=== PATIENT | female | born 1950 | race Caucasian/White ===

== ENCOUNTER 2018-03-25 02:40 | Outpatient (CLI) | payer OTHER, SELFPAY ==
[2018-03-25 09:38] LABS: FREE T4 1.26 ng/dL (0.76-1.46); TSH 0.16 uIU/mL (0.358-3.74)
== END 2018-03-25 03:00 ==
PROVIDERS: PCP Nurse Practitioner Family; Visit Provider Nurse Practitioner Family
DX: E03.9 Hypothyroidism, unspecified (principal)
CPT/HCPCS: 36415; 84439; 84443

== ENCOUNTER 2018-04-14 00:56 | Outpatient (CLI) | payer OTHER, SELFPAY ==
--- NOTE | 2018-04-14 08:30 | DI.MAMMO_ITS ---
SYMPTOM/DIAGNOSIS: SCREENING MAMMOGRAMS: Mammograms were interpreted according to the usual protocol including computer analysis with CAD system, tomosynthesis and C view imaging. Breast density, category B. No masses or microcalcifications are seen. There is nothing to suggest malignancy. IMPRESSION: Negative mammogram. Routine screening is recommended. Category 1B. MQSA ASSESSMENT OF FINDINGS: Negative. Category 1. Patient will receive a letter notifying them of these results. BI-RADS category B. There are scattered areas of fibroglandular density.
== END 2018-04-14 01:16 ==
PROVIDERS: PCP Nurse Practitioner Family; Visit Provider Nurse Practitioner Family
DX: Z12.31 Encounter for screening mammogram for malignant neoplasm of breast (principal)
CPT/HCPCS: 77063; 77067

== ENCOUNTER 2018-04-16 07:45 | Outpatient (CLI) | payer OTHER, SELFPAY ==
[2018-04-16 08:14] LABS: Abs Immature Grans 0.02 k/cumm (0.0-0.09); Absolute Basophil Count 0.05 k/cumm (0.0-0.2); Absolute Eosinophil Count 0.31 k/cumm (0.0-0.7); Absolute Lymphocyte Count 4.14 k/cumm (1.2-3.4); Absolute Monocyte Count 0.81 k/cumm (0.11-0.7); Absolute Neutrophil Count 4.91 k/cumm (1.2-6.7); Basophils % 0.5; HGB 14.7 g/dL (12.0-15.5); Immature Grans % 0.2; Lymphocytes % 40.4; Mean Corp. HGB Concentration 33.4 g/dL (32.0-36.0); Mean Corpuscular Hemoglobin 31.3 pg (27.0-33.0); Mean Corpuscular Volume 93.6 fL (80-95); Mean Platelet Volume 10.6 fL (8.0-11.0); Monocytes % 7.9; Platelet Count 267 x1000/uL (130-400); RBC Distribution Width 13.4 % (11.7-14.6); White Blood Cell Count 10.24 k/cumm (4.4-10.8)
[2018-04-16 09:03] LABS: Anion Gap 8.3 mmol/L (3-11); BUN 17 mg/dL (7-18); CO2 29.7 mmol/L (21.0-32.0); CREATININE 0.83 mg/dL (0.55-1.02); Chloride 103 mmol/L (98-107); Glucose 116 mg/dL (70-100); Potassium 3.8 mmol/L (3.5-5.1); Sodium 141 mmol/L (136-145)
== END 2018-04-16 08:05 ==
PROVIDERS: PCP Nurse Practitioner Family; Visit Provider Orthopaedic Surgery
DX: M25.561 Pain in right knee (principal); M17.11 Unilateral primary osteoarthritis, right knee; I10 Essential (primary) hypertension; E03.9 Hypothyroidism, unspecified; R73.01 Impaired fasting glucose; E78.5 Hyperlipidemia, unspecified; J44.9 Chronic obstructive pulmonary disease, unspecified; E11.9 Type 2 diabetes mellitus without complications; Z01.818 Encounter for other preprocedural examination
CPT/HCPCS: 36415; 80051; 82947; 84520; 82565; 85025; 93005; 93010

== ENCOUNTER 2018-04-21 05:54 | Inpatient (IN) | payer OTHER, MEDICARE, SELFPAY ==
--- NOTE | 2018-04-16 10:28 | HPE_ITS ---
Date of service: 04/16/18 Assessment and Plan (1) Right knee pain: Current visit: Yes Status: Chronic Plan: Reviewed pertinent anatomy and discussed surgical technique, recovery, benefits and risks including but not limited to infection, damage to soft tissues/nerves/blood vessels. After discussion of risks patient elects to proceed with surgery. Patient had opportunity to have all questions answered to her satisfaction. Patient and have concerns about her being updated on surgery and on being brought to the recovery room as soon as possible. Discussed realistic expectations about patient's being brought to recovery room i.e. dependent on the patients in recovery and patient status. Counseled patient and that we will attempt to ensure proper communication during surgery and when patient is brought to recovery room. Patient will contact office if any issues arise. She will continue with preoperative visits as scheduled. Patient will continue to be scheduled for right total knee replacement with Dr. Hopkins on 04/21/2018. Ms. Soto is a 68-year-old female who presents to clinic with her , Abdelrahman, for preoperative visit for right total knee replacement with Dr. Hopkins on April 21, 2018. Patient reports she had onset of right knee pain approximately 1 year ago. She reports she has continued to experience pain in an area identified as the medial joint line, she also experiences occasional clicking. Patient reports that pain radiates up her right thigh with certain activities. She also describes muscle weakness on the right side due to the pain. Pain is aggravated by weather, prolonged standing, walking and with stairs. Due to her level of pain her built her a ramp to enter their house to avoid using a set of four stairs. Since patient has started seeing Dr. Hopkins she has undergone a right knee arthroscopy as well as a partial medial meniscectomy for complex tear on April 24, 2017. Patient reports arthroscopy helped with a clicking sensation but she has continued to have medial joint pain. Following arthroscopy, patient did receive a Synvisc injection on June 09, 2017 when she reports provided pain relief for less than 2 weeks. She also received a Depo-Medrol injection on November 03, 2017 which she says provided pain relief for less than 1 week. Patient also reports regular use of Tylenol and using a topical spray for arthritis which has provided slight pain relief. Patient does have history of left total knee replacement in August 2016 which she reports went well, her only complaint after left total knee was continued numbness on the lateral aspect which she has been told is normal after knee replacements. Patient denies any recent injuries or falls. She denies a locking sensation of the knee, numbness or tingling. In the review of systems patient does report experiencing occasional bouts of chest pain. She reports that she has had this for the past several years and has seen her primary care provider several times for this complaint. She reports numerous EKGs have been taken which did not show signs of heart damage. Patient describes pain as a twinge that occurs on the left side of her chest and lasts a few minutes. Patient reports pain can occur when sitting or with activity i.e. light housework. She denies ever using nitroglycerin. Pain resolved within several minutes if patient just focuses on breathing and sits down. Patient denies radiation of pain to her neck, jaw line or arm. She also denies any diaphoresis or difficulty breathing when she experiences pain. She states the last episode was over 1 month ago. Pertinent Surgical Information Pertinent medical history for vitamin D deficiency, vitamin B12 deficiency, sleep disturbance, primary fibromyalgia syndrome, orthostatic hypotension, neck pain, chronic low back pain, impaired fasting glucose, hypothyroidism, hyperlipidemia, GERD with esophagitis? which is now resolved, fatigue, essential tremor, depressive disorder, complicated migraine Denies past medical history of: Hypertension, stroke, cardiac issues, asthma, COPD, sleep apnea, renal issues, liver issues, hepatitis, ulcers, bleeding disorders, seizures, anxiety, diabetes, autoimmune disorders Denies prior complications from surgery or anesthesia. Review of Systems Constitutional Denies fever(s), Denies frequent falls and Reports headache(s) Eyes Denies change in vision ENT Denies ear discharge, Reports headache(s), Denies epistaxis, Denies nasal congestion, Denies nasal discharge and Denies sore throat Cardiovascular Reports chest pain (See HPI), Denies rapid heart rate, Denies irregular heart rhythm, Denies dyspnea, Denies dyspnea on exertion and Denies slow heart rate Respiratory Denies dyspnea, Denies dyspnea on exertion and Denies wheezing Gastrointestinal Denies abdominal pain, Denies melena, Denies hematochezia, Denies constipation, Denies diarrhea, Denies nausea and Denies vomiting Genitourinary Denies hematuria, Denies dysuria and Denies urinary urgency Musculoskeletal Reports as per HPI, Reports limited range of motion, Denies muscle cramps, Reports muscle weakness, Reports numbness (Only reported numbness is lateral to left total knee incision; denies numbness of right lower extremity), Reports stiffness, Denies tingling and Reports other (Reports bilateral ankle edema which improves with elevation) Neurologic Denies frequent falls, Reports headache(s), Reports numbness (Only reported numbness is lateral to left total knee incision; denies numbness of right lower extremity) and Denies tingling Psychiatric Denies anxiety and Reports depression Allergic/Immunologic Denies wheezing PFSH Family History Mother Heart disease Thyroid dysfunction Type 2 diabetes mellitus Father Essential hypertension Heart disease Skin cancer Myocardial infarction Sister No problems noted. Brother Heart disease Brother No problems noted. Daughter Lupus Depression Asthma Daughter Migraine headache Social History household members: family marital status: current occupational status: retired pets and animals: Yes pets and animals: dog(s) frequency: 1-2 times per week duration: 15-30 minutes/day Smoking/Tobacco Use Status: Never alcohol intake: never substance use type: does not use jamar/mormon: No preference special jamar needs: No Surgical History Status post total left knee replacement (Acute) S/P hernia repair (Inactive) S/P laparoscopic cholecystectomy (Inactive) S/P left knee arthroscopy (Inactive) S/P right knee arthroscopy (Inactive) Meds Home Medications Medication Instructions Recorded Confirmed Type cholecalciferol (vitamin D3) 2 tab PO DAILY #200 tab-cap 12/11/12 04/16/18 History [id number] 1 ea PO DAILY 12/11/12 04/16/18 History [Women's 50+ Daily Formula Tab] cyanocobalamin (vitamin B-12) 1,000 mcg PO DAILY #100 tab-cap 12/30/12 04/16/18 History [B-12] Lactobacillus acidophilus 1 cap PO DAILY 01/16/14 04/16/18 History [Probiotic] magnesium oxide-Mg AA chelate 300 mg PO 3x/wk #40 tab-cap 11/11/14 04/16/18 History [Magnesium 300 Mg Capsule] omeprazole 20 mg PO BID #180 tab-cap 06/24/17 04/16/18 Rx gabapentin 800 mg PO BID #180 tab-cap 10/20/17 04/16/18 Rx simvastatin 20 mg PO HS #90 tab-cap 10/20/17 04/16/18 Rx venlafaxine [Effexor Xr] 150 mg PO HS #90 tab-cap 11/13/17 04/16/18 Rx levothyroxine 112 mcg tablet 112 mcg PO DAILY #90 tab 03/25/18 04/16/18 Rx Allergies Allergy/AdvReac Type Severity Reaction Status Date / Time NSAIDS (Non-Steroidal AdvReac Intermediate epigastric Unverified 04/16/18 09:42 Anti-Inflamma pain pregabalin [From Lyrica] AdvReac Intermediate depression; Unverified 04/16/18 09 :42 SI chloraprep Allergy Intermediate Skin Rash Uncoded 04/16/18 09:42 Exam Const General: cooperative and no acute distress HENUT Head: normal to inspection, normocephalic and atraumatic Ears: external ears normal General nose exam: external nose normal and no nasal discharge Face and sinus: face symmetric Mouth: oral mucosae normal, lip normal, tongue normal and moist mucous membranes Teeth and gingiva: dentition normal Throat: posterior oropharynx normal Eyes General: appearance normal, both eyes and all related structures Pupils: PERRL EOM: EOM intact bilaterally Neck Neck: trachea midline Carotids: normal carotid upstroke Lymphatic: no lymphadenopathy noted Resp Effort & Inspection: normal respiratory effort and able to speak in complete sentences Auscultation: clear to auscultation bilaterally, no rales, no rhonchi and no wheezes Cardio Heart Sounds: S1 normal, S2 normal, no murmurs, no rubs and no other Pulses: radial pulses present bilaterally GI Palpation: soft, no hepatosplenomegaly and nontender Auscultation: normal bowel sounds Skin General skin exam: no rashes or lesions noted Extrem Other: Right knee examination: Skin is intact without areas of erythema, edema, lesions or rashes. No signs of effusion are noted. Pain to palpation over the medial aspect of joint line, no pain to palpation over lateral aspect of joint or patella. Active range of motion is short of full extension by approximately 10 degrees and has flexion of 70 degrees with reported feelings of pain and stiffness at end range of motion. Passive range of motion yields full extension and flexion of 85 degrees with pain elicited at medial aspect of joint. Anastasia's test was attempted but was unable to be fully assessed due to patient guarding and reported extreme pain at medial aspect of knee, however no clicks were noted with partial attempt. Results Imaging Additional studies: As per the note from patient's primary care provider on September 30, 2016 workup of chest pain was completed and patient had a negative stress test. EKG: image reviewed (Sinus rhythm with left axis, regular rate of approximately 65 ) Imaging Studies: As per Dr. Hopkins's note x-ray reveals narrowed medial joint space especially compared to x-rays from 2013, however there is no [id number] articulation noted. Lateral view of the knee does not reveal osteophytes or loose bodies.
[2018-04-21] VITALS (18 sets, daily range): BP systolic 99–133; BP diastolic 42–72; PULSE 74–85; RESP 14–22; TEMP 36.4–37.2; O2SAT 91–96
[2018-04-21] MEDS: Lactated Ringers 1,000 ML 80 ML IV (06:56)
[2018-04-21] MEDS: Normal Saline Flush 10 ML SYR IV (06:57)
[2018-04-21] MEDS: Bupivacaine 0.25% Pres-Free 10 ML VIAL (07:20)
[2018-04-21] MEDS: Bupivacaine LIPOSOME/PF 133 MG/10 ML VIAL IJ (07:20)
[2018-04-21] MEDS: Hydrogen Peroxide 3% 480 ML BTL (09:08)
--- NOTE | 2018-04-21 11:26 | DI.RAD_ITS ---
SYMPTOMS/DIAGNOSIS: RIGHT TOTAL KNEE RIGHT KNEE: Comparison is 11/03/17. The patient is now status post right total knee replacement. The orthopedic hardware appears in good position. The bones are intact. The soft tissues are unremarkable. IMPRESSION: Status post right TKR.
--- NOTE | 2018-04-21 12:07 | ROE_ITS ---
REPORT OF OPERATIVE PROCEDURE DATE OF PROCEDURE April 21, 2018 PREOPERATIVE DIAGNOSIS Osteoarthritis medial compartment, right knee. POSTOPERATIVE DIAGNOSIS Osteoarthritis medial compartment, right knee. PROCEDURE Right total knee arthroplasty, cemented. SURGEON Rudy Hopkins M.D. LEAD DATA ARCHITECT Edith Smyth PA-C. ANESTHETIC Adductor canal block, followed by general endotracheal intubation Doug Pierce C.R.N.A. PREP Alcohol followed by Betadine solution. INDICATIONS This patient has had chronic right knee pain that has not responded to conservative treatment includi ng previous arthroscopic procedures, as well as Viscosupplementation and corticosteroids. X-rays show narrowing of the medial compartmental joint space, but no areas of [id number] articulation. Becaus e of chronic pain, I recommended total knee arthroplasty. The patient has undergone a successful left total knee arthroplasty approximately two years ago. The risks and benefits were discussed with the patient. I met her in the Day Surgery holding area, and marked her right knee. She understood and wis hed to proceed. DESCRIPTION OF PROCEDURE The patient underwent an adductor canal block and then was brought to the Operating Suite, where she underwent General anesthesia. This was done via endotracheal tube. She received prophylactic antibiot ic of 2 grams of Ancef. A Bustos catheter was inserted under sterile technique. The right lower extre mity was prepped first with an alcohol wash, followed by Betadine paint. This was because of allergie s to ChloraPrep. A pneumatic tourniquet was applied to the proximal thigh. Sterile drapes were applie d. The leg was elevated to exsanguinate it and the tourniquet was then inflated to [address] anterior approach for total knee arthroplasty was performed. A 7.5-inch incision was made equal di stance over the patella in the midline. The skin and subcutaneous tissues were incised and hemostasis was controlled by electrocautery. The incision was carried down through the subcutaneous fat and th en a medial parapatellar arthrotomy was performed. A moderate amount of joint fluid was encountered. The patella was everted and the knee was inspected. There was loss of articular cartilage of the dist al aspect of the medial femoral condyle. There was preserved cartilage on the lateral femoral condyle and patellofemoral joint. There was no evidence of any internal derangement of the knee. Using elba dard PFC instrumentation, the distal femur was prepared. An intramedullary guide lavon was placed throu gh a drill hole over the end of the supracondylar femur and up into the shaft. A 6-degree valgus jackson ing was then used to resect the distal femur. Because most of the wear was on the medial femoral cond yle, the resection removed 9 mm from the lateral femoral condyle and a lesser amount from the medial femoral condyle. Because the patient had size 2 PFC knee in her left knee, it was felt that this woul d be the obvious size for the right knee, this proved to be the case. Guides were used to size the fe mur and it was felt that a size 2 right posterior cruciate retaining femoral component would have the most appropriate fit. After the cuts were made, the trial component fit perfectly. Next, the posterior cruciate ligament was recessed. An external alignment jig was then used to resect the proximal tibia. Again, most of the wear from the joint was on the medial side and therefore a sl ightly wider resection was performed of the lateral tibial plateau compared to the medial side. A tri al reduction was performed and the stability of the knee appeared to be excellent. Again, a size 2 ro tating platform tibial component seemed to have the most appropriate fit. intramedullary instrumentat ion was used to create a channel in the proximal tibia for the rotating platform. Care was taken to do complete partial medial and lateral meniscectomy, the popliteus tendon was identified and protect ed. There were no loose bodies or posterior osteophytes that needed to be resected. The patella was m easured with a caliper and measured 21 millimeters. A combination of a cutting jig and freehand techn ique was used to resect the articular surface of the patella and a 32-mm tri-pronged patellar compone nt was felt to have the most appropriate fit. This restored the patella thickness to 20.5 millimeters . The components were cemented separately. The tibial tray was first cemented and as the Methylmetha crylate cured, a second batch was mixed to cement the femoral and patella components. Standard pressurization techniques were utilized to ensure good intrusion of the cement into the canc ellous bone. The bone was carefully cleansed with pulsatile jet irrigation and peroxide-soaked sponge s. Final trial reduction with a trial polyethylene insert was performed with both the 10-mm and the 12.5 -mm rotating platform components. The knee was felt to be stable with both components and I felt thien t with the addition of the posts, that the 10-mm component was most appropriate. This was selected a s the size for the joint. Final stability was excellent. There was no evidence of any mid flexion ins tability. The knee came out to complete extension. The patella tracked without any medially-directed pressure on it. There was no evidence of bearing spin-out. At this point, the final components were placed and then Betadine irrigation protocol was instituted. 17.5 cc of Betadine was placed and 500 cc of saline were placed in the knee over the course of 3 minutes. It was then removed and 1000 cc of sterile saline was placed in the knee and evacuated. Pulsatile jet lavage was used with this irrigat ion. The arthrotomy was closed with sutures of #1-Vicryl in a [id number] fashion. The quad tendo n portion of the closure was in two layers. The medial parapatellar arthrotomy was then over-sewn wit h the peritenon of the patellar tendon. Subcutaneous tissues were closed with #2-0 Vicryl. Tranexamic acid 3 grams and 100 cc of saline was placed into the joint with an #18-gauge spinal needle. The wou nd was closed with bindu after subcutaneous closure and the tourniquet was deflated. Hemostasis was under control. There was excellent return of circulation to the foot. The wounds were dressed with X eroform gauze, 4x4s, an ABD Pad, and 6-inch conforming gauze bandage, followed by two 6-inch Eddie wrap s, and a commercial Cryo/Cuff and a commercial knee immobilizer. She was taken to the Recovery Room in satisfactory condition. Blood loss was minimal.
[2018-04-21] MEDS: oxyCODONE 5 MG TAB PO (12:55)
--- NOTE | 2018-04-21 15:51 | PT.INIE ---
Date of service: 04/21/18 Time of Service: 15:46 PT Notes Date: 04/21/18 Referring Doctor: Rudy Hopkins PT Orders: PT Consult: right total knee arthroplasty. CPM and cryocuff protocols. Precautions: WBAT R LE, Fall Precautions, right knee immobilizer with out of bed activities Patient Profile/Admitting Diagnosis: Pt is a 68yr old female s/p right total knee arthroplasty by Dr. Hopkins 04/21/18 PMHX: chronic neck and back pain, left total knee arthroplasty 08/29/15, bilateral knee arthroscopy, essential tremor, depressive disorder, migraine headache, hiatal hernia, ventral hernia, laparoscopic cholecystectomy, fibromylagia, transient ischemic attack, vitamin D deficiency, vitamin B12 deficiency, hypothyroidism, hyperlipidemia, gastroesophageal reflux disease, esophagtitis Social History/Home Situation: Lives with in house, 4 steps with railing to enter, but now has a ramp to enter, no steps inside. Pt reports her baseline mobility is independent with no device, independent with ADLS Equipment owned/DME: [employer] SUBJECTIVE: Pt lying in bed, agreeable to PT Consult. OBJECTIVE General Observation: IV L UE, kern catheter, knee immobilizer R knee, michael wrap R knee Mental Status: A&Ox3 Pain: no c/o pain ROM: RUE: AROM WNL L UE: AROM WNL L LE: AROM WNL R LE: hip and ankle AROM WNL, knee NT STRENGTH: R UE: 5/5 throughout L UE: 5/5 throughout L LE: 5/5 throughout R LE: 3/5 hip flexion, 1/5 quad, 5/5 DF/PF BED MOBILITY/TRANSFERS: * knee immobilizer on for all transfers Supine-sit: HOB 35 degrees, SBA Sit-stand: CGA with FWW with cues to sequence Stand-sit: SBA Sit-supine: HOB flat, Bertin for LE's THEREX Pt issued TKR home exercise program and initiated ankle pumps, quad sets and glut sets 20x each. Pt reports she received pre-op packet prior to surgery GAIT: FWW, knee immobilizer, WBAT R LE. 4 steps forward and backward, 3 steps to the right with FWW. Pt returned to bed after session completed, immobilizer removed and CPM applied to R Knee 0-30degrees, cryocuff applied to right knee. BALANCE: Static sitting: normal Dynamic Sitting: normal Static Standing: fair Dynamic Standing: fair INFORMED CONSENT/EDUCATION: Pt instructed in purpose of PT Consult and plan of care and in agreement with plan. Instructed in use of CPM machine and parameters, instructed in use of knee immobilizer L LE and weight bearing as tolerated precautions with mobility. Pt verbalized understanding of call instructions. [facility] 6 clicks short form: raw score 18 standardized score 43.63 CMS score 46.58% CMS modifier: CK ASSESSMENT: Pt is a 68yr old female s/p right total knee arthroplasty by Dr. Hopkins 04/21/18 in setting of chronic neck and back pain, left total knee arthroplasty 08/29/15, bilateral knee arthroscopy, essential tremor, depressive disorder, migraine headache. Pt presents with the following impairment level findings: weakness right quad requiring use of knee immobilizer for all transfers to stabilize right knee, decreased strength with standing transfers, decreased strength and mobility with gait requiring FWW for stabiilty and knee immobilizer. Pt was able to sit at edge of bed and intiate gait training in the room this afternoon. Pt will benefit from skilled therapy intervnetion for post op TKA rehab, strengthening and progression of functional mobility. Anticipate return to home setting when goals met. Impairments based on the following [facility] CMS score 46.58% Pt is a MODERATE complexity [id number] history: see above examination: see above status: evolving [facility] CMS score 46.58% GOALS Goals x1 week 1.Supine-sit: HOB flat, independent 2.Sit-Supine: HOB flat,independent 3.Sit-Stand: supervision with FWW 4.Stand-sit: independent 5.Bed-chair: supervision with FWW 6.Chair-bed:supervision with FWW 7.Gait: SBA with FWW [id number], WBAT L LE 8. I with home exercise program for TKR PLAN OF CARE/TREATMENT PLAN: 1-2x/day, 7 days/ week x 1 week Plan of care has been reviewed with the MECHANICAL STRIPER providing the service under Physical therapy direction. Initiate physical therapy for range of motion left knee, strengthening, bed mobility, transfers, gait and balance training, instruction in TKR home program, use of knee immobilizer, CPM and weight bearing precautions. DISCHARGE RECOMMENDATIONS Home TREATMENT TIME/MINUTES/CODES 30 IE 1545 G Codes in the area of walking, mobility and moving around current status [id number], projected status [id number] with discharge status GP [id number] based in [facility] score CMS score 46.58% Marcia Turcios PT
[2018-04-21] MEDS: POTASSIUM CHLORIDE/D5-0.9%NACL 1,000 ML 100 MEQ IV (15:53)
--- NOTE | 2018-04-21 16:10 | IN_ITS ---
Date of service: 04/21/18 Time of Service: 15:46 PT Notes Date: 04/21/18 Referring Doctor: Rudy Hopkins PT Orders: PT Consult: right total knee arthroplasty. CPM and cryocuff protocols. Precautions: WBAT R LE, Fall Precautions, right knee immobilizer with out of bed activities Patient Profile/Admitting Diagnosis: Pt is a 68yr old female s/p right total knee arthroplasty by Dr. Hopkins 04/21/18 PMHX: chronic neck and back pain, left total knee arthroplasty 08/29/15, bilateral knee arthroscopy, essential tremor, depressive disorder, migraine headache, hiatal hernia, ventral hernia, laparoscopic cholecystectomy, fibromylagia, transient ischemic attack, vitamin D deficiency, vitamin B12 deficiency, hypothyroidism, hyperlipidemia, gastroesophageal reflux disease, esophagtitis Social History/Home Situation: Lives with in house, 4 steps with railing to enter, but now has a ramp to enter, no steps inside. Pt reports her baseline mobility is independent with no device, independent with ADLS Equipment owned/DME: 4WW SUBJECTIVE: Pt lying in bed, agreeable to PT Consult. OBJECTIVE General Observation: IV L UE, kern catheter, knee immobilizer R knee, michael wrap R knee Mental Status: A&Ox3 Pain: no c/o pain ROM: RUE: AROM WNL L UE: AROM WNL L LE: AROM WNL R LE: hip and ankle AROM WNL, knee NT STRENGTH: R UE: 5/5 throughout L UE: 5/5 throughout L LE: 5/5 throughout R LE: 3/5 hip flexion, 1/5 quad, 5/5 DF/PF BED MOBILITY/TRANSFERS: * knee immobilizer on for all transfers Supine-sit: HOB 35 degrees, SBA Sit-stand: CGA with FWW with cues to sequence Stand-sit: SBA Sit-supine: HOB flat, Bertin for LE's THEREX Pt issued TKR home exercise program and initiated ankle pumps, quad sets and glut sets 20x each. Pt reports she received pre-op packet prior to surgery GAIT: FWW, knee immobilizer, WBAT R LE. 4 steps forward and backward, 3 steps to the right with FWW. Pt returned to bed after session completed, immobilizer removed and CPM applied to R Knee 0-30degrees, cryocuff applied to right knee. BALANCE: Static sitting: normal Dynamic Sitting: normal Static Standing: fair Dynamic Standing: fair INFORMED CONSENT/EDUCATION: Pt instructed in purpose of PT Consult and plan of care and in agreement with plan. Instructed in use of CPM machine and parameters , instructed in use of knee immobilizer L LE and weight bearing as tolerated precautions with mobility. Pt verbalized understanding of call instructions. [facility] 6 clicks short form: raw score 18 standardized score 43.63 CMS score 46.58% CMS modifier : CK ASSESSMENT: Pt is a 68yr old female s/p right total knee arthroplasty by Dr. Hopkins 04/21/18 in setting of chronic neck and back pain, left total knee arthroplasty 08/29/15, bilateral knee arthroscopy, essential tremor, depressive disorder, migraine headache. Pt presents with the following impairment level findings: weakness right quad requiring use of knee immobilizer for all transfers to stabilize right knee, decreased strength with standing transfers, decreased strength and mobility with gait requiring FWW for stabiilty and knee immobilizer. Pt was able to sit at edge of bed and intiate gait training in the room this afternoon. Pt will benefit from skilled therapy intervnetion for post op TKA rehab, strengthening and progression of functional mobility. Anticipate return to home setting when goals met. Impairments based on the following [facility] CMS score 46.58% Pt is a MODERATE complexity [id number] history: see above examination: see above status: evolving [facility] CMS score 46.58% GOALS Goals x1 week 1.Supine-sit: HOB flat, independent 2.Sit-Supine: HOB flat,independent 3.Sit-Stand: supervision with FWW 4.Stand-sit: independent 5.Bed-chair: supervision with FWW 6.Chair-bed:supervision with FWW 7.Gait: SBA with FWW [id number], WBAT L LE 8. I with home exercise program for TKR PLAN OF CARE/TREATMENT PLAN: 1-2x/day, 7 days/ week x 1 week Plan of care has been reviewed with the NETWORK PROGRAMMER providing the service under Physical therapy direction. Initiate physical therapy for range of motion left knee, strengthening, bed mobility, transfers, gait and balance training, instruction in TKR home program , use of knee immobilizer, CPM and weight bearing precautions. DISCHARGE RECOMMENDATIONS Home TREATMENT TIME/MINUTES/CODES 30 IE 1545 G Codes in the area of walking, mobility and moving around current status [id number], projected status [id number] with discharge status GP [id number] based in [facility] score CMS score 46.58% Marcia Turcios PT
--- NOTE | 2018-04-21 16:38 | NUR.NOTE ---
pt admitted to room 225 MS via stretcher. Pt alert and oriented x 3. hr reg, ls diminished bilat posteriorly. LSCTA anteriorly. Positive pp, positive cmst ble. rle michael wrap, and knee immobilizer in place. Bustos in place draining light sonido clear urine. Pt states pain under control at this time. vss. iv in l hand patent, asymptomatic.
[2018-04-21] MEDS: Gabapentin 400 MG CAP 800 MG PO (19:50)
[2018-04-21] MEDS: Simvastatin 20 MG TAB PO (19:50)
[2018-04-21] MEDS: Venlafaxine 150 MG CAPCR PO (21:57)
[2018-04-22] MEDS: POTASSIUM CHLORIDE/D5-0.9%NACL 1,000 ML 100 MEQ IV (01:28)
[2018-04-22] MEDS: oxyCODONE 5 MG TAB PO ×5 (02:04→22:19)
[2018-04-22 03:55] VITALS: BP 121/72; PULSE 68; RESP 17; TEMP 37.4; O2SAT 97
[2018-04-22] MEDS: Levothyroxine 112 MCG TAB PO (05:35)
[2018-04-22 07:28] LABS: HCT 38.2 % (36.0-46.0); HGB 12.4 g/dL (12.0-15.5); Mean Corp. HGB Concentration 32.5 g/dL (32.0-36.0); Mean Corpuscular Volume 95.5 fL (80-95); Mean Platelet Volume 10.8 fL (8.0-11.0); Platelet Count 212 x1000/uL (130-400); RBC Distribution Width 13.1 % (11.7-14.6); White Blood Cell Count 10.53 k/cumm (4.4-10.8)
[2018-04-22] MEDS: Gabapentin 400 MG CAP 800 MG PO ×2 (07:43→20:21)
[2018-04-22] MEDS: Enoxaparin 30 MG/0.3 ML SYR SC ×2 (07:44→20:16)
[2018-04-22] MEDS: Pantoprazole 40 MG TABCR PO (07:44)
[2018-04-22] MEDS: Docusate Sodium 100 MG CAP PO (07:44)
[2018-04-22] MEDS: Magnesium Oxide 400 MG TAB PO (07:44)
[2018-04-22] MEDS: Multivitamin w/Minerals TAB 1 TAB PO (07:44)
[2018-04-22 07:45] LABS: Anion Gap 6.6 mmol/L (3-11); BUN 9 mg/dL (7-18); CO2 30.4 mmol/L (21.0-32.0); CREATININE 0.69 mg/dL (0.55-1.02); Calcium 8.4 mg/dL (8.5-10.1); Chloride 103 mmol/L (98-107); Glucose 121 mg/dL (70-100); Potassium 3.6 mmol/L (3.5-5.1); Sodium 140 mmol/L (136-145)
[2018-04-22 08:00] VITALS: BP 114/65; PULSE 65; RESP 18; TEMP 37.2; O2SAT 96
--- NOTE | 2018-04-22 09:58 | W.PM.PROGNOT ---
Assessment and Plan (1) Right knee pain: Current visit: No Status: Chronic s/p right total knee arthroplasty. Patient doing well. Continue kern 24 more hours. Surgical findings reviewed. Subjective Patient reports: no new complaints Exam Extrem Other: No neurovascular deficits over right lower extremity. Pain under control Objective Objective Clinical Data: Abnormal lab results 04/22/18 04/22/18 Range/Units 06:35 06:35 MCV 95.5 H (80-95) fL Glucose 121 H (70-100) mg/dL Calcium 8.4 L (8.5-10.1) mg/dL Vital Signs Temperature 99.3 F 04/22/18 03:55 Temperature Source Tympanic 04/22/18 03:55 Pulse 68 04/22/18 03:55 Pulse Rhythm Regular 04/22/18 07:50 Respiratory Rate 17 04/22/18 03:55 Respiratory Effort Non-Labored 04/22/18 07:50 Respiratory Depth Normal 04/22/18 07:50 Respiratory Pattern Normal 04/22/18 07:50 Blood Pressure 121/72 04/22/18 03:55 Pulse Oximetry 97 04/22/18 03:55 Respiratory End-tidal CO2 35 04/21/18 11:55 Oxygen Delivery Method Nasal Cannula 04/22/18 03:55 Oxygen Flow Rate 2 04/22/18 03:55 Pain Level 5 04/22/18 07:44 Intake & Output 04/21/18 04/21/18 04/22/18 11:59 23:59 11:59 Intake Total 500 / 500 1750 / 1750 1648.333 / 1648.333 Output Total 100 / 100 1025 / 1025 2900 / 2900 Balance 400 / 400 725 / 725 -1251.667 / -1251.667 Weight 159 lb 11.21 oz Intake: IV 500 / 500 600 / 600 1008.333 / 1008.333 Oral 1150 / 1150 640 / 640 Output: Urine 100 / 100 1025 / 1025 2900 / 2900 Other: Urine Color Yellow Light Elida Yellow Urine Appearance Clear Clear Clear Emesis Description None None Laboratory Results WBC 10.53 k/cumm (4.4-10.8) 04/22/18 06:35 RBC 4.00 m/cumm (4.00-5.20) 04/22/18 06:35 Hgb 12.4 g/dL (12.0-15.5) 04/22/18 06:35 Hct 38.2 % (36.0-46.0) 04/22/18 06:35 MCV 95.5 fL (80-95) H 04/22/18 06:35 MCH 31.0 pg (27.0-33.0) 04/22/18 06:35 MCHC 32.5 g/dL (32.0-36.0) 04/22/18 06:35 RDW 13.1 % (11.7-14.6) 04/22/18 06:35 Plt Count 212 x1000/uL (130-400) 04/22/18 06:35 MPV 10.8 fL (8.0-11.0) 04/22/18 06:35 Sodium 140 mmol/L (136-145) 04/22/18 06:35 Potassium 3.6 mmol/L (3.5-5.1) 04/22/18 06:35 Chloride 103 mmol/L (98-107) 04/22/18 06:35 Carbon Dioxide 30.4 mmol/L (21.0-32.0) 04/22/18 06:35 Anion Gap 6.6 mmol/L (3-11) 04/22/18 06:35 BUN 9 mg/dL (7-18) 04/22/18 06:35 Creatinine 0.69 mg/dL (0.55-1.02) 04/22/18 06:35 Estimated GFR/1.73 m2 >= 60.00 (mL/min/1.73m2) 04/22/18 06:35 Glucose 121 mg/dL (70-100) H 04/22/18 06:35 Calcium 8.4 mg/dL (8.5-10.1) L 04/22/18 06:35
--- NOTE | 2018-04-22 10:00 | PT.INTREAT ---
Date of service: 04/22/18 Time of Service: 10:00 PT Notes Inpatient Physical Therapy Treatment Note Date: 04/22/18 PRECAUTIONS: WBAT on R SUBJECTIVE: Celeste states that she has been doing her exercises independently. OBJECTIVE: PAIN: Patient complains of soreness in R knee with weight bearing BED MOBILITY/TRANSFERS Supine-sit: I with HOB flat Sit-stand: SBA Stand-sit: SBA GAIT Assistive Device: FWW Weight bearing: WBAT on R Assist: SBA Distance: 40' Deviation: Instruction in step through gait pattern THEREX: Patient completed a lower extremity stabilization and strengthening program, as per flow sheet. Patient required minimal assist with SLR exercise. Ended session with cryocuff to R knee. ASSESSMENT: Patient tolerated session well with minimal complaints of pain in R knee. Patient was able to demonstrate independent supine to sit transfer with HOB flat. Patient was able to tolerate a progression in her gait training with FWW support, utilizing step through pattern following instruction. Patient was also able to tolerate a progression in her ther ex program, although needs minimal assist for SLR exercise. Patient would benefit from continued gait and transfer training as well as strengthening to improve ability to perform daily functional tasks. PLAN: Continue with PTs POC TREATMENT CODE/TIME: 30 minutes; TA/TP
[2018-04-22 10:39] VITALS: O2SAT 96
[2018-04-22 11:20] VITALS: TEMP 37.9
[2018-04-22] MEDS: Acetaminophen 325 MG TAB 650 MG PO ×3 (11:20→22:19)
[2018-04-22 11:21] VITALS: BP 118/68; PULSE 84; RESP 17; TEMP 37.9; O2SAT 94
[2018-04-22] MEDS: POTASSIUM CHLORIDE/D5-0.9%NACL 1,000 ML 30 MEQ IV (11:21)
--- NOTE | 2018-04-22 12:01 | PHARADMIT ---
Addendum entered by Brennen Childress III 04/23/18 10:39: Pharmacy Note Subjective MD reports patient OK Objective VS-OK Pain:2/ Labs-GOOD, No BM Assessment On Lovenox Plan Possible discharge tomorrow. Original Note: Admission Pharmacy Clinical Review TKR Code Status Full Code Current Weight 72.439 kg Renally Cleared and Narrow Therapeutic Index Meds CrCl~48ml/min QTc Value / Action Taken BP Control, Fever BP 118/68 Temp 37.9 Pain 7/10 Electrolytes reviewed lytes ok, IVF's with KCL DVT Prophylaxis Lovenox 30mg Q12h Opiate Usage / Scheduled Bowel Regimen Ordered yes/yes Plt/SCr for Heparin / Enoxaparin Plt 212 SCr 0.69 INR for Warfarin H/H stable, WBC/Bands H/H 12.4/38.2 WBC 10.53 Antibiotic appropriateness Cultures and Sensitivities Surgical ABX d/c within 24 hr cefazolin x 4 doses post-op DM control / Insulin Dosing BG 121 Heart Failure (Check EF%) (DEVAUGHN's, B-Block, Diuretics) IV to PO Switch Home Meds Reviewed Home Meds Not Ordered Vit D3, B12, Lactobacilis, Omeprazole (has Protonix) Garoien Comments
--- NOTE | 2018-04-22 12:42 | PDOC.CMIN ---
- If Service Date Differs Date of service: 04/22/18 Time of Service: 12:42 Care Management Initial Assess REASON FOR HOSPITALIZATION:: (R) total knee arthroplasty PAST MEDICAL HISTORY/PAST SURGICAL HISTORY:: prediabetes, (R) knee pain, Vitamin D Deficiency, Vitamin B12 deficiency, Sleep disturbance, Osteoarthritis (L) Knee, (L) TKR, Fibromyalgia, Orthostatic hypotension, Neck pain, Low back pain, Hypothyroidism, Hyperlipidemia, GERD, Fatigue, Essential tremor, Depressive disorder, Complicated migraine PREVIOUS FUNCTIONAL STATUS/SOCIAL/FAMILY SUPPORTS:: Celeste resides with her Abdelrahman in [place]. She has two daughters whom are local and supportive. 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 Celeste's Abdelrahman assists with transportation. She is independent at baseline. CURRENT FUNCTIONAL STATUS:: Currently Celeste is sitting up in the recliner when this hand sign writer visits. She is pleasant and open to discussion. Celeste states that her leg aches, though she feels as though the pain is much better managed than her previous knee surgery. ADVANCE DIRECTIVES:: None on file Has patient been provided with information about the portal?: Yes Did the patient sign up for the portal?: No CODE STATUS:: Full Code INSURANCE COVERAGE / FINANCIAL ISSUES:: [employer] [facility] CURRENT HOME/COMMUNITY SERVICES/EQUIPMENT:: Currently Celeste has a 4WW at home. She has no other services. PRIMARY CARE PHYSICIAN:: Tiarra Hoover POTENTIAL DISCHARGE NEEDS:: F/U appointment with Dr. Hopkins. PT - Would like outpatient PT through [facility] PATIENT/FAMILY EDUCATION NEEDS:: Review DC instructions, any limitations, and ongoing DC planning discussion. Discuss Ask Me Three ANTICIPATED BARRIERS TO DISCHARGE:: None identified at this time. TRANSPORTATION:: Via private vehicle with family PLAN:: Celeste will return home with F/U with Dr. Hopkins, as well as Outpatient PT through [facility] at time of DC. Celeste's family will transport her when ready.
--- NOTE | 2018-04-22 12:53 | INITIAL_ITS ---
- If Service Date Differs Date of service: 04/22/18 Time of Service: 12:42 Care Management Initial Assess REASON FOR HOSPITALIZATION:: (R) total knee arthroplasty PAST MEDICAL HISTORY/PAST SURGICAL HISTORY:: prediabetes, (R) knee pain, Vitamin D Deficiency, Vitamin B12 deficiency, Sleep disturbance, Osteoarthritis (L) Knee, (L) TKR, Fibromyalgia, Orthostatic hypotension, Neck pain, Low back pain, Hypothyroidism, Hyperlipidemia, GERD, Fatigue, Essential tremor, Depressive disorder, Complicated migraine PREVIOUS FUNCTIONAL STATUS/SOCIAL/FAMILY SUPPORTS:: Celeste resides with her Abdelrahman in [place]. She has two daughters whom are local and supportive. 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 Celeste's Abdelrahman assists with transportation. She is independent at baseline. CURRENT FUNCTIONAL STATUS:: Currently Celeste is sitting up in the recliner when this telegraphic typewriter installer visits. She is pleasant and open to discussion. Celeste states that her leg aches, though she feels as though the pain is much better managed than her previous knee surgery. ADVANCE DIRECTIVES:: None on file Has patient been provided with information about the portal?: Yes Did the patient sign up for the portal?: No CODE STATUS:: Full Code INSURANCE COVERAGE / FINANCIAL ISSUES:: [employer] [facility] CURRENT HOME/COMMUNITY SERVICES/EQUIPMENT:: Currently Celeste has a 4WW at home. She has no other services. PRIMARY CARE PHYSICIAN:: Tiarra Hoover POTENTIAL DISCHARGE NEEDS:: F/U appointment with Dr. Hopkins. PT - Would like outpatient PT through [facility] PATIENT/FAMILY EDUCATION NEEDS:: Review DC instructions, any limitations, and ongoing DC planning discussion. Discuss Ask Me Three ANTICIPATED BARRIERS TO DISCHARGE:: None identified at this time. TRANSPORTATION:: Via private vehicle with family PLAN:: Cleeste will return home with F/U with Dr. Hopkins, as well as Outpatient PT through [facility] at time of DC. Celeste's family will transport her when ready.
--- NOTE | 2018-04-22 13:56 | PT.INTREAT ---
Date of service: 04/22/18 Time of Service: 13:56 PT Notes Inpatient Physical Therapy Treatment Note Date: [id number] PRECAUTIONS:WBAT R LE SUBJECTIVE: Pt reports that she gets light headed at times and that he normal for her. OBJECTIVE: PAIN: [] BED MOBILITY/TRANSFERS Sit-supine: CGAx1 Sit-stand: CGAx1. Pt did get slight LOB when standing and required min assist to regain. Stand-sit: CGAx1 GAIT Assistive Device: FWW Weight bearing: WBAT R LE Assist: CGAx1 Distance: 40ft VITALS: oxygen 90% THEREX: Pt completed LE strengthening as per flow sheet. ASSESSMENT: Pt was motivated for PT today. When pt got back from walking she did feel light headed. Pt lied down and completed her LE strengthening and then the light headedness resolved. PLAN: Cont as per PT POC. TREATMENT CODE/TIME: 1:10-1:35 (25) TA TTP
[2018-04-22 19:45] VITALS: BP 107/62; PULSE 70; RESP 12; TEMP 36.3
[2018-04-22] MEDS: Simvastatin 20 MG TAB PO (20:16)
[2018-04-22] MEDS: Venlafaxine 150 MG CAPCR PO (21:57)
[2018-04-23] VITALS (12 sets, daily range): BP systolic 111–136; BP diastolic 59–79; PULSE 70–82; RESP 15–22; TEMP 36.2–38.4; O2SAT 87–96
[2018-04-23] MEDS: Levothyroxine 112 MCG TAB PO (05:56)
[2018-04-23 07:21] LABS: HCT 40.4 % (36.0-46.0); HGB 13.1 g/dL (12.0-15.5); Mean Corp. HGB Concentration 32.4 g/dL (32.0-36.0); Mean Corpuscular Hemoglobin 31.1 pg (27.0-33.0); Mean Platelet Volume 10.7 fL (8.0-11.0); Platelet Count 208 x1000/uL (130-400); RBC 4.21 m/cumm (4.00-5.20); RBC Distribution Width 13.5 % (11.7-14.6); White Blood Cell Count 10.01 k/cumm (4.4-10.8)
[2018-04-23 07:33] LABS: Anion Gap 6.3 mmol/L (3-11); BUN 8 mg/dL (7-18); CO2 31.7 mmol/L (21.0-32.0); CREATININE 0.68 mg/dL (0.55-1.02); Calcium 8.7 mg/dL (8.5-10.1); Chloride 103 mmol/L (98-107); Glucose 119 mg/dL (70-100); Potassium 3.6 mmol/L (3.5-5.1); Sodium 141 mmol/L (136-145)
[2018-04-23] MEDS: Pantoprazole 40 MG TABCR PO (07:41)
[2018-04-23] MEDS: Enoxaparin 30 MG/0.3 ML SYR SC ×2 (07:41→19:09)
[2018-04-23] MEDS: Magnesium Oxide 400 MG TAB PO (07:41)
[2018-04-23] MEDS: Multivitamin w/Minerals TAB 1 TAB PO (07:41)
[2018-04-23] MEDS: Docusate Sodium 100 MG CAP PO ×3 (07:41→19:09)
[2018-04-23] MEDS: Gabapentin 400 MG CAP 800 MG PO ×2 (07:41→19:09)
[2018-04-23] MEDS: oxyCODONE 5 MG TAB PO (07:42)
[2018-04-23] MEDS: Acetaminophen 325 MG TAB 650 MG PO ×3 (07:42→19:18)
--- NOTE | 2018-04-23 08:24 | W.PM.PROGNOT ---
Assessment and Plan (1) Right knee pain: Current visit: No Status: Chronic Status post right total knee arthroplasty. No apparent surgical complications with normal electrolytes as well as CBC. We will continue Lovenox DVT prophylaxis. Possible discharge home tomorrow. Patient and her who are present in the room today agree Subjective Patient reports: no new complaints Interval history since last seen: Patient feeling well slept very well last night. Exam Extrem Other: Right knee wound has a benign appearance no drainage is noted. There is no sign of infection or cellulitis. New sterile bandage applied. Patient will be allowed to shower later on this afternoon Objective Objective Clinical Data: Abnormal lab results 04/23/18 04/23/18 Range/Units 06:27 06:27 MCV 96.0 H (80-95) fL Glucose 119 H (70-100) mg/dL Vital Signs Temperature 98.8 F 04/23/18 07:35 Temperature Source Tympanic 04/23/18 07:35 Pulse 74 04/23/18 07:35 Pulse Rhythm Regular 04/23/18 07:52 Respiratory Rate 20 04/23/18 07:35 Respiratory Effort Non-Labored 04/23/18 07:52 Respiratory Depth Normal 04/23/18 07:52 Respiratory Pattern Normal 04/23/18 07:52 Blood Pressure 136/79 04/23/18 07:35 Pulse Oximetry 95 04/23/18 07:35 Respiratory End-tidal CO2 35 04/21/18 11:55 Oxygen Delivery Method Nasal Cannula 04/23/18 07:35 Oxygen Flow Rate 2 04/23/18 07:35 Pain Level 2 04/23/18 07:42 Intake & Output 04/22/18 04/22/18 04/23/18 11:59 23:59 11:59 Intake Total 2820.500 / 2820.500 590 / 590 300 / 300 Output Total 4200 / 4200 2800 / 2800 1450 / 1450 Balance -1379.500 / -1379.500 -2210 / -2210 -1150 / -1150 Intake: IV 1940.500 / 1940.500 50 / 50 Oral 880 / 880 540 / 540 300 / 300 Output: Urine 4200 / 4200 2800 / 2800 1450 / 1450 Other: Urine Color Pale Yellow Yellow Yellow Urine Appearance Clear Clear Clear Laboratory Results WBC 10.01 k/cumm (4.4-10.8) 04/23/18 06:27 RBC 4.21 m/cumm (4.00-5.20) 04/23/18 06:27 Hgb 13.1 g/dL (12.0-15.5) 04/23/18 06:27 Hct 40.4 % (36.0-46.0) 04/23/18 06: MCV 96.0 fL (80-95) H 04/23/18 06: MCH 31.1 pg (27.0-33.0) 04/23/18 06: MCHC 32.4 g/dL (32.0-36.0) 04/23/18: RDW 13.5 % (11.7-14.6) 04/23/18 06:27 Plt Count 208 x1000/uL (130-400) 04/23/18 06: MPV 10.7 fL (8.0-11.0) 04/23/18 06:27 Sodium 141 mmol/L (136-145) 04/23/18 06:27 Potassium 3.6 mmol/L (3.5-5.1) 04/23/18 06:27 Chloride 103 mmol/L (98-107) 04/23/18 06:27 Carbon Dioxide 31.7 mmol/L (21.0-32.0) 04/23/18 06:27 Anion Gap 6.3 mmol/L (3-11) 04/23/18 06:27 BUN 8 mg/dL (7-18) 04/23/18 06:27 Creatinine 0.68 mg/dL (0.55-1.02) 04/23/18 06: Estimated GFR/1.73 m2 >= 60.00 (mL/min/1.73m2) 04/23/18 06:27 Glucose 119 mg/dL (70-100) H 04/23/18 06:27 Calcium 8.7 mg/dL (8.5-10.1) 04/23/18 06:27
--- NOTE | 2018-04-23 09:06 | PT.INTREAT ---
Date of service: 04/23/18 Time of Service: 09:06 PT Notes Inpatient Physical Therapy Treatment Note Date: 04/23/18 PRECAUTIONS: WBAT on R SUBJECTIVE: Celeste states that she feels that she will be ready for discharge at any time. OBJECTIVE: PAIN: No complaints of pain BED MOBILITY/TRANSFERS Supine-sit: SBA with HOB at 20 degrees Sit-stand: SBA Stand-sit: SBA Bed-Chair: SBA GAIT Assistive Device: FWW Weight bearing: WBAT on R Assist: SBA Distance: 10' THEREX: Patient completed a lower extremity strengthening and stabilization program, as per flow sheet. ASSESSMENT: Patient was a little stiff this morning, which limited her ability to perform transfers at a more independent level. Patient would benefit from continued strengthening as well as gait and transfer training to improve functional mobility as well as ability to perform these functional tasks at a more independent level. PLAN: Continue with PTs POC TREATMENT CODE/TIME: 25 minutes; TA/TP
--- NOTE | 2018-04-23 10:35 | PDOC.CMPRO ---
- If Service Date Differs Date of service: 04/23/18 Time of Service: 10:35 Care Management Progress Note S/O: Celeste is sitting up in her chair when this travel writer visits this morning. Her Abdelrahman is present and receptive to discussion as well. Celeste states that she is interested in a w/c at time of DC. CM spoke with [facility] in regards to W/C qualification, as Celeste is able to bear weight, perform ADL's and is able to move without a w/c she would not qualify for her insurance to cover a w/c. IGGY did discuss this with Celeste and her and notified that they could either rent or buy a w/c privately through [employer] or [employer]. Abdelrahman states that he will go through the [place], I have connections, and I will get a w/c. A: 68 y/o female admitted 04/21/18 for (R) total knee arthroplasty P: Celeste will return home once medically cleared. She will F/U with Dr. Hopkins and plan of care as prescribed. Celeste has identified that she would like to have outpatient PT through [facility] upon DC. Celeste's Abdelrahman will transport when ready.
--- NOTE | 2018-04-23 10:47 | CMPROGNOTE_ITS ---
- If Service Date Differs Date of service: 04/23/18 Time of Service: 10:35 Care Management Progress Note S/O: Celeste is sitting up in her chair when this chief underwriter visits this morning. Her Abdelrahman is present and receptive to discussion as well. Celeste states that she is interested in a w/c at time of DC. CM spoke with [facility] in regards to W/C qualification, as Celeste is able to bear weight, perform ADL's and is able to move without a w/c she would not qualify for her insurance to cover a w/ c. IGGY did discuss this with Celeste and her and notified that they could either rent or buy a w/c privately through [employer] or [employer]. Abdelrahman states that he will go through the [place], I have connections, and I will get a w/c. A: 68 y/o female admitted 04/21/18 for (R) total knee arthroplasty P: Celeste will return home once medically cleared. She will F/U with Dr. Hopkins and plan of care as prescribed. Celeste has identified that she would like to have outpatient PT through [facility] upon DC. Celeste's Abdelrahman will transport when ready.
--- NOTE | 2018-04-23 13:01 | PT.INTREAT ---
Date of service: 04/23/18 Time of Service: 13:01 PT Notes Inpatient Physical Therapy Treatment Note Date of: 04/23/18 PRECAUTIONS: WBAT on R SUBJECTIVE: Celeste states that she is a little bit lightheaded when she is standing up. OBJECTIVE: PAIN: Patient complained of pain in R knee with ther ex and active flexion. BED MOBILITY/TRANSFERS Rolling L/R: [] Supine-sit: [] Sit-supine: [] Sit-stand: S Stand-sit: S Bed-Chair: [] Chair-bed: [] GAIT Assistive Device: FWW Weight bearing: WBAT on R Assist: SBA Distance: 15' x2 Deviation: Lightheaded VITALS: [] THEREX: Patient completed a lower extremity strengthening and stabilization program, as per flow sheet. Patient's AROM is measured to be 12-80 degrees. STAIRS:[] ASSESSMENT: Patient appeared limited due to lightheadedness. Patient would benefit from continued gait and transfer training as well as strengthening for improved ability to perform these functional tasks at a more independent level. PLAN: Continue with PTs POC TREATMENT CODE/TIME: 25 minutes; TA/TP
[2018-04-23] MEDS: Milk of Magnesia 30 ML CUP PO (19:08)
[2018-04-23] MEDS: Simvastatin 20 MG TAB PO (19:09)
[2018-04-23] MEDS: Venlafaxine 150 MG CAPCR PO (19:20)
[2018-04-24 00:24] VITALS: BP 126/74; PULSE 75; RESP 20; TEMP 37.3; O2SAT 95
[2018-04-24 03:40] VITALS: BP 126/76; PULSE 72; RESP 18; TEMP 36.9; O2SAT 95
[2018-04-24] MEDS: Acetaminophen 325 MG TAB 650 MG PO (06:17)
[2018-04-24] MEDS: Levothyroxine 112 MCG TAB PO (06:17)
[2018-04-24 07:35] VITALS: BP 121/74; PULSE 78; RESP 18; TEMP 36.1; O2SAT 95
[2018-04-24] MEDS: Enoxaparin 30 MG/0.3 ML SYR SC (07:46)
[2018-04-24] MEDS: Pantoprazole 40 MG TABCR PO (07:47)
[2018-04-24] MEDS: Magnesium Oxide 400 MG TAB PO (07:47)
[2018-04-24] MEDS: Gabapentin 400 MG CAP 800 MG PO (07:47)
[2018-04-24] MEDS: Multivitamin w/Minerals TAB 1 TAB PO (07:47)
--- NOTE | 2018-04-24 08:06 | W.PM.DS.N ---
DS: Diagnosis Discharge Diagnosis (1) Right knee pain: Status: Chronic Discharge Plan Discharge Details Reason For Visit: RIGHT TOTAL KNEE ARTHROPLASTY Admit Date/Time: 04/21/18 05:54 Admit Provider: Rudy Hopkins Attending Provider: Rudy Hopkins Primary Care Provider: Tiarra Hoover Home Meds and New Rx's Prescriptions: No Action cholecalciferol (vitamin D3) 1,000 UNIT tablet 2 tab PO DAILY Qty: 200 RF: 4 gcyatfplhcfd-rdh-MA-ginkgo [Women's 50+ Daily Form (gkb)] 1 EACH tablet 1 ea PO DAILY RF: 0 cyanocobalamin (vitamin B-12) [Vitamin B-12] 1,000 MCG tablet extended release 1,000 mcg PO DAILY Qty: 100 RF: 4 magnesium oxide-Mg AA chelate [Magnesium (oxide/AA chelate)] 300 MG capsule 300 mg PO 3x/wk Qty: 40 RF: 3 omeprazole 20 MG capsule,delayed release(DR/EC) 20 mg PO BID Qty: 180 RF: 4 gabapentin 800 MG tablet 800 mg PO BID Qty: 180 RF: 5 simvastatin 20 MG tablet 20 mg PO HS Qty: 90 RF: 4 venlafaxine [Effexor XR] 150 MG capsule,extended release 24hr 150 mg PO HS Qty: 90 RF: 4 levothyroxine [Levo-T] 112 mcg tablet 112 mcg PO DAILY Qty: 90 RF: 0 Lactobacillus acidophilus [Probiotic] 1 EACH capsule 1 cap PO DAILY RF: 0 Discharge Instructions Stand Alone Forms: Nursing Discharge Form Referrals: Fátima Smyth PA [PHYSICIANS POLICY SERVICE COORDINATOR] - 05/03/18 1:30 pm Exam Const General: healthy appearing Other: No complaints of chest pain pressure or shortness of breath patient is ready to go home. DS: Data Vitals/I&O Vitals and I&O: Vital Signs Temperature 98.4 F 04/24/18 03:40 Temperature Source Skin 04/24/18 03:40 Pulse 72 04/24/18 03:40 Pulse Rhythm Regular 04/24/18 02:00 Respiratory Rate 18 04/24/18 03:40 Respiratory Effort Non-Labored 04/24/18 02:00 Respiratory Depth Normal 04/24/18 02:00 Respiratory Pattern Normal 04/24/18 02:00 Blood Pressure 126/76 04/24/18 03:40 Pulse Oximetry 95 04/24/18 03:40 Respiratory End-tidal CO2 35 04/21/18 11:55 Oxygen Delivery Method Room Air 04/24/18 03:40 Oxygen Flow Rate 0 04/24/18 03:40 Pain Level 2 04/24/18 06:17 Comment 04/23/18 16:02 Intake & Output 04/23/18 04/23/18 04/24/18 11:59 23:59 11:59 Intake Total 1544.5 / 1544.5 490 / 490 750 / 750 Output Total 1550 / 1550 1400 / 1400 1150 / 1150 Balance -5.5 / -5.5 -910 / -910 -400 / -400 Intake: IV 624.5 / 624.5 Oral 920 / 920 490 / 490 750 / 750 Output: Urine 1550 / 1550 1400 / 1400 1150 / 1150 Other: Urine Color Yellow Yellow Yellow Urine Appearance Clear Clear Clear Urine Odor Normal Normal Normal Stool Size Moderate Stool Characteristics Soft Formed Brown Voiding Methods Toilet Toilet
--- NOTE | 2018-04-24 08:08 | W.PM.DS.N ---
DS: Diagnosis Discharge Diagnosis (1) Right knee pain: Status: Chronic Discharge Plan Disposition Patient Disposition: HOME Condition: Improving Discharge Details Reason For Visit: RIGHT TOTAL KNEE ARTHROPLASTY Admit Date/Time: 04/21/18 05:54 Admit Provider: Rudy Hopkins Attending Provider: Rudy Hopkins [facility] Hospital Course: Patient's postoperative course was unremarkable she was maintained on prophylactic intravenous antibiotics for 24 hours her Bustos catheter was removed at 48 hours and she had no signs of urinary tract infection she made rapid progress with PT secondary to the femoral nerve block she was maintained on Lovenox prophylaxis 30 mg subcu twice daily beginning 24 hours after surgery Home Meds and New Rx's Prescriptions: No Action cholecalciferol (vitamin D3) 1,000 UNIT tablet 2 tab PO DAILY Qty: 200 RF: 4 butksksxmipn-yse-VS-ginkgo [Women's 50+ Daily Form (gkb)] 1 EACH tablet 1 ea PO DAILY RF: 0 cyanocobalamin (vitamin B-12) [Vitamin B-12] 1,000 MCG tablet extended release 1,000 mcg PO DAILY Qty: 100 RF: 4 magnesium oxide-Mg AA chelate [Magnesium (oxide/AA chelate)] 300 MG capsule 300 mg PO 3x/wk Qty: 40 RF: 3 omeprazole 20 MG capsule,delayed release(DR/EC) 20 mg PO BID Qty: 180 RF: 4 gabapentin 800 MG tablet 800 mg PO BID Qty: 180 RF: 5 simvastatin 20 MG tablet 20 mg PO HS Qty: 90 RF: 4 venlafaxine [Effexor XR] 150 MG capsule,extended release 24hr 150 mg PO HS Qty: 90 RF: 4 levothyroxine [Levo-T] 112 mcg tablet 112 mcg PO DAILY Qty: 90 RF: 0 Lactobacillus acidophilus [Probiotic] 1 EACH capsule 1 cap PO DAILY RF: 0 Discharge Instructions Additional Instructions: Use your knee. You may place her full weight upon it.Use your cryocuff to help control pain and swelling. Make sure you perform your exercises on your own in addition to performing them with physical therapy. Use your walker for balance and to prevent falls. Physical therapy will let you know when to go to a cane in your left (unoperated side) hand. It is important to remove the pillow behind your knee and to fully straighten it so that you don't develop a permanently flexed posture. Use your elastic stockings during the day. They may be off at night for sleeping. Using baby powder will assist in placing them on and off. You may get your wound wet in the shower with soap and water. Gently pat the bindu dry and leave them open to the air. If the bindu catch on your clothing or if you have any drainage, cover them with gauze. Follow-up with [facility] physical therapy next week. Follow-up with Dr. Hopkins in 10 days for staple removal. Take your usual medications as before. Take tylenol for pain. Take oxycodone for more serious pain. [facility] regulations limit the amount of oxycodone to 5 tablets. Take a baby aspirin(81mg) twice daily for the next 2 weeks to help prevent blood clots. Take your regular medications as before. Care Plan Goals: Return to independent living Stand Alone Forms: Nursing Discharge Form Referrals: Fátima Smyth PA [PHYSICIANS WIRE CUTTER] - 05/03/18 1:30 pm Activity:: Activity as Tolerated Equipment/Supplies:: Walker Diet:: As Tolerated Discharge Orders Discharge Orders: Discharge Order (Routine); Ordered 04/24/18 Ordered By: Rudy Hopkins DS: Data Vitals/I&O Vitals and I&O: Vital Signs Temperature 98.4 F 04/24/18 03:40 Temperature Source Skin 04/24/18 03:40 Pulse 72 04/24/18 03:40 Pulse Rhythm Regular 04/24/18 02:00 Respiratory Rate 18 04/24/18 03:40 Respiratory Effort Non-Labored 04/24/18 02:00 Respiratory Depth Normal 04/24/18 02:00 Respiratory Pattern Normal 04/24/18 02:00 Blood Pressure 126/76 04/24/18 03:40 Pulse Oximetry 95 04/24/18 03:40 Respiratory End-tidal CO2 35 04/21/18 11:55 Oxygen Delivery Method Room Air 04/24/18 03:40 Oxygen Flow Rate 0 04/24/18 03:40 Pain Level 2 04/24/18 06:17 Comment 04/23/18 16:02 Intake & Output 04/23/18 04/23/18 04/24/18 11:59 23:59 11:59 Intake Total 1544.5 / 1544.5 490 / 490 750 / 750 Output Total 1550 / 1550 1400 / 1400 1150 / 1150 Balance -5.5 / -5.5 -910 / -910 -400 / -400 Intake: IV 624.5 / 624.5 Oral 920 / 920 490 / 490 750 / 750 Output: Urine 1550 / 1550 1400 / 1400 1150 / 1150 Other: Urine Color Yellow Yellow Yellow Urine Appearance Clear Clear Clear Urine Odor Normal Normal Normal Stool Size Moderate Stool Characteristics Soft Formed Brown Voiding Methods Toilet Toilet
--- NOTE | 2018-04-24 08:28 | W.PM.DS.N ---
DS: Diagnosis Discharge Diagnosis (1) Right knee pain: Status: Chronic Discharge Plan Disposition Patient Disposition: HOME Condition: Improving Discharge Details Reason For Visit: RIGHT TOTAL KNEE ARTHROPLASTY Admit Date/Time: 04/21/18 05:54 Admit Provider: Rudy Hopkins Attending Provider: Rudy Hopkins [facility] Hospital Course: Patient's postoperative course was unremarkable she was maintained on prophylactic intravenous antibiotics for 24 hours her Bustos catheter was removed at 48 hours and she had no signs of urinary tract infection she made rapid progress with PT secondary to the femoral nerve block she was maintained on Lovenox prophylaxis 30 mg subcu twice daily beginning 24 hours after surgery Home Meds and New Rx's Prescriptions: No Action cholecalciferol (vitamin D3) 1,000 UNIT tablet 2 tab PO DAILY Qty: 200 RF: 4 lwehlmzdaewm-hru-DS-ginkgo [Women's 50+ Daily Form (gkb)] 1 EACH tablet 1 ea PO DAILY RF: 0 cyanocobalamin (vitamin B-12) [Vitamin B-12] 1,000 MCG tablet extended release 1,000 mcg PO DAILY Qty: 100 RF: 4 magnesium oxide-Mg AA chelate [Magnesium (oxide/AA chelate)] 300 MG capsule 300 mg PO 3x/wk Qty: 40 RF: 3 omeprazole 20 MG capsule,delayed release(DR/EC) 20 mg PO BID Qty: 180 RF: 4 gabapentin 800 MG tablet 800 mg PO BID Qty: 180 RF: 5 simvastatin 20 MG tablet 20 mg PO HS Qty: 90 RF: 4 venlafaxine [Effexor XR] 150 MG capsule,extended release 24hr 150 mg PO HS Qty: 90 RF: 4 levothyroxine [Levo-T] 112 mcg tablet 112 mcg PO DAILY Qty: 90 RF: 0 Lactobacillus acidophilus [Probiotic] 1 EACH capsule 1 cap PO DAILY RF: 0 Discharge Instructions Instructions: Knee Arthroscopy (DC) Additional Instructions: Use your knee. You may place her full weight upon it.Use your cryocuff to help control pain and swelling. Make sure you perform your exercises on your own in addition to performing them with physical therapy. Use your walker for balance and to prevent falls. Physical therapy will let you know when to go to a cane in your left (unoperated side) hand. It is important to remove the pillow behind your knee and to fully straighten it so that you don't develop a permanently flexed posture. Use your elastic stockings during the day. They may be off at night for sleeping. Using baby powder will assist in placing them on and off. You may get your wound wet in the shower with soap and water. Gently pat the bindu dry and leave them open to the air. If the bindu catch on your clothing or if you have any drainage, cover them with gauze. Follow-up with [facility] physical therapy next week. Follow-up with Dr. Hopkins in 10 days for staple removal. Take your usual medications as before. Take tylenol for pain. Take oxycodone for more serious pain. [facility] regulations limit the amount of oxycodone to 5 tablets. Take a baby aspirin(81mg) twice daily for the next 2 weeks to help prevent blood clots. Take your regular medications as before. Care Plan Goals: Return to independent living Stand Alone Forms: Nursing Discharge Form Referrals: Fátima Smyth PA [PHYSICIANS SIGNAL INTELLIGENCE ANALYST] - 05/03/18 1:30 pm Activity:: Activity as Tolerated Equipment/Supplies:: Walker Diet:: As Tolerated Discharge Orders Discharge Orders: Discharge Order (Routine); Ordered 04/24/18 Ordered By: Rudy Hopkins Discharge Data Discharge Date/Time-TO BE ENTERED AT DEPARTURE: 04/24/18 10:19 DS: Data Vitals/I&O Vitals and I&O: Vital Signs Temperature 98.4 F 04/24/18 03:40 Temperature Source Skin 04/24/18 03:40 Pulse 72 04/24/18 03:40 Pulse Rhythm Regular 04/24/18 02:00 Respiratory Rate 18 04/24/18 03:40 Respiratory Effort Non-Labored 04/24/18 02:00 Respiratory Depth Normal 04/24/18 02:00 Respiratory Pattern Normal 04/24/18 02:00 Blood Pressure 126/76 04/24/18 03:40 Pulse Oximetry 95 04/24/18 03:40 Respiratory End-tidal CO2 35 04/21/18 11:55 Oxygen Delivery Method Room Air 04/24/18 03:40 Oxygen Flow Rate 0 04/24/18 03:40 Pain Level 2 04/24/18 06:17 Comment 04/23/18 16:02 Intake & Output 04/23/18 04/23/18 04/24/18 11:59 23:59 11:59 Intake Total 1544.5 / 1544.5 490 / 490 750 / 750 Output Total 1550 / 1550 1400 / 1400 1150 / 1150 Balance -5.5 / -5.5 -910 / -910 -400 / -400 Intake: IV 624.5 / 624.5 Oral 920 / 920 490 / 490 750 / 750 Output: Urine 1550 / 1550 1400 / 1400 1150 / 1150 Other: Urine Color Yellow Yellow Yellow Urine Appearance Clear Clear Clear Urine Odor Normal Normal Normal Stool Size Moderate Stool Characteristics Soft Formed Brown Voiding Methods Toilet Toilet
--- NOTE | 2018-04-24 12:57 | PT.INTREAT ---
Date of service: 04/24/18 Time of Service: 09:50 PT Notes Inpatient Physical Therapy Treatment Note Date: 04/24/18 SUBJECTIVE: I'm going home as soon as I am done with PT. OBJECTIVE: [] BED MOBILITY/TRANSFERS Sit-stand: S Stand-sit: S GAIT Assistive Device: 4WW Weight bearing: AT Assist: SBA Distance: 20'x2 THEREX: for global LE strength and stabilization. See flowsheet for details. ASSESSMENT: tolerated session well. Anxious to get home, and did not want to go through her entire ther ex routine. PLAN: pt d/c to home with . TREATMENT CODE/TIME: 106-0929.25 min.TPx1, TAx1.
--- NOTE | 2018-04-24 14:59 | PDOC.CMDIS ---
- If Service Date Differs Date of service: 04/24/18 Time of Service: 14:59 LACE Index Scoring Tool - Questions: Length of Stay (in days): 4 - 6 Acuity (Admit via E.D.?): No Comorbidities: Diabetes w/o Complication E.D. Visits: 0 - Answers: Total Score: 5 Risk of Readmission: Low Risk Care Management Discharge Reason for Hospitalization: (R) total knee arthroplasty Discharge Plan: CM met with Celeste and her spouse prior to discharge. Celeste plans to attend PT as outpatient starting Thursday. Celeste and her spouse have several questions as to why they cannot have a w/c. CM reviewed benefits with patient and her spouse and local resource options. PT does not recomend a w/c or the provider. Patient has a 4WW and is using that around the home which she states provide support to her to accomplish ADL's. Celeste feels she is ready to return home and her spouse is present to transport her home. Celeste will follow up with as directed. Patient/Family Education Needs: Discharge education, limitations and follow up plan of care. Education related to benefits and policy r/t home equipment. Education r/t community resources. Services Needed at Discharge: Physical Therapy
--- NOTE | 2018-04-26 08:30 | PT.INDS ---
Date of service: 04/26/18 Time of Service: 08:31 PT Notes Inpatient Physical Therapy Discharge Summary Date: 04/26/18 for 04/24/18 Dates of Service: 04/21/18-04/24/18 SUBJECTIVE: NT OBJECTIVE: 04/21/18-04/24/18 BED MOBILITY/TRANSFERS: Supine-sit: SBA Sit-stand: supervision Stand-sit: supervision Sit-supine: Bertin GAIT: SBA with 4WW, knee immobilizer, [id number] WBAT R LE. BALANCE: Static sitting: normal Dynamic Sitting: normal Static Standing: fair Dynamic Standing: fair ASSESSMENT: Pt is a 68yr old female s/p right total knee arthroplasty by Dr. Hopkins 04/21/18 in setting of chronic neck and back pain, left total knee arthroplasty 08/29/15, bilateral knee arthroscopy, essential tremor, depressive disorder, migraine headache. Pt was seen for 6 PT visits. Progressed from CGA standing transfers to supervision, from CGA gait with FWW 4 steps to SBA gait with 4WW 20ft-40ft, AROM right knee -12ext to 80 flexion. Pt was discharged to home setting, continued PT recommended. GOALS Goals x1 week 1.Supine-sit: HOB flat, independent 2.Sit-Supine: HOB flat,independent 3.Sit-Stand: supervision with FWW 4.Stand-sit: independent 5.Bed-chair: supervision with FWW 6.Chair-bed:supervision with FWW 7.Gait: SBA with FWW [id number], WBAT L LE 8. I with home exercise program for TKR Pt met goals # 3, 5, 6 DISCHARGE RECOMMENDATIONS Home, follow up PT recommended G Codes in the area of walking, mobility and moving around projected status [id number] with discharge status GP [id number] Marcia Turcios PT
--- NOTE | 2018-04-26 08:36 | INDS_ITS ---
Date of service: 04/26/18 Time of Service: 08:31 PT Notes Inpatient Physical Therapy Discharge Summary Date: 04/26/18 for 04/24/18 Dates of Service: 04/21/18-04/24/18 SUBJECTIVE: NT OBJECTIVE: 04/21/18-04/24/18 BED MOBILITY/TRANSFERS: Supine-sit: SBA Sit-stand: supervision Stand-sit: supervision Sit-supine: Bertin GAIT: SBA with 4WW, knee immobilizer, [id number] WBAT R LE. BALANCE: Static sitting: normal Dynamic Sitting: normal Static Standing: fair Dynamic Standing: fair ASSESSMENT: Pt is a 68yr old female s/p right total knee arthroplasty by Dr. Hopkins 04/21/18 in setting of chronic neck and back pain, left total knee arthroplasty 08/29/15, bilateral knee arthroscopy, essential tremor, depressive disorder, migraine headache. Pt was seen for 6 PT visits. Progressed from CGA standing transfers to supervision, from CGA gait with FWW 4 steps to SBA gait with 4WW 20ft-40ft, AROM right knee -12ext to 80 flexion. Pt was discharged to home setting, continued PT recommended. GOALS Goals x1 week 1.Supine-sit: HOB flat, independent 2.Sit-Supine: HOB flat,independent 3.Sit-Stand: supervision with FWW 4.Stand-sit: independent 5.Bed-chair: supervision with FWW 6.Chair-bed:supervision with FWW 7.Gait: SBA with FWW [id number], WBAT L LE 8. I with home exercise program for TKR Pt met goals # 3, 5, 6 DISCHARGE RECOMMENDATIONS Home, follow up PT recommended G Codes in the area of walking, mobility and moving around projected status [id number] with discharge status GP [id number] Marcia Turcios PT
--- NOTE | 2018-04-29 08:44 | DSE_ITS ---
DS: Diagnosis Discharge Diagnosis (1) Right knee pain: Status: Chronic Discharge Plan Disposition Patient Disposition: HOME Condition: Improving Discharge Details Reason For Visit: RIGHT TOTAL KNEE ARTHROPLASTY Admit Date/Time: 04/21/18 05:54 Admit Provider: Rudy Hopkins Attending Provider: Rudy Hopkins [facility]: Patient's postoperative course was unremarkable she was maintained on prophylactic intravenous antibiotics for 24 hours her Bustos catheter was removed at 48 hours and she had no signs of urinary tract infection she made rapid progress with PT secondary to the femoral nerve block she was maintained on Lovenox prophylaxis 30 mg subcu twice daily beginning 24 hours after surgery Home Meds and New Rx's Prescriptions: No Action cholecalciferol (vitamin D3) 1,000 UNIT tablet 2 tab PO DAILY Qty: 200 RF: 4 wfdewkhbabmn-iyi-WJ-ginkgo [Women's 50+ Daily Form (gkb)] 1 EACH tablet 1 ea PO DAILY RF: 0 cyanocobalamin (vitamin B-12) [Vitamin B-12] 1,000 MCG tablet extended release 1,000 mcg PO DAILY Qty: 100 RF: 4 magnesium oxide-Mg AA chelate [Magnesium (oxide/AA chelate)] 300 MG capsule 300 mg PO 3x/wk Qty: 40 RF: 3 omeprazole 20 MG capsule,delayed release(DR/EC) 20 mg PO BID Qty: 180 RF: 4 gabapentin 800 MG tablet 800 mg PO BID Qty: 180 RF: 5 simvastatin 20 MG tablet 20 mg PO HS Qty: 90 RF: 4 venlafaxine [Effexor XR] 150 MG capsule,extended release 24hr 150 mg PO HS Qty: 90 RF: 4 levothyroxine [Levo-T] 112 mcg tablet 112 mcg PO DAILY Qty: 90 RF: 0 Lactobacillus acidophilus [Probiotic] 1 EACH capsule 1 cap PO DAILY RF: 0 Discharge Instructions Instructions: Knee Arthroscopy (DC) Additional Instructions: Use your knee. You may place her full weight upon it.Use your cryocuff to help control pain and swelling. Make sure you perform your exercises on your own in addition to performing them with physical therapy. Use your walker for balance and to prevent falls. Physical therapy will let you know when to go to a cane in your left (unoperated side) hand. It is important to remove the pillow behind your knee and to fully straighten it so that you don't develop a permanently flexed posture. Use your elastic stockings during the day. They may be off at night for sleeping. Using baby powder will assist in placing them on and off. You may get your wound wet in the shower with soap and water. Gently pat the bindu dry and leave them open to the air. If the bindu catch on your clothing or if you have any drainage, cover them with gauze. Follow-up with [facility] physical therapy next week. Follow-up with Dr. Hopkins in 10 days for staple removal. Take your usual medications as before. Take tylenol for pain. Take oxycodone for more serious pain. [facility] [place] limit the amount of oxycodone to 5 tablets. Take a baby aspirin(81mg) twice daily for the next 2 weeks to help prevent blood clots. Take your regular medications as before. Care Plan Goals: Return to independent living Stand Alone Forms: Nursing Discharge Form Referrals: Fátima Smyth PA [PHYSICIANS STRIPPING SHOVEL OILER] - 05/03/18 1:30 pm Activity:: Activity as Tolerated Equipment/Supplies:: Walker Diet:: As Tolerated Discharge Orders Discharge Orders: Discharge Order (Routine); Ordered 04/24/18 Ordered By: Rudy Hopkins Discharge Data Discharge Date/Time-TO BE ENTERED AT DEPARTURE: 04/24/18 10:19 DS: Data Vitals/I&O Vitals and I&O: Vital Signs Temperature 98.4 F 04/24/18 03:40 Temperature Source Skin 04/24/18 03:40 Pulse 72 04/24/18 03:40 Pulse Rhythm Regular 04/24/18 02:00 Respiratory Rate 18 04/24/18 03:40 Respiratory Effort Non-Labored 04/24/18 02:00 Respiratory Depth Normal 04/24/18 02:00 Respiratory Pattern Normal 04/24/18 02:00 Blood Pressure 126/76 04/24/18 03:40 Pulse Oximetry 95 04/24/18 03:40 Respiratory End-tidal CO2 35 04/21/18 11:55 Oxygen Delivery Method Room Air 04/24/18 03:40 Oxygen Flow Rate 0 04/24/18 03:40 Pain Level 2 04/24/18 06:17 Comment 04/23/18 16:02 Intake & Output 04/23/18 04/23/18 04/24/18 11:59 23:59 11:59 Intake Total 1544.5 / 1544.5 490 / 490 750 / 750 Output Total 1550 / 1550 1400 / 1400 1150 / 1150 Balance -5.5 / -5.5 -910 / -910 -400 / -400 Intake: IV 624.5 / 624.5 Oral 920 / 920 490 / 490 750 / 750 Output: Urine 1550 / 1550 1400 / 1400 1150 / 1150 Other: Urine Color Yellow Yellow Yellow Urine Appearance Clear Clear Clear Urine Odor Normal Normal Normal Stool Size Moderate Stool Characteristics Soft Formed Brown Voiding Methods Toilet Toilet
== END 2018-04-24 10:19 | disposition home or self-care (01) | DRG 470 ==
LOC: PDS 15:06 → MS 15:17
PROVIDERS: Admitting Provider Orthopaedic Surgery; PCP Nurse Practitioner Family; Visit Provider Orthopaedic Surgery
PROC: 0SRC0J9 Replacement of Right Knee Joint with Synthetic Substitute, Cemented, Open Approach (ICD-10-PCS; CPT 27447; principal; 2018-04-21 07:30)
DX: M17.11 Unilateral primary osteoarthritis, right knee (principal); M25.561 Pain in right knee; Z96.651 Presence of right artificial knee joint; Z96.652 Presence of left artificial knee joint; E03.9 Hypothyroidism, unspecified; E78.5 Hyperlipidemia, unspecified; F32.9 Major depressive disorder, single episode, unspecified
CPT/HCPCS: 27447; 36415; 76942; 80048; 85027; 97110; 97162; 97530; NC; 73560; J0131; J0690; J1100; J1650; J1885; J2250; J2405; J3010; J3490; L1830

== ENCOUNTER 2018-06-15 00:37 | Outpatient (CLI) | payer OTHER, SELFPAY ==
[2018-06-15 08:15] LABS: Abs Immature Grans 0.02 k/cumm (0.0-0.09); Absolute Basophil Count 0.05 k/cumm (0.0-0.2); Absolute Eosinophil Count 0.19 k/cumm (0.0-0.7); Absolute Lymphocyte Count 4.38 k/cumm (1.2-3.4); Absolute Monocyte Count 0.66 k/cumm (0.11-0.7); Absolute Neutrophil Count 3.12 k/cumm (1.2-6.7); Basophils % 0.6; Eosinophils % 2.3; HCT 43.9 % (36.0-46.0); HGB 14.5 g/dL (12.0-15.5); Immature Grans % 0.2; Mean Corpuscular Hemoglobin 31.2 pg (27.0-33.0); Mean Corpuscular Volume 94.4 fL (80-95); Mean Platelet Volume 10.6 fL (8.0-11.0); Monocytes % 7.8; Neutrophils % 37.1; Platelet Count 304 x1000/uL (130-400); RBC 4.65 m/cumm (4.00-5.20); RBC Distribution Width 13.6 % (11.7-14.6); White Blood Cell Count 8.42 k/cumm (4.4-10.8)
--- NOTE | 2018-06-15 08:45 | DI.US_ITS ---
SYMPTOM/DIAGNOSIS: NAUSEA, VOMITING, BILAT LOWER ABD PAIN, ? APPENDICITIS ABDOMINAL AND PELVIC ULTRASOUND: ABDOMINAL ULTRASOUND: There is limited visualization due to overlying bowel. The proximal aorta cannot be visualized. The mid and distal aorta are of normal caliber. The AVC is unremarkable. The liver is normal in size measuring 15.4 cm. There is diffuse increased echogenicity of the liver consistent with hepatic steatosis. No hepatic mass is seen. The patient is status post cholecystectomy. The common duct is within normal limits at 0.5 cm. There is limited visualization of the body of the pancreas which is grossly unremarkable. The remainder of the pancreas could not be seen due to overlying bowel. The kidneys and spleen are unremarkable. The right lower quadrant was evaluated sonographically. No sonographic findings to suggest an acute appendicitis are visualized. IMPRESSION: 1. Limited examination due to overlying bowel. 2. Status post cholecystectomy. No biliary ductal dilatation. 3. Hepatic steatosis 4. No sonographic findings to suggest acute appendicitis. Follow up as clinically appropriate. PELVIC ULTRASOUND: Transabdominal and pelvic ultrasound was performed. The patient elected to forego the transvaginal portion of the examination. The uterus measures 5 cm long x 3 cm AP x 4.2 cm transverse. The endometrial strip was not well visualized on this examination. The ovaries were not visualized transabdominally. No definite adnexal mass is seen. No free pelvic fluid is present. IMPRESSION: Limited transabdominal examination of the pelvis without gross abnormality. Please see the above discussion for complete details.
[2018-06-15 09:39] LABS: ALT 37 U/L (12-78); AST 29 U/L (15-37); Albumin 3.5 g/dL (3.4-5.0); Alkaline Phosphatase 84 U/L (46-116); Amylase 23 U/L (25-115); Anion Gap 9.2 mmol/L (3-11); BUN 13 mg/dL (7-18); Bilirubin, Total 0.4 mg/dL (0.2-1.0); CO2 29.8 mmol/L (21.0-32.0); CREATININE 0.88 mg/dL (0.55-1.02); Calcium 9.6 mg/dL (8.5-10.1); Chloride 99 mmol/L (98-107); Glucose 97 mg/dL (70-100); Lipase 63 U/L (73-393); Potassium 3.7 mmol/L (3.5-5.1); Sodium 138 mmol/L (136-145); TSH 21.82 uIU/mL (0.358-3.74); Total Protein 7.7 g/dL (6.4-8.2)
== END 2018-06-15 00:57 ==
PROVIDERS: PCP Nurse Practitioner Family; Visit Provider Nurse Practitioner Family
DX: R11.2 Nausea with vomiting, unspecified (principal); R10.31 Right lower quadrant pain; R10.32 Left lower quadrant pain; K76.0 Fatty (change of) liver, not elsewhere classified; Z90.49 Acquired absence of other specified parts of digestive tract; E03.9 Hypothyroidism, unspecified
CPT/HCPCS: 36415; 80053; 83690; 76700; 76856; 82150; 84439; 84443; 85025

== ENCOUNTER 2018-06-22 01:21 | Outpatient (CLI) | payer OTHER, SELFPAY ==
--- NOTE | 2018-06-22 11:57 | DI.CT_ITS ---
SYMPTOMS/DIAGNOSIS: ABDOMINAL PAIN WITH NAUSEA, VOMITING, BILATERAL LOWER QUADRANT PAIN, R10.31, R10.32, ? DIVERTICULITIS CT OF THE ABDOMEN AND PELVIS: Comparison is made with October,. Images were performed from the lung bases through the ischial tuberosities after IV and oral contrast. There are diverticula in the sigmoid colon, but no evidence of diverticulitis. There is a normal quantity of stool. The appendix appears normal. The small bowel has a normal appearance. There is no free air, free fluid, mass or adenopathy. The bladder is nearly empty. The uterus and ovaries are unremarkable. The lung bases are clear. There is a small paraesophageal hernia versus fundoplication. The liver shows fatty infiltration. There is no biliary dilatation. The patient is status post cholecystectomy. The spleen, pancreas, adrenals and kidneys are unremarkable. The aorta shows atherosclerotic changes , but is normal in diameter. There are degenerative changes in the spine, greatest at L4-5 and L5-S1. IMPRESSION: Diverticulosis without evidence of diverticulitis. No acute abnormality is seen.
[2018-06-22] MEDS: Omnipaque 350 MG/ML 100 ML BTL IJ (13:48)
[2018-06-22] MEDS: Omnipaque 350 MG/ML 50 ML BTL IJ (13:50)
[2018-06-22] MEDS: Breeza Beverage 473 ML BTL PO (13:50)
== END 2018-06-22 01:41 ==
PROVIDERS: PCP Nurse Practitioner Family; Visit Provider Nurse Practitioner Family
DX: R10.31 Right lower quadrant pain (principal); R10.32 Left lower quadrant pain; R11.2 Nausea with vomiting, unspecified; K57.30 Diverticulosis of large intestine without perforation or abscess without bleeding
CPT/HCPCS: 74177; J3490; Q9967

== ENCOUNTER 2018-08-25 13:12 | Outpatient (REF) | payer OTHER, SELFPAY | END 2018-08-25 13:32 | LOC: LBN 13:12 | PROVIDERS: PCP Nurse Practitioner Family; Visit Provider Nurse Practitioner Family | DX: N30.90 Cystitis, unspecified without hematuria (principal) | CPT/HCPCS: 87086 ==

== ENCOUNTER 2018-09-13 03:00 | Outpatient (CLI) | payer OTHER, SELFPAY ==
[2018-09-13 15:47] LABS: FREE T4 1.39 ng/dL (0.76-1.46); TSH 0.47 uIU/mL (0.358-3.74)
== END 2018-09-13 03:20 ==
PROVIDERS: PCP Nurse Practitioner Family; Visit Provider Nurse Practitioner Family
DX: E03.9 Hypothyroidism, unspecified (principal)
CPT/HCPCS: 36415; 84439; 84443

== ENCOUNTER 2019-03-31 01:48 | Outpatient (CLI) | payer OTHER, SELFPAY ==
[2019-03-31 12:43] LABS: ALT 38 U/L (14-59); AST 33 U/L (15-37); Albumin 3.4 g/dL (3.4-5.0); Alkaline Phosphatase 110 U/L (46-116); Anion Gap 10.7 mmol/L (3-11); BUN 11 mg/dL (7-18); Bilirubin, Total 0.2 mg/dL (0.2-1.0); CO2 30.3 mmol/L (21.0-32.0); Calcium 9.3 mg/dL (8.5-10.1); Calculated LDL 115 mg/dL; Chloride 102 mmol/L (98-107); Cholesterol 193 mg/dL (50-200); Glucose 119 mg/dL (70-100); HDL Cholesterol 52 mg/dL (40-60); Potassium 3.8 mmol/L (3.5-5.1); Sodium 143 mmol/L (136-145); Total Protein 7.6 g/dL (6.4-8.2); Triglyceride 132 mg/dL (30-150)
[2019-03-31 13:39] LABS: Hemoglobin A1C 6.1 % (4.5-6.2)
== END 2019-03-31 02:08 ==
PROVIDERS: PCP Nurse Practitioner Family; Visit Provider Nurse Practitioner Family
DX: R73.03 Prediabetes (principal)
CPT/HCPCS: 36415; 80053; 80061; 83036

== ENCOUNTER 2019-05-05 01:06 | Outpatient (CLI) | payer OTHER, SELFPAY ==
--- NOTE | 2019-05-05 14:23 | DI.DEXA_ITS ---
EXAM: XR DEXA BONE DENSITY W/WO LORI CLINICAL HISTORY: Postmenopausal Z78.0 ASYMPTOMATIC MENOPAUSAL STATE TECHNIQUE: DEXA scan was performed according to the usual protocol. COMPARISON: LUMBAR SPINE COMPLETE from 03/07/2010 FINDINGS: Findings for lumbar spine scanning are a T-score of -0.8. Findings for left hip scanning are a T-score of -1.2 with left femoral neck T-score of -1.2. Left forearm scanning shows a T-score of 0.1. IMPRESSION: Normal bone density according to WHO criteria. Please note that the lateral vertebral scanogram show s no evidence of a vertebral compression fracture.
== END 2019-05-05 01:26 ==
PROVIDERS: PCP Nurse Practitioner Family; Visit Provider Nurse Practitioner Family
DX: Z78.0 Asymptomatic menopausal state (principal); Z13.820 Encounter for screening for osteoporosis
CPT/HCPCS: 77080

== ENCOUNTER 2019-06-30 08:38 | Emergency (ER) | payer OTHER, SELFPAY ==
[2019-06-30 08:42] VITALS: BP 126/62; PULSE 56; RESP 16; TEMP 36.8; O2SAT 97
--- NOTE | 2019-06-30 09:15 | ED.GENADUL_ITS ---
Discharge Plan Disposition Patient Disposition: HOME Discharge Details Chief Complaint: Trauma Clinical Impression: Injury of trunk, Head trauma, Fall Primary Care Provider: Tiarra Hoover ED Provider: David Lei Home Meds and New Rx's Prescriptions: No Action propranolol 40 mg tablet 40 mg PO BID Qty: 180 RF: 4 cholecalciferol (vitamin D3) 1,000 UNIT tablet 2 tab PO DAILY Qty: 200 RF: 4 Women's 50+ Daily Form (gkb) 1 EACH tablet 1 ea PO DAILY RF: 0 cyanocobalamin (vitamin B-12) [Vitamin B-12] 1,000 MCG tablet extended release 1,000 mcg PO DAILY Qty: 100 RF: 4 Magnesium (oxide/AA chelate) 300 MG capsule 300 mg PO 3x/wk Qty: 40 RF: 3 omeprazole 20 mg capsule,delayed release(DR/EC) 20 mg PO BID Qty: 180 RF: 4 levothyroxine 125 mcg tablet 125 mcg PO DAILY Qty: 90 RF: 4 venlafaxine 225 mg tablet extended release 24hr 225 mg PO DAILY Qty: 90 RF: 4 simvastatin 40 mg tablet 40 mg PO DAILY Qty: 90 RF: 4 Discharge Instructions Instructions: Head Injury (ED) Additional Instructions: Your x-rays were negative for evidence of broken bones or injury to the underlying soft tissue. Is very important that you work on deep breathing exercises at home. Should you develop fever, severe pain or shortness of breath he must return to the emergency department. Take Tylenol 500 m tabs every 8 hours for pain. Referrals: Tiarra Hoover NP [Primary Care Provider] - 1 week Medical Decision Making 10:42 This is a nontoxic-appearing 69-year-old female who presents to the emergency department with left-sided rib pain and facial trauma status post fall yesterday evening. Her imaging including CT head, cervical spine chest abdomen and pelvis are negative for acute pathology. Reviewed images with our radiologist here at [facility]. Labs unremarkable. Most likely soft tissue contusion. Discussed supportive care at home along with strict return precautions. She will follow- up with her primary care provider should her symptoms persist. HPI General Date/Time Provider Initiated Documentation: 06/30/19 09:10 . HPI Narrative: Patient is a 69-year-old female with significant past medical history for GERD, hypothyroidism and hyperlipidemia who presents to the emergency department with severe left lower rib and left upper quadrant abdominal pain status post fall yesterday evening. Patient states that she was walking her dog tripped over her porch step and landed directly on her left side. She struck her head but denies any LOC. No neck pain. She admits to pain with inspiration. She has had a headache since the fall. No other reported injuries. Denies any oral anticoagulation use. Related Data Home Medications Medication Instructions Recorded Confirmed cholecalciferol (vitamin D3) 2 tab PO DAILY #200 tab-cap 12/11/12 06/30/19 [id number] 1 ea PO DAILY 12/11/12 06/30/19 [Women's 50+ Daily Formula Tab] cyanocobalamin (vitamin B-12) 1,000 mcg PO DAILY #100 tab-cap 12/30/12 06/30/19 [B-12] magnesium oxide-Mg AA chelate 300 mg PO 3x/wk #40 tab-cap 11/11/14 06/30/19 [Magnesium 300 Mg Capsule] omeprazole 20 mg capsule,delayed 20 mg PO BID #180 tab-cap 08/30/18 06/30/19 release levothyroxine 125 mcg tablet 125 mcg PO DAILY #90 tab 09/16/18 06/30/19 venlafaxine 225 mg tablet,extended 225 mg PO DAILY #90 tab 01/11/19 06/30/19 release 24 hr simvastatin 40 mg tablet 40 mg PO DAILY #90 tab 04/07/19 06/30/19 propranolol 40 mg tablet 40 mg PO BID #180 tab 04/14/19 06/30/19 Previous Rx's Medication Instructions Recorded omeprazole 20 mg capsule,delayed 20 mg PO BID #180 tab-cap 08/30/18 release levothyroxine 125 mcg tablet 125 mcg PO DAILY #90 tab 09/16/18 venlafaxine 225 mg tablet,extended 225 mg PO DAILY #90 tab 01/11/19 release 24 hr simvastatin 40 mg tablet 40 mg PO DAILY #90 tab 04/07/19 propranolol 40 mg tablet 40 mg PO BID #180 tab 04/14/19 Allergies Allergy/AdvReac Type Severity Reaction Status Date / Time NSAIDS (Non-Steroidal AdvReac Intermediate epigastric Verified 06/30/19 08:47 Anti-Inflamma pain pregabalin [From Lyrica] AdvReac Intermediate depression; Verified 06/30/19 08:47 SI chloraprep Allergy Intermediate Skin Rash Uncoded 06/30/19 08:47 General Stated Complaint: Trauma LUISA: 3 Review of Systems Constitutional Constitutional: Denies chills, Denies fatigue, Denies frequent falls, Reports headache(s), Denies lethargy and Denies malaise Eyes Eyes: Denies blurry vision, Denies change in vision and Denies decreased night vision ENT Ears, Nose, Mouth, and Throat: Denies vertigo, Denies dizziness, Reports headache(s) and Denies nasal trauma Cardiovascular Cardiovascular: Denies chest pain, Denies syncope and Denies dyspnea Respiratory Respiratory: Denies hemoptysis, Reports pain on inspiration and Denies dyspnea Gastrointestinal Gastrointestinal: Reports abdominal pain, Denies diarrhea, Denies nausea and Denies vomiting Genitourinary Genitourinary: Denies hematuria and Reports flank pain Musculoskeletal Musculoskeletal: Denies back pain, Denies arthralgias, Denies joint swelling, Reports numbness and Reports tingling Integumentary/Breasts Skin/Breast: Denies skin pain, Denies skin swelling and Denies sores Neurologic Neurologic: Denies vertigo, Denies dizziness, Denies syncope, Denies frequent falls, Reports headache(s), Reports numbness, Denies sensory deficit, Reports tingling and Denies paresthesias Endocrine Endocrine: Denies fatigue Hematologic/Lymphatic Hematologic/Lymphatic: Denies easy bleeding and Denies easy bruising PFSH Medical History Depressive disorder (Chronic) Diverticulosis of colon (Inactive) Essential tremor (Chronic) GERD (gastroesophageal reflux disease) (Chronic) Hyperlipidemia (Chronic) Hypothyroidism (Chronic) Migraine headache (Inactive) Prediabetes (Chronic) Primary fibromyalgia syndrome (Chronic) Vitamin B 12 deficiency (Resolved) Vitamin D deficiency (Resolved) Surgical History H/O colonoscopy (Chronic 07/20/12) History of arthroplasty of left knee (Inactive 08/29/15) History of arthroplasty of right knee (Inactive 04/21/18) History of esophagogastroduodenoscopy (EGD) (Chronic 07/20/12) S/P hernia repair (Inactive 05/07/09) paraesophageal hernia S/P laparoscopic cholecystectomy (Inactive 08/15/09) S/P left knee arthroscopy (Inactive 08/29/15) S/P right knee arthroscopy (Inactive 04/24/17) With partial medial meniscectomy and limited medial femoral chondroplasty Family History Mother , At 74 Heart disease Thyroid dysfunction Type 2 diabetes mellitus Father , At 92 of [place] Heart disease Skin cancer Myocardial infarction Hypertension Sister Parkinsons disease Brother Heart disease Brother No problems noted. Daughter SLE (systemic lupus erythematosus) Depression Asthma Daughter Migraine headache Maternal Grandmother No problems noted. Maternal Grandmother No problems noted. Paternal Grandfather No problems noted. Paternal Grandfather No problems noted. Social History Smoking/Tobacco Use Status: Never Alcohol Intake: never Drug use: Never Substance use type: does not use Household members: family and other Details: Lives with , daughter, son-in-law and grandchild Pets and animals: Yes Pets and animals: dog(s) What type of physical activity do you participate in: walking Duration: 15-30 minutes/day Frequency: 1-2 times per week Alisha/Cheondoism: No preference Special alisha needs: No Female Reproductive History Menstrual Menopause type: natural History History 2 Para 2 Hx # Term Pregnancies Multiple births Hx # Pregnancies Ectopic pregnancies AB induced Hx Number of Living Children 2 AB spontaneous Exam Const General: cooperative, healthy appearing and in distress mild Orientation: alert, awake and oriented x3 HENMT Head: normal to inspection, no palpable skull fracture, normocephalic and atraumatic Ears: hearing grossly normal bilaterally, external ears normal and TM's normal bilaterally General nose exam: external nose normal Face and sinus: normal facial exam, sinuses nontender and face symmetric Mouth: oral mucosae normal and lip normal Teeth and gingiva: dentition normal Throat: posterior oropharynx normal Eyes General: appearance normal, both eyes and all related structures Alignment and Position: alignment normal Periorbital: periorbital findings normal Pupils: PERRL EOM: EOM intact bilaterally Neck Neck: normal visual inspection and full ROM Chest Chest: normal inspection of the chest, no crepitus, localized rib tenderness with anteroposterior compression and tenderness rib and costal cartilage Resp Effort & Inspection: normal respiratory effort and able to speak in complete sentences Auscultation: clear to auscultation bilaterally Cardio Jugular venous pressure: no JVD Rate: regular rate Rhythm: regular rhythm Pulses: normal peripheral pulses GI Inspection: normal to inspection Palpation: soft and tender in the LUQ Back/Spine/Pelvis Back: no CVA tenderness Cervical Spine: normal cervical lordosis Thoracic/Lumbar Spine: thoracic and lumbar spine normal to inspection Pelvis: no pain with anterior-posterior compression Skin Trauma: no lacerations or abrasions Neuro General: alert, awake and oriented x3 Cranial Nerves: CN's II-XI intact bilaterally Cognition: normal cognition Speech: speech normal Motor: muscle tone normal throughout Sensory Exam: no sensory deficits noted Extrem General: normal to inspection and full ROM Course Vital Signs Vital signs: Vital Signs Temperature 36.8 C 06/30/19 08:42 Pulse 56 L 06/30/19 08:42 Respiratory Rate 16 06/30/19 08:42 Blood Pressure 126/62 06/30/19 08:42 Pulse Oximetry 97 06/30/19 08:42 Temperature 36.8 C 06/30/19 08:42 Temperature Source Skin 06/30/19 08:42 Pulse 56 L 06/30/19 08:42 Respiratory Rate 16 06/30/19 08:42 Respiratory Effort Non-Labored 06/30/19 08:55 Respiratory Depth Shallow 06/30/19 08:55 Respiratory Pattern Normal 06/30/19 08:55 Blood Pressure 126/62 06/30/19 08:42 Blood Pressure Position Sitting 06/30/19 08:42 Pulse Oximetry 97 06/30/19 08:42 Oxygen Delivery Method Room Air 06/30/19 08:42 Oxygen Flow Rate 0 06/30/19 08:42 Pain Level 8 06/30/19 08:42
[2019-06-30] MEDS: Omnipaque 350 MG/ML 100 ML BTL IJ (09:40)
[2019-06-30 09:44] LABS: HCT 44.1 % (36.0-46.0); HGB 14.7 g/dL (12.0-15.5); Mean Corp. HGB Concentration 33.3 g/dL (32.0-36.0); Mean Corpuscular Hemoglobin 31.5 pg (27.0-33.0); Mean Corpuscular Volume 94.6 fL (80-95); Mean Platelet Volume 10.3 fL (8.0-11.0); Platelet Count 302 x1000/uL (130-400); RBC 4.66 m/cumm (4.00-5.20); RBC Distribution Width 13.2 % (11.7-14.6); White Blood Cell Count 10.49 k/cumm (4.4-10.8)
[2019-06-30 09:47] LABS: BUN 11 mg/dL (7-18); CREATININE 0.85 mg/dL (0.55-1.02); Calcium 9.2 mg/dL (8.5-10.1); Glucose 107 mg/dL (74-106)
[2019-06-30 09:48] LABS: ALT 30 U/L (14-59); AST 27 U/L (15-37); Albumin 3.5 g/dL (3.4-5.0); Alkaline Phosphatase 88 U/L (46-116); Anion Gap 8.4 mmol/L (3-11); Bilirubin, Total 0.6 mg/dL (0.2-1.0); CO2 27.6 mmol/L (21.0-32.0); Chloride 102 mmol/L (98-107); Potassium 3.7 mmol/L (3.5-5.1); Sodium 138 mmol/L (136-145); Total Protein 7.9 g/dL (6.4-8.2)
--- NOTE | 2019-06-30 09:59 | DI.CT_ITS ---
EXAM: CT HEAD CERVICAL SPINE WO CLINICAL HISTORY: facial trauma s/p fall. Headache, CHRONIC LT HAND NUMBNESS TECHNIQUE: The exam was performed according to the usual protocol without contrast. COMPARISON: HEAD WITHOUT CONTRAST from 05/15/2014 FINDINGS: Noncontrast cranial CT was performed. No calvarial fracture. Paranasal sinuses appear well aerated as visualized as do the mastoid air cells. The orbital and temporal bone structures appear intact. No evidence of acute intracranial hemorrhage, mass effect or midline shift. CT examination of the cervical spine was performed without contrast administration. Mild cervical ky phosis noted. Disc space narrowing with associated endplate hypertrophic changes at C6-7 consistent with degenerative change. No evidence of fracture or dislocation of the cervical spine. Visualized lung apices are clear. Tracheolaryngeal structures appear intact. No cervical mass or ad enopathy. IMPRESSION: No evidence of acute intracranial injury. No evidence of cervical fracture or dislocation.
--- NOTE | 2019-06-30 10:06 | DI.CT_ITS ---
EXAM: CT CHEST/ABD/PEL W CLINICAL HISTORY: severe left lower rib/LUQ abd pain s/p fall TECHNIQUE: CT examination of the chest, abdomen and pelvis was performed with a bolus infusion of 10 0 cc of Omnipaque 350. FINDINGS: Lungs are clear and well expanded except for some changes of predominantly linear presumed bibasila r scarring. No evidence of mediastinal vascular injury. No pulmonary embolic disease. No pleural e ffusion or pneumothorax. No mediastinal or hilar adenopathy. There is probable mild hepatic steatosis. Otherwise liver, spleen and pancreas appear normal. Prior cholecystectomy noted. No biliary dilatation. No evidence of renal or adrenal injury. Abdominal a maddy and major branches appear intact. Old hernia surgery noted in the upper abdominal wall, no recu rrent hernia identified. No focal bowel pathology identified. No abdominal or pelvic adenopathy. G yn structures appear intact. No bony injury in the chest, abdomen or pelvis. IMPRESSION: No evidence of acute injury of the chest, abdomen or pelvis.
[2019-06-30 13:30] VITALS: BP 115/58; PULSE 52; RESP 18; O2SAT 98
== END 2019-06-30 11:05 | disposition home or self-care (01) ==
PROVIDERS: Emergency Provider Physician Assistant; PCP Nurse Practitioner Family
DX: S09.90XA Unspecified injury of head, initial encounter (principal); R07.81 Pleurodynia; R10.12 Left upper quadrant pain; W10.8XXA Fall (on) (from) other stairs and steps, initial encounter
CPT/HCPCS: 36415; 74177; 80053; 85027; 99285; 70450; 71260; 72125; J3490

== ENCOUNTER 2020-02-15 11:21 | Emergency (ER) | payer OTHER, SELFPAY ==
[2020-02-15] VITALS (34 sets, daily range): BP systolic 133–145; BP diastolic 58–71; PULSE 52–63; RESP 9–21; TEMP 36.4; O2SAT 90–97
--- NOTE | 2020-02-15 11:15 | RT.EKG_ITS ---
APPROVED REPORT Exam: Resting ECG Patient Location: E HR:57 bpm ECG Measurements Heart Rate 57 AXIS [place] 189 P 4 QRSd 89 QRS -18 QT 407 T -3 QTc 398 Conclusion Sinus bradycardia...rate< 60. T wave inversion in III and aVF which has been seen in previous EKG. New T wave inversion in V3 compared to old EKG. No acute ST elevation.
--- NOTE | 2020-02-15 11:51 | ED.GENADUL_ITS ---
Discharge Plan Disposition Patient Disposition: HOME Condition: Improving Discharge Details Chief Complaint: Chest Pain Clinical Impression: Burning chest pain, Dizziness Primary Care Provider: Tiarra Hoover ED Provider: Archana Davila Home Meds and New Rx's Prescriptions: New methocarbamol 500 mg tablet 500 mg PO Q6H PRN (Reason: muscle spasm) Qty: 14 RF: 0 lidocaine [Lidoderm] 5 % adhesive patch,medicated 1 patch TP DAILY PRN (Reason: pain) Qty: 15 RF: 0 ondansetron 4 mg tablet,disintegrating 4 mg PO TID PRN (Reason: nausea and vomiting) Qty: 6 RF: 0 Continued zolpidem [Ambien] 5 mg tablet 5 mg PO QHS PRN (Reason: sleep) Qty: 30 RF: 0 buspirone 15 mg tablet 15 mg PO BID Qty: 180 RF: 4 propranolol 40 mg tablet 40 mg PO DAILY Qty: 90 RF: 4 cholecalciferol (vitamin D3) 1,000 UNIT tablet 2 tab PO DAILY Qty: 200 RF: 4 Women's 50+ Daily Form (gkb) 1 EACH tablet 1 ea PO DAILY RF: 0 cyanocobalamin (vitamin B-12) [Vitamin B-12] 1,000 MCG tablet extended release 1,000 mcg PO DAILY Qty: 100 RF: 4 Magnesium (oxide/AA chelate) 300 MG capsule 300 mg PO 3x/wk Qty: 40 RF: 3 simvastatin 40 mg tablet 40 mg PO DAILY Qty: 90 RF: 4 levothyroxine 125 mcg tablet 125 mcg PO DAILY Qty: 90 RF: 4 omeprazole 20 mg capsule,delayed release(DR/EC) 20 mg PO BID Qty: 180 RF: 4 venlafaxine 225 mg tablet extended release 24hr 225 mg PO DAILY Qty: 90 RF: 4 Discharge Instructions Instructions: Chest Pain (ED), Dizziness (ED) Additional Instructions: Drink plenty of fluids and get plenty of rest. Take the Tylenol as needed and directed for pain. Use the Lidoderm patch and methocarbamol as needed and directed for pain. Take the Zofran as needed and directed for nausea and vomiting. Follow-up with your primary care doctor in 1 week. Return to the emergency department with any worsening or new concerning symptoms. Referrals: Vidya Rose DO [OSTEOPATHIC DOCTOR] - Discharge Data Discharge Date/Time-TO BE ENTERED AT DEPARTURE: 02/15/20 16:57 Discharge Physician: Archana Davila Medical Decision Making 1140 -- 70-year-old female with a history of prediabetes, migraine, hypothyroidism, hyperlipidemia, GERD, depression, fibromyalgia presents for left-sided neck, chest, back, arm and leg pain for the past 5 days. Also admits to intermittent dizziness. EKG notes a rate of 57, sinus with T wave inversion in inferior leads which is seen in previous EKG and new T wave inversion in V3. No acute ST elevation. Vitals within normal limits. She has some left anterior chest tenderness to palpation as well as pain in left chest with range of motion of left upper extremity. No focal deficits. Lungs clear. Differential diagnosis includes chest wall strain, costochondritis, fibromyalgia related pain, neuropathic pain which could be associated with developing shingles preceding rash, ACS, electrolyte abnormality, arrhythmia. History and presentation not consistent with PE or dissection. Will place an IV, bolus IV fluids, screening labs, CT chest abdomen pelvis and give a dose of morphine, Valium and Lidoderm patch and reassess. 1520 --labs and imaging reviewed and unremarkable. CT notes hiatal hernia and questionable antral gastritis. Patient reassessed - she states she feels better but still with some left-sided chest and back burning/tightness. Will give a dose of Tylenol IV and reassess. 1625 -- Pt reassessed -still complaining of some lightheadedness and nausea. Denies any chest or back pain. She was given a dose of Zofran ODT and a GI cocktail and was able to eat crackers and felt much better and requesting to go home. Discussed that her symptoms could be due to hiatal hernia or shingles, etc. She was advised to call her PCP for follow-up within the next week. She can consider following up with general surgery if her symptoms continue for consideration of endoscopy for her hiatal hernia. Medical Records Medical records reviewed: Yes I reviewed the patient's medical records. Imaging Data Radiologic Study: Radiologist's impression: CT CHEST PE ABD PELVIS W CLINICAL HISTORY: L sided chest burning pain, R side abd pain COMPARISON: CT CT CHEST/ABD/PEL W from 06/30/2019 FINDINGS: CT examination of the chest, abdomen and pelvis was performed with intravenous infusion of 100 cc of Omnipaque 350. Lungs are clear with no evidence of consolidation or mass. No pleural effusion or pneumothorax. Tracheobronchial tree appears intact. No evidence of pulmonary embolic disease. No thoracic aortic aneurysm or dissection. Coronary artery calcifications noted. No mediastinal or hilar adenopathy. No significant abnormality of the bony thorax. The liver and spleen appear normal as does the pancreas. Gallbladder has been surgically removed. No biliary dilatation seen. Note is made of a moderate-sized hiatal hernia. There is a question of edema of gastric antrum wall, question gastritis. Please correlate clinically. Adrenals and kidneys are unremarkable, no urinary tract calcification or obstruction. Abdominal aorta is of normal diameter and major visceral branches appear intact. There is a ventral hernia repair with no recurrent hernia. No abdominal or pelvic adenopathy. Appendix is normal. No evidence of diverticulitis or bowel obstruction. 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 IMPRESSION: Hiatal hernia noted, question antral gastritis. Please correlate clinically. No other acute abnormality seen. Lab Data Lab results reviewed: Yes I reviewed the patient's lab results. Labs: Laboratory Tests Range/Units 02/15/20 02/15/20 02/15/20 11:37 11:43 11:43 WBC (4.4-10.8) 10^3/uL RBC (3.93-5.22) 10^6/uL Hgb (11.2-15.7) g/dL Hct (36.0-46.0) % MCV (80-95) fL MCH (27.0-33.0) pg MCHC (32.0-36.0) % RDW (11.7-14.6) % Plt Count (130-400) 10^3/uL MPV (8.0-11.0) fL Immature Gran % Neutrophils % Lymphocytes % Monocytes % Eosinophils % Basophils % Absolute Neutrophils (1.2-6.7) 10^3/uL Absolute Lymphocytes (1.2-3.4) 10^3/uL Absolute Monocytes (0.1-0.8) 10^3/uL Absolute Eosinophils (0.0-0.7) 10^3/uL Absolute Basophils (0.0-0.2) 10^3/uL PT (9.3-11.0) sec 9.6 INR (0.9-1.1) 1.0 APTT (21.0-31.4) sec 23.1 Sodium Cancelled 139 Potassium Cancelled 3.7 Chloride Cancelled 102 Carbon Dioxide Cancelled 27.2 Anion Gap Cancelled 9.8 BUN Cancelled 13 Creatinine Cancelled 0.74 Estimated GFR/1.73 m2 Cancelled >= 60.00 Glucose Cancelled 110 H Calcium Cancelled 9.5 Magnesium (1.8-2.4) mg/dL 1.9 Total Bilirubin Cancelled 0.4 AST Cancelled 23 ALT Cancelled 39 Alkaline Phosphatase Cancelled 91 Troponin I Cancelled < 0.05 Total Protein Cancelled 8.0 Albumin Cancelled 3.8 Lipase (73-393) U/L Range/Units 02/15/20 02/15/20 02/15/20 11:43 11:43 14:36 WBC (4.4-10.8) 10^3/uL 10.45 RBC (3.93-5.22) 10^6/uL 4.83 Hgb (11.2-15.7) g/dL 15.1 Hct (36.0-46.0) % 45.7 MCV (80-95) fL 94.6 MCH (27.0-33.0) pg 31.3 MCHC (32.0-36.0) % 33.0 RDW (11.7-14.6) % 12.4 Plt Count (130-400) 10^3/uL 289 MPV (8.0-11.0) fL 10.4 Immature Gran % 0.2 Neutrophils % 45.1 Lymphocytes % 44.4 Monocytes % 8.0 Eosinophils % 1.7 Basophils % 0.6 Absolute Neutrophils (1.2-6.7) 10^3/uL 4.71 Absolute Lymphocytes (1.2-3.4) 10^3/uL 4.64 H Absolute Monocytes (0.1-0.8) 10^3/uL 0.84 H Absolute Eosinophils (0.0-0.7) 10^3/uL 0.18 Absolute Basophils (0.0-0.2) 10^3/uL 0.06 PT (9.3-11.0) sec INR (0.9-1.1) APTT (21.0-31.4) sec Sodium Potassium Chloride Carbon Dioxide Anion Gap BUN Creatinine Estimated GFR/1.73 m2 Glucose Calcium Magnesium (1.8-2.4) mg/dL Total Bilirubin AST ALT Alkaline Phosphatase Troponin I Cancelled Total Protein Albumin Lipase (73-393) U/L 51 ECG Data Attestation: I personally reviewed and interpreted this ECG (s) as follows: Interpretation: Rate of 57, sinus, T wave inversion noted in 3 and aVF which has been seen in previous EKG. New T wave inversion in V3 compared to previous EKG. No acute ST elevation. WA 189. QRS 89. QTc 398. HPI General Mode of arrival: ambulatory . Date/Time Provider Initiated Documentation: 02/15/20 11:37 . Limitations to Documentation: no limitations . Information obtained by: patient . HPI Narrative: Patient is a 7-year-old female with a history of prediabetes, hypothyroidism, hyperlipidemia, GERD, depression, fibromyalgia who presents with left-sided chest and, neck and arm and leg pain for the past 5 days. She describes the pain as pressure-like and occasionally burning. She states the burning pain is located in her left upper chest and left upper back. She states she occasionally has episodes of sharp and pressure-like leg pain but states this is minimal. She states left-sided chest pain is currently 6/10. She denies any aggravating or alleviating factors. She also admits to intermittent spinning and lightheadedness sensation for the past 5 days. She was seen at her primary care doctor's office today for the symptoms and referred here for further evaluation. She admits to nausea but denies any vomiting, shortness of breath, fever or cough. She also denies any recent travel, recent sick contacts. She does also admit to right-sided abdominal pain that started during my evaluation. She states her fibromyalgia pain is usually consistent with fatigue and diffuse body pain which she states feels different than this. She denies any recent injury. She has taken Tylenol for pain with some relief. Patient states she cannot take ibuprofen and that she should not be taking this. Chart notes a history of epigastric pain with NSAIDs. Related Data Home Medications Medication Instructions Recorded Confirmed Women's 50+ Daily Form (gkb) 1 ea PO DAILY 12/11/12 02/15/20 cholecalciferol (vitamin D3) 2 tab PO DAILY #200 tab-cap 12/11/12 02/15/20 cyanocobalamin (vitamin B-12) 1,000 mcg PO DAILY #100 tab-cap 12/30/02/15/20 [Vitamin B-12] Magnesium (oxide/AA chelate) 300 mg PO 3x/wk #40 tab-cap 11/11/14 02/15/20 simvastatin 40 mg tablet 40 mg PO DAILY #90 tab 04/07/19 02/15/20 levothyroxine 125 mcg tablet 125 mcg PO DAILY #90 tab 09/30/19 02/15/20 omeprazole 20 mg capsule,delayed 20 mg PO BID #180 tab-cap 09/30/19 02/15/20 release buspirone 15 mg tablet 15 mg PO BID #180 tab 01/19/20 02/15/20 propranolol 40 mg tablet 40 mg PO DAILY #90 tab 01/19/20 02/15/20 zolpidem 5 mg tablet 5 mg PO QHS PRN #30 tab-cap 01/19/20 02/15/20 venlafaxine 225 mg tablet,extended 225 mg PO DAILY #90 tab 02/13/20 02/15/20 release 24 hr lidocaine [Lidoderm] 1 patch TP DAILY PRN #15 each 02/15/20 methocarbamol 500 mg PO Q6H PRN #14 tab 02/15/20 ondansetron 4 mg PO TID PRN #6 tab 02/15/20 Previous Rx's Medication Instructions Recorded simvastatin 40 mg tablet 40 mg PO DAILY #90 tab 04/07/19 levothyroxine 125 mcg tablet 125 mcg PO DAILY #90 tab 09/30/19 omeprazole 20 mg capsule,delayed 20 mg PO BID #180 tab-cap 09/30/19 release buspirone 15 mg tablet 15 mg PO BID #180 tab 01/19/20 propranolol 40 mg tablet 40 mg PO DAILY #90 tab 01/19/20 zolpidem 5 mg tablet 5 mg PO QHS PRN #30 tab-cap 01/19/20 venlafaxine 225 mg tablet,extended 225 mg PO DAILY #90 tab 02/13/20 release 24 hr lidocaine [Lidoderm] 1 patch TP DAILY PRN #15 each 02/15/20 methocarbamol 500 mg PO Q6H PRN #14 tab 02/15/20 ondansetron 4 mg PO TID PRN #6 tab 02/15/20 Allergies Allergy/AdvReac Type Severity Reaction Status Date / Time NSAIDS (Non-Steroidal AdvReac Intermediate epigastric Verified 02/15/20 11:33 Anti-Inflamma pain pregabalin [From Lyrica] AdvReac Intermediate depression; Verified 02/15/20 11:33 SI chloraprep Allergy Intermediate Skin Rash Uncoded 02/15/20 11:33 General Stated Complaint: Chest Pain LUISA: 2 Review of Systems All systems reviewed & are unremarkable except as noted in HPI and below Constitutional Constitutional: Reports as per HPI, Denies chills and Denies fever(s) Eyes Eyes: Denies blurry vision ENT Ears, Nose, Mouth, and Throat: Reports dizziness, Denies sore throat and Denies throat swelling Cardiovascular Cardiovascular: Reports chest pain and Denies dyspnea Respiratory Respiratory: Denies cough and Denies dyspnea Gastrointestinal Gastrointestinal: Denies abdominal pain, Denies diarrhea, Reports nausea and Denies vomiting Genitourinary Genitourinary: Denies hematuria and Denies dysuria Musculoskeletal Musculoskeletal: Denies back pain and Denies numbness Integumentary/Breasts Skin/Breast: Denies lesions and Denies rash Neurologic Neurologic: Reports dizziness, Denies localized weakness and Denies numbness Allergic/Immunologic Allergic/Immunologic: Denies throat swelling [facility] Medical History (Updated 02/15/20 @ 16:32 by Archana Davila DO) Depressive disorder (Chronic) Diverticulosis of colon (Inactive) Essential tremor (Chronic) GERD (gastroesophageal reflux disease) (Chronic) Hyperlipidemia (Chronic) Hypothyroidism (Chronic) Migraine headache (Inactive) Prediabetes (Chronic) Primary fibromyalgia syndrome (Chronic) Vitamin B 12 deficiency (Resolved) Vitamin D deficiency (Resolved) Surgical History H/O colonoscopy (Chronic 07/20/12) History of arthroplasty of left knee (Inactive 08/29/15) History of arthroplasty of right knee (Inactive 04/21/18) History of esophagogastroduodenoscopy (EGD) (Chronic 07/20/12) S/P hernia repair (Inactive 05/07/09) paraesophageal hernia S/P laparoscopic cholecystectomy (Inactive 08/15/09) S/P left knee arthroscopy (Inactive 08/29/15) S/P right knee arthroscopy (Inactive 04/24/17) With partial medial meniscectomy and limited medial femoral chondroplasty Family History Mother , At 74 Heart disease Thyroid dysfunction Type 2 diabetes mellitus Father , At 92 of [place] Heart disease Skin cancer Myocardial infarction Hypertension Sister Parkinsons disease Brother Heart disease Brother No problems noted. Daughter SLE (systemic lupus erythematosus) Depression Asthma Daughter Migraine headache Maternal Grandmother No problems noted. Maternal Grandmother No problems noted. Paternal Grandfather No problems noted. Paternal Grandfather No problems noted. Social History Smoking/Tobacco Use Status: Never Alcohol Intake: never Drug use: Never Substance use type: does not use Household members: family and other Details: Lives with , daughter, son-in-law and grandchild Pets and animals: Yes Pets and animals: dog(s) What type of physical activity do you participate in: walking Duration: 15-30 minutes/day Frequency: 1-2 times per week Alisha/Episcopal: No preference Special alisha needs: No Do you feel safe at home: Yes Do you feel safe in your relationship?: Yes Female Reproductive History Menstrual Menopause type: natural History History 2 Para 2 Hx # Term Pregnancies Multiple births Hx # Pregnancies Ectopic pregnancies AB induced Hx Number of Living Children 2 AB spontaneous Exam Const General: cooperative and no acute distress Orientation: alert, awake and oriented x3 HENMT Head: normal to inspection Face and sinus: normal facial exam Eyes General: appearance normal, both eyes and all related structures Pupils: PERRL EOM: EOM intact bilaterally Neck Neck: normal visual inspection and No submandibular swelling Lymphatic: no lymphadenopathy noted Chest Chest: normal inspection of the chest and no tenderness Chest/axillae images: 1. Tenderness to palpation of left anterior and lateral chest and left anterior shoulder. No evidence of rash, cellulitis or trauma. No crepitus or step-off. Resp Effort & Inspection: normal respiratory effort and able to speak in complete sentences Auscultation: clear to auscultation bilaterally Cardio Rate: regular rate Rhythm: regular rhythm GI Inspection: normal to inspection Palpation: soft, not firm, not rigid and nontender Auscultation: normal bowel sounds Back/Spine/Pelvis Thoracic/Lumbar Spine: thoracic and lumbar spine normal to inspection Pelvis: no pain with anterior-posterior compression Skin General skin exam: no rashes or lesions noted Neuro General: patient alert, patient awake and patient oriented x3 Cranial Nerves: CN's II-XI intact bilaterally Cognition: normal cognition Speech: speech normal Motor: muscle tone normal throughout and strength 5/5 throughout Sensory Exam: no sensory deficits noted Extrem General: normal to inspection, full ROM, capillary refill normal, no calf tenderness bilaterally and no edema Other: No pain in hips with range of motion. Psych Appearance: grossly normal Mental Status: mental status grossly normal Speech and Movement: speech and movement normal Affect: normal affect Course Vital Signs Vital signs: Vital Signs Temperature 97.5 F L 02/15/20 11:28 Pulse 57 L 02/15/20 11:28 Respiratory Rate 12 02/15/20 11:28 Blood Pressure 141/58 H 02/15/20 11:28 Pulse Oximetry 95 02/15/20 11:28 Temperature 97.5 F L 02/15/20 11:28 Temperature Source Tympanic 02/15/20 11:28 Pulse 57 L 02/15/20 11:32 Pulse 55 L 02/15/20 11:40 Respiratory Rate 12 02/15/20 11:40 Respiratory Effort Non-Labored 02/15/20 11:32 Blood Pressure 141/58 H 02/15/20 11:32 Blood Pressure Mean 73 02/15/20 11:32 Blood Pressure Position Sitting 02/15/20 11:28 Pulse Oximetry 97 02/15/20 11:40 Oxygen Delivery Method Room Air 02/15/20 11:28 Oxygen Flow Rate 0 02/15/20 11:28 Pain Level 4 02/15/20 11:28 Lab/Test Results Lab/Test Results: Laboratory Tests Range/Units 02/15/20 02/15/20 11:37 14:36 Sodium Cancelled Potassium Cancelled Chloride Cancelled Carbon Dioxide Cancelled Anion Gap Cancelled BUN Cancelled Creatinine Cancelled Estimated GFR/1.73 m2 Cancelled Glucose Cancelled Calcium Cancelled Total Bilirubin Cancelled AST Cancelled ALT Cancelled Alkaline Phosphatase Cancelled Troponin I Cancelled Cancelled Total Protein Cancelled Albumin Cancelled
[2020-02-15 11:52] LABS: Abs Immature Grans 0.02 10^3/uL (0.0-0.06); Absolute Basophil Count 0.06 10^3/uL (0.0-0.2); Absolute Eosinophil Count 0.18 10^3/uL (0.0-0.7); Absolute Lymphocyte Count 4.64 10^3/uL (1.2-3.4); Absolute Monocyte Count 0.84 10^3/uL (0.1-0.8); Absolute Neutrophil Count 4.71 10^3/uL (1.2-6.7); Basophils % 0.6; Eosinophils % 1.7; HCT 45.7 % (36.0-46.0); HGB 15.1 g/dL (11.2-15.7); Immature Grans % 0.2; Lymphocytes % 44.4; MCH 31.3 pg (27.0-33.0); MCV 94.6 fL (80-95); MPV 10.4 fL (8.0-11.0); Neutrophils % 45.1; Nucleated RBC 0 %; Platelet Count 289 10^3/uL (130-400); RBC 4.83 10^6/uL (3.93-5.22); RDW 12.4 % (11.7-14.6); RDW-SD 43.1 fL; WBC 10.45 10^3/uL (4.4-10.8)
[2020-02-15 12:09] LABS: PTT Activated 23.1 sec (21.0-31.4); Prothrombin Time 9.6 sec (9.3-11.0)
[2020-02-15 12:11] LABS: ALT 39 U/L (14-59); AST 23 U/L (15-37); Albumin 3.8 g/dL (3.4-5.0); Alkaline Phosphatase 91 U/L (46-116); Anion Gap 9.8 mmol/L (3-11); Bilirubin, Total 0.4 mg/dL (0.2-1.0); CO2 27.2 mmol/L (21.0-32.0); CREATININE 0.74 mg/dL (0.55-1.02); Calcium 9.5 mg/dL (8.5-10.1); Chloride 102 mmol/L (98-107); Glucose 110 mg/dL (74-106); Magnesium 1.9 mg/dL (1.8-2.4); Potassium 3.7 mmol/L (3.5-5.1); Sodium 139 mmol/L (136-145)
[2020-02-15] MEDS: diazePAM 5 MG TAB PO (12:32)
[2020-02-15] MEDS: Normal Saline 1,000 ML 1000 ML IV (12:32)
[2020-02-15] MEDS: Normal Saline Flush 10 ML SYR IVP (12:32)
[2020-02-15 12:34] LABS: Troponin I < 0.05 ng/mL (<0.06)
[2020-02-15] MEDS: Lidocaine 5% Patch 1 PATCH TP (12:37)
[2020-02-15 12:39] LABS: BUN 13 mg/dL (7-18)
[2020-02-15 13:25] LABS: Lipase 51 U/L (73-393)
--- NOTE | 2020-02-15 13:50 | DI.CT_ITS ---
EXAM: CT CHEST PE ABD PELVIS W CLINICAL HISTORY: L sided chest burning pain, R side abd pain COMPARISON: CT CT CHEST/ABD/PEL W from 06/30/2019 FINDINGS: CT examination of the chest, abdomen and pelvis was performed with intravenous infusion of 100 cc of Omnipaque 350. Lungs are clear with no evidence of consolidation or mass. No pleural effusion or pneumothorax. Tra cheobronchial tree appears intact. No evidence of pulmonary embolic disease. No thoracic aortic ane urysm or dissection. Coronary artery calcifications noted. No mediastinal or hilar adenopathy. No significant abnormality of the bony thorax. The liver and spleen appear normal as does the pancreas. Gallbladder has been surgically removed. N o biliary dilatation seen. Note is made of a moderate-sized hiatal hernia. There is a question of edema of gastric antrum wall, question gastritis. Please correlate clinically. Adrenals and kidneys are unremarkable, no urinary tract calcification or obstruction. Abdominal aorta is of normal diameter and major visceral branches appear intact. There is a ventral hernia repair with no recurrent hernia. No abdominal or pelvic adenopathy. Appen jacob is normal. No evidence of diverticulitis or bowel obstruction. 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 IMPRESSION: Hiatal hernia noted, question antral gastritis. Please correlate clinically. No other acute abnorm ality seen.
[2020-02-15] MEDS: Normal Saline - Diluent 50 ML VIAL IV (13:51)
[2020-02-15] MEDS: Omnipaque 350 MG/ML 100 ML BTL IJ (13:52)
[2020-02-15] MEDS: ACETAMINOPHEN 1,000 MG/100 ML BTL 400 MG IVPB (15:39)
[2020-02-15] MEDS: Ondansetron O.D.T. 4 MG TABEF PO (16:35)
== END 2020-02-15 16:57 | disposition home or self-care (01) ==
PROVIDERS: Emergency Provider Physician Assistant; PCP Nurse Practitioner Family
DX: R07.89 Other chest pain (principal); R42 Dizziness and giddiness; K44.9 Diaphragmatic hernia without obstruction or gangrene; R11.0 Nausea; K21.9 Gastro-esophageal reflux disease without esophagitis
CPT/HCPCS: 36415; 71275; 74177; 80053; 83690; 93005; 96361; 96374; 96375; 99285; 83735; 84484; 85025; 85610; 85730; 93010; J0131; J3490

== ENCOUNTER 2020-04-19 00:22 | Outpatient (CLI) | payer OTHER, SELFPAY ==
--- NOTE | 2020-04-19 12:52 | DI.MAMMO_ITS ---
EXAM: MAMMO SCREENING CLINICAL HISTORY: screening,z12.39 TECHNIQUE: Mammograms were interpreted according to the usual protocol including computer analysis w [employer] CAD system, tomosynthesis and C-view imaging. COMPARISON: FINDINGS: The breasts are of moderate density with fairly symmetrical distribution of fibroglandular tissue. N o dominant mass or clumped microcalcification is identified in either breast. The current examinatio n is compared with the previous examination of April 2018 and there has been no gross interval galvan ge in appearance in comparison with the prior study. IMPRESSION: No specific evidence of malignancy at this time. Routine screening examinations are suggested at yea rly intervals in this age group according to the ACS ACR guidelines. BI-RADS Category 1 - Negative Breast Density - Category B - Scattered areas of fibroglandular density
== END 2020-04-19 00:42 ==
PROVIDERS: PCP Nurse Practitioner Family; Visit Provider Nurse Practitioner Family
DX: Z12.31 Encounter for screening mammogram for malignant neoplasm of breast (principal)
CPT/HCPCS: 77063; 77067

== ENCOUNTER 2020-07-16 18:52 | Outpatient (REF) | payer OTHER, SELFPAY ==
[2020-07-16 13:49] LABS: Anion Gap 6.3 mmol/L (3-11); BUN 13 mg/dL (7-18); CO2 28.7 mmol/L (21.0-32.0); CREATININE 0.76 mg/dL (0.55-1.02); Calcium 9.3 mg/dL (8.5-10.1); Calculated LDL 129 mg/dL (<100); Chloride 101 mmol/L (98-107); Cholesterol 213 mg/dL (<200); Glucose 105 mg/dL (74-106); HDL Cholesterol 59 mg/dL (40-60); Potassium 3.8 mmol/L (3.5-5.1); Sodium 136 mmol/L (136-145); TSH 0.19 uIU/mL (0.36-3.74); Triglyceride 128 mg/dL (<150)
[2020-07-16 14:52] LABS: Hemoglobin A1C 5.8 % (<5.7)
[2020-07-16 14:56] LABS: FREE T4 1.68 ng/dL (0.76-1.46)
== END 2020-07-16 19:12 ==
LOC: LBN 18:52
PROVIDERS: PCP Nurse Practitioner Family; Visit Provider Nurse Practitioner Family
DX: E03.9 Hypothyroidism, unspecified (principal); R73.03 Prediabetes
CPT/HCPCS: 80048; 80061; 83036; 84439; 84443

== ENCOUNTER 2020-11-01 03:58 | Outpatient (CLI) | payer OTHER, MEDICARE, SELFPAY ==
[2020-11-01 10:21] LABS: FREE T4 0.91 ng/dL (0.76-1.46); TSH 5.88 uIU/mL (0.36-3.74)
== END 2020-11-01 03:59 | disposition home or self-care (01) ==
LOC: LBO 03:58
PROVIDERS: PCP Nurse Practitioner Family; Visit Provider Nurse Practitioner Family
DX: E03.9 Hypothyroidism, unspecified (principal)
CPT/HCPCS: 36415; 84439; 84443

== ENCOUNTER 2021-03-25 14:17 | Outpatient (CLI) | payer OTHER, MEDICARE, SELFPAY ==
--- NOTE | 2021-03-25 14:15 | RT.EKG_ITS ---
APPROVED REPORT Exam: Resting ECG Reason for Exam: Chest Pain Patient Location: O HR:51 bpm ECG Measurements Heart Rate 51 AXIS LA 205 P 27 QRSd 90 QRS -7 QT 442 T 23 QTc 406 Conclusion Sinus bradycardia...rate< 60
== END 2021-03-25 14:18 | disposition home or self-care (01) ==
LOC: DI.CM 14:17
PROVIDERS: PCP Nurse Practitioner Family; Visit Provider Physician Assistant
DX: R07.89 Other chest pain (principal); R00.1 Bradycardia, unspecified
CPT/HCPCS: 93010

== ENCOUNTER 2021-03-25 15:10 | Emergency (ER) | payer OTHER, SELFPAY ==
--- NOTE | 2021-03-25 15:00 | RT.EKG_ITS ---
APPROVED REPORT Exam: Resting ECG Reason for Exam: chest pain Patient Location: E HR:53 bpm ECG Measurements Heart Rate 53 AXIS NH 198 P 23 QRSd 93 QRS -17 QT 425 T 11 QTc 400 Conclusion Sinus bradycardia...rate< 60
[2021-03-25 15:15] VITALS: PULSE 56; RESP 20; TEMP 36.4; O2SAT 97
[2021-03-25 15:21] VITALS: RESP 17
--- NOTE | 2021-03-25 15:30 | DI.CT_ITS ---
Exam(s) CT HEAD WO EXAM: CT HEAD WO CLINICAL HISTORY: headache, L Chest pain. TECHNIQUE: Imaging Protocol: Axial computed tomography images with coronal and sagittal reformatted images were created and reviewed COMPARISON: CT CT HEAD CERVICAL SPINE WO from 06/30/2019 FINDINGS: Ventricles and Extra axial spaces: Normal in size and morphology for the patient's age. Hemorrhage: None. Cerebral parenchyma: Normal. Midline shift: None. Brainstem/Cerebellum: Normal. Calvarium: Normal. Visualized Paranasal sinuses/Mastoids: Clear. Soft Tissues: Unremarkable. IMPRESSION: No acute intracranial process. RADIATION DOSE DELIVERED: 667.86mGy.cm Total DLP DATA REPOSITORY: All CT scans at this facility are submitted to the National Radiology Data Registry (NRDR) Dose Index Registry (DIR) with the [employer] (ACR). RADIATION OPTIMIZATION: All CT scans at this facility use at least one of these dose optimization te chniques: automated exposure control; mA and/or kV adjustment per patient size (includes targeted exa ms where dose is matched to clinical indication); or iterative reconstruction.
--- NOTE | 2021-03-25 15:30 | DI.RAD_ITS ---
Exam(s) XR CHEST 2V PA LATERAL EXAM: XR CHEST 2V PA LATERAL CLINICAL HISTORY: SOB, CP TECHNIQUE: 2D digital imaging was performed. COMPARISON: CR CHEST 2 VIEWS PA,LAT from 09/22/2016 FINDINGS: MEDIASTINUM: Normal. HEART: Normal. PULMONARY VASCULATURE: Normal. LUNGS: Clear. PLEURAL SPACE: No pleural effusion or pneumothorax. BONE:Unremarkable for age. IMPRESSION: No acute abnormality. DATA REPOSITORY: RADIATION DOSE DELIVERED:
--- NOTE | 2021-03-25 15:37 | W.ED.GENAD ---
Discharge Plan Discharge Details Chief Complaint: Chest Pain Primary Care Provider: Tiarra Hoover ED Provider: Kelvin Guerra Home Meds and New Rx's Prescriptions: No Action simvastatin 40 mg tablet 40 mg PO DAILY Qty: 90 RF: 4 zolpidem [Ambien] 5 mg tablet 5 mg PO QHS PRN (Reason: sleep) Qty: 30 RF: 0 buspirone 15 mg tablet 15 mg PO BID Qty: 180 RF: 4 duloxetine [Cymbalta] 30 mg capsule,delayed release(DR/EC) 30 mg PO DAILY Qty: 90 RF: 4 cholecalciferol (vitamin D3) 1,000 UNIT tablet 2 tab PO DAILY Qty: 200 RF: 4 Women's 50+ Daily Form (gkb) 1 EACH tablet 1 ea PO DAILY RF: 0 cyanocobalamin (vitamin B-12) [Vitamin B-12] 1,000 MCG tablet extended release 1,000 mcg PO DAILY Qty: 100 RF: 4 venlafaxine 150 mg capsule,extended release 24hr 150 mg PO DAILY Qty: 90 RF: 4 venlafaxine 75 mg capsule,extended release 24hr 75 mg PO DAILY Qty: 90 RF: 4 propranolol 40 mg tablet 40 mg PO DAILY Qty: 90 RF: 4 omeprazole 20 mg capsule,delayed release(DR/EC) 20 mg PO BID Qty: 180 RF: 4 levothyroxine 112 mcg capsule 112 mcg PO DAILY Qty: 90 RF: 4 Medical Decision Making 71-year-old female presents from home with at least 1 week of urine episodes of blood chest pain that occurred both at rest, at night and during the day. Seems to radiate to her neck at times. Also associated with mild shortness of breath. She has not recently been ill. She arrives to the ER with reassuring vital signs but no mild bradycardia. She does take propranolol. Differential diagnosis is broad, consider intrathoracic, neurologic, cardiac causes of her discomfort. Patient IV established, an EKG was obtained. Screening chest x-ray, CT scan of the head laboratory analysis. CT scan of the head with age-related changes. Chest x-ray with clear lungs and no acute findings. Laboratories reassuring: White count 10, hematocrit 42, platelets 303. Sodium 135, potassium 4.7, chloride 98, bicarb 30, BUN 11, creatinine 0.8. LFTs unremarkable, albumin 4.0, BNP 88, troponin negative, D-dimer 465. 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 On exam she does have reproducible muscular chest wall pain that is improving with acetaminophen. Atypical chest pain and I do not feel there is indication for further work-up. Discussed with her management at home. Also discussed return precautions. She is stable, improved both subjectively and objectively. HPI General Mode of arrival: ambulatory. Date/Time Provider Initiated Documentation: 03/25/21 15:12. Limitations to Documentation: no limitations. Information obtained by: patient. History of Present Illness 71 year old F presents to the emergency department with the chief complaint of 1 week intermittent left chest pressure and shortness of breath, described as moderate, Quality is described as dull, and is localized to the chest and left. Patient started experiencing this day(s) and it has been intermittent. No relieving factors improve symptom(s), No exacerbating factors reported . Patient notes chest pain, headaches, shortness of breath (Mild) and weakness (Mild general); denies cough, diaphoresis, fever/chills, loss of appetite, nausea/vomiting and syncope. Patient did receive the following treatments prior to arrival, none Related Data Home Medications Medication Instructions Recorded Confirmed Women's 50+ Daily Form (gkb) 1 ea PO DAILY 12/11/12 03/25/21 cholecalciferol (vitamin D3) 2 tab PO DAILY #200 tab-cap 12/11/12 03/25/21 cyanocobalamin (vitamin B-12) 1,000 mcg PO DAILY #100 tab-cap 12/30/12 03/25/21 [Vitamin B-12] buspirone 15 mg tablet 15 mg PO BID #180 tab 01/19/20 03/25/21 zolpidem 5 mg tablet 5 mg PO QHS PRN #30 tab-cap 01/19/20 08/06/20 venlafaxine 150 mg 150 mg PO DAILY #90 tab-cap 02/20/20 03/25/21 capsule,extended release 24 hr venlafaxine 75 mg capsule,extended 75 mg PO DAILY #90 tab-cap 02/20/20 03/25/21 release 24 hr simvastatin 40 mg tablet 40 mg PO DAILY #90 tab 04/06/20 03/25/21 duloxetine 30 mg capsule,delayed 30 mg PO DAILY #90 cap 07/16/20 08/06/20 release omeprazole 20 mg capsule,delayed 20 mg PO BID #180 tab-cap 09/13/20 03/25/21 release propranolol 40 mg tablet 40 mg PO DAILY #90 tab 09/13/20 03/25/21 levothyroxine 112 mcg capsule 112 mcg PO DAILY #90 tab-cap 11/05/20 03/25/21 Previous Rx's Medication Instructions Recorded buspirone 15 mg tablet 15 mg PO BID #180 tab 01/19/20 zolpidem 5 mg tablet 5 mg PO QHS PRN #30 tab-cap 01/19/20 venlafaxine 150 mg 150 mg PO DAILY #90 tab-cap 02/20/20 capsule,extended release 24 hr venlafaxine 75 mg capsule,extended 75 mg PO DAILY #90 tab-cap 02/20/20 release 24 hr simvastatin 40 mg tablet 40 mg PO DAILY #90 tab 04/06/20 duloxetine 30 mg capsule,delayed 30 mg PO DAILY #90 cap 07/16/20 release omeprazole 20 mg capsule,delayed 20 mg PO BID #180 tab-cap 09/13/20 release propranolol 40 mg tablet 40 mg PO DAILY #90 tab 09/13/20 levothyroxine 112 mcg capsule 112 mcg PO DAILY #90 tab-cap 11/05/20 Allergies Allergy/AdvReac Type Severity Reaction Status Date / Time duloxetine [From Cymbalta] AdvReac Intermediate Gait Verified 03/25/21 14:21 Imbalance gabapentin AdvReac Intermediate Gait Verified 03/25/21 14:21 Imbalance NSAIDS (Non-Steroidal AdvReac Intermediate epigastric Verified 03/25/21 14:21 Anti-Inflamma pain pregabalin [From Lyrica] AdvReac Intermediate depression; Verified 03/25/21 14:21 SI chloraprep Allergy Intermediate Skin Rash Uncoded 08/06/20 09:42 General Stated Complaint: Chest Pain LUISA: 2 Review of Systems Narrative: No leg pain or swelling, no fever, chills, cough. Mild intermittent headache. States her chest pain at times radiates to left neck. No clumsiness or weakness no syncope. At times later that week which she continues daily walks with her dog. [facility] Medical History Complicated grief Diverticulosis of colon Essential tremor GERD (gastroesophageal reflux disease) Hiatal hernia Hyperlipidemia Hypothyroidism Major depressive disorder Migraine headache Prediabetes Primary fibromyalgia syndrome Vitamin B 12 deficiency Vitamin D deficiency Surgical History H/O colonoscopy (07/20/12) History of arthroplasty of left knee (08/29/15) History of arthroplasty of right knee (04/21/18) History of esophagogastroduodenoscopy (EGD) (07/20/12) S/P hernia repair (05/07/09) paraesophageal hernia S/P laparoscopic cholecystectomy (08/15/09) S/P left knee arthroscopy (08/29/15) S/P right knee arthroscopy (04/24/17) With partial medial meniscectomy and limited medial femoral chondroplasty Family History Mother , At 74 Heart disease Thyroid dysfunction Type 2 diabetes mellitus Father , At 92 of [place] Heart disease Skin cancer Myocardial infarction Hypertension Sister Parkinsons disease Brother Heart disease Brother No problems noted. Daughter SLE (systemic lupus erythematosus) Depression Asthma Daughter Migraine headache Maternal Grandmother No problems noted. Maternal Grandmother No problems noted. Paternal Grandfather No problems noted. Paternal Grandfather No problems noted. Social History Smoking/Tobacco Use Status: Never Smoking risk assessment performed?: Yes Alcohol Intake: never Drug use: Never Substance use type: does not use Household members: family and other Details: Lives with , daughter, son-in-law and grandchild Pets and animals: Yes Pets and animals: dog(s) What type of physical activity do you participate in: walking Duration: 15-30 minutes/day Frequency: 1-2 times per week Alisha/Methodist: No preference Special alisha needs: No Do you feel safe at home: Yes Do you feel safe in your relationship?: Yes Female Reproductive History Menstrual Menopause type: natural History History 2 Para 2 Hx # Term Pregnancies Multiple births Hx # Pregnancies Ectopic pregnancies AB induced Hx Number of Living Children 2 AB spontaneous Exam Narrative Exam Narrative: GEN: awake, alert, oriented 3. Pleasant, well groomed, interactive. HEAD: Normocephalic, atraumatic ENT: Mucous membranes moist, oropharynx unremarkable, External ear exam unremarkable EYES: PERRL, EOMI NECK: Full ROM, no ESE, no menigismus CHEST/RESP: Nontender, clear to auscultation bilateral, no wheeze/rhonchi/rales CARDIOVASCULAR: RRR, no murmur, rub bob. 2+ Rad pulse bilateral ABDOMEN: Soft, nontender, no mass. +Bowel sounds EXT: Full ROM, no edema, no rash Neuro: Grossly normal neurologic exam, conversant, interactive. No motor weakness. Narrow based gait with good heel strike. No auditory without difficulty. Psych: Speech fluent, thoughts congruent, affect normal Course Vital Signs Vital signs: Vital Signs Temperature 36.4 C L 03/25/21 15:15 Pulse 56 L 03/25/21 15:15 Respiratory Rate 20 03/25/21 15:15 Pulse Oximetry 97 03/25/21 15:15 Temperature 36.4 C L 03/25/21 15:15 Pulse 56 L 03/25/21 15:15 Respiratory Rate 17 03/25/21 15:21 Respiratory Effort Non-Labored 03/25/21 15:21 Respiratory Depth Normal 03/25/21 15:21 Respiratory Pattern Normal 03/25/21 15:21 Pulse Oximetry 97 03/25/21 15:15 Oxygen Delivery Method Room Air 03/25/21 15:15 Oxygen Flow Rate 0 03/25/21 15:15 Pain Level 3 03/25/21 15:15
[2021-03-25] MEDS: ACETAMINOPHEN 1,000 MG/100 ML BTL 400 MG IVPB (15:45)
[2021-03-25 15:50] LABS: Abs Immature Grans 0.03 10^3/uL (0.0-0.06); Absolute Eosinophil Count 0.21 10^3/uL (0.0-0.7); HGB 13.9 g/dL (11.2-15.7); MCH 32.2 pg (27.0-33.0); MCHC 33.1 % (32.0-36.0); MCV 97.2 fL (80-95); MPV 10.1 fL (8.0-11.0); Nucleated RBC 0 %; Platelet Count 303 10^3/uL (130-400); RBC 4.32 10^6/uL (3.93-5.22); RDW 12.5 % (11.7-14.6); RDW-SD 45.1 fL; WBC 10.65 10^3/uL (4.4-10.8)
[2021-03-25 16:04] LABS: Absolute Neutrophil Count 4.47 10^3/uL (1.2-6.7)
[2021-03-25 16:05] LABS: Absolute Lymphocyte Count 5.11 10^3/uL (1.2-3.4); Absolute Monocyte Count 0.85 10^3/uL (0.1-0.8); Atypical Lymphocytes % 5; Diff Comment Manual Differential; RBC Morphology Normal
[2021-03-25 16:09] LABS: Magnesium 2.5 mg/dL (1.8-2.4)
[2021-03-25 16:18] LABS: ALT 28 U/L (14-59); AST 24 U/L (15-37); Alkaline Phosphatase 67 U/L (46-116); Anion Gap 6.1 mmol/L (3-11); BUN 11 mg/dL (7-18); Bilirubin, Total 0.4 mg/dL (0.2-1.0); CO2 30.9 mmol/L (21.0-32.0); CREATININE 0.8 mg/dL (0.55-1.02); Calcium 9.5 mg/dL (8.5-10.1); Chloride 98 mmol/L (98-107); D-Dimer 465 ng/mlFEU (<500); Glucose 92 mg/dL (74-106); Potassium 4.7 mmol/L (3.5-5.1); Sodium 135 mmol/L (136-145); Total Protein 7.8 g/dL (6.4-8.2)
[2021-03-25 16:21] LABS: NT-proBNP 88 pg/mL (<300); Troponin I < 0.05 ng/mL (<0.06)
--- NOTE | 2021-03-25 16:38 | DI.VRAD_ITS ---
PROCEDURE INFORMATION: Exam: XR Chest Exam date and time: 03/25/2021 3:37 PM Age: 71 years old Clinical indication: Left-sided; Patient HX: L sided chest pain TECHNIQUE: Imaging protocol: XR of the chest. Views: 2 views. COMPARISON: CT CHEST/ABD/PEL W 06/30/2019 10:06 AM FINDINGS: Lungs: Clear lungs. Pleural spaces: No pneumothorax. No sizable pleural effusion. Heart/Mediastinum: No cardiomegaly. Bones/joints: Unremarkable. IMPRESSION: Clear lungs. Dictated and Authenticated by: Guille Blount MD. Ordering:YELITZA Warren MD
--- NOTE | 2021-03-25 16:55 | DI.VRAD_ITS ---
PROCEDURE INFORMATION: Exam: CT Head Without Contrast Exam date and time: 03/25/2021 3:37 PM Age: 71 years old Clinical indication: Pain; Headache TECHNIQUE: Imaging protocol: Computed tomography of the head without contrast. COMPARISON: CT HEAD CERVICAL SPINE WO 06/30/2019 9:59 AM FINDINGS: Brain: Age-related involutional changes and chronic microvascular ischemic disease. No evidence for acute transcortical infarct. No mass effect or midline shift. No extra-axial collection. No acute intracranial hemorrhage. Basal cisterns are patent. Cerebral ventricles: No ventriculomegaly. Paranasal sinuses: Visualized sinuses are unremarkable. No fluid levels. Mastoid air cells: Visualized mastoid air cells are well aerated. Bones/joints: Unremarkable. No acute fracture. Soft tissues: Unremarkable. IMPRESSION: No hydrocephalus, acute intracranial hemorrhage, or mass effect. Dictated and Authenticated by: Guille Blount MD. Ordering:YELITZA Warren MD
--- NOTE | 2021-03-25 18:30 | RT.EKG_ITS ---
APPROVED REPORT Exam: Resting ECG Reason for Exam: Chest pain Patient Location: E HR:55 bpm ECG Measurements Heart Rate 55 AXIS DE 204 P -22 QRSd 93 QRS -23 QT 431 T 18 QTc 411 Conclusion Sinus bradycardia...rate< 60
[2021-03-25 19:15] LABS: Troponin I < 0.05 ng/mL (<0.06)
[2021-03-25 19:38] VITALS: BP 110/64; PULSE 56; RESP 17; TEMP 36.4; O2SAT 97
--- NOTE | 2021-03-26 02:23 | NUR.NOTE ---
Nursing Note: faxed the care management referral to care management , [facility]
== END 2021-03-25 19:57 | disposition home or self-care (01) ==
PROVIDERS: Emergency Provider Emergency Medicine; PCP Nurse Practitioner Family
DX: R07.89 Other chest pain (principal)
CPT/HCPCS: 80053; 93005; 96365; 99285; 70450; 71046; 83735; 83880; 84484; 85025; 85379; 93010; 99284; J0131

== ENCOUNTER 2021-04-10 03:23 | Outpatient (CLI) | payer OTHER, SELFPAY ==
[2021-04-10 12:58] LABS: TSH (W/Ref FT4) 8.82 uIU/mL (0.36-3.74)
[2021-04-10 13:20] LABS: FREE T4 0.93 ng/dL (0.76-1.46)
== END 2021-04-10 03:24 | disposition home or self-care (01) ==
PROVIDERS: PCP Nurse Practitioner Family
DX: E03.9 Hypothyroidism, unspecified; G25.0 Essential tremor; G47.00 Insomnia, unspecified
CPT/HCPCS: 36415; 84439; 84443

== ENCOUNTER 2021-05-16 19:18 | Emergency (ER) | payer OTHER, MEDICARE, SELFPAY ==
[2021-05-16] VITALS (22 sets, daily range): BP systolic 104–151; BP diastolic 63–117; PULSE 76–89; RESP 12–25; TEMP 36.4–36.9; O2SAT 89–97
--- NOTE | 2021-05-16 19:45 | DI.RAD_ITS ---
Exam(s) XR PORTABLE CHEST AP EXAM: XR PORTABLE CHEST AP CLINICAL HISTORY: cough, SOB TECHNIQUE: 2D digital imaging was performed. COMPARISON: CR,XR XR CHEST 2V PA LATERAL from 03/25/2021 FINDINGS: LUNGS: Not well inflated but clear. No pleural abnormality seen. HEART: Normal. MEDIASTINUM: Normal. BONES: Unremarkable. IMPRESSION: No acute pulmonary findings. DATA REPOSITORY: RADIATION DOSE DELIVERED:
--- NOTE | 2021-05-16 19:45 | RT.EKG_ITS ---
APPROVED REPORT Exam: Resting ECG Reason for Exam: SOB Patient Location: E HR:84 bpm ECG Measurements Heart Rate 84 AXIS AZ 187 P 14 QRSd 89 QRS -27 QT 361 T 7 QTc 425 Conclusion Sinus rhythm...normal P axis, V-rate 60- 99 Left ventricular hypertrophy...multiple voltage criteria There are no significant changes compared to prior EKG performed on 03/25/2021 at 18:40.
--- NOTE | 2021-05-16 19:48 | ED.GENADUL_ITS ---
Discharge Plan Disposition Patient Disposition: HOME Condition: Stable Discharge Details Clinical Impression: URI (upper respiratory infection) Primary Care Provider: Tiarra Hoover ED Provider: Richard Stephens [place] Meds and New Rx's Prescriptions: No Action simvastatin 40 mg tablet 40 mg PO DAILY Qty: 90 RF: 4 zolpidem [Ambien] 5 mg tablet 5 mg PO QHS PRN (Reason: sleep) Qty: 30 RF: 0 buspirone 15 mg tablet 15 mg PO BID Qty: 180 RF: 4 duloxetine [Cymbalta] 30 mg capsule,delayed release(DR/EC) 30 mg PO DAILY Qty: 90 RF: 4 cholecalciferol (vitamin D3) 1,000 UNIT tablet 2 tab PO DAILY Qty: 200 RF: 4 Women's 50+ Daily Form (gkb) 1 EACH tablet 1 ea PO DAILY RF: 0 cyanocobalamin (vitamin B-12) [Vitamin B-12] 1,000 MCG tablet extended release 1,000 mcg PO DAILY Qty: 100 RF: 4 venlafaxine 150 mg capsule,extended release 24hr 150 mg PO DAILY Qty: 90 RF: 4 venlafaxine 75 mg capsule,extended release 24hr 75 mg PO DAILY Qty: 90 RF: 4 propranolol 40 mg tablet 40 mg PO DAILY Qty: 90 RF: 4 omeprazole 20 mg capsule,delayed release(DR/EC) 20 mg PO BID Qty: 180 RF: 4 levothyroxine 125 mcg capsule 125 mcg PO DAILY Qty: 90 RF: 0 Discharge Instructions Instructions: Upper Respiratory Infection (ED), Pulse Oximetry (ED) Additional Instructions: Your laboratory studies look good other than a low potassium. EKG and cardiac enzyme is normal. Chest x-ray does not show evidence of pneumonia. We have tested you for Covid and influenza even though you were vaccinated. You should quarantine at home until these results are back. If negative and feeling better can leave quarantine. If positive will need further isolation and if positive Covid will need to consider monoclonal antibody. Please monitor your oxygen level at home with a pulse ox we provided. If it is persistently below 90 or your pulse rate greater than 100 you should return to ED. Also return for increasing shortness of breath, confusion, vomiting, other concerns. Stand Alone Forms: PENDING COVID-19 TESTING Referrals: Tiarra Hoover, [employer]CH[employer]IST [Primary Care Provider] - Medical Decision Making Patient presenting to ED with cough, shortness of breath, chest heaviness, generalized fatigue and weakness status post developing mild URI symptoms the day before. She does not appear to be in distress. Room air pulse oximetry 92 to 94%. Lungs generally clear with a few rhonchi. She is immunized both for flu and Covid. EKG is unchanged from previous. IV established and laboratory studies obtained. Chest x-ray ordered. Laboratory studies unremarkable other than potassium which is low and replaced orally. Troponin negative after having chest heaviness all day. Vital signs remain unchanged. Chest x-ray without any acute pathology or changes. Patient swabed for both Covid and influenza. She is given a portable pulse oximetry and shown how to use it. She will be discharged home to quarantine until testing results have returned and are negative. Instructed to return here for decreasing saturations, increasing heart rate, new or worsening chest pain, inc reasing shortness of breath, vomiting, confusion, other concerns. If Covid positive she would be a candidate for MAB therapy which we discussed. Follow-up with primary care next week if not improving. Medical Records Medical records reviewed: Yes I reviewed the patient's medical records. Lab Data Lab results reviewed: Yes I reviewed the patient's lab results. ECG Data Attestation: I personally reviewed and interpreted this ECG (s) as follows: Prior ECG tracings: available for review Interpretation: see EKG HPI General Mode of arrival: ambulatory . Date/Time Provider Initiated Documentation: 05/16/21 19:32 . Limitations to Documentation: no limitations . Information obtained by: patient and RN notes reviewed . HPI Narrative: Patient presents to the ED with complaint of cough, shortness of breath, chest heaviness. Patient reports waking up the day before with some mild URI type symptoms including nasal congestion and slight cough. Today she has had increased cough with associated chest heaviness and shortness of breath. She has felt feverish and chilled but has not taken her temperature at home. She is immunized against Covid and flu. She has been able to stay hydrated drinking plenty of fluids. She denies abdominal pain, vomiting, diarrhea. She is making urine. She is extremely fatigued and generally weak. Related Data Home Medications Medication Instructions Recorded Confirmed Women's 50+ Daily Form (gkb) 1 ea PO DAILY 12/11/12 04/09/21 cholecalciferol (vitamin D3) 2 tab PO DAILY #200 tab-cap 12/11/12 04/09/21 cyanocobalamin (vitamin B-12) 1,000 mcg PO DAILY #100 tab-cap 12/30/12 04/09/21 [Vitamin B-12] buspirone 15 mg tablet 15 mg PO BID #180 tab 01/19/20 04/09/21 zolpidem 5 mg tablet 5 mg PO QHS PRN #30 tab-cap 01/19/20 04/09/21 venlafaxine 150 mg 150 mg PO DAILY #90 tab-cap 02/20/20 04/09/21 capsule,extended release 24 hr venlafaxine 75 mg capsule,extended 75 mg PO DAILY #90 tab-cap 02/20/20 04/09/21 release 24 hr simvastatin 40 mg tablet 40 mg PO DAILY #90 tab 04/06/20 04/09/21 duloxetine 30 mg capsule,delayed 30 mg PO DAILY #90 cap 07/16/20 04/09/21 release omeprazole 20 mg capsule,delayed 20 mg PO BID #180 tab-cap 09/13/20 04/09/21 release propranolol 40 mg tablet 40 mg PO DAILY #90 tab 09/13/20 04/09/21 levothyroxine 125 mcg capsule 125 mcg PO DAILY #90 cap 04/17/21 Previous Rx's Medication Instructions Recorded buspirone 15 mg tablet 15 mg PO BID #180 tab 01/19/20 zolpidem 5 mg tablet 5 mg PO QHS PRN #30 tab-cap 01/19/20 venlafaxine 150 mg 150 mg PO DAILY #90 tab-cap 02/20/20 capsule,extended release 24 hr venlafaxine 75 mg capsule,extended 75 mg PO DAILY #90 tab-cap 02/20/20 release 24 hr simvastatin 40 mg tablet 40 mg PO DAILY #90 tab 04/06/20 duloxetine 30 mg capsule,delayed 30 mg PO DAILY #90 cap 07/16/20 release omeprazole 20 mg capsule,delayed 20 mg PO BID #180 tab-cap 09/13/20 release propranolol 40 mg tablet 40 mg PO DAILY #90 tab 09/13/20 levothyroxine 125 mcg capsule 125 mcg PO DAILY #90 cap 04/17/21 Allergies Allergy/AdvReac Type Severity Reaction Status Date / Time duloxetine [From Cymbalta] AdvReac Intermediate Gait Verified 04/09/21 12:39 Imbalance gabapentin AdvReac Intermediate Gait Verified 04/09/21 12:39 Imbalance NSAIDS (Non-Steroidal AdvReac Intermediate epigastric Verified 04/09/21 12:39 Anti-Inflamma pain pregabalin [From Lyrica] AdvReac Intermediate depression; Verified 04/09/21 12:39 SI chloraprep Allergy Intermediate Skin Rash Uncoded 04/09/21 12:39 General Stated Complaint: SOB LUISA: 3 Review of Systems Narrative: As documented in HPI otherwise negative as below. Const: no fever Resp: no pleuritic pain CV: no diaphoresis, edema, syncope GI: no abdominal pain, nausea, vomiting, diarrhea Neuro: no headache, numbness, focal weakness, confusion PFSH Medical History Complicated grief Diverticulosis of colon Essential tremor GERD (gastroesophageal reflux disease) Hiatal hernia Hyperlipidemia Hypothyroidism Major depressive disorder Migraine headache Prediabetes Primary fibromyalgia syndrome Vitamin B 12 deficiency Vitamin D deficiency Surgical History H/O colonoscopy (07/20/12) History of arthroplasty of left knee (08/29/15) History of arthroplasty of right knee (04/21/18) History of esophagogastroduodenoscopy (EGD) (07/20/12) S/P hernia repair (05/07/09) paraesophageal hernia S/P laparoscopic cholecystectomy (08/15/09) S/P left knee arthroscopy (08/29/15) S/P right knee arthroscopy (04/24/17) With partial medial meniscectomy and limited medial femoral chondroplasty Family History Mother , At 74 Heart disease Thyroid dysfunction Type 2 diabetes mellitus Father , At 92 of [place] Heart disease Skin cancer Myocardial infarction Hypertension Sister Parkinsons disease Brother Heart disease Brother No problems noted. Daughter SLE (systemic lupus erythematosus) Depression Asthma Daughter Migraine headache Maternal Grandmother No problems noted. Maternal Grandmother No problems noted. Paternal Grandfather No problems noted. Paternal Grandfather No problems noted. Social History Smoking/Tobacco Use Status: Never Smoking risk assessment performed?: Yes Alcohol Intake: never Drug use: Never Substance use type: does not use Household members: family and other Details: Lives with , daughter, son-in-law and grandchild Pets and animals: Yes Pets and animals: dog(s) What type of physical activity do you participate in: walking Duration: 15-30 minutes/day Frequency: 1-2 times per week Alisha/Scientologist: No preference Special alisha needs: No Do you feel safe at home: Yes Do you feel safe in your relationship?: Yes Female Reproductive History Menstrual Menopause type: natural History History 2 Para 2 Hx # Term Pregnancies Multiple births Hx # Pregnancies Ectopic pregnancies AB induced Hx Number of Living Children 2 AB spontaneous Exam Narrative Exam Narrative: Const: WDWN elderly female in NAD. HEENT: NC/AT. Normal facial exam. Eyes: Normal conjunctiva and sclera. Neck: Supple. Trachea midline. Lungs: Normal respiratory effort. Lungs w/ a few scattered rhonchi. Cor: RRR without murmur/gallop. Good radial pulses. GI: Soft. NT/ND. No guarding or rebound. Neuro: A+O x 3. Normal speech, mentation, gait. Cranial nerves II - XII g rossly intact. No gross motor or sensory deficit. Ext: No C/C/E. No calf tenderness. Skin: Warm and dry without rash. Course Vital Signs Vital signs: Vital Signs Temperature 97.5 F L 05/16/21 19:18 Pulse 88 05/16/21 19:18 Respiratory Rate 18 05/16/21 19:18 Blood Pressure 151/71 H 05/16/21 19:18 Pulse Oximetry 92 05/16/21 19:18 Temperature 97.5 F L 05/16/21 19:18 Temperature Source Tympanic 05/16/21 19:18 Pulse 88 05/16/21 19:18 Respiratory Rate 18 05/16/21 19:18 Respiratory Effort Short of Breath 05/16/21 19:25 Respiratory Depth Normal 05/16/21 19:25 Respiratory Pattern Normal 05/16/21 19:25 Blood Pressure 151/71 H 05/16/21 19:18 Blood Pressure Position Supine 05/16/21 19:18 Pulse Oximetry 92 05/16/21 19:18 Oxygen Delivery Method Room Air 05/16/21 19:18 Oxygen Flow Rate 0 05/16/21 19:18 Pain Level 0 05/16/21 19:18
[2021-05-16 20:22] LABS: Abs Immature Grans 0.02 10^3/uL (0.0-0.06); Absolute Basophil Count 0.03 10^3/uL (0.0-0.2); Absolute Eosinophil Count 0.14 10^3/uL (0.0-0.7); Absolute Lymphocyte Count 3.96 10^3/uL (1.2-3.4); Absolute Neutrophil Count 4.06 10^3/uL (1.2-6.7); Basophils % 0.3; Eosinophils % 1.5; HCT 38.4 % (36.0-46.0); HGB 12.9 g/dL (11.2-15.7); Immature Grans % 0.2; MCH 32.3 pg (27.0-33.0); MCHC 33.6 % (32.0-36.0); MPV 9.5 fL (8.0-11.0); Monocytes % 10.9; Neutrophils % 44.1; Nucleated RBC 0 %; Platelet Count 247 10^3/uL (130-400); RDW 12.5 % (11.7-14.6); WBC 9.21 10^3/uL (4.4-10.8)
[2021-05-16] MEDS: Lactated Ringers 1,000 ML 125 ML IV (20:22)
[2021-05-16 21:05] LABS: ALT 21 U/L (14-59); AST 15 U/L (15-37); Albumin 3.6 g/dL (3.4-5.0); Alkaline Phosphatase 76 U/L (46-116); Anion Gap 6.1 mmol/L (3-11); BUN 16 mg/dL (7-18); Bilirubin, Total 0.4 mg/dL (0.2-1.0); CO2 31.9 mmol/L (21.0-32.0); CREATININE 0.9 mg/dL (0.55-1.02); Calcium 9.7 mg/dL (8.5-10.1); Chloride 100 mmol/L (98-107); Glucose 115 mg/dL (74-106); Magnesium 1.7 mg/dL (1.8-2.4); Potassium 3.1 mmol/L (3.5-5.1); Sodium 138 mmol/L (136-145); Total Protein 7.9 g/dL (6.4-8.2); Troponin I < 0.05 ng/mL (<0.06)
--- NOTE | 2021-05-16 21:16 | DI.VRAD_ITS ---
PROCEDURE INFORMATION: Exam: XR Chest Exam date and time: 05/16/2021 8:00 PM Age: 71 years old Clinical indication: Cough and shortness of breath TECHNIQUE: Imaging protocol: XR of the chest. Views: 1 view. COMPARISON: CR XR CHEST 2V PA LATERAL 03/25/2021 4:17 PM FINDINGS: Mildly limited due to rotation Lungs: Mild chronic interstitial prominence. No consolidation. Pleural spaces: No pleural effusion. No pneumothorax. Heart/Mediastinum: No cardiomegaly. Bones/joints: Unremarkable. IMPRESSION: No acute findings. Dictated and Authenticated by: Gama Dahl MD. Ordering:ETHEL Ramos MD
[2021-05-16] MEDS: Potassium Chloride 20 MEQ TABCR 40 MEQ PO (21:43)
[2021-05-20 12:22] LABS: COVID-19 RT-PCR UVMMC Result Positive (Negative)
== END 2021-05-16 21:56 | disposition home or self-care (01) ==
PROVIDERS: Emergency Medicine; Emergency Provider Emergency Medicine; PCP Nurse Practitioner Family
DX: R05.1 Acute cough; R06.02 Shortness of breath; E87.6 Hypokalemia; R53.83 Other fatigue; Z20.822 Contact with and (suspected) exposure to COVID-19; J06.9 Acute upper respiratory infection, unspecified
CPT/HCPCS: 36415; 80053; 87631; 93005; 96360; 96361; 99285; U0003; 71045; 83735; 84484; 85025; 93010

== ENCOUNTER 2021-05-18 09:47 | Emergency (ER) | payer OTHER, MEDICARE, SELFPAY ==
[2021-05-18] VITALS (29 sets, daily range): BP systolic 81–137; BP diastolic 35–84; PULSE 54–101; RESP 11–53; TEMP 36.6–37; O2SAT 90–97
--- NOTE | 2021-05-18 09:45 | RT.EKG_ITS ---
APPROVED REPORT Exam: Resting ECG Reason for Exam: generalized weakness Patient Location: E HR:96 bpm ECG Measurements Heart Rate 96 AXIS NV 164 P 28 QRSd 94 QRS -24 QT 371 T 33 QTc 470 Conclusion Sinus rhythm...normal P axis, V-rate 60- 99 Probable left ventricular hypertrophy...(RaVL+SV3)xQRSd >300
--- NOTE | 2021-05-18 09:45 | DI.RAD_ITS ---
Exam(s) XR PORTABLE CHEST AP EXAM: XR PORTABLE CHEST AP CLINICAL HISTORY: cough TECHNIQUE: COMPARISON: CR,XR XR PORTABLE CHEST AP from 05/16/2021 FINDINGS: The heart may be mildly enlarged, although this appearance may be due to technique. Lungs appear marci ssly clear. No pleural effusion on this frontal film. IMPRESSION: No evidence of acute process. RADIATION DOSE DELIVERED: Total DLP
--- NOTE | 2021-05-18 09:51 | ED.GENADUL_ITS ---
Discharge Plan Disposition Patient Disposition: HOME Condition: Stable Discharge Details Clinical Impression: COVID-19 Primary Care Provider: Tiarra Hoover ED Provider: Stacey Mcgowan Home Meds and New Rx's Prescriptions: Continued simvastatin 40 mg tablet 40 mg PO DAILY Qty: 90 RF: 4 zolpidem [Ambien] 5 mg tablet 5 mg PO QHS PRN (Reason: sleep) Qty: 30 RF: 0 buspirone 15 mg tablet 15 mg PO BID Qty: 180 RF: 4 duloxetine [Cymbalta] 30 mg capsule,delayed release(DR/EC) 30 mg PO DAILY Qty: 90 RF: 4 cholecalciferol (vitamin D3) 1,000 UNIT tablet 2 tab PO DAILY Qty: 200 RF: 4 Women's 50+ Daily Form (gkb) 1 EACH tablet 1 ea PO DAILY RF: 0 cyanocobalamin (vitamin B-12) [Vitamin B-12] 1,000 MCG tablet extended release 1,000 mcg PO DAILY Qty: 100 RF: 4 venlafaxine 150 mg capsule,extended release 24hr 150 mg PO DAILY Qty: 90 RF: 4 venlafaxine 75 mg capsule,extended release 24hr 75 mg PO DAILY Qty: 90 RF: 4 propranolol 40 mg tablet 40 mg PO DAILY Qty: 90 RF: 4 omeprazole 20 mg capsule,delayed release(DR/EC) 20 mg PO BID Qty: 180 RF: 4 levothyroxine 125 mcg capsule 125 mcg PO DAILY Qty: 90 RF: 0 Discharge Instructions Instructions: COVID-19 (Coronavirus Disease 2019) (ED) Additional Instructions: You are positive for COVID-19. You did receive an infusion here which should help to shorten the length of your symptoms as well as improve severity. Your labs otherwise, as well at your vital signs, are stable and reassuring at this time. Has not had any low oxygen levels. You need to continue to quarantine until you have a negative test. Please stay at home and stay away from other people to help her to reduce the spread. Please stay in close contact with family via phone. Please keep your upcoming appointment with your primary care, call on Thursday as they may want to change the location or time. If you develop any new or worsening symptoms please seek care urgently once again. Please continue to monitor your oxygen at home as previously instructed. Referrals: Tiarra Hoover NP [Primary Care Provider] - Medical Decision Making Patient is a 71-year-old female presenting today, brought in via EMS, with chief complaint of persistent URI symptoms. Patient was seen here 2 days ago with the same. At that time, she reports that her symptoms have started just a few hours prior to arrival. Patient continues to endorse some cough generalize fatigue and generalized weakness. States that she has had some subjective chills, no documented fever. Denies any chest pain. Denies any GI upset. States she has been able to hydrate well at home. Has not taken her morning medications today. Intermittent SOB, none currently. Has had some muscle cramping, primarily in LLE. Patient also describes general body aches. Patient came in today as her symptoms have persisted and she is fatigued. She has not taken her morning medications or any OTC medications today. On exam, patient appears nontoxic. She was initially tachycardic with heart rate of 101, this came down to 87 at the time I examined the patient. Her lung sounds are clear. Normal cardiac auscultation. Patient does have dry mucous membranes. Abdomen is benign with no tenderness elicited. I did examine her lower extremities, no calf tenderness. No edema plus pulses. No pain elicited on exam. No rash notable. Reviewed note from when patient was here 2 days ago. COVID-19 testing is still pending. Patient did have hypokalemia and this was replenished orally while here. The patient has had some subjective chills, will give acetaminophen, hoping this will also help with her achiness. We will repeat baseline labs. COIVID-19 positive. Other labs without signficant abnormality. Patient and I discussed risks/benefits of MAB infusion. She would like to move forward with infusion. Verbal consent was obtained. Patient recieving MAB infusion. At patient's request, spoke with Phyllis, her daughter, . Patient completed MAB. Appears to be feeling much improved after some hydration and APAP. She is eating lunch. Did not desaturate. Patient has O2 monitor at home. She is able to be safely discharged home. Encouraged supportive care. Return precautions discussed. She will quarantine until negative test. She has appointment already schedule with PCP, advised that she call to discuss her positive diagnosis as site or time may need to be changed. All of her quesitons and concerns were addressed, she is in agreement with this plan. HPI General Mode of arrival: EMS . Date/Time Provider Initiated Documentation: 05/18/21 10:28 . Limitations to Documentation: no limitations . Information obtained by: patient, RN notes reviewed and old records reviewed . History of Present Illness 71 year old F presents to the emergency department with the chief complaint of generalized fatigue, weakness, cough, chills, ears itching, described as mild (patient denies any pain), Quality is described as other (has had muscles cramps intermittently), Patient started experiencing this day(s) (3) and it has been constant. No relieving factors improve symptom(s), No exacerbating factors reported . Patient notes cough, fever/chills (chills, no fever) and shortness of breath; denies chest pain, headaches, nausea/vomiting, rash, syncope and weakness. Patient did receive the following treatments prior to arrival, none Related Data Home Medications Medication Instructions Recorded Confirmed Women's 50+ Daily Form (gkb) 1 ea PO DAILY 12/11/12 05/18/21 cholecalciferol (vitamin D3) 2 tab PO DAILY #200 tab-cap 12/11/12 05/18/21 cyanocobalamin (vitamin B-12) 1,000 mcg PO DAILY #100 tab-cap 12/30/12 05/18/21 [Vitamin B-12] buspirone 15 mg tablet 15 mg PO BID #180 tab 01/19/20 05/18/21 zolpidem 5 mg tablet 5 mg PO QHS PRN #30 tab-cap 01/19/20 05/18/21 venlafaxine 150 mg 150 mg PO DAILY #90 tab-cap 02/20/20 05/18/21 capsule,extended release 24 hr venlafaxine 75 mg capsule,extended 75 mg PO DAILY #90 tab-cap 02/20/20 05/18/21 release 24 hr simvastatin 40 mg tablet 40 mg PO DAILY #90 tab 04/06/20 05/18/21 duloxetine 30 mg capsule,delayed 30 mg PO DAILY #90 cap 07/16/20 05/18/21 release omeprazole 20 mg capsule,delayed 20 mg PO BID #180 tab-cap 09/13/20 05/18/21 release propranolol 40 mg tablet 40 mg PO DAILY #90 tab 09/13/20 05/18/21 levothyroxine 125 mcg capsule 125 mcg PO DAILY #90 cap 04/17/21 05/18/21 Previous Rx's Medication Instructions Recorded buspirone 15 mg tablet 15 mg PO BID #180 tab 01/19/20 zolpidem 5 mg tablet 5 mg PO QHS PRN #30 tab-cap 01/19/20 venlafaxine 150 mg 150 mg PO DAILY #90 tab-cap 02/20/20 capsule,extended release 24 hr venlafaxine 75 mg capsule,extended 75 mg PO DAILY #90 tab-cap 02/20/20 release 24 hr simvastatin 40 mg tablet 40 mg PO DAILY #90 tab 04/06/20 duloxetine 30 mg capsule,delayed 30 mg PO DAILY #90 cap 07/16/20 release omeprazole 20 mg capsule,delayed 20 mg PO BID #180 tab-cap 09/13/20 release propranolol 40 mg tablet 40 mg PO DAILY #90 tab 09/13/20 levothyroxine 125 mcg capsule 125 mcg PO DAILY #90 cap 04/17/21 Allergies Allergy/AdvReac Type Severity Reaction Status Date / Time duloxetine [From Cymbalta] AdvReac Intermediate Gait Verified 05/18/21 09:47 Imbalance gabapentin AdvReac Intermediate Gait Verified 05/18/21 09:47 Imbalance NSAIDS (Non-Steroidal AdvReac Intermediate epigastric Verified 05/18/21 09:47 Anti-Inflamma pain pregabalin [From Lyrica] AdvReac Intermediate depression; Verified 05/18/21 09:47 SI chloraprep Allergy Intermediate Skin Rash Uncoded 05/18/21 09:47 General Stated Complaint: GenMedical LUISA: 4 Review of Systems Constitutional Constitutional: Reports as per HPI, Reports chills, Reports fatigue, Denies headache(s), Reports lethargy and Denies poor appetite Eyes Eyes: Reports as per HPI, Denies eye discharge and Denies irritation ENT Ears, Nose, Mouth, and Throat: Reports as per HPI and Denies headache(s) Cardiovascular Cardiovascular: Reports as per HPI, Denies chest pain and Denies dyspnea Respiratory Respiratory: Reports as per HPI and Denies dyspnea Gastrointestinal Gastrointestinal: Reports as per HPI, Denies abdominal pain, Denies change in bowel habits, Denies nausea and Denies vomiting Integumentary/Breasts Skin/Breast: Reports as per HPI and Denies rash Neurologic Neurologic: Reports as per HPI and Denies headache(s) Endocrine Endocrine: Reports fatigue [facility] Medical History Complicated grief Diverticulosis of colon Essential tremor GERD (gastroesophageal reflux disease) Hiatal hernia Hyperlipidemia Hypothyroidism Major depressive disorder Migraine headache Prediabetes Primary fibromyalgia syndrome Vitamin B 12 deficiency Vitamin D deficiency Surgical History H/O colonoscopy (07/20/12) History of arthroplasty of left knee (08/29/15) History of arthroplasty of right knee (04/21/18) History of esophagogastroduodenoscopy (EGD) (07/20/12) S/P hernia repair (05/07/09) paraesophageal hernia S/P laparoscopic cholecystectomy (08/15/09) S/P left knee arthroscopy (08/29/15) S/P right knee arthroscopy (04/24/17) With partial medial meniscectomy and limited medial femoral chondroplasty Family History Mother , At 74 Heart disease Thyroid dysfunction Type 2 diabetes mellitus Father , At 92 of [place] Heart disease Skin cancer Myocardial infarction Hypertension Sister Parkinsons disease Brother Heart disease Brother No problems noted. Daughter SLE (systemic lupus erythematosus) Depression Asthma Daughter Migraine headache Maternal Grandmother No problems noted. Maternal Grandmother No problems noted. Paternal Grandfather No problems noted. Paternal Grandfather No problems noted. Social History Smoking/Tobacco Use Status: Never Smoking risk assessment performed?: Yes Alcohol Intake: never Drug use: Never Substance use type: does not use Household members: family and other Details: Lives with , daughter, son-in-law and grandchild Pets and animals: Yes Pets and animals: dog(s) What type of physical activity do you participate in: walking Duration: 15-30 minutes/day Frequency: 1-2 times per week Alisha/Anabaptist: No preference Special alisha needs: No Do you feel safe at home: Yes Do you feel safe in your relationship?: Yes Female Reproductive History Menstrual Menopause type: natural History History 2 Para 2 Hx # Term Pregnancies Multiple births Hx # Pregnancies Ectopic pregnancies AB induced Hx Number of Living Children 2 AB spontaneous Exam Const General: cooperative, healthy appearing, comfortable, no acute distress, well developed and well groomed Nutritional Appearance: average body habitus and well nourished Orientation: alert and awake [facility] Head: normal to inspection, normocephalic and atraumatic Ears: hearing grossly normal bilaterally General nose exam: external nose normal and nares normal Face and sinus: normal facial exam, sinuses nontender and face symmetric Mouth: oral mucosae normal, lip normal, tongue normal, oropharynx normal and moist mucous membranes Throat: posterior oropharynx normal, tonsils normal and uvula midline Eyes General: appearance normal, both eyes and all related structures Neck Neck: normal visual inspection, full ROM, no lymphadenopathy and no meningeal signs Resp Effort & Inspection: normal respiratory effort, able to speak in complete sentences and no respiratory distress Auscultation: clear to auscultation bilaterally, no rales, no rhonchi and no wheezes Cardio Rate: regular rate Rhythm: regular rhythm Heart Sounds: S1 normal and S2 normal GI Inspection: normal to inspection Palpation: soft and nontender Skin General skin exam: no rashes or lesions noted Neuro General: patient alert and patient awake Cognition: normal cognition Speech: speech normal Gait: normal gait Extrem General: normal to inspection, no pedal edema, no calf tenderness and other (2+ distal pulses in BLE) Psych Appearance: grossly normal and well kempt Mental Status: mental status grossly normal Speech and Movement: speech and movement normal Course Vital Signs Vital signs: Vital Signs Temperature 36.6 C 05/18/21 09:41 Pulse 101 H 05/18/21 09:41 Respiratory Rate 18 05/18/21 09:41 Blood Pressure 137/84 05/18/21 09:41 Pulse Oximetry 95 05/18/21 09:41 Temperature 36.6 C 05/18/21 09:41 Temperature Source Temporal Artery Scan 05/18/21 09:41 Pulse 101 H 05/18/21 09:41 Respiratory Rate 18 05/18/21 09:41 Respiratory Effort Non-Labored 05/18/21 09:48 Blood Pressure 137/84 05/18/21 09:41 Blood Pressure Position Supine 05/18/21 09:41 Pulse Oximetry 95 05/18/21 09:41 Oxygen Delivery Method Room Air 05/18/21 09:41 Oxygen Flow Rate 0 05/18/21 09:41
[2021-05-18] MEDS: Normal Saline 1,000 ML 500 ML IV (10:03)
[2021-05-18 10:05] LABS: Source Nasal/Nares
[2021-05-18 10:09] LABS: Abs Immature Grans 0.03 10^3/uL (0.0-0.06); Absolute Basophil Count 0.05 10^3/uL (0.0-0.2); Absolute Eosinophil Count 0.13 10^3/uL (0.0-0.7); Absolute Lymphocyte Count 4.45 10^3/uL (1.2-3.4); Absolute Monocyte Count 0.92 10^3/uL (0.1-0.8); Absolute Neutrophil Count 4.16 10^3/uL (1.2-6.7); Basophils % 0.5; Eosinophils % 1.3; HCT 45.9 % (36.0-46.0); HGB 15.3 g/dL (11.2-15.7); Immature Grans % 0.3; Lymphocytes % 45.7; MCHC 33.3 % (32.0-36.0); MPV 9.9 fL (8.0-11.0); Monocytes % 9.4; Neutrophils % 42.8; Nucleated RBC 0 %; Platelet Count 304 10^3/uL (130-400); RBC 4.78 10^6/uL (3.93-5.22); RDW 12.6 % (11.7-14.6); WBC 9.74 10^3/uL (4.4-10.8)
[2021-05-18] MEDS: Propranolol 40 MG TAB PO (10:09)
[2021-05-18] MEDS: busPIRone 15 MG TAB PO (10:10)
[2021-05-18] MEDS: Acetaminophen 500 MG TAB 1000 MG PO (10:11)
[2021-05-18 10:25] LABS: ALT 25 U/L (14-59); AST 21 U/L (15-37); Alkaline Phosphatase 78 U/L (46-116); Anion Gap 12.2 mmol/L (3-11); BUN 13 mg/dL (7-18); Bilirubin, Total 0.5 mg/dL (0.2-1.0); CO2 27.8 mmol/L (21.0-32.0); CREATININE 0.9 mg/dL (0.55-1.02); Calcium 10.6 mg/dL (8.5-10.1); Chloride 102 mmol/L (98-107); Glucose 123 mg/dL (74-106); Potassium 3.8 mmol/L (3.5-5.1); Sodium 142 mmol/L (136-145); Total Protein 8.9 g/dL (6.4-8.2); Troponin I < 0.05 ng/mL (<0.06)
[2021-05-18 10:37] LABS: Bilirubin Negative (Negative); Blood Negative (Negative); Clarity Clear (Clear); Glucose Negative (Negative); Ketones Negative (Negative); Leukocyte Esterase Trace (Negative); Nitrite Negative (Negative); Specific Gravity 1.025 (1.005-1.025); Urobilinogen 0.2 EU/dL (Up TO 0.2)
[2021-05-18 10:52] LABS: Bacteria Few HPF (Negative); C & S Indicated? No; Casts Negative LPF (Negative); Crystals Negative HPF (Negative); Epithelial Cells Few HPF (Negative); Mucus Negative (Negative); RBC 0-2 HPF (0-2)
--- NOTE | 2021-05-18 10:56 | DI.VRAD_ITS ---
PROCEDURE INFORMATION: Exam: XR Chest Exam date and time: 05/18/2021 9:51 AM Age: 71 years old Clinical indication: Cough TECHNIQUE: Imaging protocol: XR of the chest. Views: 1 view. COMPARISON: CR XR PORTABLE CHEST AP 10/21/2020 20:48 FINDINGS: Scan quality: Exam is technically satisfactory. Apical lordotic positioning. Lungs: Lungs are clear with no infiltrate or nodule. Pleural spaces: Unremarkable. No pleural effusion. No pneumothorax. Heart/Mediastinum: Heart size is exaggerated by the apical lordotic positioning. Vasculature: Pulmonary vessels are non-engorged. Bones/joints: Unremarkable. IMPRESSION: No active cardiopulmonary disease. Dictated and Authenticated by: Kelvin Ballesteros MD. Ordering:KUSUM Ibarra MD
[2021-05-18 10:58] LABS: COVID-19 PCR POSITIVE (Negative)
[2021-05-18] MEDS: Levothyroxine 125 MCG TAB PO (12:02)
[2021-05-18] MEDS: Normal Saline 500 ML 30 ML IV (12:06)
--- NOTE | 2021-05-18 13:17 | NUR.NOTE ---
pt provided with soup and toast drinking edenilson-magdalena Nursing Note:
== END 2021-05-18 13:53 | disposition home or self-care (01) ==
PROVIDERS: Emergency Provider Physician Assistant; PCP Nurse Practitioner Family
DX: U07.1 COVID-19 (principal); R05.1 Acute cough; R53.1 Weakness; R53.83 Other fatigue; M79.10 Myalgia, unspecified site; Z20.822 Contact with and (suspected) exposure to COVID-19
CPT/HCPCS: 36415; 80053; 87449; 87635; 93005; 96360; 96361; 96365; 99285; 71045; 81003; 81015; 83735; 84484; 85025; 93010

== ENCOUNTER 2021-05-25 11:36 | Outpatient (CLI) | payer OTHER, MEDICARE, SELFPAY ==
--- NOTE | 2021-05-25 11:30 | RT.EKG_ITS ---
APPROVED REPORT Exam: Resting ECG Reason for Exam: Intermitted chest pressure Patient Location: O HR:54 bpm ECG Measurements Heart Rate [address] 173 P 12 QRSd 96 QRS -14 QT 429 T 13 QTc 406 Conclusion Sinus bradycardia...rate< 60 Normal Electrocardiogram
== END 2021-05-25 11:37 | disposition home or self-care (01) ==
LOC: DI.CM 11:37
PROVIDERS: PCP Nurse Practitioner Family; Visit Provider Nurse Practitioner Family
DX: R07.89 Other chest pain (principal)
CPT/HCPCS: 93010

== ENCOUNTER 2021-06-24 04:06 | Outpatient (CLI) | payer OTHER, SELFPAY ==
[2021-06-24 11:56] LABS: Hemoglobin A1C 5.6 % (<5.7)
[2021-06-24 13:07] LABS: FREE T4 1.51 ng/dL (0.76-1.46)
== END 2021-06-24 04:07 | disposition home or self-care (01) ==
PROVIDERS: PCP Nurse Practitioner Family; Visit Provider Nurse Practitioner Family
DX: E03.9 Hypothyroidism, unspecified (principal); R73.03 Prediabetes
CPT/HCPCS: 36415; 83036; 84439; 84443

== ENCOUNTER 2021-07-11 02:23 | Outpatient (CLI) | payer OTHER, SELFPAY ==
--- NOTE | 2021-07-11 12:30 | DI.MAMMO_ITS ---
Exam(s) MAMMO SCREENING EXAM: MAMMO SCREENING CLINICAL HISTORY: screening,z12.39. TECHNIQUE: Bilateral full field digital CC and MLO mammographic images were obtained with 3D tomosyn thesis and utilizing computer aided detection (CAD). COMPARISON: Prior mammograms dating back to 2018, the most recent being 2019. FINDINGS: There are no CAD designations. Asymmetric tissue anteriorly in the left breast on the CC view is unchanged from prior studies. There are no new spiculated masses nor malignant appearing microcalcification groups. There is no significant architectural distortion nor skin thickening-retraction. IMPRESSION: No radiographic evidence of malignancy. BI-RADS Category 1 - Negative Breast Density - Category B - Scattered areas of fibroglandular density Breast density Category C or D implies that the patient has dense breast tissue. Dense breast tissue can make it harder to find cancer on a mammogram. Dense breast tissue is also associated with an incr eased risk of breast cancer. This information about the result of the mammogram report was provided to the patient to raise their awareness. Use this report when you speak with the patient about their risks for breast cancer, which includes their family history. At that time, you may recommend additional screening tests (Ultrasoun d or MRI) as these tests may add significant information. A negative radiographic report should not delay biopsy if a dominant or clinically suspicious mass is present. Up to ten percent of cancers are not identified on mammography. A negative report may reinforce clinical impression. Adenosis and dense breasts may obscure an underlying neoplasm. False positive reports average 6 to 10%. Patient will receive a letter notifying them of these results.
== END 2021-07-11 02:43 ==
PROVIDERS: PCP Nurse Practitioner Family; Visit Provider Nurse Practitioner Family
DX: Z12.31 Encounter for screening mammogram for malignant neoplasm of breast (principal)
CPT/HCPCS: 77063; 77067

== ENCOUNTER 2022-01-10 02:38 | Outpatient (CLI) | payer OTHER, SELFPAY ==
--- OUTSIDE RECORDS SUMMARY | 2022-01-10 02:39 | XMS_ITS | Encounter Summary ---
:1950 Author Organization [facility] [place] [address] Care Team Providers Name Role Phone Unknown Primary Care Provider Unavailable Reason for Visit Reason Comments Back Pain Pain, Chronic Encounter Details Date Type Department Care Team Description 12/01/2011 Office Visit [facility], Chronic low back pain [place] PT (Primary Dx) [facility] [address] [place] [facility] [id number] [place] [address] Social History Tobacco Use Types Packs/Day Years Used Date Never Smoker Sex Assigned at Date Recorded Not on file documented as of this encounter Progress Notes [facility], PT - 12/01/2011 3:27 PM EDT [facility] PHYSICAL THERAPY FOLLOW-UP Treatment Goals (with 5 PT sessions over 8 weeks): Daily walking at least 20 minutes duration. Increase LS AROM 10 degrees each direction. Eliminate falls. Independent self care. Subjective: Walking x 3 sessions per day outdoors with cane, 15 minutes each. Utilizing self care exercises x 2 sessions per day. Objective testing: Lumbar spine AROM degrees Flexion 55 Extension 5 Assessment and Planning Exercise testing: Wall squats, heel raises. Home exercise program: Reviewed exercise objectives and safety principles. The self care routine nowconsists of: Twice daily lower trunk rotations, posterior pelvic tilts, bridges, wall squats, unilateral heel raises, walking progression toward 2 week goal of 20 minutes duration each. Good understanding of rationale behind exercises. Recommend follow up in 2 weeks for flexibility and walking tests. Check repeated flexion and extension standing movements for possible progressions. Length of visit: 30 minutes. documented in this encounter Plan of Treatment Not on filedocumented as of this encounter Visit Diagnoses Diagnosis Chronic low back pain - Primary Lumbago documented in this encounter Care Teams Judicial Clerk Relationship Specialty Start Date End Date Unknown PCP - General 06/04/10 12/03/11 None documented as of this encounter
--- OUTSIDE RECORDS SUMMARY | 2022-01-10 02:39 | XMS_ITS | Encounter Summary ---
:1950 Author Organization [place] [address] Care Team Providers Name Role Phone Unknown Primary Care Provider Unavailable Reason for Visit Reason Comments Back Pain Encounter Details Date Type Department Care Team Description 10/22/2011 Office Visit [facility] , PT [facility] [place] [address] Chronic low back pain [place] Coleman Gordon MD [facility] [place] [address] (Primary Dx) [place] [address] Social History Tobacco Use Types Packs/Day Years Used Date Never Smoker Sex Assigned at Date Recorded Not on file documented as of this encounter Progress Notes [facility], PT - 10/22/2011 2:06 PM EDT [facility] PHYSICAL THERAPY INITIAL VISIT Onset: chronic, related to no known injury. Pain: Located in the low back, bilateral buttock, bilateral lateral thigh, bilateral lateral leg, intensity 9/10 at worst. Associated symptoms: Varying sensory loss throughout both LEs. General weakness in both LEs. Previous episodes: 20 year history, no spine surgeries, no spine related trauma. Past treatments: Physical therapy, pool therapy, chiropractic, medications. Medical history: Fibromyalgia, neck and bilateral upper extremity pain with weakness and sensory loss in both upper extremities, hiatal hernia repair, hypothyroidism, hypercholesterolemia, depression. Usual activities are restricted due to this problem. Limits house chores to 30 minutes at a time with breaks during. Has been using straight cane for community ambulation since July 2011. Has fallentwice at home in the last 4 weeks. Limits exercise, would like to lose 30 pounds. Occupation: None. Receives SSDI. Current exercise routine: Treadmill walking two days per week, 10 minutes duration, under 2 mph. Worse with: Sitting (15 minute tolerance), bending, lifting. Better with: Position changes. Gait: Slow pace, unsteady without SC. Sensation: Light touch intact. Reflexes Right Left Patella hyporeflexic hyporeflexic Achilles hyporeflexic hyporeflexic LE Strength Right Left Hip flexion 3/5 3/5 Knee extension 3/5 3/5 Dorsiflexion 3/5 3/5 Hallux extension 3/5 3/5 Plantarflexion 2/ 2/5 Posture: Slightly forward flexed. Lumbar spine AROM degrees Flexion 50 Extension 5 (Right = Left Side [place]) Repeated movement testing During, After Pre-test pain standing Bilateral lateral thigh Flexion standing increased, worse Extension standing increased, worse Pre-test pain lying Low back, bilateral lateral thigh and leg Flexion lying Increased back, produced bilateral buttock, worse Extension lying Increased low back, worse Treadmill test: 3 METs, stopped due to pain. Assessment: No apparent directional preference for symptom management. Walking ability quite limitedper report and treadmill testing today. Goals are rather modest, where the FRP may be too intensive. Plan: Initial self care trial centered around daily treadmill walking 1.5 mph x 5 minutes to start. Advised her to utilize straight cane in home for safety at this point. Also discussed footwear, she will try to obtain sneakers that provide stability (tennis, cross sports trainer) as opposed to her current shoes with a rocker type bottom. Other considerations will include lower trunk rotation stretches, bridges, pelvic tilts, progression of walking routine, balance exercises, wall squats, heel raises. Recommend PT follow up in 2 weeks. Treatment Goals (with 5 PT sessions over 8 weeks): Daily walking at least 20 minutes duration. Increase LS AROM 10 degrees each direction. Eliminate falls. Independent self care. documented in this encounter Plan of Treatment Not on filedocumented as of this encounter Visit Diagnoses Diagnosis Chronic low back pain - Primary Lumbago documented in this encounter Care Teams General Road Foreman Relationship Specialty Start Date End Date Unknown PCP - General 06/04/10 12/03/11 None documented as of this encounter
--- OUTSIDE RECORDS SUMMARY | 2022-01-10 02:39 | XMS_ITS | Encounter Summary ---
:1950 Author Organization [facility] [place] [address] Care Team Providers Name Role Phone Unknown Primary Care Provider Unavailable Encounter Details Date Type Department Care Team Description 09/24/2011 Abstract [facility], Coleman Peterson MD [facility] [place] [id number] [facility] [phone] [place], [place] [address] (Wo rk) Social History Tobacco Use Types Packs/Day Years Used Date Never Assessed Sex Assigned at Date Recorded Not on file documented as of this encounter Plan of Treatment Not on filedocumented as of this encounter Visit Diagnoses Not on filedocumented in this encounter Care Teams Rock Lather Relationship Specialty Start Date End Date Unknown PCP - General 06/04/10 12/03/11 None documented as of this encounter
--- OUTSIDE RECORDS SUMMARY | 2022-01-10 02:39 | XMS_ITS | Encounter Summary ---
:1950 Author Organization [facility] [place] [address] Care Team Providers Name Role Phone Unknown Primary Care Provider Unavailable Reason for Referral Consultation (Routine) - Complete - Patient Seen (External Appt Consult Notes Rcv'd) Specialty Diagnoses / Procedures Referred By Contact Refer red To Contact Diagnoses Back pain with radiation Coleman Gordon MD [facility] [place] Shared Decision [address] [place] [phone] [place] [address] Referral ID Status Reason Start Date Expiration Date Visits V isits Requested Authorized Complete - Other 10/01/2011 03/29/2012 1 1 Patient Seen (External Appt Consult Notes Rcv'd) Consultation (Routine) - Complete - Patient Seen (External Appt Consult Notes Rcv'd) Specialty Diagnoses / Procedures Referred By Contact Refer red To Contact Diagnoses Back pain with radiation Coleman Gordon MD [facility] [place] Shared Decision [address] [place] [phone] [place] [address] Referral ID Status Reason Start Date Expiration Date Visits V isits Requested Authorized [id number] Complete - Other 09/25/2011 03/23/2012 1 1 Patient Seen (External Appt Consult Notes Rcv'd) hysical Therapy (Routine) - Closed Specialty Diagnoses / Procedures Referred By Contact Refer red To Contact Physical Therapy Diagnoses Back pain with radiation Coleman Gordon MD [facility] [place] [address] [place] [address] Referral ID Status Reason Start Date Expiration Date Visits V isits Requested Authorized [id number] Closed Evaluate and 09/25/2011 03/23/2012 1 1 Treat Reason for Visit Reason Comments Back And Neck Pain Bilateral Hip Pain Bilateral Leg Pain Encounter Details Date Type Department Care Team Description 09/25/2011 Office Visit [facility] at Coleman Gordon, Back p ain with Braulio RIOS radiation (Primary Dx) [facility] [address] [place] [facility] [phone] [place] [address] [phone] Social History Tobacco Use Types Packs/Day Years Used Date Never Smoker Sex Assigned at Date Recorded Not on file documented as of this encounter Last Filed Vital Signs Vital Sign Reading Time Taken Comments Blood Pressure 137/76 09/25/2011 9:47 AM EDT Pulse 81 09/25/2011 9:47 AM EDT Temperature - - Respiratory Rate - - Oxygen Saturation 97% 09/25/2011 9:47 AM EDT Inhaled Oxygen Concentration - - Weight 79.4 kg (175 lb) 09/25/2011 9:47 AM EDT Height 165.1 cm (5' 5) 09/25/2011 9:47 AM EDT Body Mass Index 29.12 09/25/2011 9:47 AM EDT documented in this encounter Patient Instructions Patient Shaylee Stroud LPN - 09/25/2011 9:51 AM EDT Welcome to Memopal, your secure online access to your electronic medical record at [facility]. Using Memopal you will be able to send messages to your providers, view your test results, renew prescriptions, schedule appointments, and much more. Follow these instructions to enter your personal [facility]ron[facility] account for the first time: 1. Start your internet browser and type [email or web address] into the address bar. 2. In the New User box on the right-hand side of the Welcome page click the link that states, ???I have an activation code.?? 3. On the Identification page, follow these steps: a) Enter your myD-H activation code: [email or web address] b) Expires: 11/09/11 09:51 AM IMPORTANT: This Activation Code will on the above mentioned date. If you do not sign up for [email or web address] by this date, you will need to request another activation code. c) Enter your date of , using the calendar tool provided. d) Enter your Zip code. e) Select ???submit?? to go to the next page. 4. On the Create Account page, follow these steps: a) Create a Memopal username. This can???t be changed, so choose one you won???t forget. b) Create a password that???s at least six characters long, and that contains at least two numbers. Your password can be changed at any time. Confirm your password by entering it once more. c) Enter your email address. This will be used to alert you to new information. Confirm your email address by entering it once more. d) Enter your security question. This will be used if you forget your password. e) Enter your security answer. Confirm your security answer by entering it once more. f) Select ???submit?? to view your electronic medical record. If you have any questions about myD-H or your Access Code, please call for [place], for [place] or for [place]. If you need technical support, please e-mail [email or web address]. Remember, myD-H is NOT for urgent needs! Always dial 911 for medical emergencies. documented in this encounter Progress Notes Coleman Gordon MD - 09/25/2011 10:53 AM EDT Chief complaint: Low back and diffuse bilateral leg pain, fibromyalgia Subjective: This is a nontraumatic multiyear history of mechanical lower back pain spreading diffusely and in variable patterns through both legs also with essentially total body pain and migratory patterns over time. She also has daytime fatigue and does not sleep well consistent with her diagnosis of fibromyalgia. She's recently completed a course of physical therapy which modalitiesandsomelimitedex erciseandhasaTENSunitavailableinadditiontothemedicinesthatareupdatedtoday.Thesei ncludevenlafaxineLere r,whichhethinksisgivinghervisualsideeffects,zolpidem.Shedoesnotrecalleverusingam itriptyline.Shethiswi thherhusbandisherewithhertodayanddescribesaveryrestrictedphysicallifestyleonlyab lraxtfobptcut7bzefzcr atatimenow.She'pcdhbkxmcpuxtipkm817-368wfigxxszjqlvlzw.Herfunctionalrecoverygoal sincludebeabletowalkmoreandenjoyhercampingthiscomingsummer. Objective:Heraffectisflatinitiallywarmsup.Sheismoderatelyoverweight.Shestandswit houtevidentspinaldefo rmitybutisusingacaneasattimesshefeelsuncertainabouthergaitsafety.Hertrunkflexibi litythroughthewaistwh bmanawijrslwcjrvceq77??gridhstjqate53??forwardflexionwithoutcomplaints.Seatedstr aightlegraisesarenega tiveforanylegsymptoms.Touchsensationpowerscreenanddeeptendonreflexesareallnormal inthelowerextremities .HerMRIofthelumbarspinefromayearagohassomemotionartifactparticularlyintheaxialim agesbutthereisnoevide nceofneuralcanalcompromisecertainlythatwouldexplainherlegsymptomswellshedoeshave degenerativediscchang esatL4-5withendplatescleroticchangesaswellbutnoevidentlisthesis. Assessment:Thisalong-standingpatternofbackanddiffusebilaterallegpaininthecontext offibromyalgiaaffecti ngmostofherbodyalongwithchronicfatigueandinsomnia.Thiswasacounselingbasevisitfor 87yddur96duqfktkmosku tertalkingaboutthelackofindicationforspinesurgerycertainlybuttheoptionsforabette rfunctionalrecoveryin cludingapressatrialofamitriptylinewhichshecoulddiscusswithDr.Erisman,butmoreimpo rtantlyofvisitwiththe spinetherapystaffheretogetmoreobjectiveU.ofwhatherfunctionallimitationsareatthis pointandtogetadviceab outagradedaerobicexerciseprogramgivenherrelativehealthriskswithbeingoverweightan pyjrxkhumtbqnazuhj48k ij84vtgekkonkzilco.Puttingallthistogetherandrealizingthatthefunctionalrestoratio nprogramcouldbeacontingenciesforher,wehavemutuallydecidedtoproceedasfollows. Plan: She is going to review the shared medical decision-making video on chronic low back pain and the video on functional sikhism and then returned to have a spine therapy evaluation of her mechanics and have her walk on a treadmill to see what her functional limitations maybe and therefore inform her graded exercise whether it home program or to consider the functional sikhism program. documented in this encounter Plan of Treatment Scheduled Referrals Name Type Priority Associated Diagnoses Order S chedule REFERRAL TO Outpatient Referral Routine Back pain with Ordere d: PHYSICAL THERAPY radiation 09/25/2011 REFERRAL TO SHARED Outpatient Referral Routine Back pain with Ordered: DECISION PROGRAM radiation 09/25/2011 REFERRAL TO SHARED Outpatient Referral Routine Back pain with 09/25/2011 DECISION PROGRAM radiation documented as of this encounter Visit Diagnoses Diagnosis Back pain with radiation - Primary Backache, unspecified documented in this encounter Care Teams Suction Plate Roller Hand Relationship Specialty Start Date End Date Unknown PCP - General 06/04/10 12/03/11 None documented as of this encounter
--- OUTSIDE RECORDS SUMMARY | 2022-01-10 02:39 | XMS_ITS | Encounter Summary ---
:1950 Author Organization [facility] [place] [address] Care Team Providers Name Role Phone Unknown Primary Care Provider Unavailable Encounter Details Date Type Department Care Team Description 09/25/2011 Orders Only Spine Center at [facility] Coleman Gordon MD [facility] [place] [address] SPINE [facility]ENTER [phone] [place], [place] [address] (Wo rk) Social History Tobacco Use Types Packs/Day Years Used Date Never Smoker Sex Assigned at Date Recorded Not on file documented as of this encounter Plan of Treatment Not on filedocumented as of this encounter Procedures Procedure Name Priority Date/Time Associated Diagnosis Comme nts FILM LIBRARY Routine 09/25/2011 9:05 AM Results f or this STORAGE ONLY DX EDT procedure ar e in SPINE the results section. documented in this encounter Results FILM LIBRARY- STORAGE ONLY DX SPINE (09/25/2011 9:05 AM EDT) Anatomical Region Laterality Modality Other Specimen (Source) Anatomical Collection Method Collection Time Re ceived Time Location / / Volume Laterality 09/25/2011 9:05 AM EDT Narrative 09/01/2013 9:50 PM EST This is a non-reportable exam. Procedure Note Mikhail Falcon - 09/01/2013Formatting of t his note might be different from the original. This is a non-reportable exam. Coleman Gordon MD IMG FILM LIBRARY ORDERABLES documented in this encounter Visit Diagnoses Not on filedocumented in this encounter Care Teams Small Products Assembler Relationship Specialty Start Date End Date Unknown PCP - General 06/04/10 12/03/11 None documented as of this encounter
--- OUTSIDE RECORDS SUMMARY | 2022-01-10 02:39 | XMS_ITS | Encounter Summary ---
:1950 Author Organization [facility] [place] [address] Care Team Providers Name Role Phone Unknown Primary Care Provider Unavailable Encounter Details Date Type Department Care Team Description 09/25/2011 Orders Only Spine Center at [facility] Coleman Gordon MD [facility] [place] [phone] SPINE CENTER [phone] [place], [place] [address] (Wo rk) Social History Tobacco Use Types Packs/Day Years Used Date Never Smoker Sex Assigned at Date Recorded Not on file documented as of this encounter Plan of Treatment Not on filedocumented as of this encounter Procedures Procedure Name Priority Date/Time Associated Diagnosis Comme nts FILM LIBRARY Routine 09/25/2011 8:55 AM Results f or this STORAGE ONLY DX EDT procedure ar e in SHOULDER the results section. documented in this encounter Results FILM LIBRARY- STORAGE ONLY DX SHOULDER (09/25/2011 8:55 AM EDT) Anatomical Region Laterality Modality Other Specimen (Source) Anatomical Collection Method Collection Time Re ceived Time Location / / Volume Laterality 09/25/2011 8:55 AM EDT Narrative 09/01/2013 9:50 PM EST This is a non-reportable exam. Procedure Note Mikhail Falcon - 09/01/2013Formatting of t his note might be different from the original. This is a non-reportable exam. Coleman Gordon MD IMG FILM LIBRARY ORDERABLES documented in this encounter Visit Diagnoses Not on filedocumented in this encounter Care Teams Regulatory Law Specialist Relationship Specialty Start Date End Date Unknown PCP - General 06/04/10 12/03/11 None documented as of this encounter
--- OUTSIDE RECORDS SUMMARY | 2022-01-10 02:39 | XMS_ITS | Clinical Summary ---
:1950 Author Organization [facility] [place] [address] Care Team Providers Name Role Phone Tiarra Hoover APRN Primary Care Provider Allergies No known active allergies Medications Medication Sig Dispensed Refills Start Date End Date Status venlafaxine Take 150 mg by 0 Act deni (EFFEXOR-XR) 150 mg 24 mouth daily. hr capsule levothyroxine Take 88 mcg by 0 A ctive (SYNTHROID) 88 mcg mouth daily. Tue, tablet Thur, Sat & Sun levothyroxine Take 100 mcg by 0 Active (SYNTHROID) 100 mcg mouth daily. Mon, tablet Wed, & Thu pregabalin (LYRICA) 75 Take 75 mg by 0 Active mg capsule mouth 2 times daily. omeprazole (PRILOSEC) Take 20 mg by 0 Active 20 mg capsule mouth daily. simvastatin (ZOCOR) 20 Take 20 mg by 0 Active mg tablet mouth nightly. zolpidem (AMBIEN) 5 mg Take 5 mg by 0 Active tablet mouth nightly as needed. Active Problems Problem Noted Date Back pain with radiation 09/25/2011 Social History Tobacco Use Types Packs/Day Years Used Date Never Smoker Sex Assigned at Date Recorded Not on file Last Filed Vital Signs Vital Sign Reading [...] Mass Index 29.12 09/25/2011 9:47 AM EDT Plan of Treatment Health Maintenance Due Date Last Done Comments Covid-19 Vaccine (#1) 1955 Hepatitis C Screening 02/06/1968 Tdap adult 1969 Tetanus vaccine 1969 Breast Cancer Share Decision Needed 1990 Colonoscopy 1995 Breast Cancer screening 02/06/2000 Zoster vaccine (1 of 2) 02/06/2000 Advance Directive 2005 Bone Density Scan 2015 Pneumoccocal Vaccine: 65+ (1 - PCV) 2015 Influenza (Flu) vaccine (1 of 1 - Influenza standard 03/13/2021 series) Insurance Payer Benefit Plan Subscriber ID Effective Dates Phone Address Type / Group JOSE SHAFER [id number] 2018-Pres [phone] [address] [address] ent [address] [place] [phone] Care Teams Metal Fabricator Relationship Specialty Start Date End Date Tiarra Hoover APRN PCP - General Family Medicine 07/07/[address] [place], [place] [address]
--- OUTSIDE RECORDS SUMMARY | 2022-01-10 02:39 | XMS_ITS | Encounter Summary ---
:1950 Author Organization [facility] [place] [address] Care Team Providers Name Role Phone Mandy Campbell MD Primary Care Provider Encounter Details Date Type Department Care Team Description 06/22/2018 Ancillary Procedure Radiology Library at [facility] [address] [phone] Social History Tobacco Use Types Packs/Day Years Used Date Never Smoker Sex Assigned at Date Recorded Not on file documented as of this encounter Plan of Treatment Not on filedocumented as of this encounter Procedures Procedure Name Priority Date/Time Associated Diagnosis Comme nts FILM LIBRARY Routine 06/22/2018 12:00 AM Results for this STORAGE ONLY CT EST procedure ar e in ABDOMEN AND PELVIS the resul ts section. documented in this encounter Results Film Library- Storage Only CT Abdomen & Pelvis (06/22/2018 12:00 AM EST) Specimen (Source) Anatomical Location Collection Method / Collectio n Time Received Time / Laterality Volume Narrative RAD - 07/07/2018 3:30 PM EST This exam is for storage only and is aut o-finalizing. Tiarra Hoover TUBE BUILDING MACHINE OPERATOR IM FILM LIBRARY ORDERABLES Performing Organization Address City/State/ZIP Code Phon e Number [place], [place] documented in this encounter Visit Diagnoses Not on filedocumented in this encounter Care Teams Lead Manufacturing Technician Relationship Specialty Start Date End Date Mandy Campbell MD PCP - General 12/04/11 07/06/18 [address] [place] [address] documented as of this encounter
--- OUTSIDE RECORDS SUMMARY | 2022-01-10 02:39 | XMS_ITS | Encounter Summary ---
:1950 Demographics Home Phone Preferred Language Unknown Marital Status Rastafarian Affiliation Unknown Race Unknown Ethnic Group Unknown Author Organization [facility] Address [address] [place] [address] Care Team Providers Name Role Phone Unavailable Primary Care Provider Unavailable Encounter Details Date Type Department Care Team Description 05/18/2021 Lab Requisition [facility] Outr Resulting Lab, Pathology & Laboratory Provider [facility] [address] [place] [address] Social History Tobacco Use Types Packs/Day Years Used Date Never Assessed Sex Assigned at Date Recorded Not on file documented as of this encounter Plan of Treatment Not on filedocumented as of this encounter Procedures Procedure Name Priority Date/Time Associated Diagnosis Comme nts COVID-19 TEST [facility] Today 05/16/2021 21:39 LAB PCR EDT COVID-19 TESTING Routine 05/16/2021 21:39 Results for this EDT procedure are i n the results section. documented in this encounter Results COVID-19 TEST [facility] LAB PCR (05/16/2021 21:39 EDT) Specimen Swab Performing Organization Address City/State/ZIP Code Phon e Number [facility] [address] [place] [address] SERVICES (ABNORMAL) COVID-19 TESTING (05/16/2021 21:39 EDT) COVID-19 rt-PCR Positive (AA) Negative [facility] Result Comment: LABORATORY This test has not been FDA c leared or approved. This test has been authorized by FDA under an EUA for use by authorized laboratories. This test has been authorized only for detection of nucleic acid fro SERVICES m 2019-nCoV, not for any oth er viruses or pathogens. This test is only authorized for the duration of the declaration that circumstances exist justifying the authorization of emergency use of in vitro d iagnostic tests for detectio n and/or diagnosis of 2019-nCoV under section 564(b)(1) of Act, 21 U.S.C ?? 360bbb-3(b) (1), unless the authorization is terminated or revoked sooner. Testing was performed using the tez SARS-CoV-2 assay ([employer] on the Tez 6800 System Performing Lab Tez 68[address] [facility] Lab [facility] SERVICES Specimen Swab Performing Organization Address City/State/ZIP Code Phon e Number [facility] [address] [place] [address] SERVICES documented in this encounter Visit Diagnoses Not on filedocumented in this encounter Additional Health Concerns Infection Onset Date Last Indicated Resolved Time COVID-19 05/16/2021 05/16/2021 06/05/2021 22:15 EST documented as of this encounter
--- OUTSIDE RECORDS SUMMARY | 2022-01-10 02:39 | XMS_ITS | Clinical Summary ---
:1950 Demographics Home Phone Preferred Language Unknown Marital Status Episcopal Affiliation Unknown Race Unknown Ethnic Group Unknown Author Organization [facility] Address [address] [place] [address] Care Team Providers Name Role Phone Unavailable Primary Care Provider Unavailable Social History Tobacco Use Types Packs/Day Years Used Date Never Assessed Sex Assigned at Date Recorded Not on file Plan of Treatment Health Maintenance Due Date Last Done Comments Hepatitis C Screen 1950 COVID-19 Vaccine (1) 1962 Fall Risk Screening 2015
--- OUTSIDE RECORDS SUMMARY | 2022-01-10 02:39 | XMS_ITS | Encounter Summary ---
:1950 Author Organization [facility] [place] [address] Care Team Providers Name Role Phone Unknown Primary Care Provider Unavailable Encounter Details Date Type Department Care Team Description 09/25/2011 Orders Only Spine Center at [facility] Coleman Gordon MD [facility] [place] [address] SPINE CENTER [phone] [place], [place] [address] (Wo rk) Social History Tobacco Use Types Packs/Day Years Used Date Never Smoker Sex Assigned at Date Recorded Not on file documented as of this encounter Plan of Treatment Not on filedocumented as of this encounter Procedures Procedure Name Priority Date/Time Associated Diagnosis Comme nts FILM LIBRARY Routine 09/25/2011 9:00 AM Results f or this STORAGE ONLY MR EDT procedure ar e in SPINE the results section. documented in this encounter Results FILM LIBRARY- STORAGE ONLY MR SPINE (09/25/2011 9:00 AM EDT) Anatomical Region Laterality Modality Other Specimen (Source) Anatomical Collection Method Collection Time Re ceived Time Location / / Volume Laterality 09/25/2011 9:00 AM EDT Narrative 09/01/2013 9:50 PM EST This is a non-reportable exam. Procedure Note Mikhail Falcon - 09/01/2013Formatting of t his note might be different from the original. This is a non-reportable exam. Coleman Gordon MD IMG FILM LIBRARY ORDERABLES documented in this encounter Visit Diagnoses Not on filedocumented in this encounter Care Teams Stock Mixer Relationship Specialty Start Date End Date Unknown PCP - General 06/04/10 12/03/11 None documented as of this encounter
--- OUTSIDE RECORDS SUMMARY | 2022-01-10 02:39 | XMS_ITS | Encounter Summary ---
:1950 Author Organization [facility] [place] [address] Care Team Providers Name Role Phone Unknown Primary Care Provider Unavailable Encounter Details Date Type Department Care Team Description 09/25/2011 Orders Only Spine Center at [facility] Coleman Gordon MD [place] [address] SPINE CENTER [phone] [place], [place] [address] (Wo rk) Social History Tobacco Use Types Packs/Day Years Used Date Never Smoker Sex Assigned at Date Recorded Not on file documented as of this encounter Plan of Treatment Not on filedocumented as of this encounter Procedures Procedure Name Priority Date/Time Associated Diagnosis Comme nts FILM LIBRARY Routine 09/25/2011 9:10 AM Results f or this STORAGE ONLY MR EDT procedure ar e in SPINE the results section. documented in this encounter Results FILM LIBRARY- STORAGE ONLY MR SPINE (09/25/2011 9:10 AM EDT) Anatomical Region Laterality Modality Other Specimen (Source) Anatomical Collection Method Collection Time Re ceived Time Location / / Volume Laterality 09/25/2011 9:10 AM EDT Narrative 09/01/2013 9:50 PM EST This is a non-reportable exam. Procedure Note Mikhail Falcon - 09/01/2013Formatting of t his note might be different from the original. This is a non-reportable exam. Coleman Gordon MD IMG FILM LIBRARY ORDERABLES documented in this encounter Visit Diagnoses Not on filedocumented in this encounter Care Teams Termite Helper Relationship Specialty Start Date End Date Unknown PCP - General 06/04/10 12/03/11 None documented as of this encounter
--- OUTSIDE RECORDS SUMMARY | 2022-01-10 02:39 | XMS_ITS | Encounter Summary ---
:1950 Author Organization [facility] [place] [address] Care Team Providers Name Role Phone Mandy Campbell MD Primary Care Provider Reason for Visit Reason Comments Back And Neck Pain Encounter Details Date Type Department Care Team Description 01/06/2012 Office Visit [facility] , PT [facility] [place] [address] Chronic low back pain [place] Mandy Campbell MD [address] [place], [place] [id number] (Primary Dx) [place] [id number] Social History Tobacco Use Types Packs/Day Years Used Date Never Smoker Sex Assigned at Date Recorded Not on file documented as of this encounter Progress Notes Jaspreet Gonzáles, PT - 01/06/2012 9:01 AM EDT Walking x 3 sessions per day, at least 20 minutes duration with straight cane. Utilizing exercises x1 session per day, includes lower trunk rotation stretches, posterior pelvic tilts, bridges, wall squats, and unilateral heel raises. AROM LS standing flexion 50 degrees, extension 15 degrees. Repeated movements remarkable for no pre-test pain standing. Flexion standing produced low back and bilateral buttock pain, worse. Extension standing produced bilateral lateral thigh pain, worse. Flexion sitting produced low back pain, not worse. Treadmill test: 4 METs. Home exercise plan: Lower trunk rotation stretches, posterior pelvic tilts, bridges, wall squats, flexion sitting, and unilateral heel raises. Twice daily walking routine. Has improved with self care exercise progression. Understands how to utilize these tools for continued progression and maintenance. Knows to call the Spine Center with any questions or concerns. Plan: Independent self care exercise. No additional PT planned. Length of visit: A total of 30 minutes was spent to test and develop appropriate self care exercise strategies. documented in this encounter Plan of Treatment Not on filedocumented as of this encounter Visit Diagnoses Diagnosis Chronic low back pain - Primary Lumbago documented in this encounter Care Teams Private Investigator Surveillance Relationship Specialty Start Date End Date Mandy Campbell MD PCP - General 12/04/11 07/06/18 [address] [place] [address] documented as of this encounter
[2022-01-10 13:39] LABS: FREE T4 1.38 ng/dL (0.76-1.46); TSH 0.44 uIU/mL (0.36-3.74)
== END 2022-01-10 02:39 | disposition home or self-care (01) ==
LOC: LOS 02:38
PROVIDERS: PCP Nurse Practitioner Family; Visit Provider Nurse Practitioner Family
DX: E03.9 Hypothyroidism, unspecified (principal)
CPT/HCPCS: 36415; 84439; 84443

== ENCOUNTER 2022-01-31 13:05 | Emergency (ER) | payer OTHER, SELFPAY ==
[2022-01-31] VITALS (21 sets, daily range): BP systolic 97–108; BP diastolic 45–57; PULSE 56–67; RESP 12–22; TEMP 37.4; O2SAT 85–98
--- NOTE | 2022-01-31 13:00 | RT.EKG_ITS ---
APPROVED REPORT Exam: Resting ECG Reason for Exam: CHEST PAIN Patient Location: E HR:57 bpm ECG Measurements Heart Rate 57 AXIS MS 194 P 8 QRSd 87 QRS -19 QT 430 T 6 QTc 421 Conclusion Sinus bradycardia...rate< 60
--- NOTE | 2022-01-31 13:30 | W.ED.GENAD ---
Discharge Plan Disposition Patient Disposition: STILL A PATIENT Condition: Stable Discharge Details Clinical Impression: Chest pain Primary Care Provider: Tiarra Hoover ED Provider: Vahid Montero Baker Meds and New Rx's Prescriptions: No Action acetaminophen 500 mg tablet 1,000 mg PO TID omeprazole 20 mg capsule,delayed release(DR/EC) 20 mg PO BID Qty: 180 3RF propranolol 40 mg tablet 40 mg PO DAILY Qty: 90 3RF Rx Instructions: Take 1 tab once a day cholecalciferol (vitamin D3) 1,000 UNIT tablet 2 tab PO DAILY Qty: 200 Rx Instructions: 2000 IU DAILY Women's 50+ Daily Form (gkb) 1 EACH tablet 1 ea PO DAILY cyanocobalamin (vitamin B-12) [Vitamin B-12] 1,000 MCG tablet extended release 1,000 mcg PO DAILY Qty: 100 simvastatin 40 mg tablet 40 mg PO DAILY Qty: 90 4RF levothyroxine 125 mcg capsule 125 mcg PO DAILY Qty: 90 4RF buspirone 15 mg tablet 15 mg PO BID Qty: 180 4RF Rx Instructions: Take 1 tablet twice a day venlafaxine 150 mg capsule,extended release 24hr 150 mg PO DAILY Qty: 90 4RF Rx Instructions: Take 1 daily in addition to the 75mg dose venlafaxine 75 mg capsule,extended release 24hr 75 mg PO DAILY Qty: 90 4RF Rx Instructions: Take 1 daily in addition to the 150mg dose Medical Decision Making 71 yo female with hx of hld, gerd, fibromyalgia, who comes in with ems with chest pressure. She states she woke up feeling well and then started to have chest pressure with some radiation to the left arm and upper back. She denies diaphoresis, n/v, fevers, chills. She has never had pain like this before and denies prior cardiac history such as IN. She was given 1 nitro with ems and states she feels well without pain. She appears well on exam, clear lungs, no jvd, soft nontender abdomen. Will obtain troponin, cmp, and given the pain radiated to the back obtain cta to evaluate for dissection, no tachycardia, hypoxia or evidence of dvt on exam so doubt PE Patient signed out to oncoming provider pending delta troponin and cta results, dispo.PT stable, and initial labs unremarkable Differential Diagnosis Differential Diagnosis: chest wall pain, nstemi, dissection Medical Records Medical records reviewed: Yes I reviewed the patient's medical records. Lab Data Lab results reviewed: Yes I reviewed the patient's lab results. ECG Data Attestation: I personally reviewed and interpreted this ECG (s) as follows: Prior ECG tracings: not available for review Interpretation: sinus bradycardia, rate of 57, no acute st t wave ischemic findings HPI General Mode of arrival: ambulatory. Date/Time Provider Initiated Documentation: 01/31/22 13:06. Limitations to Documentation: no limitations. Information obtained by: patient. History of Present Illness 71 year old F presents to the emergency department with the chief complaint of chest pain, described as moderate, Patient reports no radiation. Patient started experiencing this hour(s) (5) and it has been constant. No relieving factors improve symptom(s), No exacerbating factors reported . Patient notes chest pain; denies diaphoresis. Patient did receive the following treatments prior to arrival, none Related Data Home Medications Medication Instructions Recorded Confirmed cholecalciferol (vitamin D3) 25 2 tab PO DAILY #200 tab-caps 12/11/12 01/31/22 mcg (1,000 unit) tablet multivitamin with [id number] 1 ea PO DAILY 12/11/12 01/31/22 400 mcg-120 mg tablet (Women's 50+ Daily Formula (with ginkgo)) cyanocobalamin (vitamin B-12) 1,000 mcg PO DAILY #100 tab-caps 12/30/12 01/31/22 1,000 mcg tablet,extended release (Vitamin B-12 ER) simvastatin 40 mg tablet 40 mg PO DAILY #90 tabs 06/12/21 01/31/22 levothyroxine 125 mcg capsule 125 mcg PO DAILY #90 caps 07/03/21 01/31/22 buspirone 15 mg tablet 15 mg PO BID #180 tabs 07/08/21 01/31/22 venlafaxine 150 mg 150 mg PO DAILY #90 tab-caps 07/08/21 01/31/22 capsule,extended release 24 hr venlafaxine 75 mg capsule,extended 75 mg PO DAILY #90 tab-caps 07/08/21 01/31/22 release 24 hr acetaminophen 500 mg tablet 1,000 mg PO TID 10/04/21 01/31/22 omeprazole 20 mg capsule,delayed 20 mg PO BID #180 tab-caps 10/04/21 01/31/22 release propranolol 40 mg tablet 40 mg PO DAILY #90 tabs 10/04/21 01/31/22 Previous Rx's Medication Instructions Recorded simvastatin 40 mg tablet 40 mg PO DAILY #90 tabs 06/12/21 levothyroxine 125 mcg capsule 125 mcg PO DAILY #90 caps 07/03/21 buspirone 15 mg tablet 15 mg PO BID #180 tabs 07/08/21 venlafaxine 150 mg 150 mg PO DAILY #90 tab-caps 07/08/21 capsule,extended release 24 hr venlafaxine 75 mg capsule,extended 75 mg PO DAILY #90 tab-caps 07/08/21 release 24 hr omeprazole 20 mg capsule,delayed 20 mg PO BID #180 tab-caps 10/04/21 release propranolol 40 mg tablet 40 mg PO DAILY #90 tabs 10/04/21 Allergies Allergy/AdvReac Type Severity Reaction Status Date / Time duloxetine [From Cymbalta] AdvReac Intermediate Gait Verified 10/11/21 15:40 Imbalance gabapentin AdvReac Intermediate Gait Verified 10/11/21 15:40 Imbalance NSAIDS (Non-Steroidal AdvReac Intermediate epigastric Verified 01/31/22 13:15 Anti-Inflamma pain pregabalin [From Lyrica] AdvReac Intermediate depression; Verified 10/11/21 15:40 SI chloraprep Allergy Intermediate Skin Rash Uncoded 01/31/22 13:15 General Stated Complaint: Chest Pain LUISA: 2 Review of Systems All systems reviewed & are unremarkable except as noted in HPI and below Constitutional Constitutional: Denies chills, Denies fever(s) and Denies weakness Eyes Eyes: Denies loss of vision ENT Ears, Nose, Mouth, and Throat: Denies change in voice Cardiovascular Cardiovascular: Denies dyspnea Respiratory Respiratory: Denies cough and Denies dyspnea Gastrointestinal Gastrointestinal: Denies abdominal pain, Denies nausea and Denies vomiting Genitourinary Genitourinary: Denies dysuria Musculoskeletal Musculoskeletal: Denies joint swelling Integumentary/Breasts Skin/Breast: Denies rash Neurologic Neurologic: Denies loss of vision and Denies weakness PFSH All Active Problems (Updated 01/31/22 @ 14:15 by Vahid Montero MD) Chest pain (Acute) Hyperlipidemia (Chronic) Hypothyroidism (Chronic) Prediabetes (Chronic) Major depressive disorder (Chronic) Hiatal hernia (Chronic) Essential tremor (Chronic) GERD (gastroesophageal reflux disease) (Chronic) Primary fibromyalgia syndrome (Chronic) Medical History COVID-19 (~05/2021) Migraine headache Vitamin B 12 deficiency Vitamin D deficiency Surgical History H/O colonoscopy (07/20/12) History of arthroplasty of left knee (08/29/15) History of arthroplasty of right knee (04/21/18) History of esophagogastroduodenoscopy (EGD) (07/20/12) S/P hernia repair (05/07/09) paraesophageal hernia S/P laparoscopic cholecystectomy (08/15/09) S/P left knee arthroscopy (08/29/15) S/P right knee arthroscopy (04/24/17) With partial medial meniscectomy and limited medial femoral chondroplasty Family History Mother , At 74 Heart disease Thyroid dysfunction Type 2 diabetes mellitus Father , At 92 of [place] Heart disease Skin cancer Myocardial infarction Hypertension Sister Parkinsons disease Brother Heart disease Brother No problems noted. Daughter SLE (systemic lupus erythematosus) Depression Asthma Daughter Migraine headache Maternal Grandmother No problems noted. Maternal Grandmother No problems noted. Paternal Grandfather No problems noted. Paternal Grandfather No problems noted. Social History Smoking/Tobacco Use Status: Never Second Hand Exposure: Yes Smoking risk assessment performed?: Yes Alcohol Intake: never Drug use: Never Substance use type: does not use Communication Needs: Corrective Lenses Do you need help understanding health information?: Never Pets and animals: Yes Pets and animals: dog(s) Sexually active: No Do you think of yourself as: straight/heterosexual What is your relationship status?: How often do you talk on the phone with friends or family?: three or more times per week How often do you get together with friends or relatives?: once per week How often do you attend rastafari or scientology services?: decline to answer Do you belong to any clubs or organized social groups?: no Panel score (0-1 are the most socially isolated patients): 2 What type of physical activity do you participate in: walking Duration: < 15 minutes/day Frequency: 1-2 times per week Alisha/Confucianism: No preference Special alisha needs: No Seatbelt use: always Helmet use: No Drive intox or ride w/intox fire truck driver: No Do you feel safe at home: Yes Do you feel safe in your relationship?: Yes Female Reproductive History Menstrual Menopause type: natural History History 2 Para 2 Hx # Term Pregnancies Multiple births Hx # Pregnancies Ectopic pregnancies AB induced Hx Number of Living Children 2 AB spontaneous Exam Const General: no acute distress Orientation: alert HENMT Head: normal to inspection Ears: external ears normal General nose exam: external nose normal Mouth: moist mucous membranes Eyes General: appearance normal, both eyes and all related structures Neck Neck: normal visual inspection Resp Effort & Inspection: normal respiratory effort and able to speak in complete sentences Cardio Rate: regular rate GI Palpation: soft and nontender Skin General skin exam: no rashes or lesions noted Neuro General: patient alert and patient oriented x3 Extrem General: normal to inspection Psych Mental Status: mental status grossly normal Course Vital Signs Vital signs: Vital Signs Temperature 37.4 C 01/31/22 13:10 Pulse 59 L 01/31/22 13:10 Respiratory Rate 12 01/31/22 13:10 Blood Pressure 107/57 L 01/31/22 13:10 Pulse Oximetry 97 01/31/22 13:10 Temperature 37.4 C 01/31/22 13:10 Temperature Source Temporal Artery Scan 01/31/22 13:10 Pulse 59 L 01/31/22 13:10 Respiratory Rate 12 01/31/22 13:10 Respiratory Effort Non-Labored 01/31/22 13:18 Respiratory Depth Normal 01/31/22 13:18 Respiratory Pattern Normal 01/31/22 13:18 Blood Pressure 107/57 L 01/31/22 13:10 Blood Pressure Position Supine 01/31/22 13:10 Pulse Oximetry 97 01/31/22 13:10 Oxygen Delivery Method Room Air 01/31/22 13:10 Oxygen Flow Rate 0 01/31/22 13:10 Pain Level 4 01/31/22 13:10 Sign Out Sign Out Data: Sign Out Comment: chest pain radiating to the back since 730, no prior cardiac history. Heart score of 3 based on age and risk factors of hypercholesterolemia. Pending cta thorax for dissection and delta troponin Last updated by Vahid Montero MD at 01/31/22 14:13
[2022-01-31 13:46] LABS: Source Nasal/Nares
[2022-01-31 14:01] LABS: Abs Immature Grans 0.03 10^3/uL (0.0-0.06); Absolute Basophil Count 0.04 10^3/uL (0.0-0.2); Absolute Eosinophil Count 0.17 10^3/uL (0.0-0.7); Absolute Lymphocyte Count 4.27 10^3/uL (1.2-3.4); Absolute Monocyte Count 0.73 10^3/uL (0.1-0.8); Absolute Neutrophil Count 3.07 10^3/uL (1.2-6.7); Basophils % 0.5; HCT 35.5 % (36.0-46.0); HGB 11.9 g/dL (11.2-15.7); Immature Grans % 0.4; Lymphocytes % 51.4; MCH 32.2 pg (27.0-33.0); MCHC 33.5 % (32.0-36.0); MCV 96 fL (80-95); MPV 10.4 fL (8.0-11.0); Monocytes % 8.8; Neutrophils % 36.9; Platelet Count 233 10^3/uL (130-400); RBC 3.69 10^6/uL (3.93-5.22); RDW-SD 42.3 fL; WBC 8.31 10^3/uL (4.4-10.8)
[2022-01-31 14:17] LABS: ALT 17 U/L (14-59); AST 19 U/L (15-37); Albumin 3.2 g/dL (3.4-5.0); Alkaline Phosphatase 59 U/L (46-116); Anion Gap 6.6 mmol/L (3-11); BUN 14 mg/dL (7-18); Bilirubin, Total 0.3 mg/dL (0.2-1.0); CO2 28.4 mmol/L (21.0-32.0); CREATININE 0.8 mg/dL (0.55-1.02); Calcium 8.4 mg/dL (8.5-10.1); Chloride 104 mmol/L (98-107); Glucose 101 mg/dL (74-106); Lipase 15 U/L (73-393); Magnesium 1.7 mg/dL (1.8-2.4); Potassium 3.6 mmol/L (3.5-5.1); Sodium 139 mmol/L (136-145); Total Protein 6.5 g/dL (6.4-8.2); Troponin I < 50 ng/L (<or=60)
[2022-01-31 14:41] LABS: COVID-19 PCR Negative (Negative)
--- NOTE | 2022-01-31 14:57 | DI.CT_ITS ---
Exam(s) CT THORAX CTA EXAM: CT THORAX CTA CLINICAL HISTORY: ?dissection. TECHNIQUE: Imaging Protocol: Axial CT angiography was performed with multi-slice acquisition and mu lti-planar reconstructions as well as axial, coronal and sagittal MIP reconstructions. CONTRAST MATERIAL: Intravenous: Omnipaque 350 Contrast volume:100 ml COMPARISON: CT CT CHEST PE ABD PELVIS W from 02/15/2020 CR,XR XR PORTABLE CHEST AP from 05/18/2021 FINDINGS: Pulmonary Arteries: No evidence of filling defect to suggest pulmonary emboli. Tracheobronchial tree: Patent where visualized. Mediastinum and Emma: No dominant adenopathy or fluid collection. Pulmonary parenchyma: No consolidation or dominant measurable mass. An azygos lobe is noted, normal v ariant. Pleura: No effusion or pneumothorax. Heart: The heart is not dilated. Mild coronary artery calcifications are seen. Aorta: Thoracic aorta is mildly dilated at 3.8 cm. No significant change from prior. No aneurysm. No dissection. Mild atherosclerotic changes. Upper abdomen: Small hiatal hernia. Status post cholecystectomy. Bones: Unremarkable for age. Tubes, Catheters, and Lines: None IMPRESSION: No acute abnormality. No evidence of pulmonary embolism or aortic dissection.. RADIATION DOSE DELIVERED: 502.46mGy.cm Total DLP DATA REPOSITORY: All CT scans at this facility are submitted to the National Radiology Data Registry (NRDR) Dose Index Registry (DIR) with the [employer] (ACR). RADIATION OPTIMIZATION: All CT scans at this facility use at least one of these dose optimization te chniques: automated exposure control; mA and/or kV adjustment per patient size (includes targeted exa ms where dose is matched to clinical indication); or iterative reconstruction.
[2022-01-31] MEDS: Omnipaque 350 MG/ML 100 ML BTL IJ (14:59)
[2022-01-31] MEDS: Normal Saline Flush 10 ML SYR IVP (15:00)
--- NOTE | 2022-01-31 15:44 | ED.PROG_ITS ---
Date of service: 01/31/22 Time of Service: 15:00 Medical Decision Making 1500 --please see Dr. Montero's note for initial presentation, exam and plan - Case endorsed with plan to follow-up on repeat troponin with likely plan for discharge home if work-up negative. 71-year-old female history of prediabetes, hyperlipidemia, GERD, fibromyalgia who presents for intermittent left-sided chest pressure since 730 this morning. She states the pain has been intermittent, started at rest and has been occurring intermittently while at rest. Denies any other associated symptoms with this. She does admit to initial pain radiation to her left arm, left leg and headache with onset of the pain. She states she has still had intermittent radiation of pain to her left arm and left leg with tingling. She is currently pain-free. Her work-up thus far has been unremarkable including her CT chest. She does admit to occasional indigestion with her pain episodes. She states she history of hiatal hernia repair. History and presentation does not appear typical for ACS. We will give a GI cocktail, Carafate and Pepcid. Plan is to repeat troponin and EKG. Patient states she would prefer to go home if possible. 1700 -- Repeat troponin negative. Repeat EKG unchanged. Patient reassessed and she has been pain-free. She would like to go home. Disposition decision made weighing the risks and benefits of hospitalization versus outpatient treatment, the risk for further decompensation, and the patient's wishes. Advised to follow-up with her primary care doctor for reevaluation and for referral for outpatient stress test if her symptoms return and/or worsen. Usual and customary return precautions given prior to discharge. Medical Records Medical records reviewed: Yes I reviewed the patient's medical records. Imaging Data Radiologic Study: Radiologist's impression: CT THORAX CTA CLINICAL HISTORY: ? ?dissection. TECHNIQUE:? Imaging Protocol:? Axial CT angiography was performed with multi- slice acquisition and multi-planar reconstructions as well as axial, coronal and sagittal MIP reconstructions. CONTRAST MATERIAL:? Intravenous: Omnipaque 350 Contrast volume:100 ml COMPARISON:? CT CT CHEST PE ABD ? PELVIS W from 02/15/2020 CR,XR XR PORTABLE CHEST AP from 05/18/2021 FINDINGS: Pulmonary Arteries: No evidence of filling defect to suggest pulmonary emboli. Tracheobronchial tree: Patent where visualized. Mediastinum and Emma: No dominant adenopathy or fluid collection. Pulmonary parenchyma: No consolidation or dominant measurable mass. An azygos lobe is noted, normal variant. Pleura: No effusion or pneumothorax. Heart: The heart is not dilated. Mild coronary artery calcifications are seen. Aorta: Thoracic aorta is mildly dilated at 3.8 cm.? No significant change from prior.? No aneurysm.? No dissection.? Mild atherosclerotic changes. Upper abdomen:? Small hiatal hernia.? Status post cholecystectomy. Bones: Unremarkable for age. Tubes, Catheters, and Lines: None IMPRESSION: No acute abnormality.? No evidence of pulmonary embolism or aortic dissection..? Lab Data Lab results reviewed: Yes I reviewed the patient's lab results. Labs: Laboratory Tests Range/Units 01/31/22 01/31/22 01/31/22 13:33 13:33 13:34 WBC (4.4-10.8) 10^3/uL 8.31 RBC (3.93-5.22) 10^6/uL 3.69 L Hgb (11.2-15.7) g/dL 11.9 Hct (36.0-46.0) % 35.5 L MCV (80-95) fL 96 H MCH (27.0-33.0) pg 32.2 MCHC (32.0-36.0) % 33.5 RDW (11.7-14.6) % 12.0 Plt Count (130-400) 10^3/uL 233 MPV (8.0-11.0) fL 10.4 Immature Gran % 0.4 Neutrophils % 36.9 Lymphocytes % 51.4 Monocytes % 8.8 Eosinophils % 2.0 Basophils % 0.5 Nucleated RBC % (0.0-0.3) % 0.0 Absolute Neutrophils (1.2-6.7) 10^3/uL 3.07 Absolute Lymphocytes (1.2-3.4) 10^3/uL 4.27 H Absolute Monocytes (0.1-0.8) 10^3/uL 0.73 Absolute Eosinophils (0.0-0.7) 10^3/uL 0.17 Absolute Basophils (0.0-0.2) 10^3/uL 0.04 Sodium (136-145) mmol/L 139 Potassium (3.5-5.1) mmol/L 3.6 Chloride (98-107) mmol/L 104 Carbon Dioxide (21.0-32.0) mmol/L 28.4 Anion Gap (3-11) mmol/L 6.6 BUN (7-18) mg/dL 14 Creatinine (0.55-1.02) mg/dL 0.8 Estimated GFR/1.73 m2 (mL/min/1.73m2) >= 60.00 Glucose (74-106) mg/dL 101 Calcium (8.5-10.1) mg/dL 8.4 L Magnesium (1.8-2.4) mg/dL 1.7 L Total Bilirubin (0.2-1.0) mg/dL 0.3 AST (15-37) U/L 19 ALT (14-59) U/L 17 Alkaline Phosphatase (46-116) U/L 59 Troponin I (<or=60) ng/L < 50 Total Protein (6.4-8.2) g/dL 6.5 Albumin (3.4-5.0) g/dL 3.2 L Lipase (73-393) U/L 15 COVID-19 Source Nasal/Nares SARS-CoV-2 (PCR) (Negative) Negative Range/Units 01/31/22 16:33 WBC (4.4-10.8) 10^3/uL RBC (3.93-5.22) 10^6/uL Hgb (11.2-15.7) g/dL Hct (36.0-46.0) % MCV (80-95) fL MCH (27.0-33.0) pg MCHC (32.0-36.0) % RDW (11.7-14.6) % Plt Count (130-400) 10^3/uL MPV (8.0-11.0) fL Immature Gran % Neutrophils % Lymphocytes % Monocytes % Eosinophils % Basophils % Nucleated RBC % (0.0-0.3) % Absolute Neutrophils (1.2-6.7) 10^3/uL Absolute Lymphocytes (1.2-3.4) 10^3/uL Absolute Monocytes (0.1-0.8) 10^3/uL Absolute Eosinophils (0.0-0.7) 10^3/uL Absolute Basophils (0.0-0.2) 10^3/uL Sodium (136-145) mmol/L Potassium (3.5-5.1) mmol/L Chloride (98-107) mmol/L Carbon Dioxide (21.0-32.0) mmol/L Anion Gap (3-11) mmol/L BUN (7-18) mg/dL Creatinine (0.55-1.02) mg/dL Estimated GFR/1.73 m2 (mL/min/1.73m2) Glucose (74-106) mg/dL Calcium (8.5-10.1) mg/dL Magnesium (1.8-2.4) mg/dL Total Bilirubin (0.2-1.0) mg/dL AST (15-37) U/L ALT (14-59) U/L Alkaline Phosphatase (46-116) U/L Troponin I (<or=60) ng/L < 50 Total Protein (6.4-8.2) g/dL Albumin (3.4-5.0) g/dL Lipase (73-393) U/L COVID-19 Source SARS-CoV-2 (PCR) (Negative) ECG Data Attestation: I personally reviewed and interpreted this ECG (s) as follows: Interpretation: #1 --Rate of 57, sinus, no STEMI. #2 --Rate of 59, sinus, no STEMI. Exam Const General: cooperative, healthy appearing and no acute distress Orientation: alert, awake and oriented x3 HENMT Head: normal to inspection Mouth: oral mucosae normal Eyes General: appearance normal, both eyes and all related structures Neck Neck: normal visual inspection Resp Effort & Inspection: normal respiratory effort and able to speak in complete sentences Auscultation: clear to auscultation bilaterally Cardio Rate: bradycardic Rhythm: regular rhythm GI Inspection: normal to inspection and no abdominal wall ecchymosis Palpation: soft, not firm, no guarding, not rigid and nontender Auscultation: hypoactive bowel sounds Skin General skin exam: no rashes or lesions noted Neuro General: patient alert, patient awake and patient oriented x3 Motor: muscle tone normal throughout Extrem General: normal to inspection, full ROM and no edema Psych Appearance: grossly normal Affect: normal affect Sign Out Sign Out Data: Sign Out Comment: chest pain radiating to the back since 730, no prior cardiac history. Heart score of 3 based on age and risk factors of hypercholesterolemia. Pending cta thorax for dissection and delta troponin Last updated by Vahid Montero MD at 01/31/22 14:13 Discharge Plan Disposition Patient Disposition: HOME Condition: Improving Discharge Details Clinical Impression: Chest pain Primary Care Provider: Tiarra Hoover ED Provider: Archana Davila Home Meds and New Rx's Prescriptions: Continued acetaminophen 500 mg tablet 1,000 mg PO TID omeprazole 20 mg capsule,delayed release(DR/EC) 20 mg PO BID Qty: 180 3RF propranolol 40 mg tablet 40 mg PO DAILY Qty: 90 3RF Rx Instructions: Take 1 tab once a day cholecalciferol (vitamin D3) 1,000 UNIT tablet 2 tab PO DAILY Qty: 200 Rx Instructions: 2000 IU DAILY Women's 50+ Daily Form (gkb) 1 EACH tablet 1 ea PO DAILY cyanocobalamin (vitamin B-12) [Vitamin B-12] 1,000 MCG tablet extended release 1,000 mcg PO DAILY Qty: 100 simvastatin 40 mg tablet 40 mg PO DAILY Qty: 90 4RF levothyroxine 125 mcg capsule 125 mcg PO DAILY Qty: 90 4RF buspirone 15 mg tablet 15 mg PO BID Qty: 180 4RF Rx Instructions: Take 1 tablet twice a day venlafaxine 150 mg capsule,extended release 24hr 150 mg PO DAILY Qty: 90 4RF Rx Instructions: Take 1 daily in addition to the 75mg dose venlafaxine 75 mg capsule,extended release 24hr 75 mg PO DAILY Qty: 90 4RF Rx Instructions: Take 1 daily in addition to the 150mg dose Discharge Instructions Instructions: Chest Pain (ED) Additional Instructions: Your lab work, EKGs and imaging today is reassuring and shows no evidence of acute concerning or significant findings. Call your primary care doctor's office on Thursday morning to schedule a follow-up appointment for reevaluation and for referral for outpatient stress test if your symptoms return and/or worsen. Return immediately to the emergency department if you develop any worsening or new concerning symptoms. Discharge Data Discharge Date/Time-TO BE ENTERED AT DEPARTURE: 01/31/22 17:33 Discharge Physician: Archana Davila
[2022-01-31] MEDS: Famotidine 20 MG/2 ML VIAL IVP (15:59)
[2022-01-31] MEDS: Sucralfate 1 GM TAB PO (15:59)
--- NOTE | 2022-01-31 16:30 | RT.EKG_ITS ---
APPROVED REPORT Exam: Resting ECG Reason for Exam: chest pain Patient Location: E HR:59 bpm ECG Measurements Heart Rate 59 AXIS MT 193 P 25 QRSd 94 QRS -13 QT 415 T 7 QTc 413 Conclusion Sinus bradycardia...rate< 60. Sinus. No STEMI. I have reviewed and interpreted ECG and agree with software generated interpretation.
[2022-01-31 17:01] LABS: Troponin I < 50 ng/L (<or=60)
== END 2022-01-31 17:33 | disposition home or self-care (01) ==
PROVIDERS: Emergency Medicine; Emergency Provider Physician Assistant; PCP Nurse Practitioner Family
DX: R07.89 Other chest pain (principal); M79.602 Pain in left arm; M54.6 Pain in thoracic spine; Z20.822 Contact with and (suspected) exposure to COVID-19; Z86.16 Personal history of COVID-19; Z77.22 Contact with and (suspected) exposure to environmental tobacco smoke (acute) (chronic)
CPT/HCPCS: 36415; 71275; 80053; 83690; 87635; 93005; 96374; 99284; 83735; 84484; 85025; 93010; 99285; J3490

== ENCOUNTER → 2022-02-17 01:27 | Outpatient (CLI) | payer OTHER, SELFPAY ==
--- NOTE | 2022-02-17 06:45 | DI.NM_ITS ---
APPROVED REPORT Exam: Pharmacologic Patient Location: Out-Patient Room/Bed: Stress Nurse: Susana Valenzuela RN Ordering Provider:GERMÁN HAMLIN, Contact Number: [phone] BMI: 30.26 Baseline Rhythm: Sinus Rhythm Comment: Baseline ST abnormalites lead III Indications: Chest pain Medical History Medical History: Hyperlipidemia, prediabetes, hypothyroidism, gerd, fibromyalgia, depression Cardiac Medications: Propranolol, simvastatin, levothyroxine, omeprazole Allergies: Duloxetine, gabapentin, NSAIDs, pregabalin, chloraprep Cardiac Risk Factors: Hyperlipidemia, prediabetes, family hx Previous Cardiac Procedures: None Pretest Chest Pain Characteristics: None Exercise History: Sedentary Physical Disabilities: Physical limitations w/ hips and knees per pt Lung Sounds: Clear to auscultation Heart Sounds: Regular Stress Test Details Test: Pharmacologic stress was paired with low level exercise. Reason for pharmacologic stress test: physical limitation. Nuclear Acquisition: Rest Tc-99m/Stress Tc-99m 1 day Rest Isotope: Tc-99m Sestamibi. Dose: 10.0 Date: 02/17/2022 Injection Time: 1145 Stress Isotope: Tc-99m Sestamibi. Dose: 31.0 Date: 02/17/2022 Injection Time: 1325 HR Resting HR Supine: 62 bpm Max Heart Rate (APMHR): 148.041437 bpm Resting HR Standin bpm Target HR (85% APMHR): 125.406898 bpm Max HR Achieved: 136 bpm % of APMHR: 91.89 Recovery HR: 104 bpm Comment: Propranolol held for 24 hrs per pt BP Resting BP Supine: 130/70 mmHg Resting BP Standin/68 mmHg Max BP: 134/78 mmHg Recovery BP: 118/70 mmHg ECG Resting ECG: Sinus Rhythm Ectopy: None Comment: Baseline ST abnormalites lead III Stress ECG: Sinus Tachycardia ST Change: No significant ST segment changes noted Arrhythmia: None, None, APC's, VPC's Recovery ECG: Sinus Rhythm Recovery ST Change: No significant ST segment changes noted Recovery Arrhythmia: None Clinical Stress Symptoms: Chest pain Angina Score: Non-Limiting Rate Pressure Product: 78003 Stress ECG Conclusion 1. Resting electrocardiogram was within normal limits 2. Patient underwent testing using low-level exercise could not find with pharmacologic stress 3. Peak heart rate achieved was 91% of maximal heart rate for age 4. There was no electrocardiographic evidence of myocardial ischemia 5. See MPI report Stress Test Summary STAGE HR BP SpO2 Symptoms NOTES Supine 62 130/70 Standing 76 112/68 100% 1 min post Lexiscan injection 122 112/64 90% Chest pain 5/10 3 min post Lexiscan injection 128 112/60 94% Chest pain 1/10. LAW 8/10. 6 min post Lexiscan injection 113 134/78 93% Chest pain resolved 9 min post Lexiscan injection 107 118/70 94% LAW improving 12 min post Lexiscan injection 104 94% Pharmacologic stress was paired with low level exercise at 0.5mph to 1.2mph and 0% grade due to physi antelmo limitation. Pt tolerated testing well. LAW resolved after pt had food and drink. MPI Conclusion Myocardial perfusion is normal without evidence of ischemia or prior infarction EF is 69%, wall motion is normal Radiologist Interpretation Radiologist agrees with Payroll Accounting Specialist's Interpretation. Radiologist Interpretation by: Kelvin Corral MD Interpretation Date/Time: 02/19/2022 08:30:55
[2022-02-17] MEDS: Regadenoson 0.4 MG/5 ML SYR IVP (14:06)
== END ==
PROVIDERS: PCP Nurse Practitioner Family; Visit Provider Family Medicine
DX: R07.9 Chest pain, unspecified (principal)
CPT/HCPCS: 78452; 93017; J2785

== ENCOUNTER 2022-04-07 02:38 | Outpatient (CLI) | payer OTHER, SELFPAY ==
[2022-04-07 13:24] LABS: Vitamin B12 > 2000 pg/mL (193-986)
== END 2022-04-07 02:39 | disposition home or self-care (01) ==
LOC: LOS 02:38
PROVIDERS: PCP Nurse Practitioner Family; Visit Provider Nurse Practitioner Family
DX: E53.8 Deficiency of other specified B group vitamins (principal)
CPT/HCPCS: 36415; 82607

== ENCOUNTER → 2022-06-06 00:44 | Outpatient (CLI) | payer OTHER, SELFPAY ==
--- NOTE | 2022-06-06 07:30 | DI.MRI_ITS ---
Exam(s) MR LUMBAR SPINE WO EXAM: MR LUMBAR SPINE WO CLINICAL HISTORY: chronic low back pain with radiculopathy M54.16 RADICULOPATHY G89.29. TECHNIQUE: Multiplanar multisequence MRI was performed. COMPARISON: No exams were available for comparison FINDINGS: MR examination lumbosacral spine was performed according to the usual protocol. Note is made of a mi ld left convex lumbar scoliosis. There are Mellissa discal vertebral signal changes at L4-5 and L5-S1 co nsistent with disc degeneration and there is loss of disc height at these levels. Mild Mellissa discal v ertebral signal changes also seen at T12-L1 and there is a probable fatty rest or vertebral hemangiom a of T11. There are mild to moderate hypertrophic facet changes throughout the lumbar region. The conus medullaris appears intact. No significant findings from T11-T12 through L 1 2. At L2-3, there is a mild disc bulge. There is no disc herniation, central canal spinal stenosis, or neural foraminal stenosis. At L 3 4, there is a moderate disc bulge. No disc herniation, central canal spinal stenosis, or neur al foraminal stenosis. At L4-5, there is a mild disc bulge with a minimal central disc herniation. No evidence of central c anal spinal stenosis, or neural foraminal stenosis. At L5-S1, there is moderate disc bulge with superimposed right paracentral/right lateral disc herniat ion. Possibility of impingement on the right S1 nerve root is raised, please correlate with neurolog ic examination. IMPRESSION: Degenerative changes and multilevel disc bulges, right paracentral and right lateral disc herniation at L5-S1 with possible impingement on S1 nerve root on the right, please correlate with neurologic ex amination. DATA REPOSITORY:
--- NOTE | 2022-06-06 12:56 | DI.RAD_ITS ---
Exam(s) XR HIP PELVIS ADULT BL EXAM: XR HIP PELVIS ADULT BL CLINICAL HISTORY: chronic hip pain M25.559 G89.29 TECHNIQUE: COMPARISON: No exams were available for comparison FINDINGS: Three views were obtained. The cartilaginous joint spaces of both hips appear fairly well maintained . No significant bony abnormality seen. No soft tissue abnormality of the region of the hips There are mild degenerative changes of the lower lumbar spine. IMPRESSION: RADIATION DOSE DELIVERED: Total DLP
== END ==
PROVIDERS: PCP Nurse Practitioner Family; Visit Provider Nurse Practitioner Family
DX: G89.29 Other chronic pain (principal); M54.16 Radiculopathy, lumbar region; M47.816 Spondylosis without myelopathy or radiculopathy, lumbar region; M51.27 Other intervertebral disc displacement, lumbosacral region; M51.26 Other intervertebral disc displacement, lumbar region
CPT/HCPCS: 73521; 72148

== ENCOUNTER 2022-07-11 08:35 | Outpatient (CLI) | payer OTHER, SELFPAY ==
--- NOTE | 2022-07-11 08:30 | RT.EKG_ITS ---
APPROVED REPORT Exam: Resting ECG Reason for Exam: Complains of chest heaviness. Patient Location: O HR:60 bpm ECG Measurements Heart Rate 60 AXIS HI 170 P -6 QRSd 90 QRS -15 QT 403 T 2 QTc 403 Conclusion Sinus rhythm...normal P axis, V-rate 50- 99 Normal Electrocardiogram
== END 2022-07-11 08:36 | disposition home or self-care (01) ==
LOC: DI.CM 08:36
PROVIDERS: PCP Nurse Practitioner Family; Visit Provider Nurse Practitioner Family
DX: Z01.818 Encounter for other preprocedural examination (principal); R07.89 Other chest pain
CPT/HCPCS: 93010

== ENCOUNTER 2022-07-16 03:11 | Outpatient (CLI) | payer OTHER, SELFPAY ==
--- NOTE | 2022-07-16 13:19 | DI.MAMMO_ITS ---
Exam(s) MAMMO SCREENING EXAM: MAMMO SCREENING CLINICAL HISTORY: screening,z12.39 TECHNIQUE: Mammograms were interpreted according to the usual protocol including computer analysis w [employer] CAD system, tomosynthesis and C-view imaging. COMPARISON: 2017 through 2020 FINDINGS: The breasts are composed of scattered fibroglandular densities, Breast Density category B. No suspicious masses or suspicious microcalcifications are seen. Stable bilateral areas nodularity. No skin thickening or abnormal axillary lymph nodes are seen. There has been no significant change from prior exams. IMPRESSION: BI-RADS Cat 2 - Benign Findings Yearly screening mammography is recommended. Breast Density - Category B, scattered fibroglandular densities. A negative radiographic report should not delay biopsy if a dominant or clinically suspicious mass is present. Up to ten percent of cancers are not identified on mammography. A negative report may reinforce clinical impression. Adenosis and dense breasts may obscure an underlying neoplasm. False positive reports average 6 to 10%. Patient will receive a letter notifying them of these results.
[2022-07-16 13:52] LABS: HCT 42.3 % (36.0-46.0); HGB 14.3 g/dL (11.2-15.7); MCH 31.5 pg (27.0-33.0); MCHC 33.8 % (32.0-36.0); MCV 93 fL (80-95); MPV 9.6 fL (8.0-11.0); Platelet Count 324 10^3/uL (130-400); RBC 4.54 10^6/uL (3.93-5.22); RDW 12.5 % (11.7-14.6); WBC 11.17 10^3/uL (4.4-10.8)
--- NOTE | 2022-07-16 14:20 | DI.MRI_ITS ---
Exam(s) MR CERVICAL SPINE WO EXAM: MR CERVICAL SPINE WO CLINICAL HISTORY: abnormal gait, upper extremity weakness, paresthesia,recurr falls,r26.9, TECHNIQUE: Multiplanar multisequence MRI of the cervical spine was performed without intravenous con trast. COMPARISON: MR MRI - CERVICAL SPINE WO CONT from 10/18/2009 FINDINGS: BONES: Vertebral body heights are maintained. Alignment is normal. Bone marrow signal intensity is wi thin normal limits. CERVICAL CORD: Craniovertebral junction is unremarkable. The cervical cord is normal size and signal intensity. SOFT TISSUES: Unremarkable. Mucous retention is seen in the sphenoid sinuses. Facet degenerative changes are noted at multiple levels. C2-3: No disc herniation or bulge is identified. No evidence of neural foraminal narrowing. No signi ficant central canal stenosis C3-4: Small endplate osteophytes eccentric toward the left causing mild neural foraminal narrowing. No significant central canal stenosis. C4-5: Minimal disc bulging. No evidence of neural foraminal narrowing. No significant central canal stenosis C5-6: Mild loss of disc height. Mild disc bulging and small osteophytes eccentric toward the right.M ild right neural foraminal narrowing. No significant central canal stenosis C6-7: Moderate loss of disc height, endplate osteophytes and degenerative signal changes in the endpl ates. No evidence of neural foraminal narrowing. No significant central canal stenosis C7-T1: No disc herniation or bulge is identified. No evidence of neural foraminal narrowing. No signi ficant central canal stenosis IMPRESSION: Degenerative disc changes greatest at C6-7. No focal disc herniation at any level. Mild neural fora john narrowing. DATA REPOSITORY:
[2022-07-16 14:35] LABS: ALT 35 U/L (14-59); AST 28 U/L (15-37); Albumin 3.6 g/dL (3.4-5.0); Alkaline Phosphatase 81 U/L (46-116); Anion Gap 9.2 mmol/L (3-11); BUN 11 mg/dL (7-18); Bilirubin, Total 0.3 mg/dL (0.2-1.0); CO2 28.8 mmol/L (21.0-32.0); CREATININE 0.9 mg/dL (0.55-1.02); Calcium 9.6 mg/dL (8.5-10.1); Chloride 99 mmol/L (98-107); Estimated GFR 67.92 (mL/min/1.73m2); Glucose 108 mg/dL (74-106); Potassium 4.1 mmol/L (3.5-5.1); Sodium 137 mmol/L (136-145); Total Protein 7.7 g/dL (6.4-8.2); Vitamin B12 1437 pg/mL (193-986)
[2022-07-16 14:36] LABS: Folate > 20.0 ng/mL (8.6-20.0)
[2022-07-16 14:46] LABS: Creatine Kinase 29 U/L (26-192)
--- NOTE | 2022-07-16 15:00 | DI.MRI_ITS ---
Exam(s) MR BRAIN WO/W EXAM: MR BRAIN WO/W CLINICAL HISTORY: memory impairment,abnormality of gait,r41.3,r26.9. TECHNIQUE: Multiplanar multisequence MRI of the brain was performed. CONTRAST MATERIAL: Noncontrast COMPARISON: No exams were available for comparison FINDINGS: VENTRICLES AND EXTRA AXIAL SPACES: Normal in size and morphology for the patient's age. HEMORRHAGE: None. CEREBRAL PARENCHYMA: Mild atrophy. Scattered foci of high signal in the white matter likely reflecti ng chronic microvascular changes. No focus of restricted diffusion to suggest acute infarct. No spac e-occupying lesion identified. MIDLINE SHIFT: None. BRAINSTEM/CEREBELLUM: Normal. VISUALIZED PARANASAL SINUSES/MASTOIDS: Mucous retention maxillary, ethmoid and sphenoid sinuses. OTHER FINDINGS: None. IMPRESSION: Scattered high signal foci in the white matter likely reflecting chronic microvascular changes. DATA REPOSITORY:
[2022-07-21 13:10] LABS: Methylmalonic Acid 0.35 nmol/mL (<=0.40)
== END 2022-07-16 03:31 ==
LOC: DI 03:11
PROVIDERS: PCP Nurse Practitioner Family; Visit Provider Nurse Practitioner Family
DX: R41.3 Other amnesia (principal); E53.8 Deficiency of other specified B group vitamins; R29.2 Abnormal reflex; R29.6 Repeated falls; R26.89 Other abnormalities of gait and mobility; R20.2 Paresthesia of skin; Z12.31 Encounter for screening mammogram for malignant neoplasm of breast; I67.89 Other cerebrovascular disease; M50.323 Other cervical disc degeneration at C6-C7 level
CPT/HCPCS: 70553; 77063; 77067; 80053; 80186; 82550; 85027; 72141; 82565; 82607; 82746

== ENCOUNTER 2022-07-22 03:59 | Outpatient (CLI) | payer OTHER, SELFPAY ==
[2022-07-22 12:34] LABS: Estimated GFR 59.86 (mL/min/1.73m2)
== END 2022-07-22 04:00 | disposition home or self-care (01) ==
LOC: LOS 04:00
PROVIDERS: PCP Nurse Practitioner Family; Visit Provider Nurse Practitioner Family
DX: R26.9 Unspecified abnormalities of gait and mobility (principal); R41.3 Other amnesia
CPT/HCPCS: 36415; 82565

== ENCOUNTER 2022-07-25 08:46 | Day surgery (SDC) | payer OTHER, SELFPAY ==
[2022-07-25 09:18] VITALS: BP 127/76; PULSE 77; RESP 18; TEMP 36.4; O2SAT 97
[2022-07-25] MEDS: Tropicam./Phenyleph. (1/2.5%) 5 ML BTL OS ×3 (09:30→09:40)
--- NOTE | 2022-07-25 09:31 | W.ANESPRE ---
General Info Date of Service Date Performed: 07/25/22 Height: 5 ft 0.5 in Weight: 70.9 kg Body Mass Index (BMI): 30.0 Surgical Procedure: Operation Date: 07/25/22 10:40 Proposed Procedure Side Surgeon p Cataract Extraction with IOL Implant Left Andrés Valero MD Meds Allergies and Home Medications Allergies Allergy/AdvReac Type Severity Reaction Status Date / Time duloxetine [From Cymbalta] AdvReac Intermediate Gait Verified 07/25/22 09:14 Imbalance gabapentin AdvReac Intermediate Gait Verified 07/25/22 09:14 Imbalance NSAIDS (Non-Steroidal AdvReac Intermediate epigastric Verified 07/25/22 09:14 Anti-Inflamma pain pregabalin [From Lyrica] AdvReac Intermediate depression; Verified 07/25/22 09:14 SI chloraprep Allergy Intermediate Skin Rash Uncoded 07/23/22 14:58 Home Medication Medication Instructions Recorded cholecalciferol (vitamin D3) 25 2 tab PO DAILY #200 tab-caps 12/11/12 mcg (1,000 unit) tablet multivitamin with [id number] 1 ea PO DAILY 12/11/12 400 mcg-120 mg tablet (Women's 50+ Daily Formula (with ginkgo)) acetaminophen 500 mg tablet 1,000 mg PO TID 10/04/21 omeprazole 20 mg capsule,delayed 20 mg PO BID #180 tab-caps 10/04/21 release propranolol 40 mg tablet 40 mg PO DAILY #90 tabs 10/04/21 cyclobenzaprine 5 mg tablet 5 mg PO QHS PRN muscle spasm #3 05/29/22 tabs simvastatin 40 mg tablet 40 mg PO DAILY #90 tabs 06/14/22 buspirone 15 mg tablet 15 mg PO BID #180 tabs 06/20/22 levothyroxine 125 mcg capsule 125 mcg PO DAILY #90 caps 06/20/22 venlafaxine 150 mg 150 mg PO DAILY #90 tab-caps 06/20/22 capsule,extended release 24 hr venlafaxine 75 mg capsule,extended 75 mg PO DAILY #90 tab-caps 06/20/22 release 24 hr Current Visit Medications: Current Medications Generic Name Dose Route Start Last Admin Trade Name Freq PRN Reason Stop Dose Admin Acetaminophen 1,000 mg 07/25/22 06:00 Acetaminophen 500 Mg Tab PO Q4H PRN PRN Miscellaneous Medication 0 ml 07/25/22 06:00 Prednisolone 1%, Moxifloxacin 0.5%, Nepafenac 0.1% 5ml Btl OS DIRECTED [facility] Miscellaneous Medication 0 ml 07/25/22 06:00 07/25/22 09:30 Tropicam./Phenyleph. (1/2.5%) 5 Ml Btl OS 1 drp DIRECTED [facility] Administration Tetracaine HCl 0 ml 07/25/22 06:00 Tetracaine 0.5% 4 Ml Btl OS DIRECTED [facility] PFSH Active Problems Active Problems: Problem Status Onset Code Essential tremor G25.0 Hyperlipidemia E78.5 Hypothyroidism E03.9 Primary fibromyalgia syndrome M79.7 GERD (gastroesophageal reflux disease) K21.9 Diverticulosis of colon K57.30 Hiatal hernia K44.9 Memory loss R41.3 Recurrent falls R29.6 Chronic hip pain M25.559, G89.29 Chronic radicular low back pain M54.16, G89.29 Lumbar disc herniation with radiculopathy M51.16 Abnormal gait R26.9 Major depressive disorder, recurrent F33.9 Strep pharyngitis J02.0 Nuclear sclerotic cataract of left eye H25.12 Medical History Medical History Chest pain Negative MPI 02/2022 COVID-19 (~05/2021) Migraine headache Prediabetes Vitamin B 12 deficiency Vitamin D deficiency Surgical History Surgical History H/O colonoscopy (07/20/12) History of arthroplasty of left knee (08/29/15) History of arthroplasty of right knee (04/21/18) History of esophagogastroduodenoscopy (EGD) (07/20/12) History of Chantel fundoplication S/P hernia repair (05/07/09) paraesophageal hernia S/P laparoscopic cholecystectomy (08/15/09) S/P left knee arthroscopy (08/29/15) S/P right knee arthroscopy (04/24/17) With partial medial meniscectomy and limited medial femoral chondroplasty Tobacco Smoking/Tobacco Use Status: Never Passive smoking exposure: Yes Second hand exposure: Yes Alcohol Alcohol Intake: never Substance Use Substance use: Never Substance use type: does not use Prental History History 2 Para 2 Hx # Term Pregnancies Multiple births Hx # Pregnancies Ectopic pregnancies AB induced Hx Number of Living Children 2 AB spontaneous Vital Signs and Lab Results Vital Signs Most Recent Vital Signs in EMR: Most Recent Vital Signs Temp Pulse Resp BP Pulse Ox 36.4 C L 77 18 127/76 97 07/25/22 09:18 07/25/22 09:18 07/25/22 09:18 07/25/22 09:18 07/25/22 09:18 Lab Results Blood Type / Crossmatch: No Data to Display Complete Blood Count: White Blood Count 11.17 10^3/uL (4.4-10.8) H 07/16/22 06:42 Red Blood Count 4.54 10^6/uL (3.93-5.22) 07/16/22 06:42 Hemoglobin 14.3 g/dL (11.2-15.7) 07/16/22 06:42 Hematocrit 42.3 % (36.0-46.0) 07/16/22 06:42 Platelet Count 324 10^3/uL (130-400) 07/16/22 06:42 Complete Metabolic Panel: Sodium 137 mmol/L (136-145) 07/16/22 13:40 Potassium 4.1 mmol/L (3.5-5.1) 07/16/22 13:40 Chloride 99 mmol/L (98-107) 07/16/22 13:40 Carbon Dioxide 28.8 mmol/L (21.0-32.0) 07/16/22 13:40 BUN 11 mg/dL (7-18) 07/16/22 13:40 Creatinine 1.0 mg/dL (0.55-1.02) 07/22/22 08:46 Est GFR (CKD-EPI 2020) 59.86 (mL/min/1.73m2) 07/22/22 08:46 Calcium 9.6 mg/dL (8.5-10.1) 07/16/22 13:40 Albumin 3.6 g/dL (3.4-5.0) 07/16/22 13:40 Glucose 108 mg/dL (74-106) H 07/16/22 13:40 Liver Function Panel: Alanine Aminotransferase (ALT/SGPT) 35 U/L (14-59) 07/16/22 13:40 Aspartate Amino Transf (AST/SGOT) 28 U/L (15-37) 07/16/22 13:40 Coagulation Panel: No Data to Display Cardiac Panel: Creatine Kinase 29 U/L (26-192) 07/16/22 Arterial Blood Gas: No Data to Display Venous Blood Gas: No Data to Display Pancreas Panel: No Data to Display Thyroid Panel: No Data to Display Infectious Disease: No Data to Display Blood Cultures: No Data to Display Toxicology Panel: No Data to Display Imaging and Studies Imaging and Studies Study information below may be from another EMR and interpreted by another provider. Please see original notes in EMR for more complete details. EKG Summary: Conclusion Sinus rhythm...normal P axis, V-rate 50- 99 Normal Electrocardiogram 07/03 Stress Test Summary: 03/03MPI Conclusion Myocardial perfusion is normal without evidence of ischemia or prior infarction EF is 69%, wall motion is normal Echocardiogram Summary: SUMMARY: Normal biventricular size and function. No significant valvular heart disease. SUMMARY: Normal biventricular size and function. No significant valvular heart disease. 05/26 Carotid Artery Summary:: 05/26 IMPRESSION: No evidence of hemodynamically significant carotid artery stenosis. CC: Anesthesia Assessment and Plan Anesthesia History Personal History: No History of Anesthesia Complications Family History: No Family History of Anesthesia Complications Exercise Tolerance Exercise Tolerance: Metabolic Equivalents>4 Pertinent Negatives Pertinent Negatives: No Symptoms of GERD Cardiac & Pulmonary Exam Cardiac Exam: Normal S1/S2 Heart Sounds Pulmonary Exam: Clear Bilateral Breath Sounds Implantable Cardiac Device Does patient have a Pacemaker or an ICD?: No Airway Exam Known Difficult Airway: No Mallampati Class: 3 Mouth Opening: Normal (> 3cm) Thyromental Distance: Greater than 3 cm Neck Range of Motion: Full ROM Neck Circumference: Normal Teeth Condition: Normal Dentition ASA Classification ASA Score: ASA 2 Emergency Case?: No NPO Status NPO Status: NPO Clears >2 hours, Solids >8 hours Anesthesia Plan Resuscitation Status: Full Code Anesthesia Technique: MAC Anesthesia Airway Planned: Natural Airway Monitors Used: Standard Monitors Preoperative Comments:: Bahman rocha
[2022-07-25] MEDS: Tetracaine 0.5% 4 ML BTL OS (10:16)
[2022-07-25] MEDS: Lidocaine 2% Jelly 6 ML SYR (10:17)
[2022-07-25] MEDS: Balanced Salt Soln.-PLUS 500 ML BAG (10:23)
[2022-07-25] MEDS: Duovisc Viscoelastic System EACH 1 EACH (10:24)
[2022-07-25] MEDS: Lidocaine 1% Pres-Free 5 ML VIAL (10:24)
[2022-07-25] MEDS: Povidone-Iodine Ophth 30 ML BTL (10:26)
[2022-07-25 10:41] VITALS: BP 125/77; PULSE 75; RESP 16; TEMP 36.3; O2SAT 97
--- NOTE | 2022-07-25 10:42 | W.PM.DSUDISC ---
Date of service: 07/25/22 Time of Service: 10:42 Discharge Plan Disposition Patient Disposition: Home Discharge Details Attending Provider: Andrés Valero Primary Care Provider: Tiarra Hoover Home Meds and New Rx's Prescriptions: No Action acetaminophen 500 mg tablet 1,000 mg PO TID omeprazole 20 mg capsule,delayed release(DR/EC) 20 mg PO BID Qty: 180 3RF propranolol 40 mg tablet 40 mg PO DAILY Qty: 90 3RF Rx Instructions: Take 1 tab once a day cyclobenzaprine 5 mg tablet 5 mg PO QHS PRN (Reason: muscle spasm) Qty: 3 0RF buspirone 15 mg tablet 15 mg PO BID Qty: 180 3RF Rx Instructions: Take 1 tablet twice a day levothyroxine 125 mcg capsule 125 mcg PO DAILY Qty: 90 3RF venlafaxine 75 mg capsule,extended release 24hr 75 mg PO DAILY Qty: 90 3RF Rx Instructions: Take 1 daily in addition to the 150mg dose venlafaxine 150 mg capsule,extended release 24hr 150 mg PO DAILY Qty: 90 3RF Rx Instructions: Take 1 daily in addition to the 75mg dose cholecalciferol (vitamin D3) 1,000 UNIT tablet 2 tab PO DAILY Qty: 200 Rx Instructions: 2000 IU DAILY Women's 50+ Daily Form (gkb) 1 EACH tablet 1 ea PO DAILY simvastatin 40 mg tablet 40 mg PO DAILY Qty: 90 3RF Discharge Instructions Stand Alone Forms: Post-op Topical Cataract, Delicia Hannaey (DSU) Discharge Orders Discharge Orders: Discharge Order (Routine); Ordered 07/25/22 Ordered By: Andrés Valero DS: Diagnosis Discharge Diagnosis (1) Nuclear sclerotic cataract of left eye: Status: Resolved
--- NOTE | 2022-07-25 10:42 | W.PM.OP ---
Date of service: 07/25/22 Time of Service: 10:43 Operative Note Operative Note DATE OF PROCEDURE: 07/25/22 PRE-OP DIAGNOSIS: Nuclear cataract, left eye POST-OP DIAGNOSIS: same PROCEDURE: Cataract extraction using phacoemulsification with intraocular lens implant, left eye SURGEON: Andrés Valero ANESTHESIA TYPE: Local By Surgeon and MAC Refer to Anesthesia Record PATHOLOGY: none sent COMPLICATIONS: None Patient was transported to: same day Patient's condition: stable Implants: Chidi and Chidi / [employer] Tecnis [id number] Indications: Progressive decreased vision due to cataract, left eye Procedure Description: CATARACT SURGERY OPERATIVE REPORT PREOPERATIVE DIAGNOSIS: 1. Nuclear cataract, left eye POSTOPERATIVE DIAGNOSIS: Same OPERATION: 1. Cataract extraction using phacoemulsification with posterior chamber intraocular lens implant, left eye. IOL: IOL Senior Payroll Manager/Model: Chidi & Chidi / DANNIELLE Tecnis [id number] IOL Power: + 22.5 diopters IOL Serial Number: [id number] Optic Diameter: 6.0 mm Haptic/Overall Diameter: 13.0 mm PHACO INFO: Hector appirisurion Vision System with OZil and Active Fluidics Cumulative Dispersed Energy (CDE): 10.69 seconds SURGEON: Andrés Valero MD, NSEHA ANESTHESIA: Monitored A [facility] (MAC), with local sub-tenon's anesthetic infiltration COMPLICATIONS: None SPECIMENS: None INDICATIONS FOR PROCEDURE: The patient is a 73-year-old lady with history of diminished visual acuity in her left eye secondary to the development of nuclear cataract. She is significantly symptomatic that she desires cataract surgery and attempt to improve and maximize her vision. The option of cataract surgery was offered to the patient and she wished to proceed. PROCEDURE: The correct surgical eye was identified and marked as the left eye and the pupil was dilated in the preoperative area using mydriatics and cycloplegics. The dilated pupil size was 6.0 mm. The patient elected to proceed without oral sedation. The patient was brought to the operating room where cardiopulmonary monitoring was instituted and surgical time-out was performed, confirming the correct operative eye and IOL power. Topical anesthesia was administered and ophthalmic povidone-iodine 5% was instilled into the conjunctival fornices. Lidocaine gel was applied to the cornea and the earnestine-ocular area was prepped with Betadine 10% solution and draped in the usual sterile fashion for intraocular surgery, including an aperture drape. A Tegaderm transparent film dressing was cut in half and used to cover the lashes and lid margins. Care was taken to sequester the lashes and lid margins under the Tegaderm dressing. A lid speculum was placed between the lids of the operative eye and the Hector Lux[employer] Revalia operating microscope was maneuvered into position. Aroldo scissors were then used to make a conjunctival buttonhole approximately 6mm posterior to the limbus in the inferonasal quadrant. Blunt dissection was carried out to expose bare sclera, and a blunt-tipped sub-tenon?s anesthesia cannula was introduced and passed posteriorly along the globe where non-preserved plain lidocaine was injected into posterior sub-Tenon?s space. A sideport knife was used to make a paracentesis port superiorly/superiortemporally. Intraocular phenylephrine/lidocaine was injected int the anterior chamber.. The anterior chamber was filled with viscoelastic. A keratome knife was used to construct a 2-plane near-clear corneal tunnel extending 2.0mm into clear cornea temporally. A flap was raised on the anterior capsule and capsulorhexis forceps were used to complete a continuous curvilinear capsulorhexis of 5.5 mm. Balanced salt solution was then used to perform cortical cleaving hydrodissection and nuclear hydrodelineation until the lens could be freely rotated within the capsular bag. The lens nucleus was then disassembled and removed within the capsular bag and iris plane using phacoemulsification. Residual cortical material was removed using the 45-degree angled silicone I/A tip with 0.3mm port. The posterior capsule was carefully polished to remove as much residual lens epithelial cells as safely possible. The capsular bag was then inflated and the anterior chamber deepened with viscoelastic. The lens implant described above was inserted into the capsular bag using the DANNIELLE [place] Injector. A Kuglen hook was used to dial the IOL into position. Residual viscoelastic was then removed first from posterior to the IOL, then from the anterior chamber using the I/A handpiece. The lens implant was noted to center nicely within the capsular bag. The incisions were stromally hydrated, and the anterior chamber was reformed using BSS. Then 0.5cc of moxifloxacin 1.0mg/ml were injected into the capsular bag and anterior chamber. The incisions were checked with a Weck spear and found to be secure. Several drops of ophthalmic povidone-iodine 5% were then applied to the eye followed by two drops of Imprimis combination prednisolone/moxifloxacin/nepafenac solution. The drapes were removed and a clear plastic protective eye shield was placed over the eye. The patient was then returned to [facility] in stable condition.
--- NOTE | 2022-07-25 10:58 | W.ANESPOSTOP ---
Postoperative Evaluation Date, Time and Location Date Performed: 07/25/22 Time Performed: 10:50 Patient Location: Day Surgery Unit Vital Signs Most Recent Imported Vital Signs: Most Recent Vital Signs Temp Pulse Resp BP Pulse Ox 36.3 C L 75 16 125/77 97 07/25/22 10:41 07/25/22 10:41 07/25/22 10:41 07/25/22 10:41 07/25/22 10:41 Pain Score Most Recent Pain Score: Most Recent Pain Score Pain Level 0 07/25/22 10:41 Assessment Mental Status: Awake (Alert & Oriented to Patient Baseline) Airway and Respiratory Function: Patent airway with normal (patient baseline) respiratory exam Cardiovascular Function: Hemodynamically Stable Hydration Status: Adequately Hydrated Nausea & Vomiting: No Nausea or Vomiting Pain: Pt. Denies Any Pain Peripheral Nerve Block: Patient did not receive a nerve block
== END 2022-07-25 11:04 | disposition home or self-care (01) ==
LOC: SUR 08:47
PROVIDERS: PCP Nurse Practitioner Family; Visit Provider Ophthalmology
PROC: (CPT 66984; principal; 2022-07-25 10:30)
DX: H25.12 Age-related nuclear cataract, left eye (principal)
CPT/HCPCS: 66984; V2632

== ENCOUNTER 2022-08-08 08:49 | Day surgery (SDC) | payer OTHER, SELFPAY ==
[2022-08-08] MEDS: Tropicam./Phenyleph. (1/2.5%) 5 ML BTL OD ×3 (09:16→09:32)
[2022-08-08 09:17] VITALS: BP 122/69; PULSE 60; RESP 16; TEMP 36.8; O2SAT 98
--- NOTE | 2022-08-08 09:41 | ANES.PREOP_ITS ---
General Info Date of Service Date Performed: 08/08/22 Height: 5 ft 0.5 in Weight: 71.9 kg Body Mass Index (BMI): 30.4 Surgical Procedure: Operation Date: 08/08/22 10:40 Proposed Procedure Side Surgeon p Cataract Extraction with IOL Implant Right Andrés Valero MD Meds Allergies and Home Medications Allergies Allergy/AdvReac Type Severity Reaction Status Date / Time duloxetine [From Cymbalta] AdvReac Intermediate Gait Verified 08/08/22 09:13 Imbalance gabapentin AdvReac Intermediate Gait Verified 08/08/22 09:13 Imbalance NSAIDS (Non-Steroidal AdvReac Intermediate epigastric Verified 08/08/22 09:13 Anti-Inflamma pain pregabalin [From Lyrica] AdvReac Intermediate depression; Verified 08/08/22 09:13 SI chloraprep Allergy Intermediate Skin Rash Uncoded 08/08/22 09:13 Home Medication Medication Instructions Recorded cholecalciferol (vitamin D3) 25 2 tab PO DAILY #200 tab-caps 12/11/12 mcg (1,000 unit) tablet multivitamin with [id number]-ngxojm 1 ea PO DAILY 12/11/12 400 mcg-120 mg tablet (Women's 50+ Daily Formula (with ginkgo)) acetaminophen 500 mg tablet 1,000 mg PO TID 10/04/21 omeprazole 20 mg capsule,delayed 20 mg PO BID #180 tab-caps 10/04/21 release propranolol 40 mg tablet 40 mg PO DAILY #90 tabs 10/04/21 cyclobenzaprine 5 mg tablet 5 mg PO QHS PRN muscle spasm #3 05/29/22 tabs simvastatin 40 mg tablet 40 mg PO DAILY #90 tabs 06/14/22 buspirone 15 mg tablet 15 mg PO BID #180 tabs 06/20/22 levothyroxine 125 mcg capsule 125 mcg PO DAILY #90 caps 06/20/22 venlafaxine 150 mg 150 mg PO DAILY #90 tab-caps 06/20/22 capsule,extended release 24 hr venlafaxine 75 mg capsule,extended 75 mg PO DAILY #90 tab-caps 06/20/22 release 24 hr Current Visit Medications: Current Medications Generic Name Dose Route Start Last Admin Trade Name Freq PRN Reason Stop Dose Admin Acetaminophen 1,000 mg 08/08/22 06:00 Acetaminophen 500 Mg Tab PO Q4H PRN PRN Miscellaneous Medication 0 ml 08/08/22 06:00 Prednisolone 1%, Moxifloxacin 0.5%, Nepafenac 0.1% 5ml Btl OD DIRECTED [facility] Miscellaneous Medication 0 ml 08/08/22 06:00 08/08/22 09:32 Tropicam./Phenyleph. (1/2.5%) 5 Ml Btl OD 1 drp DIRECTED [facility] Administration Tetracaine HCl 0 ml 08/08/22 06:00 Tetracaine 0.5% 4 Ml Btl OD DIRECTED EMERSON PFSH Active Problems Active Problems: Problem Status Onset Code Essential tremor G25.0 Hyperlipidemia E78.5 Hypothyroidism E03.9 Primary fibromyalgia syndrome M79.7 GERD (gastroesophageal reflux disease) K21.9 Diverticulosis of colon K57.30 Hiatal hernia K44.9 Memory loss R41.3 Recurrent falls R29.6 Chronic hip pain M25.559, G89.29 Chronic radicular low back pain M54.16, G89.29 Lumbar disc herniation with radiculopathy M51.16 Abnormal gait R26.9 Major depressive disorder, recurrent F33.9 Strep pharyngitis J02.0 Nuclear sclerotic cataract of left eye H25.12 Medical History Medical History Chest pain Negative MPI 02/2022 COVID-19 (~05/2021) Migraine headache Prediabetes Vitamin B 12 deficiency Vitamin D deficiency Surgical History Surgical History H/O colonoscopy (07/20/12) History of arthroplasty of left knee (08/29/15) History of arthroplasty of right knee (04/21/18) History of esophagogastroduodenoscopy (EGD) (07/20/12) History of Chantel fundoplication S/P hernia repair (05/07/09) paraesophageal hernia S/P laparoscopic cholecystectomy (08/15/09) S/P left knee arthroscopy (08/29/15) S/P right knee arthroscopy (04/24/17) With partial medial meniscectomy and limited medial femoral chondroplasty Tobacco Smoking/Tobacco Use Status: Never Passive smoking exposure: Yes Second hand exposure: Yes Alcohol Alcohol Intake: never Substance Use Substance use: Never Substance use type: does not use Prental History History 2 Para 2 Hx # Term Pregnancies Multiple births Hx # Pregnancies Ectopic pregnancies AB induced Hx Number of Living Children 2 AB spontaneous Vital Signs and Lab Results Vital Signs Most Recent Vital Signs in EMR: Most Recent Vital Signs Temp Pulse Resp BP Pulse Ox 36.8 C 60 16 122/69 98 08/08/22 09:17 08/08/22 09:17 08/08/22 09:17 08/08/22 09:17 08/08/22 09:17 Lab Results Blood Type / Crossmatch: No Data to Display Complete Blood Count: White Blood Count 11.17 10^3/uL (4.4-10.8) H 07/16/22 06:42 Red Blood Count 4.54 10^6/uL (3.93-5.22) 07/16/22 06:42 Hemoglobin 14.3 g/dL (11.2-15.7) 07/16/22 06:42 Hematocrit 42.3 % (36.0-46.0) 07/16/22 06:42 Platelet Count 324 10^3/uL (130-400) 07/16/22 06:42 Complete Metabolic Panel: Sodium 137 mmol/L (136-145) 07/16/22 13:40 Potassium 4.1 mmol/L (3.5-5.1) 07/16/22 13:40 Chloride 99 mmol/L (98-107) 07/16/22 13:40 Carbon Dioxide 28.8 mmol/L (21.0-32.0) 07/16/22 13:40 BUN 11 mg/dL (7-18) 07/16/22 13:40 Creatinine 1.0 mg/dL (0.55-1.02) 07/22/22 08:46 Est GFR (CKD-EPI 2020) 59.86 (mL/min/1.73m2) 07/22/22 08:46 Calcium 9.6 mg/dL (8.5-10.1) 07/16/22 13:40 Albumin 3.6 g/dL (3.4-5.0) 07/16/22 13:40 Glucose 108 mg/dL (74-106) H 07/16/22 13:40 Liver Function Panel: Alanine Aminotransferase (ALT/SGPT) 35 U/L (14-59) 07/16/22 13: 40 Aspartate Amino Transf (AST/SGOT) 28 U/L (15-37) 07/16/22 13:40 Coagulation Panel: No Data to Display Cardiac Panel: Creatine Kinase 29 U/L (26-192) 07/16/22 Arterial Blood Gas: No Data to Display Venous Blood Gas: No Data to Display Pancreas Panel: No Data to Display Thyroid Panel: No Data to Display Infectious Disease: No Data to Display Blood Cultures: No Data to Display Toxicology Panel: No Data to Display Imaging and Studies Imaging and Studies Study information below may be from another EMR and interpreted by another provider. Please see original notes in EMR for more complete details. EKG Summary: Conclusion Sinus rhythm...normal P axis, V-rate 50- 99 Normal Electrocardiogram 07/03 Stress Test Summary: 03/03MPI Conclusion Myocardial perfusion is normal without evidence of ischemia or prior infarction EF is 69%, wall motion is normal Echocardiogram Summary: SUMMARY: Normal biventricular size and function. No significant valvular heart disease. SUMMARY: Normal biventricular size and function. No significant valvular heart disease. 05/26 Carotid Artery Summary:: 05/26 IMPRESSION: No evidence of hemodynamically significant carotid artery stenosis. CC: Anesthesia Assessment and Plan Anesthesia History Personal History: No History of Anesthesia Complications Family History: No Family History of Anesthesia Complications Exercise Tolerance Exercise Tolerance: Metabolic Equivalents>4 Pertinent Negatives Pertinent Negatives: No Symptoms of GERD Cardiac & Pulmonary Exam Cardiac Exam: Normal S1/S2 Heart Sounds Pulmonary Exam: Clear Bilateral Breath Sounds Implantable Cardiac Device Does patient have a Pacemaker or an ICD?: No Airway Exam Known Difficult Airway: No Mallampati Class: 3 Mouth Opening: Normal (> 3cm) Thyromental Distance: Greater than 3 cm Neck Range of Motion: Full ROM Neck Circumference: Normal Teeth Condition: Normal Dentition ASA Classification ASA Score: ASA 2 Emergency Case?: No NPO Status NPO Status: NPO Clears >2 hours, Solids >8 hours Anesthesia Plan Resuscitation Status: Full Code Anesthesia Technique: MAC Anesthesia Airway Planned: Natural Airway Monitors Used: Standard Monitors
[2022-08-08 09:43] VITALS: BMI 30.4
[2022-08-08] MEDS: Lidocaine 2% Jelly 6 ML SYR (10:09)
[2022-08-08] MEDS: Tetracaine 0.5% 4 ML BTL OD (10:09)
[2022-08-08] MEDS: Povidone-Iodine Ophth 30 ML BTL (10:09)
[2022-08-08] MEDS: Lidocaine 1% Pres-Free 5 ML VIAL (10:11)
[2022-08-08] MEDS: Balanced Salt Soln.-PLUS 500 ML BAG (10:11)
[2022-08-08] MEDS: Duovisc Viscoelastic System EACH 1 EACH (10:11)
[2022-08-08 10:30] VITALS: BP 122/61; PULSE 58; RESP 16; TEMP 36.6; O2SAT 96
--- NOTE | 2022-08-08 10:32 | W.PM.DSUDISC ---
Date of service: 08/08/22 Time of Service: 10:32 Discharge Plan Disposition Patient Disposition: Home Discharge Details Attending Provider: Andrés Valero Primary Care Provider: Tiarra Hoover Home Meds and New Rx's Prescriptions: No Action acetaminophen 500 mg tablet 1,000 mg PO TID omeprazole 20 mg capsule,delayed release(DR/EC) 20 mg PO BID Qty: 180 3RF propranolol 40 mg tablet 40 mg PO DAILY Qty: 90 3RF Rx Instructions: Take 1 tab once a day cyclobenzaprine 5 mg tablet 5 mg PO QHS PRN (Reason: muscle spasm) Qty: 3 0RF buspirone 15 mg tablet 15 mg PO BID Qty: 180 3RF Rx Instructions: Take 1 tablet twice a day levothyroxine 125 mcg capsule 125 mcg PO DAILY Qty: 90 3RF venlafaxine 75 mg capsule,extended release 24hr 75 mg PO DAILY Qty: 90 3RF Rx Instructions: Take 1 daily in addition to the 150mg dose venlafaxine 150 mg capsule,extended release 24hr 150 mg PO DAILY Qty: 90 3RF Rx Instructions: Take 1 daily in addition to the 75mg dose cholecalciferol (vitamin D3) 1,000 UNIT tablet 2 tab PO DAILY Qty: 200 Rx Instructions: 2000 IU DAILY Women's 50+ Daily Form (gkb) 1 EACH tablet 1 ea PO DAILY simvastatin 40 mg tablet 40 mg PO DAILY Qty: 90 3RF Discharge Instructions Stand Alone Forms: Post-op Topical Cataract, Delicia Hannaey (DSU) Discharge Orders Discharge Orders: Discharge Order (Routine); Ordered 08/08/22 Ordered By: Andrés Valero DS: Diagnosis Discharge Diagnosis (1) Nuclear sclerotic cataract of right eye: Status: Resolved
--- NOTE | 2022-08-08 10:33 | W.PM.OP ---
Date of service: 08/08/22 Time of Service: 10:33 Operative Note Operative Note DATE OF PROCEDURE: 08/08/22 PRE-OP DIAGNOSIS: Nuclear cataract, right eye POST-OP DIAGNOSIS: same PROCEDURE: Cataract extraction using phacoemulsification with intraocular lens implant, right eye SURGEON: Andrés Valero ANESTHESIA TYPE: Local By Surgeon and MAC Refer to Anesthesia Record ESTIMATED BLOOD LOSS: 0 PATHOLOGY: none sent COMPLICATIONS: None Patient was transported to: same day Patient's condition: stable Implants: Chidi & Chidi Tecnis Eyhance [id number] Indications: Progressive visual loss due to cataract, right eye Procedure Description: CATARACT SURGERY OPERATIVE REPORT PREOPERATIVE DIAGNOSIS: 1. Nuclear cataract, right eye POSTOPERATIVE DIAGNOSIS: Same OPERATION: 1. Cataract extraction using phacoemulsification with posterior chamber intraocular lens implant, right eye. IOL: IOL Reproductive Healthcare Assistant/Model: Chidi & Chidi Tecnis Eyhance DIB00 IOL Power: + 22.5 diopters IOL Serial Number: [id number] Optic Diameter: 6.0mm Haptic/Overall Diameter: 13.0mm PHACO INFO: HectorImmunoPhotonicson Vision System with OZil and Active Fluidics Cumulative Dispersed Energy (CDE): 13.87 seconds SURGEON: Andrés Valero MD, NESHA ANESTHESIA: Monitored Anesthesia Care (MAC), with local sub-tenon's anesthetic infiltration COMPLICATIONS: None SPECIMENS: None INDICATIONS FOR PROCEDURE: Patient is a 72-year-old lady with history of diminished visual acuity in both eyes secondary to the development of bilateral nuclear cataract. She has already undergone cataract surgery in the left eye and is doing well postoperatively. She now presents for cataract surgery in the right eye. PROCEDURE: The correct surgical eye was identified and marked as the right eye and the pupil was dilated in the preoperative area using mydriatics and cycloplegics. The dilated pupil size was 7.0 mm. The patient elected to proceed without oral sedation. The patient was brought to the operating room where cardiopulmonary monitoring was instituted and surgical time-out was performed, confirming the correct operative eye and IOL power. Topical anesthesia was administered and ophthalmic povidone-iodine 5% was instilled into the conjunctival fornices. Lidocaine gel was applied to the cornea and the earnestine-ocular area was prepped with Betadine 10% solution and draped in the usual sterile fashion for intraocular surgery, including an aperture drape. A Tegaderm transparent film dressing was cut in half and used to cover the lashes and lid margins. Care was taken to sequester the lashes and lid margins under the Tegaderm dressing. A lid speculum was placed between the lids of the operative eye and the Hector LuxOR Revalia operating microscope was maneuvered into position. Aroldo scissors were then used to make a conjunctival buttonhole approximately 6mm posterior to the limbus in the inferonasal quadrant. Blunt dissection was carried out to expose bare sclera, and a blunt-tipped sub-tenon?s anesthesia cannula was introduced and passed posteriorly along the globe where non-preserved plain lidocaine was injected into posterior sub-Tenon?s space. A sideport knife was used to make a paracentesis port inferotemporally. Intraocular phenylephrine/lidocaine was injected into the anterior chamber. The anterior chamber was filled with viscoelastic. A keratome knife was used to construct a 2-plane near-clear corneal tunnel extending 2.0mm into clear cornea superiortemporally. A flap was raised on the anterior capsule and capsulorhexis forceps were used to complete a continuous curvilinear capsulorhexis of 5.5 mm. Balanced salt solution was then used to perform cortical cleaving hydrodissection and nuclear hydrodelineation until the lens could be freely rotated within the capsular bag. The lens nucleus was then disassembled and removed within the capsular bag and iris plane using phacoemulsification. Residual cortical material was removed using the I/A handpiece. The posterior capsule was carefully polished to remove as much residual lens epithelial cells as safely possible. The capsular bag was then inflated and the anterior chamber deepened with viscoelastic. The lens implant described above was inserted into the capsular bag using the Chidi and Richard Simplicity pre-loaded injector. A Kuglen hook was used to dial the IOL into position. Residual viscoelastic was then removed first from posterior to the IOL, then from the anterior chamber using the I/A handpiece. The lens implant was noted to center nicely within the capsular bag. The incisions were stromally hydrated, and the anterior chamber was reformed using BSS. Then 0.5cc of moxifloxacin 1.0mg/ml were injected into the capsular bag and anterior chamber. The incisions were checked with a Weck spear and found to be secure. Several drops of ophthalmic povidone-iodine 5% were then applied to the eye followed by two drops of Imprimis combination prednisolone/moxifloxacin/nepafenac solution. The drapes were removed and a clear plastic protective eye shield was placed over the eye. The patient was then returned to Same Day Surgery in stable condition.
--- NOTE | 2022-08-08 10:38 | W.ANESPOSTOP ---
Postoperative Evaluation Date, Time and Location Date Performed: 08/08/22 Time Performed: 10:38 Patient Location: Day Surgery Unit Vital Signs Most Recent Imported Vital Signs: Most Recent Vital Signs Temp Pulse Resp BP Pulse Ox 36.6 C 58 L 16 122/61 96 08/08/22 10:30 08/08/22 10:30 08/08/22 10:30 08/08/22 10:30 08/08/22 10:30 Pain Score Most Recent Pain Score: Most Recent Pain Score Pain Level 0 08/08/22 10:30 Assessment Mental Status: Awake (Alert & Oriented to Patient Baseline) Airway and Respiratory Function: Patent airway with normal (patient baseline) respiratory exam Cardiovascular Function: Hemodynamically Stable Hydration Status: Adequately Hydrated Nausea & Vomiting: No Nausea or Vomiting Pain: Pt. Denies Any Pain Peripheral Nerve Block: Patient did not receive a nerve block
== END 2022-08-08 10:50 | disposition home or self-care (01) ==
LOC: SUR 08:49
PROVIDERS: PCP Nurse Practitioner Family; Visit Provider Ophthalmology
PROC: (CPT 66984; principal; 2022-08-08 10:30)
DX: H25.11 Age-related nuclear cataract, right eye (principal); R73.03 Prediabetes
CPT/HCPCS: 66984; V2632

== ENCOUNTER 2022-10-15 10:46 | Outpatient (CLI) | payer OTHER, SELFPAY ==
--- NOTE | 2022-10-15 10:45 | RT.EKG_ITS ---
APPROVED REPORT Exam: Resting ECG Reason for Exam: L sided chest pain Patient Location: O HR:65 bpm ECG Measurements Heart Rate 65 AXIS GA 176 P 5 QRSd 89 QRS -16 QT 397 T 2 QTc 413 Conclusion Sinus rhythm...normal P axis, V-rate 50- 99 Normal Electrocardiogram
== END 2022-10-15 10:47 | disposition home or self-care (01) ==
LOC: DI.CM 10:46
PROVIDERS: PCP Nurse Practitioner Family; Visit Provider Nurse Practitioner Family
DX: R07.9 Chest pain, unspecified (principal)
CPT/HCPCS: 93010

== ENCOUNTER 2023-05-23 09:40 | Outpatient (CLI) | payer OTHER, SELFPAY ==
--- NOTE | 2023-05-23 09:30 | RT.EKG_ITS ---
APPROVED REPORT Exam: Resting ECG Reason for Exam: weakness/Dizziness Patient Location: O HR:52 bpm ECG Measurements Heart Rate 52 AXIS CO 180 P 12 QRSd 93 QRS -15 QT 420 T 12 QTc 391 Conclusion Sinus rhythm...normal P axis, V-rate 50- 99 Abnormal R-wave progression, early transition...QRS area>0 in V2 Otherwise normal ECG
== END 2023-05-23 09:41 | disposition home or self-care (01) ==
LOC: DI.CM 09:41
PROVIDERS: PCP Nurse Practitioner Family; Visit Provider Nurse Practitioner Family
DX: R42 Dizziness and giddiness (principal); R53.1 Weakness
CPT/HCPCS: 93010

== ENCOUNTER 2023-05-23 10:40 | Emergency (ER) | payer OTHER, SELFPAY ==
[2023-05-23] VITALS (10 sets, daily range): BP systolic 108–134; BP diastolic 50–88; PULSE 51–78; RESP 14–16; TEMP 36.4; O2SAT 93–97
--- NOTE | 2023-05-23 10:30 | RT.EKG_ITS ---
APPROVED REPORT Exam: Resting ECG Reason for Exam: chest pressure Patient Location: E HR:82 bpm ECG Measurements Heart Rate 82 AXIS NV 130 P -44 QRSd 90 QRS -10 QT 370 T 18 QTc 432 Conclusion Sinus rhythm...normal P axis, V-rate 60- 99 Left ventricular hypertrophy...multiple voltage criteria LAD, no definate LVH,, biphasic T in V2. Slight change from earlier today. ? old IMI
--- NOTE | 2023-05-23 10:56 | ED.GENADUL_ITS ---
Discharge Plan Disposition Patient Disposition: Home Discharge Details Clinical Impression: Exertional shortness of breath Primary Care Provider: Tiarra Hoover ED Provider: Yonis Galarza Home Meds and New Rx's Prescriptions: Continued acetaminophen 500 mg tablet 1,000 mg PO TID cyclobenzaprine 5 mg tablet 5 mg PO QHS PRN (Reason: muscle spasm) Qty: 3 0RF famotidine 20 mg tablet 20 mg PO QHS PRN (Reason: heartburn) Qty: 90 0RF levothyroxine 125 mcg capsule 125 mcg PO DAILY Qty: 90 3RF cholecalciferol (vitamin D3) 1,000 UNIT tablet 2 tab PO DAILY Qty: 200 Rx Instructions: 2000 IU DAILY Women's 50+ Daily Form (gkb) 1 EACH tablet 1 ea PO DAILY propranolol 40 mg tablet 40 mg PO DAILY Qty: 90 3RF Rx Instructions: Take 1 tab once a day omeprazole 20 mg capsule,delayed release(DR/EC) 20 mg PO BID Qty: 180 3RF venlafaxine 75 mg capsule,extended release 24hr 75 mg PO DAILY Qty: 90 3RF Rx Instructions: Take 1 daily in addition to the 150mg dose buspirone 15 mg tablet 15 mg PO BID Qty: 180 3RF Rx Instructions: Take 1 tablet twice a day venlafaxine 150 mg capsule,extended release 24hr 150 mg PO DAILY Qty: 90 3RF Rx Instructions: Take 1 daily in addition to the 75mg dose simvastatin 40 mg tablet 40 mg PO DAILY Qty: 90 3RF Discharge Instructions Instructions: Dyspnea (ED) Additional Instructions: As discussed no emergent findings were noted during your emergency department work-up but if you have any new or significant worsening of symptoms given you do have some risk factors you should return immediately to the emergency department for reassessment. A referral has been placed for you to follow-up with your primary care provider preferably within the next week for discussion and reassessment along with further testing as needed. Referrals: Tiarra Hoover NP [Primary Care Provider] - 3 days Medical Decision Making Patient presenting to the emergency department after being referred from the urgent care for chief complaint of shortness of breath malaise and chest pain. Patient states that while at rest she has none of the symptoms but as soon as she gets up and starts walking or any activity she feels shortness of breath. Yesterday she did have some very brief episodes of chest pain that resolved quickly. Only other symptom patient reports is sore throat but denies fever chills cough nasal congestion or other viral type symptoms. Did review urgent care note that stated some noted hypotension and bradycardia in the office and that patient was symptomatic with orthostatic testing. Patient has pertinent past medical history that includes history of prediabetes, hyperlipidemia, GERD, fibromyalgia. Physical exam is noncontributory with no pertinent findings, patient in no signs of distress or discomfort. We will plan on performing cardiac work-up given patient's age and history. I do feel there is a slight component of anxiety as patient states that she lives alone with her dog and was worried about potential cardiac nature of her discomfort. Please see physician interpretation for full interpretation of EKG but upon my review patient is in sinus rhythm with no significant change for comparison from EKG noted 10/15/2022. No obvious emergent ischemic findings noted. We will continue to monitor. Labs reviewed and CBC is noncontributory, patient has slightly elevated D-dimer at 616 but age-adjusted would be considered negative, CMP shows a glucose of 110 otherwise noncontributory, initial troponin is negative nondetected and BNP is 87. Patient is negative for COVID flu and RSV. Patient has had no change in symptoms and continues to remain asymptomatic at rest. I did review further patient's records and radiology work-up and she did have history of a mildly dilated aorta. Given this will perform CTA imaging confirming no PE and that aortic size has not increased to concerning point. Patient is in agreement of this plan. CT imaging reviewed along with radiologist interpretation and does show some Mild ground-glass opacities portions of lungs bilaterally. Scan is otherwise negative for acute emergent findings. We will proceed with repeat EKG and second troponin but pending those results will give patient DuoNeb to see if this helps with some of her symptoms. Repeat EKG was performed and please see physician interpretation for full interpretation of EKG but I do not see any worrisome change from previous ones. Second troponin is also nondetected. Given that patient had symptoms over 24 hours ago I feel this is reassuring. Did discuss with patient that she has a mild to moderate heart score with 16% or less risk of Mace. While I feel that what ever is causing the ground glass opacities is more of the cause of patient's symptoms do feel that patient would benefit from a stress test and echo so we will refer patient to primary care to follow-up on that along with the abnormal lung findings. Patient was in agreement with this plan of care and is requesting to go home compared to stay. I do feel this is reassuring. Did perform ambulatory trial with patient which she had appropriate oxygenation and heart rate with ambulation and no noted tachycardia or hypoxia was observed. Patient stated still some shortness of breath with ambulation and did not feel that the albuterol helped her so we will hold off on a prescription for home. Patient did state her legs felt a little wobbly but she is supposed to be using a walker or cane which she is not using at the moment and her gait did appear appropriate with no severe dysfunction noted during observation. I still feel that patient is able to be safely discharged home and patient again agreed with this plan of care at but did clearly state understanding to return for new or worsening of condition. After discussion of diagnosis and plan of care patient has no further needs, questions, or concerns and states clear understanding to return to the emergency department for any worsening symptoms. This documentation was generated using Digi[employer] system, please disregard any oddities of phrase or misspellings. Medical Records Medical records narrative: Thoracic aorta is mildly dilated at 3.8 cm Imaging Data Radiologic Study: Imaging: CT Scan Radiologist's impression: Exam(s) PROCEDURE INFORMATION: Exam: CTA Chest With Contrast Exam date and time: 05/23/2023 12:45 PM Age: 73 years old Clinical indication: Other: Chest pain, SOB; Prior surgery; Surgery date: 6+ months; Surgery type: Fundoplcation , hernia repair TECHNIQUE: Imaging protocol: Computed tomographic angiography of the chest with contrast. Exam focused on the arteries. 3D rendering (Not supervised by radiologist): MIP and/or 3D reconstructed images were created by the technologist. Contrast material: OMNIPAQUE 350; Contrast volume: 90 ml; Contrast route: INTRAVENOUS (IV); COMPARISON: CT THORAX CTA 01/31/2022 2:48 PM FINDINGS: Pulmonary arteries: While tiny peripheral pulmonary emboli not completely excluded, no large or obvious filling defects seen of visualized portions pulmonary arteries to suggest pulmonary embolism. Great vessels off aortic arch: Typical three-vessel origin great vessels off of thoracic aortic arch. Aorta: Atherosclerotic disease, but no aneurysm and no dissection seen thoracic aorta. Lungs: Azygous lobe. Mild ground-glass opacities portions of lungs bilaterally. Visualized portions trachea, main bronchi appear patent bilaterally. Pleural spaces: No pneumothorax and no pleural effusion seen. Heart: No pericardial effusion seen. No obvious right heart strain seen. Coronary arteries: Coronary artery calcification. Lymph nodes: No suspicious lymphadenopathy seen. Diaphragm: Hiatal hernia. Liver: Possible diffuse fatty liver, hepatic steatosis. Gallbladder and bile ducts: Clips project gallbladder fossa. Spleen: Tiny calcifications/hyperdensities spleen compatible with granulomata. Adrenal glands: Adrenals unremarkable. Bones/joints: Degenerative changes spine. Soft tissues: Unremarkable. Other findings: Moderate stool visualized portion: Partially included. IMPRESSION: 1. No pulmonary embolism seen. 2. Mild ground-glass opacities portions of lungs bilaterally. 3. Hiatal hernia. Lab Data Lab results reviewed: Yes I reviewed the patient's lab results. HPI General Mode of arrival: ambulatory . Date/Time Provider Initiated Documentation: 05/23/23 10:40 . Limitations to Documentation: no limitations . Information obtained by: patient, RN/MD, RN notes reviewed and old records reviewed . History of Present Illness 73 year old F presents to the emergency department with the chief complaint of Shortness of breath, dizziness, chest pain, described as moderate and similar to prior episodes, Quality is described as sharp, and is localized to the chest. Patient started experiencing this day(s) (1) and it has been intermittent. No relieving factors improve symptom(s), Other factors that worsen symptoms (Activity/ambulation) . Patient notes malaise and shortness of breath; denies fever/chills. Patient did receive the following treatments prior to arrival, none Related Data Home Medications Medication Instructions Recorded Confirmed cholecalciferol (vitamin D3) 25 2 tab PO DAILY #200 tab-caps 12/11/12 05/23/23 mcg (1,000 unit) tablet multivitamin with [id number] 1 ea PO DAILY 12/11/12 05/23/23 400 mcg-120 mg tablet (Women's 50+ Daily Formula (with ginkgo)) acetaminophen 500 mg tablet 1,000 mg PO TID 10/04/21 05/23/23 cyclobenzaprine 5 mg tablet 5 mg PO QHS PRN muscle spasm #3 05/29/22 05/23/23 tabs levothyroxine 125 mcg capsule 125 mcg PO DAILY #90 caps 06/20/22 05/23/23 famotidine 20 mg tablet 20 mg PO QHS PRN heartburn #90 tabs 10/15/22 05/23/23 omeprazole 20 mg capsule,delayed 20 mg PO BID #180 tab-caps 11/10/22 05/23/23 release propranolol 40 mg tablet 40 mg PO DAILY #90 tabs 11/10/22 05/23/23 buspirone 15 mg tablet 15 mg PO BID #180 tabs 05/21/23 05/23/23 simvastatin 40 mg tablet 40 mg PO DAILY #90 tabs 05/21/23 05/23/23 venlafaxine 150 mg 150 mg PO DAILY #90 tab-caps 05/21/23 05/23/23 capsule,extended release 24 hr venlafaxine 75 mg capsule,extended 75 mg PO DAILY #90 tab-caps 05/21/23 05/23/23 release 24 hr Previous Rx's Medication Instructions Recorded cyclobenzaprine 5 mg tablet 5 mg PO QHS PRN muscle spasm #3 05/29/22 tabs levothyroxine 125 mcg capsule 125 mcg PO DAILY #90 caps 06/20/22 famotidine 20 mg tablet 20 mg PO QHS PRN heartburn #90 tabs 10/15/22 omeprazole 20 mg capsule,delayed 20 mg PO BID #180 tab-caps 11/10/22 release propranolol 40 mg tablet 40 mg PO DAILY #90 tabs 11/10/22 buspirone 15 mg tablet 15 mg PO BID #180 tabs 05/21/23 simvastatin 40 mg tablet 40 mg PO DAILY #90 tabs 05/21/23 venlafaxine 150 mg 150 mg PO DAILY #90 tab-caps 05/21/23 capsule,extended release 24 hr venlafaxine 75 mg capsule,extended 75 mg PO DAILY #90 tab-caps 05/21/23 release 24 hr Allergies Allergy/AdvReac Type Severity Reaction Status Date / Time duloxetine [From Cymbalta] AdvReac Intermediate Gait Verified 05/23/23 11:38 Imbalance gabapentin AdvReac Intermediate Gait Verified 05/23/23 11:38 Imbalance NSAIDS (Non-Steroidal AdvReac Intermediate epigastric Verified 05/23/23 11:38 Anti-Inflamma pain pregabalin [From Lyrica] AdvReac Intermediate depression; Verified 05/23/23 11:38 SI chloraprep Allergy Intermediate Skin Rash Uncoded 05/23/23 11:38 General Stated Complaint: Chest Pain LUISA: 3 Review of Systems Constitutional Constitutional: Denies chills, Denies fever(s) and Reports malaise ENT Ears, Nose, Mouth, and Throat: Denies otalgia, Denies nasal congestion and Reports sore throat Cardiovascular Cardiovascular: Reports as per HPI, Reports chest pain, Denies syncope, Denies irregular heart rhythm, Denies leg edema, Denies palpitations, Reports dyspnea and Reports dyspnea on exertion Respiratory Respiratory: Denies cough, Denies hemoptysis, Reports dyspnea and Reports dyspnea on exertion Gastrointestinal Gastrointestinal: Denies abdominal pain, Denies nausea and Denies vomiting Neurologic Neurologic: Denies syncope Psychiatric Psychiatric: Denies anxiety Endocrine Endocrine: Denies cold intolerance, Denies heat intolerance and Denies palpitations PFSH All Active Problems (Updated 05/23/23 @ 14:46 by Yonis Galarza NP) Exertional shortness of breath (Acute) Hypothyroidism (Chronic) Hyperlipidemia (Chronic) Major depressive disorder, recurrent (Chronic) Essential tremor (Chronic) Primary fibromyalgia syndrome (Chronic) GERD (gastroesophageal reflux disease) (Chronic) Hiatal hernia (Chronic) Memory loss (Chronic) Recurrent falls (Chronic) Chronic hip pain (Chronic) Chronic radicular low back pain (Chronic) Lumbar disc herniation with radiculopathy (Chronic) Abnormal gait (Chronic) Diverticulosis of colon (Chronic) Medical History Chest pain Negative MPI 02/2022 COVID-19 (~05/2021) Vitamin D deficiency Migraine headache Prediabetes Vitamin B 12 deficiency Surgical History History of Chantel fundoplication H/O colonoscopy (07/20/12) History of esophagogastroduodenoscopy (EGD) (07/20/12) History of arthroplasty of right knee (04/21/18) History of arthroplasty of left knee (08/29/15) S/P right knee arthroscopy (04/24/17) With partial medial meniscectomy and limited medial femoral chondroplasty S/P left knee arthroscopy (08/29/15) S/P laparoscopic cholecystectomy (08/15/09) S/P hernia repair (05/07/09) paraesophageal hernia Family History Mother , At 74 Heart disease Thyroid dysfunction Type 2 diabetes mellitus Father , At 92 of [place] Heart disease Skin cancer Myocardial infarction Hypertension Sister Parkinsons disease Brother Heart disease Brother No problems noted. Daughter SLE (systemic lupus erythematosus) Depression Asthma Daughter Migraine headache Maternal Grandmother No problems noted. Maternal Grandmother No problems noted. Paternal Grandfather No problems noted. Paternal Grandfather No problems noted. Social History Smoking/Tobacco Use Status: Never Second Hand Exposure: Yes Smoking risk assessment performed?: Yes Alcohol Intake: never Drug use: Never Substance use type: does not use Communication Needs: Corrective Lenses Do you need help understanding health information?: Never Pets and animals: Yes Pets and animals: dog(s) Sexually active: No Do you think of yourself as: straight/heterosexual What is your relationship status?: How often do you talk on the phone with friends or family?: three or more times per week How often do you get together with friends or relatives?: once per week How often do you attend anabaptist or zoroastrian services?: decline to answer Do you belong to any clubs or organized social groups?: no Panel score (0-1 are the most socially isolated patients): 2 What type of physical activity do you participate in: walking Duration: < 15 minutes/day Frequency: 1-2 times per week Alisha/Caodaism: No preference Special alisha needs: No Seatbelt use: always Helmet use: No Drive intox or ride w/intox commercial truck driver: No Do you feel safe at home: Yes Female Reproductive History Menstrual Menopause type: natural History History 2 Para 2 Hx # Term Pregnancies Multiple births Hx # Pregnancies Ectopic pregnancies AB induced Hx Number of Living Children 2 AB spontaneous Exam Const General: cooperative, healthy appearing, comfortable, no acute distress, not diaphoretic and not ill appearing Nutritional Appearance: average body habitus Orientation: alert, awake and oriented x3 Limitations: mental status not altered HENMT Head: normal to inspection and normocephalic Ears: hearing grossly normal bilaterally General nose exam: external nose normal and nares normal Face and sinus: normal facial exam Mouth: oral mucosae normal, lip normal, tongue normal, no audible dysphonia, no drooling and no trismus Throat: posterior oropharynx normal, uvula midline and no peritonsillar masses Neck Neck: normal visual inspection, full ROM, trachea midline, supple and no anterior neck swelling Carotids: normal carotid upstroke and no bruits Chest Chest: normal inspection of the chest Resp Effort & Inspection: normal respiratory effort and able to speak in complete sentences Auscultation: clear to auscultation bilaterally Cardio Jugular venous pressure: no JVD Palpation: normal PMI Rate: regular rate Rhythm: regular rhythm Heart Sounds: S1 normal, S2 normal, no click, no gallops, no murmurs and no rubs Bruits: no abdominal aortic bruits and no carotid bruits Pulses: radial pulses present bilaterally 2+ GI Inspection: normal to inspection Palpation: soft, no aortic enlargement, no pulsatile masses and nontender Auscultation: normal bowel sounds Skin General skin exam: no rashes or lesions noted Neuro General: patient alert, patient awake, patient oriented x3, tone normal and moves all extremities Course Vital Signs Vital signs: Vital Signs Temperature 36.4 C 05/23/23 10:41 Pulse 54 L 05/23/23 10:41 Respiratory Rate 14 05/23/23 10:41 Blood Pressure 134/88 05/23/23 10:41 Pulse Oximetry 96 05/23/23 10:41 Temperature 36.4 C 05/23/23 10:41 Temperature Source Oral 05/23/23 10:41 Pulse 54 L 05/23/23 10:41 Respiratory Rate 14 05/23/23 10:41 Blood Pressure 134/88 05/23/23 10:41 Blood Pressure Position Supine 05/23/23 10:41 Pulse Oximetry 96 05/23/23 10:41 Oxygen Delivery Method Room Air 05/23/23 10:41 Oxygen Flow Rate 0 05/23/23 10:41 Pain Level 0 05/23/23 10:41
[2023-05-23] MEDS: Normal Saline 500 ML IV (11:00)
[2023-05-23 11:13] LABS: Abs Immature Grans 0.02 10^3/uL (0.0-0.06); Absolute Basophil Count 0.06 10^3/uL (0.0-0.2); Absolute Eosinophil Count 0.13 10^3/uL (0.0-0.7); Absolute Monocyte Count 0.71 10^3/uL (0.1-0.8); Basophils % 0.7; Eosinophils % 1.4; HGB 14.4 g/dL (11.2-15.7); Immature Grans % 0.2; Lymphocytes % 45.6; MCH 30.9 pg (27.0-33.0); MCHC 34.3 % (32.0-36.0); MCV 90 fL (80-95); MPV 10.1 fL (8.0-11.0); Monocytes % 7.7; Neutrophils % 44.4; Platelet Count 301 10^3/uL (130-400); RBC 4.66 10^6/uL (3.93-5.22); RDW 12.8 % (11.7-14.6); RDW-SD 42.2 fL; WBC 9.22 10^3/uL (4.4-10.8)
[2023-05-23 11:25] LABS: INR 1.1 (0.9-1.1); PTT Activated 25.2 sec (23.6-32.8); Prothrombin Time 10.9 sec (9.1-11.1)
[2023-05-23 11:37] LABS: ALT 36 U/L (14-59); AST 25 U/L (15-37); Albumin 3.5 g/dL (3.4-5.0); Alkaline Phosphatase 75 U/L (46-116); Anion Gap 7.1 mmol/L (3-11); BUN 15 mg/dL (7-18); Bilirubin, Total 0.4 mg/dL (0.2-1.0); CO2 27.9 mmol/L (21.0-32.0); CREATININE 0.9 mg/dL (0.55-1.02); Calcium 9.3 mg/dL (8.5-10.1); Chloride 101 mmol/L (98-107); Glucose 110 mg/dL (74-106); NT-proBNP 87 pg/mL (<300); Potassium 3.5 mmol/L (3.5-5.1); Sodium 136 mmol/L (136-145); Total Protein 8.1 g/dL (6.4-8.2); Troponin I < 50 ng/L (<or=60)
[2023-05-23 11:40] LABS: D-Dimer 616 ng/mlFEU (<500)
--- NOTE | 2023-05-23 11:45 | DI.CT_ITS ---
Exam(s) CT CHEST PE CTA EXAM: CT CHEST PE CTA CLINICAL HISTORY: Chest pain, SOB. TECHNIQUE: Imaging Protocol: CT angiography of the chest was performed using pulmonary embolus princess col. Multi planar reconstructions were performed. CONTRAST MATERIAL: Intravenous: Omnipaque 350 Contrast volume: 100 cc COMPARISON: CT,NM,TMT NM MPI REST STRESS GRP from 02/17/2022 FINDINGS: CHEST: PULMONARY ARTERIES: There are no intraluminal filling defects to suggest acute pulmonary emboli.No fo antelmo area of pulmonary infarction. LUNGS: There are mild ground-glass opacities in both lung brand, relatively symmetrical. No associa diane pleural effusions.. No ominous pulmonary lesions identified. No findings in the trachea and monica nstem bronchi. There is no bronchiectasis. MEDIASTINUM: There is no hilar nor mediastinal adenopathy. Visualized thyroid unremarkable.Small hiat al hernia. CARDIAC: Heart size is upper normal. There is no pericardial effusion.Caliber of the thoracic aorta is within normal limits. No dissection. There is no significant shift of the interventricular septum . PARTIALLY VISUALIZED UPPERMOST ABDOMEN: Gallbladder surgically absent. No adrenal masses. No spleno megaly. Liver is hypodense implying steatosis. OSSEOUS: No significant osseous lesions.. IMPRESSION: 1. No evidence of acute pulmonary emboli. No evidence of pulmonary infarction.No pleural effusions. 2. Mild ground-glass infiltrates noted in both lung brand. No pleural effusions. No intrathoracic adenopathy. 3. No evidence of aortic dissection nor pericardial effusion. RADIATION DOSE DELIVERED: Total DLP DATA REPOSITORY: All CT scans at this facility are submitted to the National Radiology Data Registry (NRDR) Dose Index Registry (DIR) with the [employer] (ACR). RADIATION OPTIMIZATION: All CT scans at this facility use at least one of these dose optimization te chniques: automated exposure control; mA and/or kV adjustment per patient size (includes targeted exa ms where dose is matched to clinical indication); or iterative reconstruction.
[2023-05-23 11:57] LABS: COVID-19 PCR Negative (Negative); Influenza A PCR Negative (Negative); Influenza B PCR Negative (Negative); RSV PCR Negative (Negative)
[2023-05-23 11:58] LABS: Source Nasopharynx
[2023-05-23] MEDS: Normal Saline - Diluent 50 ML VIAL IJ (12:57)
[2023-05-23] MEDS: Omnipaque 350 MG/ML 100 ML BTL 90 ML IJ (12:58)
[2023-05-23] MEDS: Normal Saline Flush 10 ML SYR IVP (12:59)
--- NOTE | 2023-05-23 13:29 | DI.VRAD_ITS ---
PROCEDURE INFORMATION: Exam: CTA Chest With Contrast Exam date and time: 05/23/2023 12:45 PM Age: 73 years old Clinical indication: Other: Chest pain, SOB; Prior surgery; Surgery date: 6+ months; Surgery type: Fundoplcation , hernia repair TECHNIQUE: Imaging protocol: Computed tomographic angiography of the chest with contrast. Exam focused on the arteries. 3D rendering (Not supervised by radiologist): MIP and/or 3D reconstructed images were created by the technologist. Contrast material: OMNIPAQUE 350; Contrast volume: 90 ml; Contrast route: INTRAVENOUS (IV); COMPARISON: CT THORAX CTA 01/31/2022 2:48 PM FINDINGS: Pulmonary arteries: While tiny peripheral pulmonary emboli not completely excluded, no large or obvious filling defects seen of visualized portions pulmonary arteries to suggest pulmonary embolism. Great vessels off aortic arch: Typical three-vessel origin great vessels off of thoracic aortic arch. Aorta: Atherosclerotic disease, but no aneurysm and no dissection seen thoracic aorta. Lungs: Azygous lobe. Mild ground-glass opacities portions of lungs bilaterally. Visualized portions trachea, main bronchi appear patent bilaterally. Pleural spaces: No pneumothorax and no pleural effusion seen. Heart: No pericardial effusion seen. No obvious right heart strain seen. Coronary arteries: Coronary artery calcification. Lymph nodes: No suspicious lymphadenopathy seen. Diaphragm: Hiatal hernia. Liver: Possible diffuse fatty liver, hepatic steatosis. Gallbladder and bile ducts: Clips project gallbladder fossa. Spleen: Tiny calcifications/hyperdensities spleen compatible with granulomata. Adrenal glands: Adrenals unremarkable. Bones/joints: Degenerative changes spine. Soft tissues: Unremarkable. Other findings: Moderate stool visualized portion: Partially included. IMPRESSION: 1. No pulmonary embolism seen. 2. Mild ground-glass opacities portions of lungs bilaterally. 3. Hiatal hernia. Dictated and Authenticated by: Zhang Lopes MD. Ordering:MAN Somers MD
--- NOTE | 2023-05-23 13:45 | RT.EKG_ITS ---
APPROVED REPORT Exam: Resting ECG Reason for Exam: Shortness of breath Patient Location: E HR:73 bpm ECG Measurements Heart Rate 73 AXIS WI 199 P -53 QRSd 92 QRS -6 QT 407 T 9 QTc 451 Conclusion Sinus or ectopic atrial rhythm...P axis (-45,135) Atrial premature complexes in couplets...pair SV complexes w/ short R-R Long R-R with ventricular escape...R-R>175% of normal, wide QRS Consider left ventricular hypertrophy...(R aVL+S V3) >2.20mV afib, LAD, no STEMI. Changed from previous EKG, when patient was in a NSR
--- NOTE | 2023-05-23 14:00 | RT.EKG_ITS ---
APPROVED REPORT Exam: Resting ECG Reason for Exam: Repeat EKG- sob Patient Location: E HR:78 bpm ECG Measurements Heart Rate 78 AXIS IN 171 P -59 QRSd 92 QRS -18 QT 387 T 5 QTc 440 Conclusion Sinus or ectopic atrial rhythm...P axis (-45,135) Consider left ventricular hypertrophy...(R aVL+S V3) >2.20mV LAD, Q waves in III and aVF, No STEMI, minor changes from previous
[2023-05-23] MEDS: Albuterol/Ipratropium 3 ML UPD VIAL UPD (14:04)
[2023-05-23 14:13] LABS: Troponin I < 50 ng/L (<or=60)
--- NOTE | 2023-05-23 15:08 | NUR.NOTE ---
Referral faxed to PCP for recheck SOB, ? stress ? echo, in 3 to 5 days. Nursing Note:
[2023-05-25 13:45] LABS: Lab Add On Test DONE
[2023-05-25 13:49] LABS: Calculated LDL 129 mg/dL (<100); Cholesterol 212 mg/dL (<200); HDL Cholesterol 50 mg/dL (40-60); TSH (W/Ref FT4) 0.82 uIU/mL (0.36-3.74); Triglyceride 167 mg/dL (<150)
[2023-05-26 08:58] LABS: Hepatitis C Ab w Rflx HCV PCR Negative (Negative)
== END 2023-05-23 15:07 | disposition home or self-care (01) ==
PROVIDERS: Emergency Provider Nurse Practitioner Family; PCP Nurse Practitioner Family
DX: R07.9 Chest pain, unspecified; R06.02 Shortness of breath; R94.31 Abnormal electrocardiogram [ECG] [EKG]; E03.9 Hypothyroidism, unspecified; E78.5 Hyperlipidemia, unspecified; F33.9 Major depressive disorder, recurrent, unspecified
CPT/HCPCS: 36415; 71275; 80048; 80053; 80061; 86803; 87637; 93005; 94640; 96360; 99285; 83735; 83880; 84443; 84484; 85025; 85379; 85610; 85730; 93010; 99284; J3490; J7620

== ENCOUNTER 2023-05-28 04:52 | Outpatient (CLI) | payer OTHER, SELFPAY ==
[2023-05-28 12:37] LABS: Anion Gap 10.2 mmol/L (3-11); BUN 21 mg/dL (7-18); CO2 25.8 mmol/L (21.0-32.0); CREATININE 0.9 mg/dL (0.55-1.02); Calcium 10.1 mg/dL (8.5-10.1); Chloride 103 mmol/L (98-107); Glucose 131 mg/dL (74-106); Potassium 3.8 mmol/L (3.5-5.1); Sodium 139 mmol/L (136-145)
== END 2023-05-28 04:53 | disposition home or self-care (01) ==
LOC: LOS 04:52
PROVIDERS: PCP Nurse Practitioner Family; Visit Provider Nurse Practitioner Family
DX: E03.9 Hypothyroidism, unspecified (principal); E78.5 Hyperlipidemia, unspecified; F33.9 Major depressive disorder, recurrent, unspecified; Z00.00 Encounter for general adult medical examination without abnormal findings
CPT/HCPCS: 36415; 80048

== ENCOUNTER 2023-08-27 10:51 | Outpatient (CLI) | payer OTHER, SELFPAY ==
[2023-08-27 12:25] LABS: Abs Immature Grans 0.02 10^3/uL (0.0-0.06); Absolute Basophil Count 0.08 10^3/uL (0.0-0.2); Absolute Eosinophil Count 0.15 10^3/uL (0.0-0.7); Absolute Lymphocyte Count 4.04 10^3/uL (1.2-3.4); Absolute Monocyte Count 1.35 10^3/uL (0.1-0.8); Absolute Neutrophil Count 4.68 10^3/uL (1.2-6.7); Basophils % 0.8; Eosinophils % 1.5; HCT 41.5 % (36.0-46.0); Immature Grans % 0.2; Lymphocytes % 39.1; MCH 30.9 pg (27.0-33.0); MCHC 33.7 % (32.0-36.0); MCV 92 fL (80-95); MPV 10.7 fL (8.0-11.0); Monocytes % 13.1; Neutrophils % 45.3; Platelet Count 279 10^3/uL (130-400); RBC 4.53 10^6/uL (3.93-5.22); RDW 13.2 % (11.7-14.6); RDW-SD 44.8 fL; WBC 10.32 10^3/uL (4.4-10.8)
[2023-08-27 12:34] LABS: ALT 60 U/L (14-59); AST 50 U/L (15-37); Albumin 3.7 g/dL (3.4-5.0); Alkaline Phosphatase 83 U/L (46-116); BUN 13 mg/dL (7-18); Bilirubin, Total 0.6 mg/dL (0.2-1.0); Calcium 9.7 mg/dL (8.5-10.1); Chloride 99 mmol/L (98-107); Estimated GFR 59.49 (mL/min/1.73m2); Glucose 114 mg/dL (74-106); Lipase 13 U/L (16-77); Potassium 3.7 mmol/L (3.5-5.1); Sodium 137 mmol/L (136-145); Total Protein 8.3 g/dL (6.4-8.2)
== END 2023-08-27 10:52 | disposition home or self-care (01) ==
LOC: LOS 10:51
PROVIDERS: PCP Nurse Practitioner Family; Referring Provider Nurse Practitioner Family; Visit Provider Nurse Practitioner Family
DX: K59.00 Constipation, unspecified (principal); R10.9 Unspecified abdominal pain
CPT/HCPCS: 36415; 80053; 83690; 85025

== ENCOUNTER → 2023-08-27 12:25 | Outpatient (CLI) | payer OTHER, SELFPAY ==
--- NOTE | 2023-08-27 11:59 | DI.CT_ITS ---
Exam(s) CT ABDOMEN PELVIS W EXAM: CT ABDOMEN PELVIS W CLINICAL HISTORY: abd pain, constipation, r/o obstruction, diverticulitis. TECHNIQUE: Imaging Protocol: Axial computed tomography images with coronal and sagittal reformatted images were created and reviewed CONTRAST MATERIAL: Intravenous: Omnipaque 350 Contrast volume:100 ml Oral: yes / COMPARISON: CT CT CHEST PE ABD PELVIS W from 02/15/[address] CHEST PE CTA from 05/23/2023 FINDINGS: ABDOMEN and PELVIS: Lung Bases: No acute findings. Small hiatal hernia. Liver: Enlarged. Moderate hepatic steatosis. No measurable mass. Gallbladder and biliary tract: Status post cholecystectomy. No radiodense calculus or dilation. Pancreas: Normal density. No abnormal calcifications or inflammatory process. No evidence of mass. Spleen: Normal. Kidneys: Normal size, contour and axis. No radiodense stones. No obstructive uropathy. No suspicious masses seen. Adrenal glands: No masses seen. Vasculature: Abdominal aorta non-dilated. Atherosclerotic changes. Soft tissues: No change in ventral hernia repair. Recurrence hernia. Bladder: No gross wall thickening. No calculi.No focal mass. Bowel: Mild sigmoid diverticulosis. No evidence of diverticulitis. No obstruction. No bowel wall thickening. Appendix normal.Quantity of stool seen in ascending and transverse colon. Peritoneal cavity: No ascites. No focal collection or mesenteric inflammatory response. Bones: Degenerative changes in lower lumbar spine. Reproductive organs: Within normal limits. Lymph nodes: Unremarkable. IMPRESSION:: No acute abnormality in the abdomen and pelvis. RADIATION DOSE DELIVERED: 909.96mGy.cm Total DLP DATA REPOSITORY: All CT scans at this facility are submitted to the National Radiology Data Registry (NRDR) Dose Index Registry (DIR) with the [employer] (ACR). RADIATION OPTIMIZATION: All CT scans at this facility use at least one of these dose optimization te chniques: automated exposure control; mA and/or kV adjustment per patient size (includes targeted exa ms where dose is matched to clinical indication); or iterative reconstruction.
[2023-08-27] MEDS: Barium Sulfate 2% W/V-Berry Smoothie 450 ML BTL PO (13:14)
[2023-08-27] MEDS: Omnipaque 350 MG/ML 100 ML BTL IJ (14:58)
[2023-08-27] MEDS: Normal Saline - Diluent 50 ML VIAL IJ (14:59)
== END ==
PROVIDERS: PCP Nurse Practitioner Family; Visit Provider Nurse Practitioner Family
DX: R10.9 Unspecified abdominal pain (principal); K59.00 Constipation, unspecified; K57.30 Diverticulosis of large intestine without perforation or abscess without bleeding
CPT/HCPCS: 74177; J3490

== ENCOUNTER 2023-08-28 18:57 | Observation (INO) | payer OTHER, SELFPAY ==
[2023-08-28] VITALS (55 sets, daily range): BP systolic 109–163; BP diastolic 46–150; PULSE 61–111; RESP 13–30; TEMP 37.3; O2SAT 94–100
--- NOTE | 2023-08-28 18:45 | RT.EKG_ITS ---
APPROVED REPORT Exam: Resting ECG Reason for Exam: chest pressure Patient Location: E HR:70 bpm ECG Measurements Heart Rate 70 AXIS TN 179 P 22 QRSd 94 QRS -11 QT 406 T 19 QTc 440 Conclusion Narrow complex normal sinus rhythm at a rate of 70. Left axis deviation. LVH based on voltage crite lavinia. Intervals within normal limits. T wave inversion in lead III. No acute injury pattern. Fred red to prior dated last year no acute changes.
--- NOTE | 2023-08-28 19:00 | DI.RAD_ITS ---
Exam(s) XR PORTABLE CHEST AP EXAM: XR PORTABLE CHEST AP CLINICAL HISTORY: Chest Pain TECHNIQUE: 2D digital imaging was performed of the chest. One image was obtained. An AP view was ob tained. COMPARISON: CR,XR XR PORTABLE CHEST AP from 05/18/2021 FINDINGS: MEDIASTINUM: Normal. HEART: Normal. PULMONARY VASCULATURE: Normal. LUNGS: Clear. PLEURAL SPACE: No pleural effusion or pneumothorax. BONE:Within normal limits for the patient's age. OTHER FINDINGS:There is oral contrast seen in the bowels consistent with the patient's CT scan perfor med the day prior. IMPRESSION: No acute pulmonary findings. DATA REPOSITORY: RADIATION DOSE DELIVERED:
--- NOTE | 2023-08-28 19:07 | ED.GENADUL_ITS ---
HPI General Mode of arrival: EMS . Date/Time Provider Initiated Documentation: 08/28/23 19:01 . Limitations to Documentation: no limitations . Information obtained by: patient, EMS and RN notes reviewed . HPI Narrative: 73 year old female presents with multiple complaints. She reports that she had some right-sided flank pain few days ago was sent for a CT scan by her PCP which showed no bowel obstruction. She also is complaining of shortness of breath and dysuria and nausea. She does have a past medical history of high cholesterol, prediabetes migraine vitamin D deficiency, hypothyroidism hypertension hypertension. Denies any productive cough, she does endorse chills no fever. She reports constipation no diarrhea. Related Data Home Medications Medication Instructions Recorded Confirmed cholecalciferol (vitamin D3) 25 2 tab PO DAILY #200 tab-caps 12/11/12 08/28/23 mcg (1,000 unit) tablet multivitamin with [id number] 1 ea PO DAILY 12/11/12 08/28/23 400 mcg-120 mg tablet (Women's 50+ Daily Formula (with ginkgo)) acetaminophen 500 mg tablet 1,000 mg PO TID 10/04/21 08/28/23 omeprazole 20 mg capsule,delayed 20 mg PO BID #180 tab-caps 11/10/22 08/28/23 release propranolol 40 mg tablet 40 mg PO DAILY #90 tabs 11/10/22 08/28/23 buspirone 15 mg tablet 15 mg PO BID #180 tabs 05/21/23 08/28/23 simvastatin 40 mg tablet 40 mg PO DAILY #90 tabs 05/21/23 08/28/23 venlafaxine 150 mg 150 mg PO DAILY #90 tab-caps 05/21/23 08/27/23 capsule,extended release 24 hr levothyroxine 125 mcg capsule 125 mcg PO DAILY #90 caps 05/25/23 08/28/23 venlafaxine 75 mg capsule,extended 200 mg PO DAILY 08/28/23 08/28/23 release 24 hr Previous Rx's Medication Instructions Recorded omeprazole 20 mg capsule,delayed 20 mg PO BID #180 tab-caps 11/10/22 release propranolol 40 mg tablet 40 mg PO DAILY #90 tabs 11/10/22 buspirone 15 mg tablet 15 mg PO BID #180 tabs 05/21/23 simvastatin 40 mg tablet 40 mg PO DAILY #90 tabs 05/21/23 venlafaxine 150 mg 150 mg PO DAILY #90 tab-caps 05/21/23 capsule,extended release 24 hr levothyroxine 125 mcg capsule 125 mcg PO DAILY #90 caps 05/25/23 Allergies Allergy/AdvReac Type Severity Reaction Status Date / Time duloxetine [From Cymbalta] AdvReac Intermediate Gait Verified 08/28/23 19:47 Imbalance gabapentin AdvReac Intermediate Gait Verified 08/28/23 19:47 Imbalance NSAIDS (Non-Steroidal AdvReac Intermediate epigastric Verified 08/28/23 19:47 Anti-Inflamma pain pregabalin [From Lyrica] AdvReac Intermediate depression; Verified 08/28/23 19:47 SI chloraprep Allergy Intermediate Skin Rash Uncoded 08/28/23 19:47 General Stated Complaint: Chest Pain LUISA: 3 Review of Systems All systems reviewed & are unremarkable except as noted in HPI and below Cardiovascular Cardiovascular: Reports dyspnea Respiratory Respiratory: Reports dyspnea Gastrointestinal Gastrointestinal: Reports constipation, Denies diarrhea, Reports nausea and Denies vomiting Genitourinary Genitourinary: Reports dysuria Exam Narrative Exam Narrative: Constitutional: Alert and oriented x3. Appears stated age. Normal body habitus. Head: Normocephalic, no trauma. Eyes: Pupils PERRL, Red reflex noted, EOM's intact. Eyelids symmetrical without lesions, discharge, or swelling. ENT: Bilateral TM's WNL, External ear normal to inspection, no mastoid TTP, swelling, or erythema, Nasal turbinates WNL, no nasal discharge. Normal dentition, Posterior pharynx WNL, no exudate. Chest: RRR, Normal S1, S2, distal pulses intact. Resp: Lungs clear to auscultation bilaterally, no wheezes, rales, or rhonchi. Abdomen: Soft, non-distended, Normoactive bowel sounds all 4 quads. Musculoskeletal: Normal gait, 5/5 strength to all four extremities. Skin: No suspicious rashes or lesions. Capillary refill less than 2 sec. Neurologic: Cranial nerves II-XII intact. Alert and oriented x 3. Motor: No deficits noted. Sensory: Intact bilaterally all 4 extremities. Reflexes: DTR's intact bilaterally.. Hematologic/Lymphatic: No ecchymosis, no lymphadenopathy. Course Vital Signs Vital signs: Vital Signs Temperature 37.3 C 08/28/23 18:57 Pulse 70 08/28/23 18:57 Respiratory Rate 18 08/28/23 18:57 Blood Pressure 152/54 H 08/28/23 18:57 Pulse Oximetry 95 08/28/23 18:57 Temperature 37.3 C 08/28/23 18:57 Temperature Source Temporal Artery Scan 08/28/23 18:57 Pulse 70 08/28/23 18:57 Respiratory Rate 18 08/28/23 19:00 Respiratory Effort Non-Labored, Short of Breath 08/28/23 19:00 Blood Pressure 152/54 H 08/28/23 18:57 Pulse Oximetry 95 08/28/23 18:57 Oxygen Delivery Method Room Air 08/28/23 18:57 Oxygen Flow Rate 0 08/28/23 18:57 Pain Level 4 08/28/23 18:57 Medical Decision Making 73 year old female presents with multiple complaints. She reports that she had some right-sided flank pain few days ago was sent for a CT scan by her PCP which showed no bowel obstruction. She also is complaining of shortness of breath and dysuria and nausea. She does have a past medical history of high cholesterol, prediabetes migraine vitamin D deficiency, hypothyroidism hypertension hypertension. Denies any productive cough, she does endorse chills no fever. She reports constipation no diarrhea. Cardiac workup ordered including EKG, serial troponins, CBC CMP and chest x-ray and Fluvid swab. CBC shows slight leukocytosis with a white blood cell count of 11.04, potassium is 2.8 magnesium 1.8 initial troponin less than 50, urinalysis shows small leukocytes, Fluvid swab pending. 40 mill equivalents potassium liquid p.o. ordered and 10 mill equivalents IV piggyback. COVID-positive result received from lab. Patient does take simvastatin. Potassium was done infusing. I did speak with patient and family regarding her lab tests and COVID-positive. They are requesting admission at this time due to patient living by herself. Her daughter cannot take care of her at this time due to family member having heart surgery on Thursday. Will recheck potassium level and serial troponin and consult with hospitalist. Patient is satting 95% on room air. 2240: After road test patient desatted into the mid 80s per RN. She she was able to walk approximately 6 steps prior to desatting. Heart rate elevated up into the 110s. Repeat serial troponin negative, will seek admission. At rest O2 sat 95 % RA. 2255: Spoke with Dr. Del Cid who agrees to accept patient for admission for Covid. Spoke with patients daughter regarding plan of care, she verbalizes understanding. 2311: Awaiting bed placement, Remdesivir ordered and Dexamethasone 6mg IV. This text was generated using [email or web address] system, please disregard any oddities of phrase or misspellings. Medical Records Medical records reviewed: Yes I reviewed the patient's medical records. Medical records narrative: CT From 08-27-23 CT:CT abdomen & pelvis w Exam(s) CT ABDOMEN PELVIS W EXAM: CT ABDOMEN PELVIS W CLINICAL HISTORY: abd pain, constipation, r/o obstruction, diverticulitis. TECHNIQUE: Imaging Protocol: Axial computed tomography images with coronal and sagittal reformatted images were created and reviewed CONTRAST MATERIAL: Intravenous: Omnipaque 350 Contrast volume:100 ml Oral: yes / COMPARISON: CT CT CHEST PE ABD PELVIS W from 02/15/[address] CHEST PE CTA from 05/23/2023 FINDINGS: ABDOMEN and PELVIS: Lung Bases: No acute findings. Small hiatal hernia. Liver: Enlarged. Moderate hepatic steatosis. No measurable mass. Gallbladder and biliary tract: Status post cholecystectomy. No radiodense calculus or dilation. Pancreas: Normal density. No abnormal calcifications or inflammatory process. No evidence of mass. Spleen: Normal. Kidneys: Normal size, contour and axis. No radiodense stones. No obstructive uropathy. No suspicious masses seen. Adrenal glands: No masses seen. Vasculature: Abdominal aorta non-dilated. Atherosclerotic changes. Soft tissues: No change in ventral hernia repair. Recurrence hernia. Bladder: No gross wall thickening. No calculi.No focal mass. Bowel: Mild sigmoid diverticulosis. No evidence of diverticulitis. No obstruction. No bowel wall thickening. Appendix normal.Quantity of stool seen in ascending and transverse colon. Peritoneal cavity: No ascites. No focal collection or mesenteric inflammatory response. Bones: Degenerative changes in lower lumbar spine. Reproductive organs: Within normal limits. Lymph nodes: Unremarkable. IMPRESSION:: No acute abnormality in the abdomen and pelvis. Lab Data Lab results reviewed: Yes I reviewed the patient's lab results. Labs: Laboratory Tests Range/Units 02/16/24 02/16/24 02/16/24 19:10 19:23 19:43 WBC (4.4-10.8) 10^3/uL 11.04 H RBC (3.93-5.22) 10^6/uL 4.28 Hgb (11.2-15.7) g/dL 13.3 Hct (36.0-46.0) % 39.0 MCV (80-95) fL 91 MCH (27.0-33.0) pg 31.1 MCHC (32.0-36.0) % 34.1 RDW (11.7-14.6) % 13.2 Plt Count (130-400) 10^3/uL 244 MPV (8.0-11.0) fL 9.7 Immature Gran % 0.3 Neutrophils % 44.9 Lymphocytes % 40.2 Monocytes % 12.1 Eosinophils % 2.1 Basophils % 0.4 Nucleated RBC % (0.0-0.3) % 0.0 Absolute Neutrophils (1.2-6.7) 10^3/uL 4.96 Absolute Lymphocytes (1.2-3.4) 10^3/uL 4.44 H Absolute Monocytes (0.1-0.8) 10^3/uL 1.34 H Absolute Eosinophils (0.0-0.7) 10^3/uL 0.23 Absolute Basophils (0.0-0.2) 10^3/uL 0.04 Sodium (136-145) mmol/L 139 Potassium (3.5-5.1) mmol/L 2.8 L* Chloride (98-107) mmol/L 100 Carbon Dioxide (21.0-32.0) mmol/L 29.1 Anion Gap (3-11) mmol/L 9.9 BUN (7-18) mg/dL 14 Creatinine (0.55-1.02) mg/dL 0.9 Est GFR (CKD-EPI 2020) (mL/min/1.73m2) 67.50 Glucose (74-106) mg/dL 118 H Calcium (8.5-10.1) mg/dL 9.5 Magnesium (1.8-2.4) mg/dL 1.8 Total Bilirubin (0.2-1.0) mg/dL 0.3 AST (15-37) U/L 36 ALT (14-59) U/L 52 Alkaline Phosphatase (46-116) U/L 82 Troponin I (< or =60) ng/L < 50 Total Protein (6.4-8.2) g/dL 7.8 Albumin (3.4-5.0) g/dL 3.4 Urine Color (Yellow) Yellow Urine Clarity (Clear) Clear Urine pH (5-8) 6.0 Ur Specific [place] (1.005-1.025) 1.015 Urine Protein (Neg-Trace) mg/dL Negative Urine Ketones (Negative) mg/dL Negative Urine Blood (Negative) Negative Urine Nitrite (Negative) Negative Urine Bilirubin (Negative) Negative Urine Urobilinogen (Up to 0.2) mg/dL 0.2 Ur Leukocyte Esterase (Negative) Small H Urine RBC (0-2) HPF Negative Urine WBC (0-5) HPF 5-10 Ur Epithelial Cells (Negative) HPF Moderate Urine Crystals (Negative) HPF Negative Urine Bacteria (Negative) HPF Few Urine Mucus (Negative) Moderate Urine Other (Negative) Negative Ur Culture Indicated? No/Sq. Contamination Urine Glucose (Negative) mg/dL Negative COVID-19 Source Nasopharynx SARS-CoV-2 (PCR) (Negative) Positive A Influenza Type A (PCR) (Negative) Negative Influenza Type B (PCR) (Negative) Negative RSV (PCR) (Negative) Negative Quality:SDOH Health Related Social Needs: No Data to Display PFSH All Active Problems (Updated 08/28/23 @ 22:58 by Maki Beatty NP) Hypokalemia (Acute) COVID (Acute) Constipation (Acute) Hypothyroidism (Chronic) Hyperlipidemia (Chronic) Major depressive disorder, recurrent (Chronic) Essential tremor (Chronic) Primary fibromyalgia syndrome (Chronic) GERD (gastroesophageal reflux disease) (Chronic) Hiatal hernia (Chronic) Memory loss (Chronic) Abnormal gait (Chronic) Recurrent falls (Chronic) Lumbar spondylosis (Chronic) Lumbar disc herniation with radiculopathy (Chronic) Chronic hip pain (Chronic) Diverticulosis of colon (Chronic) Medical History Chest pain Negative MPI 02/2022 COVID-19 (~05/2021) Vitamin D deficiency Migraine headache Prediabetes Vitamin B 12 deficiency Surgical History History of Chantel fundoplication H/O colonoscopy (07/20/12) History of esophagogastroduodenoscopy (EGD) (07/20/12) History of arthroplasty of right knee (04/21/18) History of arthroplasty of left knee (08/29/15) S/P right knee arthroscopy (04/24/17) With partial medial meniscectomy and limited medial femoral chondroplasty S/P left knee arthroscopy (08/29/15) S/P laparoscopic cholecystectomy (08/15/09) S/P hernia repair (05/07/09) paraesophageal hernia Family History Mother , At 74 Heart disease Thyroid dysfunction Type 2 diabetes mellitus Father , At 92 of [place] Heart disease Skin cancer Myocardial infarction Hypertension Sister Parkinsons disease Brother Heart disease Brother No problems noted. Daughter SLE (systemic lupus erythematosus) Depression Asthma Daughter Migraine headache Maternal Grandmother No problems noted. Maternal Grandmother No problems noted. Paternal Grandfather No problems noted. Paternal Grandfather No problems noted. Social History Smoking/Tobacco Use Status: Never Second Hand Exposure: Yes Smoking risk assessment performed?: Yes Alcohol Intake: former Drug use: Never Adopted: No Caregiver/Support person: No Foster care: No Housing: house Number of Children: 2 number of grandchildren: 0 Communication Needs: None Education Level: high school Do you need help understanding health information?: Rarely current occupation: Retired Pets and animals: Yes Pets and animals: dog(s) Sexually active: No Do you think of yourself as: straight/heterosexual Current gender identity: female How often do you talk on the phone with friends or family?: three or more times per week How often do you get together with friends or relatives?: once per week How often do you attend samaritan or anglican services?: decline to answer Do you belong to any clubs or organized social groups?: no Panel score (0-1 are the most socially isolated patients): 1 Duration: 15-30 minutes/day Frequency: 1-2 times per week Alisha/Restorationism: No preference Special alisha needs: No Agree to transfusion: Yes Seatbelt use: always Helmet use: No Drive intox or ride w/intox otr tanker truck driver: No Working smoke detector in home: Yes Carbon monox detector in home: Yes Firearms in home: No Do you feel safe at home: Yes Do you feel safe in your relationship?: Yes Victim of physical abuse: No Victim of emotional abuse: No Victim of sexual abuse: No Would you like helpful sources: No Female Reproductive History Menstrual Menopause type: natural History History 2 Para 2 Hx # Term Pregnancies Multiple births Hx # Pregnancies Ectopic pregnancies AB induced Hx Number of Living Children 2 AB spontaneous Discharge Plan Disposition Patient Disposition: Admit to [facility] Condition: Fair Discharge Details Clinical Impression: COVID, Hypokalemia Primary Care Provider: Tiarra Hoover ED Provider: Maki Beatty Meds and New Rx's Prescriptions: No Action acetaminophen 500 mg tablet 1,000 mg PO TID cholecalciferol (vitamin D3) 1,000 UNIT tablet 2 tab PO DAILY Qty: 200 Rx Instructions: 2000 IU DAILY Women's 50+ Daily Form (gkb) 1 EACH tablet 1 ea PO DAILY propranolol 40 mg tablet 40 mg PO DAILY Qty: 90 3RF Rx Instructions: Take 1 tab once a day omeprazole 20 mg capsule,delayed release(DR/EC) 20 mg PO BID Qty: 180 3RF buspirone 15 mg tablet 15 mg PO BID Qty: 180 3RF Rx Instructions: Take 1 tablet twice a day venlafaxine 150 mg capsule,extended release 24hr 150 mg PO DAILY Qty: 90 3RF Rx Instructions: Take 1 daily in addition to the 75mg dose simvastatin 40 mg tablet 40 mg PO DAILY Qty: 90 3RF levothyroxine 125 mcg capsule 125 mcg PO DAILY Qty: 90 3RF venlafaxine 75 mg capsule,extended release 24hr 200 mg PO DAILY Rx Instructions: Take 1 daily in addition to the 150mg dose
[2023-08-28 19:22] LABS: Abs Immature Grans 0.03 10^3/uL (0.0-0.06); Absolute Basophil Count 0.04 10^3/uL (0.0-0.2); Absolute Eosinophil Count 0.23 10^3/uL (0.0-0.7); Absolute Lymphocyte Count 4.44 10^3/uL (1.2-3.4); Absolute Monocyte Count 1.34 10^3/uL (0.1-0.8); Absolute Neutrophil Count 4.96 10^3/uL (1.2-6.7); Basophils % 0.4; Eosinophils % 2.1; HGB 13.3 g/dL (11.2-15.7); Immature Grans % 0.3; Lymphocytes % 40.2; MCH 31.1 pg (27.0-33.0); MCHC 34.1 % (32.0-36.0); MCV 91 fL (80-95); MPV 9.7 fL (8.0-11.0); Monocytes % 12.1; Neutrophils % 44.9; Platelet Count 244 10^3/uL (130-400); RBC 4.28 10^6/uL (3.93-5.22); RDW 13.2 % (11.7-14.6); RDW-SD 44.5 fL; WBC 11.04 10^3/uL (4.4-10.8)
[2023-08-28] MEDS: Ondansetron 4 MG/2 ML VIAL IVP (19:41)
[2023-08-28] MEDS: Aspirin 81 MG CHEW 324 MG CH (19:41)
[2023-08-28 19:48] LABS: ALT 52 U/L (14-59); AST 36 U/L (15-37); Albumin 3.4 g/dL (3.4-5.0); Alkaline Phosphatase 82 U/L (46-116); Anion Gap 9.9 mmol/L (3-11); BUN 14 mg/dL (7-18); Bilirubin, Total 0.3 mg/dL (0.2-1.0); CO2 29.1 mmol/L (21.0-32.0); CREATININE 0.9 mg/dL (0.55-1.02); Calcium 9.5 mg/dL (8.5-10.1); Chloride 100 mmol/L (98-107); Glucose 118 mg/dL (74-106); Magnesium 1.8 mg/dL (1.8-2.4); Sodium 139 mmol/L (136-145); Total Protein 7.8 g/dL (6.4-8.2); Troponin I < 50 ng/L (< or =60)
[2023-08-28 19:51] LABS: Potassium 2.8 mmol/L (3.5-5.1)
[2023-08-28 19:55] LABS: Bilirubin Negative (Negative); Blood Negative (Negative); Clarity Clear (Clear); Glucose Negative (Negative); Ketones Negative (Negative); Leukocyte Esterase Small (Negative); Nitrite Negative (Negative); Specific Gravity 1.015 (1.005-1.025); Urobilinogen 0.2 mg/dL (Up to 0.2)
--- NOTE | 2023-08-28 19:56 | DI.VRAD_ITS ---
PROCEDURE INFORMATION: Exam: XR Chest Exam date and time: 08/28/2023 7:29 PM Age: 73 years old Clinical indication: Other: Chest pain TECHNIQUE: Imaging protocol: Radiologic exam of the chest. Views: 1 view. COMPARISON: CT CHEST PE CTA 05/23/2023 12:45 PM FINDINGS: Lungs: Normal. Pleural spaces: Unremarkable. No pleural effusion. No pneumothorax. Heart/Mediastinum: Normal. Bones/joints: Multilevel thoracic spine degenerative changes. Gastrointestinal tract: Radiodense material within the visualized bowel, likely from recent enteric contrast enhanced examination. Organs: Cholecystectomy clips in right upper abdomen. IMPRESSION: No acute cardiopulmonary abnormality. Dictated and Authenticated by: Lio Meyers MD. Ordering:MAGDIEL Gambino MD
[2023-08-28 20:04] LABS: Influenza A PCR Negative (Negative); Influenza B PCR Negative (Negative); RSV PCR Negative (Negative)
[2023-08-28 20:05] LABS: Source Nasopharynx
[2023-08-28] MEDS: Potassium Chloride Liquid 20 MEQ PKT 40 MEQ PO (20:05)
[2023-08-28 20:06] LABS: COVID-19 PCR Positive (Negative)
[2023-08-28] MEDS: POTASSIUM CHLORIDE 10 MEQ/100 ML BAG 100 MEQ IVPB (20:06)
[2023-08-28 20:10] LABS: Bacteria Few HPF (Negative); C & S Indicated? No/Sq. Contamination; Crystals Negative HPF (Negative); Epithelial Cells Moderate HPF (Negative); Mucus Moderate (Negative); Other Cells Negative (Negative); RBC Negative HPF (0-2)
[2023-08-28] MEDS: Normal Saline 1,000 ML 125 ML IV (20:15)
[2023-08-28 22:27] LABS: Troponin I < 50 ng/L (< or =60)
--- NOTE | 2023-08-28 22:40 | NUR.NOTE ---
PT was road tested. PT was ambulated 6ft. PTs SPO2% dropped to mid 80%s Nursing Note:
[2023-08-28 22:44] LABS: Anion Gap 7.5 mmol/L (3-11); BUN 12 mg/dL (7-18); CO2 29.5 mmol/L (21.0-32.0); CREATININE 0.8 mg/dL (0.55-1.02); Chloride 101 mmol/L (98-107); Estimated GFR 77.75 (mL/min/1.73m2); Glucose 110 mg/dL (74-106); Sodium 138 mmol/L (136-145)
--- NOTE | 2023-08-28 23:23 | HPE_ITS ---
Date of service: 08/28/23 Time of Service: 23:23 Assessment and Plan Assessment and plan (1) COVID-19: Start date: 08/28/23 Assessment and plan: This is a 73-year-old lady with rather acute onset of symptoms consistent with COVID-19 infection as a cause of most of her symptoms. She does have complications of hypoxemia and extreme weakness and will be placed on remdesivir with dexamethasone. She also appears slightly dry and will have gentle IV hydration. Her diet will be advanced as she tolerates with increased oral hydration. Symptomatic care with Tylenol for headache and consider tramadol if headache worsens. I did anticipate that she will require at least 48 hours of treatment and hospitalization to improve symptoms since she lives alone and her family cannot attend her in the next several days because of their own medical issues. She is a full code. (2) Hypoxemia: Start date: 08/28/23 Status: Acute Assessment and plan: Associated with acute COVID-19 infection but no overt pneumonia. Monitor closely on treatment with reimaging of the chest if needed. (3) Hypokalemia: Start date: 08/28/23 Status: Acute Assessment and plan: Transient and corrected with repletion in the ED. Patient will not require further patient the labs will be trended. She is not on chronic diuretics but has had poor intake recently. (4) Constipation: Status: Chronic Assessment and plan: This may have been caused some symptoms recently but most likely her discomfort in the flank and chest discomfort was associated with acute COVID and infection. Bowel maintenance with cathartics as needed. Patient should hydrate better at home. Qualifiers: Constipation type: other constipation type Qualified Code(s): K59.09 - Other constipation (5) Major depressive disorder, recurrent: Status: Chronic Assessment and plan: Continue outpatient medical therapy. Qualifiers: Active/Remission status: currently active Major depression episode severity: moderate Qualified Code(s): F33.1 - Major depressive disorder, recurrent, moderate (6) Hypothyroidism: Status: Chronic Assessment and plan: TSH is elevated but free T4 is normal. Continue outpatient regimen on empty stomach and PCP can follow-up adjustment of supplement as an outpatient once assured compliance is moderate itching. Qualifiers: Hypothyroidism type: acquired Qualified Code(s): E03.9 - Hypothyroidism, unspecified (7) Essential tremor: Status: Chronic Assessment and plan: Stable on propranolol which we will continue the same. She is slightly orthostatic and if this needs to be decreased short-term during hospitalization, it will be considered. History of Present Illness History of Present Illness Chief Complaint: Generalized weakness with chest discomfort Narrative: This is a 73-year-old female patient who had right-sided flank pain few days prior to admission and was sent for CT scan by her PCP which showed no bowel obstruction. She has slight shortness of breath and dysuria with nausea prompting evaluation in the ED on the day of admission which revealed positive COVID-19 test. He did not have any signs of pneumonia but did have some slight hypoxemia with exertion and slight orthostasis with decreased intake over the last couple days having generalized weakness. Her labs were otherwise positive for low potassium which responded to repletion the patient not on diuretics chronically but having poor intake. She had some chest discomfort with the right flank pain and her troponins were negative with no acute signs of ischemia. Pulsoxymeter did drop in the mid 80% range when she had minimal exertion and she did have mild orthostatic changes with measuring blood pressure and heart rate lying, sitting and then standing. The patient had an very severe headache in the ED but this did slowly resolve and she is hesitant to take anything stronger than Tylenol for her headache at this time. Her did of cancer and had a morphine pump at the end of his life which makes her hesitant to have any narcotic therapy. She may be willing to take tramadol if her headache returns and is more severe. She has no associated neurological symptoms with a headache that is most likely is secondary to her acute COVID-19 infection. She is willing to be treated with remdesivir and dexamethasone and oxygen supplementation as needed. She did have an acute COVID infection in 2020 which she received IV antibodies and return home without being hospitalized. She had had her initial COVID vaccines and both boosters. She does qualify for more aggressive treatment of this episode because of hypoxemia and severity of symptoms. Her other clinical problems appear to be stable with her TSH elevated upon admission but free T4 normal which may indicate some noncompliance with supplementation. She is a full code. Review of Systems Narrative: 13 point review of systems otherwise unrevealing or stable. Patient does have chronic constipation. PFSH All Active Problems Hypoxemia (Acute) Hypokalemia (Acute) Constipation (Chronic) Hypothyroidism (Chronic) Hyperlipidemia (Chronic) Major depressive disorder, recurrent (Chronic) Essential tremor (Chronic) Primary fibromyalgia syndrome (Chronic) GERD (gastroesophageal reflux disease) (Chronic) Hiatal hernia (Chronic) Memory loss (Chronic) Abnormal gait (Chronic) Recurrent falls (Chronic) Lumbar spondylosis (Chronic) Lumbar disc herniation with radiculopathy (Chronic) Chronic hip pain (Chronic) Diverticulosis of colon (Chronic) Medical History Chest pain Negative MPI 02/2022 COVID-19 (~05/2021) Vitamin D deficiency Migraine headache Prediabetes Vitamin B 12 deficiency Surgical History History of Chantel fundoplication H/O colonoscopy (07/20/12) History of esophagogastroduodenoscopy (EGD) (07/20/12) History of arthroplasty of right knee (04/21/18) History of arthroplasty of left knee (08/29/15) S/P right knee arthroscopy (04/24/17) With partial medial meniscectomy and limited medial femoral chondroplasty S/P left knee arthroscopy (08/29/15) S/P laparoscopic cholecystectomy (08/15/09) S/P hernia repair (05/07/09) paraesophageal hernia Family History Mother , At 74 Heart disease Thyroid dysfunction Type 2 diabetes mellitus Father , At 92 of [place] Heart disease Skin cancer Myocardial infarction Hypertension Sister Parkinsons disease Brother Heart disease Brother No problems noted. Daughter SLE (systemic lupus erythematosus) Depression Asthma Daughter Migraine headache Maternal Grandmother No problems noted. Maternal Grandmother No problems noted. Paternal Grandfather No problems noted. Paternal Grandfather No problems noted. Social History Smoking/Tobacco Use Status: Never Second Hand Exposure: Yes Smoking risk assessment performed?: Yes Alcohol Intake: former Drug use: Never Adopted: No Caregiver/Support person: No Foster care: No Housing: other Number of Children: 2 number of grandchildren: 0 Communication Needs: None Education Level: high school Do you need help understanding health information?: Rarely current occupation: Retired Pets and animals: Yes Pets and animals: dog(s) Sexually active: No Do you think of yourself as: straight/heterosexual Current gender identity: female How often do you talk on the phone with friends or family?: three or more times per week How often do you get together with friends or relatives?: once per week How often do you attend buddhist or yazdanism services?: decline to answer Do you belong to any clubs or organized social groups?: no Panel score (0-1 are the most socially isolated patients): 1 Duration: 15-30 minutes/day Frequency: 1-2 times per week Alisha/Jewish: No preference Special alisha needs: No Agree to transfusion: Yes Seatbelt use: always Helmet use: No Drive intox or ride w/intox 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 Working smoke detector in home: Yes Carbon monox detector in home: Yes Firearms in home: No Do you feel safe at home: Yes Do you feel safe in your relationship?: Yes Victim of physical abuse: No Victim of emotional abuse: No Victim of sexual abuse: No Would you like helpful sources: No Female Reproductive History Menstrual Menopause type: natural History History 2 2 Para 2 Hx # Term Pregnancies Multiple births Hx # Pregnancies Ectopic pregnancies AB induced Hx Number of Living Children 2 AB spontaneous Meds Allergies and Home Medications Allergies Allergy/AdvReac Type Severity Reaction Status Date / Time duloxetine [From Cymbalta] AdvReac Intermediate Gait Verified 08/28/23 19:47 Imbalance gabapentin AdvReac Intermediate Gait Verified 08/28/23 19:47 Imbalance NSAIDS (Non-Steroidal AdvReac Intermediate epigastric Verified 08/28/23 19:47 Anti-Inflamma pain pregabalin [From Lyrica] AdvReac Intermediate depression; Verified 08/28/23 19:47 SI chloraprep Allergy Intermediate Skin Rash Uncoded 08/28/23 19:47 Home Medications Medication Instructions Recorded Confirmed Type cholecalciferol (vitamin D3) 25 2 tab PO DAILY #200 tab-caps 12/11/12 08/28/23 History mcg (1,000 unit) tablet multivitamin with [id number] 1 ea PO DAILY 12/11/12 08/28/23 History 400 mcg-120 mg tablet (Women's 50+ Daily Formula (with ginkgo)) acetaminophen 500 mg tablet 1,000 mg PO TID 10/04/21 08/28/23 History omeprazole 20 mg capsule,delayed 20 mg PO BID #180 tab-caps 11/10/22 08/28/23 Rx release propranolol 40 mg tablet 40 mg PO DAILY #90 tabs 11/10/22 08/28/23 Rx buspirone 15 mg tablet 15 mg PO BID #180 tabs 05/21/23 08/28/23 Rx simvastatin 40 mg tablet 40 mg PO DAILY #90 tabs 05/21/23 08/28/23 Rx venlafaxine 150 mg 150 mg PO DAILY #90 tab-caps 05/21/23 08/27/23 Rx capsule,extended release 24 hr levothyroxine 125 mcg capsule 125 mcg PO DAILY #90 caps 05/25/23 08/28/23 Rx venlafaxine 75 mg capsule,extended 200 mg PO DAILY 08/28/23 08/28/23 History release 24 hr Exam Narrative Exam Narrative: General: Patient appears appropriate for age, alert and oriented x 3 and in no acute distress. She is moderately obese. HEENT: Normocephalic, eyes with pupils equal react to light symmetrically, extraocular movement intact and sclera anicteric. Oropharynx with dry mucosa. Neck: Supple without JVD. Back: Mildly kyphotic without CVA tenderness. Lungs: Fair aeration and clear to auscultation percussion. No focalizing rales or rhonchi. No expiratory wheeze. Normal I:E ratio. Breast: Exam deferred. Heart: Regular rate and rhythm with no murmurs gallops appreciated. Abdomen: Obese contour, soft nontender to palpation with no palpable hepatosplenomegaly. No guarding or rebound. Bowel sounds positive all quadrants. Genitalia/rectal: Exam deferred. Extremities: Without clubbing, cyanosis or grossly pitting edema. Peripheral pulses intact with good cap refill. Skin: Normal color, warm and dry. Neuro: Cranial nerves II through XII gross intact, no focalizing motor deficits. No tremor noted the patient does have a history of essential tremor. Psych: Normal affect with slightly depressed mood. No normal thought processes. Remote and recent memory grossly intact with conversation. Results Imaging Imaging Studies: Exam: XR Chest Exam date and time: 08/28/2023 7:29 PM Age: 73 years old Clinical indication: Other: Chest pain TECHNIQUE: Imaging protocol: Radiologic exam of the chest. Views: 1 view. COMPARISON: CT CHEST PE CTA 05/23/2023 12:45 PM FINDINGS: Lungs: Normal. Pleural spaces: Unremarkable. No pleural effusion. No pneumothorax. Heart/Mediastinum: Normal. Bones/joints: Multilevel thoracic spine degenerative changes. Gastrointestinal tract: Radiodense material within the visualized bowel, likely from recent enteric contrast enhanced examination. Organs: Cholecystectomy clips in right upper abdomen. IMPRESSION: No acute cardiopulmonary abnormality. EXAM: CT ABDOMEN PELVIS W Date of exam: 08/27/2023 CLINICAL HISTORY: abd pain, constipation, r/o obstruction, diverticulitis. TECHNIQUE: Imaging Protocol: Axial computed tomography images with coronal and sagittal reformatted images were created and reviewed CONTRAST MATERIAL: Intravenous: Omnipaque 350 Contrast volume:100 ml Oral: yes / COMPARISON: CT CT CHEST PE ABD PELVIS W from 02/15/[address] CHEST PE CTA from 05/23/2023 FINDINGS: ABDOMEN and PELVIS: Lung Bases: No acute findings. Small hiatal hernia. Liver: Enlarged. Moderate hepatic steatosis. No measurable mass. Gallbladder and biliary tract: Status post cholecystectomy. No radiodense calculus or dilation. Pancreas: Normal density. No abnormal calcifications or inflammatory process. No evidence of mass. Spleen: Normal. Kidneys: Normal size, contour and axis. No radiodense stones. No obstructive uropathy. No suspicious masses seen. Adrenal glands: No masses seen. Vasculature: Abdominal aorta non-dilated. Atherosclerotic changes. Soft tissues: No change in ventral hernia repair. Recurrence hernia. Bladder: No gross wall thickening. No calculi.No focal mass. Bowel: Mild sigmoid diverticulosis. No evidence of diverticulitis. No obstruction. No bowel wall thickening. Appendix normal.Quantity of stool seen in ascending and transverse colon. Peritoneal cavity: No ascites. No focal collection or mesenteric inflammatory response. Bones: Degenerative changes in lower lumbar spine. Reproductive organs: Within normal limits. Lymph nodes: Unremarkable. IMPRESSION:: No acute abnormality in the abdomen and pelvis. Labs 08/28/23 19:10 08/28/23 22:02 Labs: Laboratory Results - last 24 hr 08/28/23 08/28/2324 19:10 19:23 19:43 WBC 11.04 H RBC 4.28 Hgb 13.3 Hct 39.0 MCV 91 MCH 31.1 MCHC 34.1 RDW 13.2 Plt Count 244 MPV 9.7 Immature Gran % 0.3 Neutrophils % 44.9 Lymphocytes % 40.2 Monocytes % 12.1 Eosinophils % 2.1 Basophils % 0.4 Nucleated RBC % 0.0 Absolute Neutrophils 4.96 Absolute Lymphocytes 4.44 H Absolute Monocytes 1.34 H Absolute Eosinophils 0.23 Absolute Basophils 0.04 Sodium 139 Potassium 2.8 L* Chloride 100 Carbon Dioxide 29.1 Anion Gap 9.9 BUN 14 Creatinine 0.9 Est GFR (CKD-EPI 2020) 67.50 Glucose 118 H Calcium 9.5 Magnesium 1.8 Total Bilirubin 0.3 AST 36 ALT 52 Alkaline Phosphatase 82 Troponin I < 50 Total Protein 7.8 Albumin 3.4 Urine Color Yellow Urine Clarity Clear Urine pH 6.0 Ur Specific [place] 1.015 Urine Protein Negative Urine Ketones Negative Urine Blood Negative Urine Nitrite Negative Urine Bilirubin Negative Urine Urobilinogen 0.2 Ur Leukocyte Esterase Small H Urine RBC Negative Urine WBC 5-10 Ur Epithelial Cells Moderate Urine Crystals Negative Urine Bacteria Few Urine Mucus Moderate Urine Other Negative Ur Culture Indicated? No/Sq. Contamination Urine Glucose Negative COVID-19 Source Nasopharynx SARS-CoV-2 (PCR) Positive A Influenza Type A (PCR) Negative Influenza Type B (PCR) Negative RSV (PCR) Negative 08/28/23 22:02 WBC RBC Hgb Hct MCV MCH MCHC RDW Plt Count MPV Immature Gran % Neutrophils % Lymphocytes % Monocytes % Eosinophils % Basophils % Nucleated RBC % Absolute Neutrophils Absolute Lymphocytes Absolute Monocytes Absolute Eosinophils Absolute Basophils Sodium 138 Potassium 4.0 D Chloride 101 Carbon Dioxide 29.5 Anion Gap 7.5 BUN 12 Creatinine 0.8 Est GFR (CKD-EPI 2020) 77.75 Glucose 110 H Calcium 9.0 Magnesium Total Bilirubin AST ALT Alkaline Phosphatase Troponin I < 50 Total Protein Albumin Urine Color Urine Clarity Urine pH Ur Specific [place] Urine Protein Urine Ketones Urine Blood Urine Nitrite Urine Bilirubin Urine Urobilinogen Ur Leukocyte Esterase Urine RBC Urine WBC Ur Epithelial Cells Urine Crystals Urine Bacteria Urine Mucus Urine Other Ur Culture Indicated? Urine Glucose COVID-19 Source SARS-CoV-2 (PCR) Influenza Type A (PCR) Influenza Type B (PCR) RSV (PCR) Last Vital Signs Temp 37.3 C 08/28/23 18:57 Pulse 63 08/28/23 22:25 Resp 14 08/28/23 21:20 BP 122/54 L 08/28/23 22:25 Pulse Ox 98 08/28/23 21:20 Time Spent Time spent with Patient: >75 minutes Time was spent: preparing to see the patient(eg.review tests), obtaining and/or reviewing separately otained hiistory, ordering medications,tests, procedures, referring, communicating with other health senior care assistant, indepentently interpreting results and counseling the patient
[2023-08-29] VITALS (16 sets, daily range): BP systolic 107–155; BP diastolic 56–88; PULSE 53–75; RESP 16–20; TEMP 36–36.8; O2SAT 94–98
[2023-08-29 00:30] LABS: TSH (W/Ref FT4) 13.41 uIU/mL (0.36-3.74)
[2023-08-29 00:47] LABS: FREE T4 0.89 ng/dL (0.76-1.46)
[2023-08-29] MEDS: Normal Saline Flush 10 ML SYR IVP ×4 (01:35→22:41)
[2023-08-29] MEDS: Acetaminophen 325 MG TAB PO (01:36)
[2023-08-29] MEDS: Dexamethasone 4 MG/ML VIAL 10 MG IVP (01:37)
[2023-08-29] MEDS: REMDESIVIR 200 MG in Normal Saline 250 ML 250 MG IVPB (01:38)
[2023-08-29] MEDS: Water,Injection,Sterile 10 ML VIAL (02:06)
[2023-08-29] MEDS: Levothyroxine 125 MCG TAB PO (06:10)
[2023-08-29 07:03] LABS: HCT 37.8 % (36.0-46.0); HGB 13.1 g/dL (11.2-15.7); MCH 31.4 pg (27.0-33.0); MCHC 34.7 % (32.0-36.0); MCV 91 fL (80-95); MPV 10.1 fL (8.0-11.0); Platelet Count 241 10^3/uL (130-400); RBC 4.17 10^6/uL (3.93-5.22); RDW 13.2 % (11.7-14.6); WBC 6.91 10^3/uL (4.4-10.8)
[2023-08-29 07:23] LABS: ALT 46 U/L (14-59); AST 34 U/L (15-37); Albumin 3.1 g/dL (3.4-5.0); Alkaline Phosphatase 72 U/L (46-116); Anion Gap 10.8 mmol/L (3-11); BUN 8 mg/dL (7-18); Bilirubin, Total 0.2 mg/dL (0.2-1.0); CO2 27.2 mmol/L (21.0-32.0); CREATININE 0.9 mg/dL (0.55-1.02); Chloride 102 mmol/L (98-107); Glucose 170 mg/dL (74-106); Magnesium 1.7 mg/dL (1.8-2.4); Potassium 3.8 mmol/L (3.5-5.1); Sodium 140 mmol/L (136-145); Total Protein 7.6 g/dL (6.4-8.2)
[2023-08-29] MEDS: Acetaminophen 500 MG TAB 1000 MG PO ×3 (08:03→19:41)
[2023-08-29] MEDS: Cholecalciferol (Vitamin D3) 1,000 UNIT TAB 2000 UNITS PO (08:03)
[2023-08-29] MEDS: busPIRone 15 MG TAB PO ×2 (08:03→19:42)
[2023-08-29] MEDS: Venlafaxine 75 MG CAPCR PO (08:04)
[2023-08-29] MEDS: Omeprazole 20 MG CAPCR PO ×2 (08:04→15:03)
[2023-08-29] MEDS: Venlafaxine 150 MG CAPCR PO (08:04)
[2023-08-29] MEDS: Propranolol 40 MG TAB PO (09:10)
[2023-08-29] MEDS: Enoxaparin 40 MG/0.4 ML SYR SC (09:38)
--- NOTE | 2023-08-29 09:38 | INITIAL_ITS ---
Care Management Initial Assmt Initial Assessment REASON FOR HOSPITALIZATION:: COVID-19 with hypoxemia, Hypokalemia, Orthostasis PREVIOUS FUNCTIONAL STATUS/SOCIAL/FAMILY SUPPORTS:: Celeste lives in [place]. She has two daughters Rula and Phyllis live locally. She is independent at baseline. CM was not able to have face to face contact with Pt because of COVID19 precautions. CM called into the room and was not able to reach directly. CM called and spoke to daughter Leyla who lives in [place], explained other daughter Phyllis lives in [facility] and Maritza sister Evelia lives in [place]. Leyla explained that her mom could have been exposed to covid from anywhere since she is independent, does her own grocery shopping, visits Evelia and Phyllis, played cribbage at the [employer] in [place], and drives herself to and from where she needs to go. Leyla did say there was a 4WW in the home that was for her dad who in 2019, otherwise Celeste does not use a walker, has a cane and or maybe a walker but is unsure how often Pt uses either. CM explained PT has been ordered so they can assess need for or use of either. Leyla said she had talked to her mom not that long ago and she sounded tired, l CM gave direct phone number to Leyla for any further questions or follow up. ADVANCE DIRECTIVES:: None on file Has patient been provided with info about the portal/API?: Yes Did the patient sign up for the portal?: No CODE STATUS:: Full Code INSURANCE COVERAGE / FINANCIAL ISSUES:: [facility] [employer] [place] Medicare Part A & B - CURRENT HOME/COMMUNITY SERVICES/EQUIPMENT:: Celeste has a walker and or cane per daughter PRIMARY CARE PHYSICIAN:: Tiarra Hoover NP PATIENT/FAMILY EDUCATION NEEDS:: Review discharge instructions and limitations, discussion of care needs including Ask Me Three TRANSPORTATION:: Via private vehicle with family PLAN:: Celeste will return home. She will follow up with her PCP and discharge plan of care. CM will continue to follow. PFSH All Active Problems (Updated 08/30/23 @ 13:35 by Nancy Diaz NP) On deep vein thrombosis (DVT) prophylaxis (Acute) Discharge planning issues (Acute) Constipation (Chronic) Hypothyroidism (Chronic) Hyperlipidemia (Chronic) Major depressive disorder, recurrent (Chronic) Essential tremor (Chronic) Primary fibromyalgia syndrome (Chronic) GERD (gastroesophageal reflux disease) (Chronic) Hiatal hernia (Chronic) Memory loss (Chronic) Abnormal gait (Chronic) Recurrent falls (Chronic) Lumbar spondylosis (Chronic) Lumbar disc herniation with radiculopathy (Chronic) Chronic hip pain (Chronic) Diverticulosis of colon (Chronic) Medical History Chest pain Negative MPI 02/2022 COVID-19 (~05/2021) Vitamin D deficiency Migraine headache Prediabetes Vitamin B 12 deficiency Surgical History History of Chantel fundoplication H/O colonoscopy (07/20/12) History of esophagogastroduodenoscopy (EGD) (07/20/12) History of arthroplasty of right knee (04/21/18) History of arthroplasty of left knee (08/29/15) S/P right knee arthroscopy (04/24/17) With partial medial meniscectomy and limited medial femoral chondroplasty S/P left knee arthroscopy (08/29/15) S/P laparoscopic cholecystectomy (08/15/09) S/P hernia repair (05/07/09) paraesophageal hernia Family History Mother , At 74 Heart disease Thyroid dysfunction Type 2 diabetes mellitus Father , At 92 of [place] Heart disease Skin cancer Myocardial infarction Hypertension Sister Parkinsons disease Brother Heart disease Brother No problems noted. Daughter SLE (systemic lupus erythematosus) Depression Asthma Daughter Migraine headache Maternal Grandmother No problems noted. Maternal Grandmother No problems noted. Paternal Grandfather No problems noted. Paternal Grandfather No problems noted. Social History Smoking/Tobacco Use Status: Never Second Hand Exposure: Yes Smoking risk assessment performed?: Yes Alcohol Intake: former Drug use: Never Adopted: No Caregiver/Support person: No Foster care: No Housing: other Number of Children: 2 number of grandchildren: 0 Communication Needs: None Education Level: high school Do you need help understanding health information?: Rarely current occupation: Retired Pets and animals: Yes Pets and animals: dog(s) Sexually active: No Do you think of yourself as: straight/heterosexual Current gender identity: female How often do you talk on the phone with friends or family?: three or more times per week How often do you get together with friends or relatives?: once per week How often do you attend orthodox or episcopalian services?: decline to answer Do you belong to any clubs or organized social groups?: no Panel score (0-1 are the most socially isolated patients): 1 Duration: 15-30 minutes/day Frequency: 1-2 times per week Alisha/Congregational: No preference Special alisha needs: No Agree to transfusion: Yes Seatbelt use: always Helmet use: No Drive intox or ride w/intox route sales driver: No Working smoke detector in home: Yes Carbon monox detector in home: Yes Firearms in home: No Do you feel safe at home: Yes Do you feel safe in your relationship?: Yes Victim of physical abuse: No Victim of emotional abuse: No Victim of sexual abuse: No Would you like helpful sources: No Female Reproductive History Menstrual Menopause type: natural History History 2 Para 2 Hx # Term Pregnancies Multiple births Hx # Pregnancies Ectopic pregnancies AB induced Hx Number of Living Children 2 AB spontaneous SDOH(Care Management) Screening Will the Patient Participate in the Screening?: Declined to provide
--- NOTE | 2023-08-29 10:15 | W.PM.PROGNOT ---
Date of Service Date of service: 08/29/23 Time of Service: 10:15 Assessment and Plan Assessment and plan (1) COVID-19: Start date: 08/28/23 Assessment and plan: Continue: Remdesivir dose 2/4 today oral Decadron (2) Hypoxemia: Start date: 08/28/23 Status: Acute Assessment and plan: On RA at this time sat maintained at 95-98% Continue IS and acapella (3) Hypokalemia: Start date: 08/28/23 Status: Acute Assessment and plan: Corrected in ED and now resolved (4) Constipation: Status: Chronic Assessment and plan: No BM recorded Starting colace BID Encourage oral fluid intake Qualifiers: Constipation type: other constipation type Qualified Code(s): K59.09 - Other constipation (5) Major depressive disorder, recurrent: Status: Chronic Assessment and plan: Continue outpatient medical therapy. Qualifiers: Active/Remission status: currently active Major depression episode severity: moderate Qualified Code(s): F33.1 - Major depressive disorder, recurrent, moderate (6) Hypothyroidism: Status: Chronic Assessment and plan: TSH is elevated at 13.41 but free T4 is normal at 0.89 Continue home dose levethryroxine Outpatient adjustment as per PCP Qualifiers: Hypothyroidism type: acquired Qualified Code(s): E03.9 - Hypothyroidism, unspecified (7) Essential tremor: Status: Chronic Assessment and plan: Continue propranolol Monitor for orthostasis as this might need to be readjusted (8) Hypomagnesemia: Status: Acute Assessment and plan: Repletion ordered, magnesium level in AM (9) On deep vein thrombosis (DVT) prophylaxis: Status: Acute Assessment and plan: Continue Lovenox SC (10) Discharge planning issues: Status: Acute Assessment and plan: Lives alone with her dog PT for safety eval , might need HH PT at discharge Subjective Subjective Patient reports: feels better, tolerating liquids well, tolerating a regular diet (decreased appetite), voiding w/o difficulty, bowel movement (yesterday but denies constipation) and shortness of breath (With ambulation, subsiding at rest ); denies diarrhea, nausea, vomiting or fever Exam Narrative Exam Narrative: Constitutional The patient is in bed comfortable and cooperative during the interview. The patient is well groomed without acute distress and has average body habitus/is obese/ is thin. HENMT: Head is normocephalic, no lymphadenopathy. Facial structures with normal appearance with perinasal erythema Eyes: Well aligned, intact ROM Neuro:alert and oriented X4 No neurological focal deficit, PERRLA on ambient light Resp: shallow respiratory pattern, speaks in short sentences, unlabored breathing at rest , clear upper and diminished breath sounds bilaterally Cardio: regular rhythm, S1, S2 distant w/o murmur, capillary refill<3 sec., bilateral radial and dorsalis pedis pulses are positive GI: Abdomen is not distended, soft and non tender, bowel sounds are present Integumentary: No skin lesions or rash on exposed skin Psych: RASS 0, congruent mood and normal affect. Objective Last Vital Signs Temp 36 C L 08/29/23 07:57 Pulse 67 08/29/23 07:57 Resp 18 08/29/23 07:57 BP 134/75 08/29/23 07:57 Pulse Ox 95 08/29/23 07:57 Laboratory Results - last 24 hr 08/28/23 08/28/23 08/28/23 19:10 19:23 19:43 WBC 11.04 H RBC 4.28 Hgb 13.3 Hct 39.0 MCV 91 MCH 31.1 MCHC 34.1 RDW 13.2 Plt Count 244 MPV 9.7 Immature Gran % 0.3 Neutrophils % 44.9 Lymphocytes % 40.2 Monocytes % 12.1 Eosinophils % 2.1 Basophils % 0.4 Nucleated RBC % 0.0 Absolute Neutrophils 4.96 Absolute Lymphocytes 4.44 H Absolute Monocytes 1.34 H Absolute Eosinophils 0.23 Absolute Basophils 0.04 Sodium 139 Potassium 2.8 L* Chloride 100 Carbon Dioxide 29.1 Anion Gap 9.9 BUN 14 Creatinine 0.9 Est GFR (CKD-EPI 2020) 67.50 Glucose 118 H Calcium 9.5 Magnesium 1.8 Total Bilirubin 0.3 AST 36 ALT 52 Alkaline Phosphatase 82 Troponin I < 50 Total Protein 7.8 Albumin 3.4 TSH 13.41 H Free T4 0.89 Urine Color Yellow Urine Clarity Clear Urine pH 6.0 Ur Specific [place] 1.015 Urine Protein Negative Urine Ketones Negative Urine Blood Negative Urine Nitrite Negative Urine Bilirubin Negative Urine Urobilinogen 0.2 Ur Leukocyte Esterase Small H Urine RBC Negative Urine WBC 5-10 Ur Epithelial Cells Moderate Urine Crystals Negative Urine Bacteria Few Urine Mucus Moderate Urine Other Negative Ur Culture Indicated? No/Sq. Contamination Urine Glucose Negative COVID-19 Source Nasopharynx SARS-CoV-2 (PCR) Positive A Influenza Type A (PCR) Negative Influenza Type B (PCR) Negative RSV (PCR) Negative 08/28/23 08/29/23 22:02 06:50 WBC 6.91 RBC 4.17 Hgb 13.1 Hct 37.8 MCV 91 MCH 31.4 MCHC 34.7 RDW 13.2 Plt Count 241 MPV 10.1 Immature Gran % Neutrophils % Lymphocytes % Monocytes % Eosinophils % Basophils % Nucleated RBC % Absolute Neutrophils Absolute Lymphocytes Absolute Monocytes Absolute Eosinophils Absolute Basophils Sodium 138 140 Potassium 4.0 D 3.8 Chloride 101 102 Carbon Dioxide 29.5 27.2 Anion Gap 7.5 10.8 BUN 12 8 Creatinine 0.8 0.9 Est GFR (CKD-EPI 2020) 77.75 67.50 Glucose 110 H 170 H Calcium 9.0 9.0 Magnesium 1.7 L Total Bilirubin 0.2 AST 34 ALT 46 Alkaline Phosphatase 72 Troponin I < 50 Total Protein 7.6 Albumin 3.1 L TSH Free T4 Urine Color Urine Clarity Urine pH Ur Specific [place] Urine Protein Urine Ketones Urine Blood Urine Nitrite Urine Bilirubin Urine Urobilinogen Ur Leukocyte Esterase Urine RBC Urine WBC Ur Epithelial Cells Urine Crystals Urine Bacteria Urine Mucus Urine Other Ur Culture Indicated? Urine Glucose COVID-19 Source SARS-CoV-2 (PCR) Influenza Type A (PCR) Influenza Type B (PCR) RSV (PCR) Time Spent with Patient Time Spent with Patient: >50 minutes Time was spent: preparing to see the patient(eg.review tests), obtaining and/or reviewing separately otained hiistory, ordering medications,tests, procedures, referring, communicating with other health child care lead teacher, indepentently interpreting results, counseling the patient and care coordination
[2023-08-29] MEDS: MAGNESIUM SULFATE 2 GM/50 ML BAG IVPB (11:36)
[2023-08-29] MEDS: Polyethylene Glycol 3350 17 GM PACKET PO (15:03)
[2023-08-29] MEDS: Docusate Sodium 100 MG CAP PO (19:40)
[2023-08-29] MEDS: DEXAMETHASONE 8 MG, DEXAMETHASONE 2 MG 10 MG PO (19:41)
[2023-08-29] MEDS: Simvastatin 40 MG TAB PO (19:42)
[2023-08-29] MEDS: REMDESIVIR 100 MG in Normal Saline 250 ML 250 MG IVPB (22:30)
[2023-08-30 03:56] VITALS: BP 108/54; PULSE 55; RESP 18; TEMP 36.8; O2SAT 96
[2023-08-30] MEDS: Levothyroxine 125 MCG TAB PO (06:24)
[2023-08-30 06:57] LABS: Abs Immature Grans 0.04 10^3/uL (0.0-0.06); Absolute Basophil Count 0.01 10^3/uL (0.0-0.2); Absolute Lymphocyte Count 2.32 10^3/uL (1.2-3.4); Absolute Monocyte Count 0.27 10^3/uL (0.1-0.8); Absolute Neutrophil Count 5.21 10^3/uL (1.2-6.7); Basophils % 0.1; HCT 39.7 % (36.0-46.0); HGB 13.6 g/dL (11.2-15.7); Immature Grans % 0.5; Lymphocytes % 29.6; MCH 31.1 pg (27.0-33.0); MCHC 34.3 % (32.0-36.0); MCV 91 fL (80-95); MPV 10.3 fL (8.0-11.0); Monocytes % 3.4; Neutrophils % 66.4; Platelet Count 271 10^3/uL (130-400); RBC 4.37 10^6/uL (3.93-5.22); RDW 13.1 % (11.7-14.6); RDW-SD 43.8 fL; WBC 7.85 10^3/uL (4.4-10.8)
[2023-08-30 07:11] LABS: Anion Gap 11.6 mmol/L (3-11); BUN 16 mg/dL (7-18); CO2 25.4 mmol/L (21.0-32.0); CREATININE 0.9 mg/dL (0.55-1.02); Calcium 8.8 mg/dL (8.5-10.1); Chloride 101 mmol/L (98-107); Glucose 166 mg/dL (74-106); Magnesium 2.2 mg/dL (1.8-2.4); Potassium 3.7 mmol/L (3.5-5.1); Sodium 138 mmol/L (136-145)
[2023-08-30 07:20] VITALS: BP 124/74; PULSE 55; RESP 18; TEMP 35.9; O2SAT 96
[2023-08-30] MEDS: Acetaminophen 500 MG TAB 1000 MG PO ×3 (07:22→20:03)
[2023-08-30] MEDS: busPIRone 15 MG TAB PO ×2 (07:23→20:03)
[2023-08-30] MEDS: Cholecalciferol (Vitamin D3) 1,000 UNIT TAB 2000 UNITS PO (07:23)
[2023-08-30] MEDS: Docusate Sodium 100 MG CAP PO ×2 (07:24→20:03)
[2023-08-30] MEDS: Omeprazole 20 MG CAPCR PO ×2 (07:24→15:14)
[2023-08-30] MEDS: Venlafaxine 75 MG CAPCR PO (07:25)
[2023-08-30] MEDS: Venlafaxine 150 MG CAPCR PO (07:25)
[2023-08-30] MEDS: Normal Saline Flush 10 ML SYR IVP ×2 (07:25→20:03)
[2023-08-30] MEDS: Enoxaparin 40 MG/0.4 ML SYR SC (09:46)
[2023-08-30 11:45] VITALS: BP 131/70; PULSE 63; RESP 18; TEMP 36.5; O2SAT 93
--- NOTE | 2023-08-30 12:16 | PT.INIE ---
PT Notes Visit Reasons: COVID-19 with hypoxemia, Hypokalemia, Orthostasis Inpatient Physical Therapy Evaluation Date: 08/30/23 Referring Doctor: Devorah Duenas PT Orders: PT CONSULT: fall safety assessment Precautions: fall, COVID precautions Patient Profile/Admitting Diagnosis: Celeste was admitted for medical management of COVID-19 after presenting to ER 08/28/23 with flank pain and hypoxemia. Social History/Home Situation: Lives alone in a double wide trailer with ramp to enter. Is independent at baseline, attending community activities regularly. She normally ambulates without a device. Equipment Owned/DME: FWW (belonged to a family member, but states that she's used it previously and it seemed to fit well) and cane Subjective: Celeste states that she is extremely tired. She just walked in her room with nursing, and is feeling wiped out. States that her tremor seems worse now that she's tired, and she feels shaky all over. Objective: General Observation: Resting in bed. No lines. Trunk and UE tremor noted in sitting position. Mental Status: A&Ox3. Pleasant and cooperative. Pain: denies ROM: Right Upper Extremity: WFL Left Upper Extremity: WFL Right Lower Extremity: WFL Left Lower Extremity: WFL Strength: Right Upper Extremity: Grossly 3/5 for all motions Left Upper Extremity: Grossly 3/5 for all motions Right Lower Extremity: Hip flexion 4/5. Quads 4/5. Ankle DF 4/5. Left Lower Extremity: Hip flexion 4/5. Quads 4-/5. Ankle DF 4/5. Bed Mobility/Transfers: supine-sit: independent sit-supine: independent sit-stand: SBA, requires cues for hand placement and equipment management stand-sit: SBA, requires cues for hand placement and equipment management Gait: Ambulates 30' with FWW, CGA. Very tremulous during ambulation, with minor ARROYO. Balance: Static Sitting: good Dynamic Sitting: good Static Standing: fair Dynamic Standing: poor 4-Position Balance Test: 1/4 Small SYL: 10 seconds, with increased sway Partial Tandem: 0 seconds (unable without UE support) Full Tandem: 0 seconds Single Leg Stance: 0 seconds [place]: (+) for posterior sway Special Tests: Mobility Limitations [facility]ized [facility] Basic Mobility Inpatient Short Form: Raw Score: 21 CMS Score: 29% impairment Informed Consent/Education: Patient instructed in purpose of PT consult and plan of care. Assessment: Patient is a 73 year old female referred to physical therapy services for fall safety assessment. Patient is currently in acute care setting for management of COVID-19. She demonstrates decreased activity tolerance and balance, and is reliant on FWW for ambulation vs her normally independent status. Have recommended that she continue walker use for the time being due to her impaired balance and mobility. She requires PT intervention to address limitations in mobility and activity tolerance, and will benefit from continuation in outpatient setting upon return home to allow for continued gains. She currently demonstrates the following impairment level findings: 1. decreased LE strength 2. decreased balance 3. gait impairments Impairments are contributing to the following functional limitations: Patient is assessed as Low [id number] complexity based on the following: History: as above Examination: functional limitations as above Presentation: evolving Decision Making: low Goals: Goals X1 week 1. Supine-Sit : independent 2. Sit-Supine : independent 3. Sit-Stand : independent 4. Stand-Sit : independent 5. Bed-Chair : independent with FWW 6. Chair-Bed : independent with FWW 7. Gait : independent with FWW x 50' Plan of Care/Treatment Plan: 1-2x/day, 7 days/week x 1 week. Plan of care has been reviewed with the [facility] RECEPTIONIST providing the service under Physical Therapy direction. Initiate Physical Therapy intervention for strengthening, bed mobility, transfers, gait, stairs, balance training, use of assistive device. DISCHARGE RECOMMENDATIONS: Home with outpatient PT TREATMENT CODE/TIME: [id number] ([id number]) Please sign an return this page within 30 days if you agree with the above POC. Thank you! Physician Signature Date Nani Jones, PT, DPT [facility] All Active Problems (Updated 08/29/23 @ 11:31 by Devorah Duenas APRN) On deep vein thrombosis (DVT) prophylaxis (Acute) Discharge planning issues (Acute) Hypomagnesemia (Acute) Hypoxemia (Acute) Hypokalemia (Acute) Constipation (Chronic) Hypothyroidism (Chronic) Hyperlipidemia (Chronic) Major depressive disorder, recurrent (Chronic) Essential tremor (Chronic) Primary fibromyalgia syndrome (Chronic) GERD (gastroesophageal reflux disease) (Chronic) Hiatal hernia (Chronic) Memory loss (Chronic) Abnormal gait (Chronic) Recurrent falls (Chronic) Lumbar spondylosis (Chronic) Lumbar disc herniation with radiculopathy (Chronic) Chronic hip pain (Chronic) Diverticulosis of colon (Chronic) Medical History Chest pain Negative MPI 02/2022 COVID-19 (~05/2021) Vitamin D deficiency Migraine headache Prediabetes Vitamin B 12 deficiency Surgical History History of Chantel fundoplication H/O colonoscopy (07/20/12) History of esophagogastroduodenoscopy (EGD) (07/20/12) History of arthroplasty of right knee (04/21/18) History of arthroplasty of left knee (08/29/15) S/P right knee arthroscopy (04/24/17) With partial medial meniscectomy and limited medial femoral chondroplasty S/P left knee arthroscopy (08/29/15) S/P laparoscopic cholecystectomy (08/15/09) S/P hernia repair (05/07/09) paraesophageal hernia
--- NOTE | 2023-08-30 13:31 | PGE_ITS ---
Date of Service Date of service: 08/30/23 Time of Service: 13:32 Assessment and Plan Assessment and plan (1) COVID-19: Assessment and plan: Continue: Remdesivir dose 3/4 today oral Decadron (2) Hypoxemia: Status: Resolved Assessment and plan: On RA at this time sat maintained at 95-98% Continue IS and acapella (3) Hypokalemia: Status: Resolved Assessment and plan: Corrected in ED and now resolved (4) Constipation: Status: Chronic Assessment and plan: No BM recorded Starting colace BID schedule miralax Encourage oral fluid intake Qualifiers: Constipation type: other constipation type Qualified Code(s): K59.09 - Other constipation (5) Major depressive disorder, recurrent: Status: Chronic Assessment and plan: Continue outpatient medical therapy. Qualifiers: Active/Remission status: currently active Major depression episode severity: moderate Qualified Code(s): F33.1 - Major depressive disorder, recur rent, moderate (6) Hypothyroidism: Status: Chronic Assessment and plan: TSH is elevated at 13.41 but free T4 is normal at 0.89 Continue home dose levethryroxine Outpatient adjustment as per PCP Qualifiers: Hypothyroidism type: acquired Qualified Code(s): E03.9 - Hypothyroidism, unspecified (7) Essential tremor: Status: Chronic Assessment and plan: Continue propranolol Monitor for orthostasis as this might need to be readjusted (8) Hypomagnesemia: Status: Resolved Assessment and plan: normalized after Repletion (9) On deep vein thrombosis (DVT) prophylaxis: Status: Acute Assessment and plan: Continue Lovenox SC (10) Discharge planning issues: Status: Acute Assessment and plan: Lives alone with her dog PT for safety eval , might need HH PT at discharge not safely re-ambulated yet discussed with DR Verdugo Subjective Subjective Patient reports: no new complaints and feels better Interval history since last seen: continue to work with physical therapy, no oxygen requirements. remains too weak and unsteady to be safely discharged. Exam Const General: cooperative, healthy appearing and no acute distress Orientation: alert, awake and oriented x3 HENMT Head: normal to inspection Mouth: oral mucosae normal Eyes General: appearance normal, both eyes and all related structures Neck Neck: normal visual inspection Resp Effort & Inspection: normal respiratory effort and able to speak in complete sentences Auscultation: clear to auscultation bilaterally Cardio Rhythm: regular rhythm GI Inspection: normal to inspection Palpation: soft Skin General skin exam: no rashes or lesions noted Neuro General: patient alert, patient awake and patient oriented x3 Motor: muscle tone normal throughout Extrem General: normal to inspection, full ROM and no edema Psych Appearance: grossly normal Affect: normal affect Objective Last Vital Signs Temp 36.5 C 08/30/23 11:45 Pulse 63 08/30/23 11:45 Resp 18 08/30/23 11:45 BP 131/70 08/30/23 11:45 Pulse Ox 93 08/30/23 11:45 Laboratory Results - last 24 hr 08/30/23 06:40 WBC 7.85 RBC 4.37 Hgb 13.6 Hct 39.7 MCV 91 MCH 31.1 MCHC 34.3 RDW 13.1 Plt Count 271 MPV 10.3 Immature Gran % 0.5 Neutrophils % 66.4 Lymphocytes % 29.6 Monocytes % 3.4 Eosinophils % 0.0 Basophils % 0.1 Nucleated RBC % 0.0 Absolute Neutrophils 5.21 Absolute Lymphocytes 2.32 Absolute Monocytes 0.27 Absolute Eosinophils 0.00 Absolute Basophils 0.01 Sodium 138 Potassium 3.7 Chloride 101 Carbon Dioxide 25.4 Anion Gap 11.6 H BUN 16 Creatinine 0.9 Est GFR (CKD-EPI 2020) 67.50 Glucose 166 H Calcium 8.8 Magnesium 2.2 Time Spent with Patient Time Spent with Patient: 25-34 minutes Time was spent: preparing to see the patient(eg.review tests), obtaining and/or reviewing separately otained hiistory, ordering medications,tests, procedures, indepentently interpreting results and counseling the patient
[2023-08-30] MEDS: Polyethylene Glycol 3350 17 GM PACKET PO (14:05)
[2023-08-30 19:42] VITALS: BP 151/72; PULSE 61; RESP 18; TEMP 36.8; O2SAT 96
[2023-08-30] MEDS: DEXAMETHASONE 8 MG, DEXAMETHASONE 2 MG 10 MG PO (20:03)
[2023-08-30] MEDS: Simvastatin 40 MG TAB PO (20:04)
[2023-08-30] MEDS: REMDESIVIR 100 MG in Normal Saline 250 ML 250 MG IVPB (23:18)
[2023-08-30 23:19] VITALS: BP 139/67; PULSE 61; RESP 20; TEMP 36.5; O2SAT 94
[2023-08-31] MEDS: Levothyroxine 125 MCG TAB PO (05:00)
[2023-08-31 05:58] VITALS: BP 150/72; PULSE 74; RESP 22; TEMP 36.2; O2SAT 96
[2023-08-31] MEDS: Acetaminophen 500 MG TAB 1000 MG PO (09:02)
[2023-08-31] MEDS: Docusate Sodium 100 MG CAP PO (09:02)
[2023-08-31] MEDS: busPIRone 15 MG TAB PO (09:02)
[2023-08-31] MEDS: Cholecalciferol (Vitamin D3) 1,000 UNIT TAB 2000 UNITS PO (09:02)
[2023-08-31] MEDS: Normal Saline Flush 10 ML SYR IVP (09:03)
[2023-08-31] MEDS: Polyethylene Glycol 3350 17 GM PACKET PO (09:03)
[2023-08-31] MEDS: Propranolol 40 MG TAB PO (09:03)
[2023-08-31] MEDS: Omeprazole 20 MG CAPCR PO (09:03)
[2023-08-31] MEDS: Venlafaxine 75 MG CAPCR PO (09:03)
[2023-08-31] MEDS: Venlafaxine 150 MG CAPCR PO (09:03)
[2023-08-31] MEDS: Enoxaparin 40 MG/0.4 ML SYR SC (09:04)
[2023-08-31 09:09] VITALS: BP 136/74; PULSE 59; RESP 16; TEMP 36.5; O2SAT 95
--- NOTE | 2023-08-31 11:06 | DSE_ITS ---
Date of service: 08/31/23 Time of Service: 11:06 DS: Diagnosis Discharge Diagnosis (1) COVID-19: (2) Hypoxemia: Status: Resolved (3) Hypokalemia: Status: Resolved (4) Constipation: Status: Chronic (5) Major depressive disorder, recurrent: Status: Chronic (6) Hypothyroidism: Status: Chronic (7) Essential tremor: Status: Chronic (8) Hypomagnesemia: Status: Resolved Discharge Plan Disposition Patient Disposition: Home W/Home Health Services Condition: Improving Discharge Details Reason For Visit: COVID-19 with hypoxemia, Hypokalemia, Orthostasis Admit Date/Time: 08/28/23 23:33 Admit Provider: Zhang Mckeon Attending Provider: Zhang Mckeon Primary Care Provider: Tiarra Hoover Hospital Course Hospital Course: This is a 73-year-old female patient presented to the emergency department with weakness upper respiratory symptoms including runny nose cough. Her workup in the emergency department showed COVID-19 infection. She did receive IV hydration placed on remdesivir and dexamethasone and admitted to observation for further treatment. She was weaned off oxygen and started working with physical therapy but was slow to be safely really ambulated. She was eating and drinking but appetite remains poor. Hospital course was complicated with headache which did respond to acetaminophen. Electrolytes replaced and remained within normal ranges. Her TSH was found to be elevated but free T4 was normal. No adjustments were made and PCP should follow-up outpatient for further monitoring/compliance. Physical therapy recommendations were for home health physical therapy with referral placed. She is being discharged to home with no new medications she should resume previous medications as directed discussed with Dr Verdugo [place] Meds and New Rx's Prescriptions: Continued acetaminophen 500 mg tablet 1,000 mg PO TID cholecalciferol (vitamin D3) 1,000 UNIT tablet 2 tab PO DAILY Qty: 200 Rx Instructions: 2000 IU DAILY Women's 50+ Daily Form (gkb) 1 EACH tablet 1 ea PO DAILY propranolol 40 mg tablet 40 mg PO DAILY Qty: 90 3RF Rx Instructions: Take 1 tab once a day omeprazole 20 mg capsule,delayed release(DR/EC) 20 mg PO BID Qty: 180 3RF buspirone 15 mg tablet 15 mg PO BID Qty: 180 3RF Rx Instructions: Take 1 tablet twice a day venlafaxine 150 mg capsule,extended release 24hr 150 mg PO DAILY Qty: 90 3RF Rx Instructions: Take 1 daily in addition to the 75mg dose simvastatin 40 mg tablet 40 mg PO DAILY Qty: 90 3RF levothyroxine 125 mcg capsule 125 mcg PO DAILY Qty: 90 3RF venlafaxine 75 mg capsule,extended release 24hr 225 mg PO DAILY Rx Instructions: Take 1 daily in addition to the 150mg dose Discharge Instructions Instructions: COVID-19 (Coronavirus Disease 2019) (DC) Stand Alone Forms: Nursing Discharge Form Referrals: Tiarra Hoover NP [Primary Care Provider] - 09/03/23 1:40 pm Activity:: Activity as Tolerated Equipment/Supplies:: No Equipment Needed Diet:: As Tolerated Discharge Orders Discharge Orders: Discharge Order (Routine); Ordered 08/31/23 Ordered By: Nancy Diaz Discharge Data Discharge Date/Time-TO BE ENTERED AT DEPARTURE: 08/31/23 13:28 DS: Summary Time Spent with Patient providing and/or coordinating discharge services: Less than 30 minutes Status at Discharge Functional status at discharge: uses cane/walker Overall status at discharge: patient is progressing back to baseline Mental Status: mental status grossly normal Speech and Movement: speech and movement normal Mood: congruent mood Affect: normal affect Quality:SDOH Health Related Social Needs: No Data to Display Exam Const General: cooperative, healthy appearing and no acute distress Orientation: alert, awake and oriented x3 HENMT Head: normal to inspection Mouth: oral mucosae normal Eyes General: appearance normal, both eyes and all related structures Neck Neck: normal visual inspection Resp Effort & Inspection: normal respiratory effort and able to speak in complete sentences Auscultation: clear to auscultation bilaterally Cardio Rhythm: regular rhythm GI Inspection: normal to inspection Palpation: soft Skin General skin exam: no rashes or lesions noted Neuro General: patient alert, patient awake and patient oriented x3 Motor: muscle tone normal throughout Extrem General: normal to inspection, full ROM and no edema Psych Appearance: grossly normal Mental Status: mental status grossly normal Speech and Movement: speech and movement normal Mood: congruent mood Affect: normal affect DS: Data Vitals/I&O Vitals and I&O: Vital Signs Temperature 36.5 C 08/31/23 09:09 Temperature Source Tympanic 08/31/23 09:09 Pulse 59 L 08/31/23 09:09 Pulse Rhythm Regular 08/31/23 09:15 Pulse 66 08/29/23 00:30 Respiratory Rate 16 08/31/23 09:09 Respiratory Effort Normal, Non-Labored 08/31/23 09:15 Respiratory Depth Normal 08/31/23 09:15 Respiratory Pattern Normal 08/31/23 09:15 Blood Pressure 136/74 08/31/23 09:09 Blood Pressure Mean 84 08/29/23 00:16 Pulse Oximetry 95 08/31/23 09:09 Oxygen Delivery Method Room Air 08/31/23 09:09 Oxygen Flow Rate 0 08/31/23 09:09 Pain Level 0 08/30/23 15:05 Comment BP called over radio 08/29/23 14:54 Intake & Output 08/30/23 08/30/23 08/31/23 11:59 23:59 11:59 Intake Total 260 / 260 270 / 270 Output Total 900 / 2000 1100 / 2000 400 / 400 Balance -640 / -1740 -1100 / -1740 -130 / -130 Intake: IV 260 / 260 270 / 270 Output: Urine 900 / 2000 1100 / 2000 400 / 400 Other: Urine Color Yellow Yellow Urine Appearance Clear Clear Clear Urine Odor None Normal Voiding Methods Bedside Commode Bedside Commode Bedside Commode [facility] All Active Problems (Updated 08/30/23 @ 13:35 by Nancy Diaz NP) On deep vein thrombosis (DVT) prophylaxis (Acute) Discharge planning issues (Acute) Constipation (Chronic) Hypothyroidism (Chronic) Hyperlipidemia (Chronic) Major depressive disorder, recurrent (Chronic) Essential tremor (Chronic) Primary fibromyalgia syndrome (Chronic) GERD (gastroesophageal reflux disease) (Chronic) Hiatal hernia (Chronic) Memory loss (Chronic) Abnormal gait (Chronic) Recurrent falls (Chronic) Lumbar spondylosis (Chronic) Lumbar disc herniation with radiculopathy (Chronic) Chronic hip pain (Chronic) Diverticulosis of colon (Chronic) Medical History Chest pain Negative MPI 02/2022 COVID-19 (~05/2021) Vitamin D deficiency Migraine headache Prediabetes Vitamin B 12 deficiency Surgical History History of Chantel fundoplication H/O colonoscopy (07/20/12) History of esophagogastroduodenoscopy (EGD) (07/20/12) History of arthroplasty of right knee (04/21/18) History of arthroplasty of left knee (08/29/15) S/P right knee arthroscopy (04/24/17) With partial medial meniscectomy and limited medial femoral chondroplasty S/P left knee arthroscopy (08/29/15) S/P laparoscopic cholecystectomy (08/15/09) S/P hernia repair (05/07/09) paraesophageal hernia Family History Mother , At 74 Heart disease Thyroid dysfunction Type 2 diabetes mellitus Father , At 92 of [place] Heart disease Skin cancer Myocardial infarction Hypertension Sister Parkinsons disease Brother Heart disease Brother No problems noted. Daughter SLE (systemic lupus erythematosus) Depression Asthma Daughter Migraine headache Maternal Grandmother No problems noted. Maternal Grandmother No problems noted. Paternal Grandfather No problems noted. Paternal Grandfather No problems noted. Social History Smoking/Tobacco Use Status: Never Second Hand Exposure: Yes Smoking risk assessment performed?: Yes Alcohol Intake: former Drug use: Never Adopted: No Caregiver/Support person: No Foster care: No Housing: other Number of Children: 2 number of grandchildren: 0 Communication Needs: None Education Level: high school Do you need help understanding health information?: Rarely current occupation: Retired Pets and animals: Yes Pets and animals: dog(s) Sexually active: No Do you think of yourself as: straight/heterosexual Current gender identity: female How often do you talk on the phone with friends or family?: three or more times per week How often do you get together with friends or relatives?: once per week How often do you attend religious or sikhism services?: decline to answer Do you belong to any clubs or organized social groups?: no Panel score (0-1 are the most socially isolated patients): 1 Duration: 15-30 minutes/day Frequency: 1-2 times per week Alisha/Judaism: No preference Special alisha needs: No Agree to transfusion: Yes Seatbelt use: always Helmet use: No Drive intox or ride w/intox assembly line driver: No Working smoke detector in home: Yes Carbon monox detector in home: Yes Firearms in home: No Do you feel safe at home: Yes Do you feel safe in your relationship?: Yes Victim of physical abuse: No Victim of emotional abuse: No Victim of sexual abuse: No Would you like helpful sources: No Female Reproductive History Menstrual Menopause type: natural History History 2 Para 2 Hx # Term Pregnancies Multiple births Hx # Pregnancies Ectopic pregnancies AB induced Hx Number of Living Children 2 AB spontaneous Time Spent with Patient Time Spent with Patient: 45-69 minutes Time was spent: preparing to see the patient(eg.review tests), obtaining and/or reviewing separately otained hiistory, ordering medications,tests, procedures, indepentently interpreting results, counseling the patient and care coordination
--- NOTE | 2023-08-31 11:22 | PDOC.HHF2F_ITS ---
Home Health Referral Home Health Orders Clinical synopsis of why skilled professionals are needed: She demonstrates decreased activity tolerance and balance, and is reliant on front wheeled walker for ambulation versus her normally independent status. She requires PT intervention to address limitations in mobility and activity tolerance, and will benefit from continuation in outpatient setting upon return home to allow for continued gains. Medical diagnosis necessitation home health referral: covid 19, ambulatory dysfunction, generalized weakness Physical Therapist: Check all that apply Increase strength & endurance for safe mobility at home: Ordered To design/establish home maintenance program: Ordered Fall reduction therapy program for patient with history of frequent falls: Ordered Home safety evaluation and teaching/gait training including stair management (if applicable): Ordered Other: She currently demonstrates the following impairment level findings: 1. decreased LE strength 2. decreased balance 3. gait impairments Occupational Therapist: Evaluate and treat for patient unable to perform ADL/IADL/self-care: Ordered Upper extremity strengthening, range and motion: Ordered Home Bound Status Requires the aid of supportive device (check all that apply): Walker Describe why leaving home would require a considerable and taxing effort: Requires frequent rest periods Encounter Date and Reason: I certify that a FTF encounter for this patient was performed on August 31, 2023 and that such encounter was related to the primary reason the patient requires home health services. The encounter was conducted in the following manner: * By me as the certifying physician, COMPUTER TECHNOLOGY INSTRUCTOR, PA or * By an inpatient physician, COMPUTER TECHNOLOGY INSTRUCTOR or PA during an inpatient stay who communicated findings to me, Certification And Authentication I certify that I composed the above information based on my clinical judgment relating to this patient's medical condition and, if applicable, clinical findings communicated to me by the NPP or inpatient physician who performed the FTF encounter. Name of Provider that will be monitoring home health services: Tiarra Hoover
--- NOTE | 2023-08-31 16:21 | PDOC.CMDIS ---
Date of service: 08/31/23 Time of Service: 16:21 LACE Index Scoring Tool Questions: Length of Stay (in days): 3 Was the patient admitted via the E.D.?: Yes E.D. Visits: 1 Answers: Total Score: 7 Risk of Readmission: Low Risk Care Management Discharge Plan Reason for Hospitalization: COVID-19 with hypoxemia, Hypokalemia, Orthostasis Discharge Plan: Celeste will return home with new orders for home health PT/OT. She will transport via private vehicle with family and follow up with community providers. Patient/Family Education Needs: Review discharge instructions, discuss Ask Me Three. Services Needed at Discharge: Home Health Care Services SDOH Health Related Social Needs: No Data to Display
== END 2023-08-31 13:28 | disposition home health service (06) ==
LOC: ER 23:57 → MS 08-29 07:36
PROVIDERS: Nurse Practitioner Acute Care; Admitting Provider Family Medicine; Emergency Provider Registered Nurse Emergency; PCP Nurse Practitioner Family; Visit Provider Family Medicine
DX: U07.1 COVID-19 (principal); R53.1 Weakness; R09.02 Hypoxemia; E87.6 Hypokalemia; K59.09 Other constipation; F33.1 Major depressive disorder, recurrent, moderate; E03.9 Hypothyroidism, unspecified; R10.31 Right lower quadrant pain; G43.909 Migraine, unspecified, not intractable, without status migrainosus; E78.5 Hyperlipidemia, unspecified; G25.0 Essential tremor; M79.7 Fibromyalgia; K21.9 Gastro-esophageal reflux disease without esophagitis; K44.9 Diaphragmatic hernia without obstruction or gangrene; R29.6 Repeated falls; K57.30 Diverticulosis of large intestine without perforation or abscess without bleeding; E55.9 Vitamin D deficiency, unspecified; E53.8 Deficiency of other specified B group vitamins; R73.03 Prediabetes; Z96.653 Presence of artificial knee joint, bilateral; M47.26 Other spondylosis with radiculopathy, lumbar region; M51.16 Intervertebral disc disorders with radiculopathy, lumbar region; R41.3 Other amnesia
CPT/HCPCS: 00123; 36415; 80048; 80053; 85027; 87637; 93005; 96361; 96365; 96366; 96367; 96368; 96372; 96375; 97161; 99285; J1650; 71045; 81003; 81015; 83735; 84439; 84443; 84484; 85025; 93010; 99223; 99232; 99233; 99239; G0378; J0248; J1100; J2405; J3475; J3480; J8540

== ENCOUNTER → 2023-09-16 14:46 | Outpatient (CLI) | payer OTHER, SELFPAY ==
--- NOTE | 2023-09-16 14:15 | DI.CT_ITS ---
Exam(s) CT ABDOMEN PELVIS W EXAM: CT ABDOMEN PELVIS W CLINICAL HISTORY: severe RLQ pain,R10.31. TECHNIQUE: Imaging Protocol: Axial computed tomography images with coronal and sagittal reformatted images were created and reviewed CONTRAST MATERIAL: Intravenous: Omnipaque-350 100cc Oral: None COMPARISON: CT CT ABDOMEN PELVIS W from 08/27/2023 FINDINGS: VISUALIZED LUNG BASES: No nodules nor pleural effusions evident. ABDOMEN: There is no ascites. Moderate size hiatal hernia noted. LIVER: Hypodense implying steatosis. There no discrete focal hepatic lesions identified. Small calc ified granuloma noted. No dilated intrahepatic ducts. GALLBLADDER/BILIARY: Gallbladder surgically absent. CBD not dilated. CBD is not dilated. PANCREAS: No evidence of pancreatic mass nor dilatation of the pancreatic duct. SPLEEN: Spleen is not enlarged. No obvious intrasplenic lesions. Splenic and portal veins are paten t. ADRENALS: There are no significant adrenal masses. KIDNEYS:No cysts evident. No solid renal masses. No calculi nor hydronephrosis.. ABDOMINAL AORTA: Calcified but not enlarged. Common iliac arteries are also calcified but not enlarg ed. LYMPH NODES:There is no retroperitoneal nor paraaortic adenopathy. ABDOMINAL WALL: No evidence of significant anterior abdominal wall nor inguinal hernia. GI: There is no evidence of small-bowel obstruction. No evidence of appendicitis. There is acute si gmoid diverticulitis-moderate/severe. The culprit diverticulum is on the posterior wall of the sigmo id adjacent to the urinary bladder. Moderate risk for developing abscess. There is abundant streaki ng in the small amount of fluid in the mesentery. There is no gas in the adjacent urinary bladder at this time to suggest abnormal fistulous communication. PELVIS: LYMPH NODES: There is no intrapelvic nor inguinal adenopathy. REPRODUCTIVE: Uterus and adnexal regions unremarkable. URINARY BLADDER: No calculi nor obvious masses evident OSSEOUS: No fractures and no significant osseous lesions. IMPRESSION: 1. Findings are consistent with acute sigmoid diverticulitis. Significant risk for developing absces s here. No drainable abscess at this time. No bowel obstruction. 2. Mild wall thickening noted in the adjacent bladder wall probably related to the sigmoid findings. There is, however, no gas within the urinary bladder to suggest fistulous communication. Is also no gas in the portal venous system RADIATION DOSE DELIVERED: Total DLP DATA REPOSITORY: All CT scans at this facility are submitted to the National Radiology Data Registry (NRDR) Dose Index Registry (DIR) with the [employer] (ACR). RADIATION OPTIMIZATION: All CT scans at this facility use at least one of these dose optimization te chniques: automated exposure control; mA and/or kV adjustment per patient size (includes targeted exa ms where dose is matched to clinical indication); or iterative reconstruction.
[2023-09-16] MEDS: Omnipaque 350 MG/ML 100 ML BTL IJ (16:38)
[2023-09-16] MEDS: Barium Sulfate 2% W/V-Berry Smoothie 450 ML BTL PO ×2 (16:47→16:48)
--- NOTE | 2023-09-16 17:18 | DI.VRAD_ITS ---
Addendum created by Kirti Pizano MD on 09/16/2023 5:50:29 PM EST: THIS REPORT CONTAINS FINDINGS THAT MAY BE CRITICAL TO PATIENT CARE. The findings were verbally communicated via telephone conference with DR. MCCOY at 5:49 PM EST on 09/16/2023. The findings were acknowledged and understood. Initial report created on 09/16/2023 5:17:50 PM EST: PROCEDURE INFORMATION: Exam: CT Abdomen And Pelvis With Contrast Exam date and time: 09/16/2023 4:33 PM Age: 73 years old Clinical indication: Other: Severe rlq pain TECHNIQUE: Imaging protocol: Computed tomography of the abdomen and pelvis with contrast. Radiation optimization: All CT scans at this facility use at least one of these dose optimization techniques: automated exposure control; mA and/or kV adjustment per patient size (includes targeted exams where dose is matched to clinical indication); or iterative reconstruction. Contrast material: OMNI 350; Contrast volume: 100 ml; Contrast route: INTRAVENOUS (IV); COMPARISON: CT ABDOMEN PELVIS W 08/27/2023 2:53 PM FINDINGS: Lungs: Minimal bandlike atelectasis within the lower lobes. Pleural spaces: No pleural effusion. Heart: The heart is upper limits of normal in size. No pericardial effusion. Liver: The liver is normal in size and is mildly fatty infiltrated. Gallbladder and bile ducts: The gallbladder is surgically absent. No bile duct dilatation. Pancreas: The pancreas is normal appearance. No pancreatic ductal dilatation. Spleen: Calcifications within the spleen, consistent with sequela prior granulomatous disease. The spleen is normal in size. Adrenal glands: The bilateral adrenal glands are normal appearance. Kidneys and ureters: The bilateral kidneys are normal appearance. No hydroureteronephrosis. Stomach and bowel: Probable postoperative changes of a Chantel fundoplication. The small bowel opacifies normally with contrast without obstruction. The cecum and ascending as well as the transverse colon are normal appearance. Diverticula are seen within the distal descending and sigmoid colon. The rectum is normal appearance. Focal wall thickening is seen within the proximal sigmoid colon, extending over a 6.5 cm length segment. A thin partially loculated fluid collection is seen along the posterior margin of the inflamed sigmoid colon measuring approximately 1.0 x 3.0 cm. Stranding of the mesentery is seen surrounding the inflamed sigmoid colon extending to the urinary bladder where mild wall thickening of the bladder dome is present. The stranding also extends to the left ovary. Appendix: The appendix is normal appearance. Intraperitoneal space: No free air. Vasculature: Moderate calcified atherosclerotic plaque throughout the abdominal aorta and iliac vessels without aneurysm. Lymph nodes: No pathologically enlarged lymph nodes within the abdomen and pelvis. Urinary bladder: See Stomach and bowel finding. Reproductive: See Stomach and bowel finding. Bones/joints: No acute osseous abnormality. Mild degenerative changes throughout the lumbar spine. Soft tissues: Postoperative changes of a ventral hernia repair with associated surgical clips and mesh material. Diastasis of the linea alba. IMPRESSION: 1. Acute mildly complex located sigmoid diverticulitis, with mesenteric stranding and a tiny, thin, partially loculated fluid collection within the adjacent fat, which may represent a developing abscess. No free air or drainable, mature abscess at this time. No bowel obstruction. 2. Mild wall thickening within the bladder dome, likely reactive to the adjacent sigmoid diverticulitis. Dictated and Authenticated by: Kirti Pizano MD. Ordering:PATRICIA Mayen MD
== END ==
PROVIDERS: PCP Nurse Practitioner Family; Visit Provider Nurse Practitioner Family
DX: R10.31 Right lower quadrant pain (principal)
CPT/HCPCS: 74177; J3490

== ENCOUNTER → 2023-09-17 09:20 | Outpatient (BNVA) | payer MEDICARE, OTHER, SELFPAY | PROVIDERS: PCP Nurse Practitioner Family; Referring Provider Nurse Practitioner Family; Visit Provider Surgery | DX: Z12.11 Encounter for screening for malignant neoplasm of colon (principal) ==

== ENCOUNTER 2023-09-17 13:04 | Observation (INO) | payer OTHER, SELFPAY ==
[2023-09-17 13:26] VITALS: BP 124/85; PULSE 114; RESP 16; TEMP 36.3; O2SAT 93
[2023-09-17] MEDS: Pantoprazole 40 MG VIAL IVP (14:26)
[2023-09-17] MEDS: Enoxaparin 40 MG/0.4 ML SYR SC (14:26)
[2023-09-17] MEDS: PIPERACILLIN/TAZO 3.375 GM in Normal Saline 50 ML IVPB ×2 (14:56→19:22)
[2023-09-17] MEDS: DEXTROSE 5%-0.45% SALINE 1,000 ML 75 ML IV (14:58)
[2023-09-17 15:32] VITALS: BP 106/71; PULSE 89; RESP 16; TEMP 36.9; O2SAT 95
[2023-09-17] MEDS: Normal Saline Flush 10 ML SYR IVP (19:23)
[2023-09-17] MEDS: Ondansetron 4 MG/2 ML VIAL IVP (20:26)
--- NOTE | 2023-09-17 21:06 | HPE_ITS ---
Date of service: 09/17/23 Time of Service: 21:06 Assessment and Plan Assessment and plan (1) Sigmoid diverticulitis: Status: Acute Assessment and plan: Patient will be admitted to the hospital and started on iv antibiotics. Pain management DVT prophylaxis and I-S Bowel rest CT and labs reviewed. Patient appears to be a high risk for developing a colovesical fistula. 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 History of Present Illness Narrative: Patient was seen in the surgical clinic today regarding acute diverticulitis. Patient has a longstanding history of diverticula and diverticulitis. She has been having pain and minimal appetite for the last [address] hours[address] She had a CT ordered by her PCP yesterday and was started on Bactrim and Flagyl. She was referred to our clinic today for follow-up. She is not having any fever or chills. She is not having any chest pain or shortness of breath. She does not have a productive cough. She has no appetite. She complains of pain in the left lower quadrant that radiates down into her pelvis and into her back. She has been having pain and burning with urination. She denies passing any sediment or mucus when she urinates. She denies passing any air. She has had no bleeding or discharge from the vagina. No stool from the vagina. She reports that she has not been having a bowel movement for the last couple days. She is not been eating much either. She denies any nausea or vomiting. I did review her CT scan. Please see results in [facility] Review of Systems All systems reviewed & are unremarkable except as noted in HPI and below PFSH All Active Problems (Updated 09/17/23 @ 21:14 by Vidya Rose DO) Acute UTI (urinary tract infection) (Acute) Acute diverticulitis (Acute) Sigmoid diverticulitis (Acute ~09/2023) Right lower quadrant pain (Acute) Constipation (Chronic) Hypothyroidism (Chronic) Hyperlipidemia (Chronic) Major depressive disorder, recurrent (Chronic) Essential tremor (Chronic) Primary fibromyalgia syndrome (Chronic) GERD (gastroesophageal reflux disease) (Chronic) Hiatal hernia (Chronic) Memory loss (Chronic) Abnormal gait (Chronic) Recurrent falls (Chronic) Lumbar spondylosis (Chronic) Lumbar disc herniation with radiculopathy (Chronic) Chronic hip pain (Chronic) Diverticulosis of colon (Chronic) Medical History Chest pain Negative [facility] 02/2022 Vitamin D deficiency Migraine headache Prediabetes Vitamin B 12 deficiency Surgical History History of Chantel fundoplication H/O colonoscopy (07/20/12) History of esophagogastroduodenoscopy (EGD) (07/20/12) History of arthroplasty of right knee (04/21/18) History of arthroplasty of left knee (08/29/15) S/P right knee arthroscopy (04/24/17) With partial medial meniscectomy and limited medial femoral chondroplasty S/P left knee arthroscopy (08/29/15) S/P laparoscopic cholecystectomy (08/15/09) S/P hernia repair (05/07/09) paraesophageal hernia Family History Mother , At 74 Heart disease Thyroid dysfunction Type 2 diabetes mellitus Father , At 92 of [place] Heart disease Skin cancer Myocardial infarction Hypertension Sister Parkinsons disease Brother Heart disease Brother No problems noted. Daughter SLE (systemic lupus erythematosus) Depression Asthma Daughter Migraine headache Maternal Grandmother No problems noted. Maternal Grandmother No problems noted. Paternal Grandfather No problems noted. Paternal Grandfather No problems noted. Social History Smoking/Tobacco Use Status: Never Second Hand Exposure: Yes Smoking risk assessment performed?: Yes Alcohol Intake: former Drug use: Never Adopted: No Caregiver/Support person: No Foster care: No Housing: house Number of Children: 2 number of grandchildren: 0 Communication Needs: None Education Level: high school Do you need help understanding health information?: Rarely current occupation: Retired Pets and animals: Yes Pets and animals: dog(s) Sexually active: No Do you think of yourself as: straight/heterosexual Current gender identity: female How often do you talk on the phone with friends or family?: three or more times per week How often do you get together with friends or relatives?: once per week How often do you attend zoroastrianism or roman catholic services?: decline to answer Do you belong to any clubs or organized social groups?: no Panel score (0-1 are the most socially isolated patients): 1 Duration: 15-30 minutes/day Frequency: 1-2 times per week Alisha/Sabianism: No preference Special alisha needs: No Agree to transfusion: Yes Seatbelt use: always Helmet use: No Drive intox 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 Working smoke detector in home: Yes Carbon monox detector in home: Yes Firearms in home: No Do you feel safe at home: Yes Do you feel safe in your relationship?: Yes Victim of physical abuse: No Victim of emotional abuse: No Victim of sexual abuse: No Would you like helpful sources: No Female Reproductive History Menstrual Menopause type: natural History History 2 Para 2 Hx # Term Pregnancies Multiple births Hx # Pregnancies Ectopic pregnancies AB induced Hx Number of Living Children 2 AB spontaneous Meds Allergies and Home Medications Allergies Allergy/AdvReac Type Severity Reaction Status Date / Time duloxetine [From Cymbalta] AdvReac Intermediate Gait Verified 09/17/23 15:45 Imbalance gabapentin AdvReac Intermediate Gait Verified 09/17/23 15:45 Imbalance NSAIDS (Non-Steroidal AdvReac Intermediate epigastric Verified 09/17/23 15:45 Anti-Inflamma pain pregabalin [From Lyrica] AdvReac Intermediate depression; Verified 09/17/23 15:45 SI chloraprep Allergy Intermediate Skin Rash Uncoded 09/17/23 15:45 Home Medications Medication Instructions Recorded Confirmed Type cholecalciferol (vitamin D3) 25 2 tab PO DAILY #200 tab-caps 12/11/12 09/17/23 History mcg (1,000 unit) tablet multivitamin with [id number] 1 ea PO DAILY 12/11/12 09/17/23 History 400 mcg-120 mg tablet (Women's 50+ Daily Formula (with ginkgo)) acetaminophen 500 mg tablet 1,000 mg PO TID PRN 10/04/21 09/17/23 History propranolol 40 mg tablet 40 mg PO DAILY #90 tabs 09/04/23 09/17/23 Rx simvastatin 40 mg tablet 40 mg PO DAILY #90 tabs 09/04/23 09/17/23 Rx venlafaxine 150 mg 150 mg PO DAILY #90 caps 09/04/23 09/17/23 Rx capsule,extended release 24 hr venlafaxine 75 mg capsule,extended 75 mg PO DAILY #90 caps 09/04/23 09/17/23 Rx release 24 hr buspirone 15 mg tablet 15 mg PO BID #180 tabs 09/09/23 09/17/23 Rx omeprazole 20 mg capsule,delayed 20 mg PO BID #180 caps 09/09/23 09/17/23 Rx release levothyroxine 125 mcg tablet 125 mcg PO DAILY #90 tabs 09/16/23 09/17/23 Rx metronidazole 500 mg tablet 500 mg PO Q8H 09/17/23 09/17/23 History polyethylene glycol 3350 17 238 g PO ONCE colonoscopy prep 09/17/23 09/17/23 Rx gram/dose oral powder #238 grams sulfamethoxazole 800 1 tab PO BID 09/17/23 09/17/23 History mg-trimethoprim 160 mg tablet Exam Narrative Exam Narrative: PHYSICAL EXAM GENERAL APPEARANCE: Alert, healthy appearance, oriented, x 3,? in no acute distress HYDRATION: Well hydrated HEAD, EYES, EARS, NECK, THROAT: Head is normocephalic, pupils equal, round, reactive to light and accommodation, ocular movement intact, sclera clear and no jaundice. ?Dentition intact. . No thrush LUNGS: normal respiration/normal chest excursion. ?Clear to auscultation bilaterally. ?No wheeze. ?HEART: Regular rate and rhythm. no murmurs ABDOMEN: Mild distention. She does have bowel sounds. Pain in the left lower quadrant suprapubic and lower pelvis area. Results Imaging Abdomen CT scan report/results: report reviewed and image reviewed CT scan - pelvis: report reviewed and image reviewed Labs Labs: See labs in [facility] Last Vital Signs Temp 36.9 C 09/17/23 15:32 Pulse 89 09/17/23 15:32 Resp 16 09/17/23 15:32 BP 106/71 09/17/23 15:32 Pulse Ox 95 09/17/23 15:32 Time Spent Time spent with Patient: 55-74 minutes Time was spent: preparing to see the patient(eg.review tests), obtaining and/or reviewing separately otained hiistory, ordering medications,tests, procedures, referring, communicating with other health residential child care counselor, indepentently interpreting results, counseling the patient and care coordination
[2023-09-17 23:03] VITALS: BP 111/59; PULSE 63; RESP 17; TEMP 36.6; O2SAT 96
[2023-09-18] MEDS: PIPERACILLIN/TAZO 3.375 GM in Normal Saline 50 ML IVPB ×3 (01:02→13:42)
[2023-09-18] MEDS: DEXTROSE 5%-0.45% SALINE 1,000 ML 75 ML IV (03:41)
[2023-09-18] MEDS: Levothyroxine 125 MCG TAB PO (05:20)
[2023-09-18 07:17] LABS: Abs Immature Grans 0.01 10^3/uL (0.0-0.06); Absolute Basophil Count 0.04 10^3/uL (0.0-0.2); Absolute Eosinophil Count 0.15 10^3/uL (0.0-0.7); Absolute Lymphocyte Count 2.16 10^3/uL (1.2-3.4); Absolute Monocyte Count 0.67 10^3/uL (0.1-0.8); Absolute Neutrophil Count 4.46 10^3/uL (1.2-6.7); Basophils % 0.5; HCT 35.6 % (36.0-46.0); HGB 12.3 g/dL (11.2-15.7); Immature Grans % 0.1; Lymphocytes % 28.8; MCHC 34.6 % (32.0-36.0); MCV 93 fL (80-95); MPV 10.5 fL (8.0-11.0); Monocytes % 8.9; Neutrophils % 59.7; Platelet Count 277 10^3/uL (130-400); RBC 3.84 10^6/uL (3.93-5.22); RDW 13.2 % (11.7-14.6); RDW-SD 44.5 fL; WBC 7.49 10^3/uL (4.4-10.8)
[2023-09-18 07:36] VITALS: BP 123/69; PULSE 67; RESP 16; TEMP 36.6; O2SAT 94
[2023-09-18 07:44] LABS: C-Reactive Protein 4.97 mg/dL (<or=0.5)
[2023-09-18] MEDS: Venlafaxine 150 MG CAPCR PO (09:12)
[2023-09-18] MEDS: Propranolol 40 MG TAB PO (09:12)
[2023-09-18] MEDS: Venlafaxine 75 MG CAPCR PO (09:12)
[2023-09-18] MEDS: Normal Saline Flush 10 ML SYR IVP ×2 (09:13→13:52)
--- NOTE | 2023-09-18 09:52 | PGE_ITS ---
Date of Service Date of service: 09/18/23 Time of Service: 09:52 Assessment and Plan Assessment and plan (1) Acute diverticulitis: Status: Acute Assessment and plan: See labs Continue supportive care She is tolerating minimal clear fluids. We will get her up walking today and see how she does. Really think she should stay in the hospital I for IV antibiotics. Patient is insistent that she goes home. Patient was in her out walking in the hallway and if she cannot tolerate this then she definitely needs to stay today. She is tolerating clears. We will give her dose of MiraLAX for this. She is issues with chronic constipation and takes laxatives. She would go home on Augmentin and a liquid diet. Return to the ED of worsening of s/s, >3 stools a day, fevers,n/v,severe abdominal pain. This document was created with voice activated software and may contain errors. 20 mins spent with the patient today. Subjective Subjective Interval history since last seen: Pt is doing well. no headaches. No CP or SOB. no productive cough. no dysuria. no leg pain or swelling. She tolerated clears today. She did has patient Snay and required medication for this. She is not up walking in the hallways, because she is afraid she is going to have too much pain. She has only had a few twinges of pain. She has not moved her bowels since she has been in the hospital. She is urinating without any problems. Exam Narrative Exam Narrative: PHYSICAL EXAM GENERAL APPEARANCE: Alert, healthy appearance, oriented, x 3,? in no acute distress HYDRATION: Well hydrated HEAD, EYES, EARS, NECK, THROAT: Head is normocephalic, pupils equal, round, reactive to light and accommodation, ocular movement intact, sclera clear and no jaundice. ?Dentition intact. LUNGS: normal respiration/normal chest excursion. ?Clear to auscultation bilaterally. ?No wheeze. ?HEART: Regular rate and rhythm. no murmurs ABDOMEN: soft and mild tenderness in the left lower quadrant.? Normal bowel sounds.? GI Other: PHYSICAL EXAM GENERAL APPEARANCE: Alert, healthy appearance, oriented, x 3,? in no acute distress HYDRATION: Well hydrated HEAD, EYES, EARS, NECK, THROAT: Head is normocephalic, pupils equal, round, reactive to light and accommodation, ocular movement intact, sclera clear and no jaundice. ?Dentition intact. No sore throat.? No thrush LUNGS: normal respiration/normal chest excursion. ?Clear to auscultation bilaterally. ?No wheeze. ?HEART: Regular rate and rhythm. no murmurs EXTREMITY: No edema or cyanosis.? no leg pain, redness, swelling.? ABDOMEN: soft mild LLQ pain.? Normal bowel sounds.? Objective Last Vital Signs Temp 36.6 C 09/18/23 07:36 Pulse 67 09/18/23 07:36 Resp 16 09/18/23 07:36 BP 123/69 09/18/23 07:36 Pulse Ox 94 09/18/23 07:36 Laboratory Results - last 24 hr 09/18/23 06:27 WBC 7.49 RBC 3.84 L Hgb 12.3 Hct 35.6 L MCV 93 MCH 32.0 MCHC 34.6 RDW 13.2 Plt Count 277 MPV 10.5 Immature Gran % 0.1 Neutrophils % 59.7 Lymphocytes % 28.8 Monocytes % 8.9 Eosinophils % 2.0 Basophils % 0.5 Nucleated RBC % 0.0 Absolute Neutrophils 4.46 Absolute Lymphocytes 2.16 Absolute Monocytes 0.67 Absolute Eosinophils 0.15 Absolute Basophils 0.04 C-Reactive Protein 4.97 H Time Spent with Patient Time Spent with Patient: <25 minutes Time was spent: preparing to see the patient(eg.review tests), obtaining and/or reviewing separately otained hiistory, ordering medications,tests, procedures, referring, communicating with other health home health care provider, indepentently interpreting results, counseling the patient and care coordination
--- NOTE | 2023-09-18 09:55 | PDOC.CMIN ---
Date of service: 09/18/23 Time of Service: 09:56 Care Management Initial Assmt Initial Assessment REASON FOR HOSPITALIZATION:: Diverticulitis PREVIOUS FUNCTIONAL STATUS/SOCIAL/FAMILY SUPPORTS:: Celeste lives in [place] and her 98 year old aunt lives with her and her Pug Kiko. Celeste has two daughters, Rula and Phyllis, who live locally and are helpful and supportive of her needs. She also has a sister Evelia who lives in [place]. Celeste is very active and independent at baseline. She does her own grocery shopping, visits Evelia and Phyllis, plays cribbage at the [employer] in [place], and continues to drive. CURRENT FUNCTIONAL STATUS:: Celeste was sitting up in bed when CM met with her. She was pleasant and engaged easily with CM. Celeste informed CM that she is being discharged this afternoon. She will need to remain on a liquid diet for the next couple of days but stated that she is tolerating liquids well. Celeste is anxious to get home as her elderly aunt lives with her. Although her aunt is quite independent, it would be best if she were not left alone for extended periods of time. Celeste denied the need for any new services and shared that her daughter Phyllis will drive her home. ADVANCE DIRECTIVES:: none on file Has patient been provided with info about the portal/API?: Yes Did the patient sign up for the portal?: No CODE STATUS:: Full Code INSURANCE COVERAGE / FINANCIAL ISSUES:: [employer] [facility] CURRENT HOME/COMMUNITY SERVICES/EQUIPMENT:: home health PT and OT PRIMARY CARE PHYSICIAN:: Tiarra Hoover POTENTIAL DISCHARGE NEEDS:: follow up with PCP and plan of care PATIENT/FAMILY EDUCATION NEEDS:: Review of discharge instructions, activity, follow up plan, limitations, discuss Ask Me Three TRANSPORTATION:: via private vehicle with family PLAN:: Anticipate Celeste will be discharged home with a resumption of home health services for PT and OT. She will follow up with her community providers and plan of care ad transport with family. PFSH All Active Problems (Updated 09/17/23 @ 21:14 by Vidya Rose DO) Acute UTI (urinary tract infection) (Acute) Acute diverticulitis (Acute) Sigmoid diverticulitis (Acute ~09/2023) Right lower quadrant pain (Acute) Constipation (Chronic) Hypothyroidism (Chronic) Hyperlipidemia (Chronic) Major depressive disorder, recurrent (Chronic) Essential tremor (Chronic) Primary fibromyalgia syndrome (Chronic) GERD (gastroesophageal reflux disease) (Chronic) Hiatal hernia (Chronic) Memory loss (Chronic) Abnormal gait (Chronic) Recurrent falls (Chronic) Lumbar spondylosis (Chronic) Lumbar disc herniation with radiculopathy (Chronic) Chronic hip pain (Chronic) Diverticulosis of colon (Chronic) Medical History Chest pain Negative [facility] 02/2022 Vitamin D deficiency Migraine headache Prediabetes Vitamin B 12 deficiency Surgical History History of Chantel fundoplication H/O colonoscopy (07/20/12) History of esophagogastroduodenoscopy (EGD) (07/20/12) History of arthroplasty of right knee (04/21/18) History of arthroplasty of left knee (08/29/15) S/P right knee arthroscopy (04/24/17) With partial medial meniscectomy and limited medial femoral chondroplasty S/P left knee arthroscopy (08/29/15) S/P laparoscopic cholecystectomy (08/15/09) S/P hernia repair (05/07/09) paraesophageal hernia Family History Mother , At 74 Heart disease Thyroid dysfunction Type 2 diabetes mellitus Father , At 92 of [place] Heart disease Skin cancer Myocardial infarction Hypertension Sister Parkinsons disease Brother Heart disease Brother No problems noted. Daughter SLE (systemic lupus erythematosus) Depression Asthma Daughter Migraine headache Maternal Grandmother No problems noted. Maternal Grandmother No problems noted. Paternal Grandfather No problems noted. Paternal Grandfather No problems noted. Social History Smoking/Tobacco Use Status: Never Second Hand Exposure: Yes Smoking risk assessment performed?: Yes Alcohol Intake: former Drug use: Never Adopted: No Caregiver/Support person: No Foster care: No Housing: house Number of Children: 2 number of grandchildren: 0 Communication Needs: None Education Level: high school Do you need help understanding health information?: Rarely current occupation: Retired Pets and animals: Yes Pets and animals: dog(s) Sexually active: No Do you think of yourself as: straight/heterosexual Current gender identity: female How often do you talk on the phone with friends or family?: three or more times per week How often do you get together with friends or relatives?: once per week How often do you attend samaritan or protestant services?: decline to answer Do you belong to any clubs or organized social groups?: no Panel score (0-1 are the most socially isolated patients): 1 Duration: 15-30 minutes/day Frequency: 1-2 times per week Alisha/Judaism: No preference Special alisha needs: No Agree to transfusion: Yes Seatbelt use: always Helmet use: No Drive intox or ride w/intox 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 Working smoke detector in home: Yes Carbon monox detector in home: Yes Firearms in home: No Do you feel safe at home: Yes Do you feel safe in your relationship?: Yes Victim of physical abuse: No Victim of emotional abuse: No Victim of sexual abuse: No Would you like helpful sources: No Female Reproductive History Menstrual Menopause type: natural History History 2 Para 2 Hx # Term Pregnancies Multiple births Hx # Pregnancies Ectopic pregnancies AB induced Hx Number of Living Children 2 AB spontaneous SDOH(Care Management) Screening Will the Patient Participate in the Screening?: Yes Do you worry about having a steady place to live?: no In the past 12 months, have you had to go without electric, gas, oil or water in your home?: no Have you or anyone in your house had to go without enough food to eat?: no Has lack of transportation kept you from medical appointments or from doing things needed for daily living?: no Has anyone in your support network made you feel unsafe for any reason?: no
[2023-09-18] MEDS: Polyethylene Glycol 3350 17 GM PACKET PO (10:45)
--- NOTE | 2023-09-18 13:21 | DSE_ITS ---
Date of service: 09/18/23 Time of Service: 13:22 DS: Diagnosis Discharge Diagnosis (1) Acute diverticulitis: Status: Acute Discharge Plan Disposition Patient Disposition: Home Condition: Improving Discharge Details Reason For Visit: Acute divertiuclitis/UIT Admit Date/Time: 09/17/23 13:04 Admit Provider: Vidya Rose Attending Provider: Vidya Rose Primary Care Provider: [facility] Course Hospital Course: see addendum Home Meds and New Rx's Prescriptions: New amoxicillin-pot clavulanate 875-125 mg tablet 1 tab PO Q12H 7 Days Qty: 14 0RF polyethylene glycol 3350 [Miralax] 17 gram/dose powder 17 g PO DAILY Qty: 238 0RF Rx Instructions: If you do not have a bowel movement during the day, you can take an extra dose at bedtime. Continued acetaminophen 500 mg tablet 1,000 mg PO TID PRN metronidazole 500 mg tablet 500 mg PO Q8H Rx Instructions: 10 days cholecalciferol (vitamin D3) 1,000 UNIT tablet 2 tab PO DAILY Qty: 200 Rx Instructions: 2000 IU DAILY Women's 50+ Daily Form (gkb) 1 EACH tablet 1 ea PO DAILY propranolol 40 mg tablet 40 mg PO DAILY Qty: 90 3RF Rx Instructions: Take 1 tab once a day simvastatin 40 mg tablet 40 mg PO DAILY Qty: 90 3RF venlafaxine 150 mg capsule,extended release 24hr 150 mg PO DAILY Qty: 90 3RF Rx Instructions: Take 1 daily in addition to the 75mg dose venlafaxine 75 mg capsule,extended release 24hr 75 mg PO DAILY Qty: 90 3RF Rx Instructions: Take 1 daily in addition to the 150mg dose buspirone 15 mg tablet 15 mg PO BID Qty: 180 3RF Rx Instructions: Take 1 tablet twice a day omeprazole 20 mg capsule,delayed release(DR/EC) 20 mg PO BID Qty: 180 3RF levothyroxine 125 mcg tablet 125 mcg PO DAILY Qty: 90 3RF Discontinued polyethylene glycol 3350 17 gram/dose powder 238 g PO ONCE Qty: 238 0RF Rx Instructions: take per colonoscopy instructions sulfamethoxazole-trimethoprim 800-160 mg tablet 1 tab PO BID Discharge Instructions Additional Instructions: -No driving for 24 hrs [facility] Surgery Clinic: [phone] -Follow-up with Dr. Rose next 09/23 @ 2pm - liquids for Thursday and Thursday. Thursday transition to a soft diet- see below -soft diet: No beef/pork raw vegetables x1 -week. Cooked vegetables are fine -no straining to move bowels - if you do not move your bowels daily take a dose of OTC Miralax . You may find that your appetite is smaller. Eat 3-6 small meals throughout the day. It is important to drink lots of water after surgery, 6-10 glasses a day. -If you were given an incentive spirometry (breathing lockstitch pocket setter?), continue to do this 10x/hour while awake. -We do want you up walking, at least 5-6 times per day. This is very important to prevent pneumonia and blood clots. You can climb stairs, take them slowly. -No lifting over 5 pounds. . -You may find that you are very tired after surgery- this is normal. -please do not smoke for a minimum of 72 hours -Finish all your antibiotics as directed. Yogurts daily while on antibiotics. DIVERTICULAR DISEASE OVERVIEW???A diverticulum is a pouch-like structure that can form through points of weakness in the muscular wall of the colon (ie, at points where blood vessels pass through the wall). Diverticulosis affects men and women equally. The risk of diverticular disease increases with age. It occurs throughout the world but is seen more commonly in developed countries. WHAT IS DIVERTICULAR DISEASE? Diverticulosis???Diverticulosis merely describes the presence of diverticula. Diverticulosis is often found during a test done for other reasons, such as flexible sigmoidoscopy, colonoscopy, or barium enema. Most people with diverticulosis have no symptoms and will remain symptom free for the rest of their lives. A person with diverticulosis may have diverticulitis, or diverticular bleeding. Diverticulitis???Inflammation of a diverticulum (diverticulitis) occurs when there is thinning and breakdown of the diverticular wall. This may be caused by increased pressure within the colon or by hardened particles of stool, which can become lodged within the diverticulum. The symptoms of diverticulitis depend upon the degree of inflammation present. The most common symptom is pain in the left lower abdomen. Other symptoms can include nausea and vomiting, constipation, diarrhea, and urinary symptoms such as pain or burning when urinating or the frequent need to urinate. Diverticulitis is divided into simple and complicated forms. ?Simple diverticulitis, which accounts for 75 percent of cases, is not associated with complications and typically responds to medical treatment without surgery. ?Complicated diverticulitis occurs in 25 percent of cases and usually requires surgery. Complications associated with diverticulitis can include the following: ?Abscess ? a localized collection of pus ?Fistula ? an abnormal tract between two areas that are not normally connected (eg, bowel and bladder) ?Obstruction ? a blockage of the colon ?Peritonitis ? infection involving the space around the abdominal organ ?Sepsis ? overwhelming body-wide infection that can lead to failure of multiple organs Diverticular bleeding???Diverticular bleeding occurs when a small artery located within a diverticulum is eroded and bleeds into the colon. Diverticular bleeding usually causes painless bleeding from the rectum. In approximately 50 percent of cases, the person will see maroon or bright red blood with bowel movements. Is bleeding with a bowel movement normal?It is not normal to see blood in a bowel movement; this can be a sign of several conditions, most of which are not serious (eg, hemorrhoids) but some of which are serious and require immediate treatment. Anyone who sees blood after a bowel movement should consult with their healthcare provider to determine if further testing or evaluation is needed. DIVERTICULOSIS AND DIVERTICULITIS DIAGNOSIS???Diverticulosis is often found during tests performed for other reasons. ?Barium?enema ? This is an x-ray study that uses barium in an enema to view the outline of the lower intestinal tract. This is an older test and has been largely replaced by computed tomography (CT) scan. ?Flexible sigmoidoscopy ? This is an examination of the inside of the sigmoid colon with a thin, flexible tube that contains a camera. ?Colonoscopy ? This is an examination of the inside of the entire colon. ?CT scan ? A CT scan is often used to diagnose diverticulitis and its complications. If diverticulitis (not just diverticulosis) is suspected, the above three tests should not be used because of the risk of perforation. TREATMENT Diverticulosis???People with diverticulosis who do not have symptoms do not require treatment. However, most clinicians recommend increasing fiber in the diet, which can help to bulk the stools and possibly prevent the development of new diverticula, diverticulitis, or diverticular bleeding. Fiber is not proven to prevent these conditions in all patients but may help to control recurrent episodes in some. Increase fiber???Fruits and vegetables are a good source of fiber.? Fiber content of packaged foods can be calculated by reading the nutrition label. Seeds and nuts???Patients with diverticular disease have historically been advised to avoid whole pieces of fiber (such as seeds, corn, and nuts) because of concern that these foods could cause an episode of diverticulitis. However, this belief is completely unproven. We do not suggest that patients with diverticulosis avoid seeds, corn, or nuts. Diverticulitis???Treatment of diverticulitis depends upon how severe your symptoms are. Home treatment???If you have mild symptoms of diverticulitis (mild abdominal pain, usually left lower abdomen), you can be treated at home with a clear liquid diet and oral antibiotics. However, if you develop one or more of the following signs or symptoms, you should seek immediate medical attention: ?Temperature >100.1?F (38?C) ?Worsening or severe abdominal pain ?An inability to tolerate fluids Hospital treatment???If you have moderate to severe symptoms, you may be hospitalized for treatment. During this time, you are not allowed to eat or drink; antibiotics and fluids are given into a vein. If you develop an abscess of the colon, you may require drainage of the abscess (usually performed by placing a drainage tube across the abdominal wall) or by surgically opening the affected area. Surgery???If you develop a generalized infection in the abdomen (peritonitis), you will usually require an emergency operation. A two-part operation may be necessary in some cases. ?The first operation involves removal of the diseased colon and creation of a colostomy. A colostomy is an opening between the colon and the skin, where a bag is attached to collect waste from the intestine. The lower end of the colon is temporarily sewed closed to allow it to heal. ?Approximately three to six months later, a second operation is performed to reconnect the two parts of the colon and close the opening in the skin. You are then able to empty your bowels through the rectum. Sometimes patients require up to a year to recover from the first operation, depending on how sick they were. In non-emergency situations, the diseased area of the colon can be removed and the two ends of the colon can be reconnected in one operation, without the need for a colostomy. Surgery versus medical therapy???An operation to remove the diseased area of the colon may be necessary if you do not improve with medical therapy. After an episode of uncomplicated diverticulitis, elective surgery is generally not required as the risk of another attack or requiring emergency surgery is low. However, patients with persistent symptoms attributable to diverticulitis, a history of complicated diverticulitis, or a compromised immune system should be evaluated for possible surgery to prevent another attack. In such patients, another attack has been associated with a higher risk of complications or . Of course, the decision will also depend in part upon your other medical conditions and ability to undergo surgery. In many cases, an elective operation can be performed laparoscopically, using small incisions, rather than the typical vertical (up and down) abdominal incision. Laparoscopic surgery usually allows you to recover more quickly and shortens the hospital stay. After diverticulitis resolves???After an episode of diverticulitis resolves, if you have not had a recent colonoscopy, the entire length of the colon should be evaluated to determine the extent of disease and to rule out the presence of abnormal lesions such as polyps or cancer. Recommended tests include colonoscopy, barium enema and sigmoidoscopy, or CT colonography. Diverticular bleeding???Most cases of diverticular bleeding resolve on their own. However, some people will need further testing or treatment to stop bleeding, which may include a colonoscopy, angiography (a treatment that blocks off the bleeding artery), bleeding scan, or surgery. DIVERTICULAR DISEASE PROGNOSIS Diverticulosis???Over time, diverticulosis may cause no problems or it may cause episodes of bleeding and/or diverticulitis. Approximately 15 to 25 percent of people with diverticulosis will develop diverticulitis, while 5 to 15 percent will develop diverticular bleeding. Diverticulitis???Approximately 85 percent of people with uncomplicated diverticulitis will respond to medical treatment, while approximately 15 percent of patients will need an operation. After successful treatment for a first attack of diverticulitis, one-third of patients will remain asymptomatic, one- third will have episodic cramps without diverticulitis, and one-third will go on to have a second attack of diverticulitis. The prognosis tends to remain similar following a second attack of diverticulitis. Only 10 percent of people remain symptom-free after a second attack. Subsequent attacks tend to be of similar severity, not increasing in severity as previously believed. High Fiber Diet What is Dietary Fiber? All fiber comes from plants, bushes, sheba or trees.? Of course, the ones that we eat provide us with fruits, vegetables and grains.? There are many different types of fiber but the three that are most important to the health of the body are: Insoluble Fiber This fiber does not dissolve in water, nor is it fermented by the bacteria residing in the colon.? Rather, it retains water and in so doing, helps to promote a larger, bulkier and more regular bowel activity.? This, in turn, may be important in preventing disorder such as diverticulosis and hemorrhoids, and in sweeping out certain toxins and cancer causing carcinogens.? Sources of insoluble fiber are: ? whole grain wheat and other whole grains ? corn bran, including popcorn, unflavored and unsweetened ? nuts and seeds ? potatoes and the skins from most fruits from trees such as apples, bananas and avocados ? many green vegetables such as green beans, zucchini, celery and cauliflower ? some fruit plants such as tomatoes and kiwi Soluble Fiber These fibers are fermented or used by the colon bacteria as a food source or nourishment.? When these good bacteria grow and thrive, many health benefits occur in both the colon and the body.? Soluble fiber is present in some degree in most edible plant foods, but the ones with the most soluble fiber include: ? legumes such as peas and most beans, including soybeans ? oats, rye and barley ? many fruits such as berries, plums, apples bananas and pears ? certain vegetables such as broccoli and carrots ? most root vegetables ? psyllium husk supplement products Benefits of a High Fiber Diet The health benefits of a high fiber diet, consumed on a regular basis and reaching recommended amounts (below), are now fairly well-defined. There are some additional benefits in the early research stage with the prebiotic soluble fibers. What is now known regarding a high fiber diet include: Bowel Regularity A high fiber diet promotes regularity with a softer, bulkier and regular stool pattern. This decreases the chance of hemorrhoids, diverticulosis and perhaps colon cancer. Cholesterol and Reduced Triglycerides The soluble fibers are the ones that will reduce cholesterol levels when used on a regular basis. Psyllium husk and prebiotic soluble fiber will also reduce cholesterol. They may also reduce the incidence of coronary heart disease. Oats, flax seeds and legumes or beans are the recommended fibers. Colon Polyps and Cancer It is still not certain if a high fiber diet helps prevent colon cancer. Considerable research suggests that this may occur. Certainly it makes sense to increase regularity and so speed the movement of cancer causing carcinogens through the bowel. In addition, reducing a heavy meat diet reduces the bile flow from the liver in a favorable way. This, too, reduces the amount of carcinogens that reach and are manufactured in the colon. Finally, a high fiber diet, including prebiotic soluble fiber, increases the integrity and health of the wall of the colon. The risk of cancer may be reduced. Colon Wall Integrity A high fiber diet changes the bacterial makeup of the colon toward a more favorable balance. For instance, it is known that those people with obesity, diabetes type 2 and inflammatory bowel disease have a predominance of bad bacteria in the colon. This, in turn, may render the bowel wall weak and allow bacteria and, indeed, even toxins to seep through. A high fiber diet with a modest reduction in animal and meat products may return the bacterial makeup to a more positive balance. This, in particular, has been seen when the soluble fiber prebiotics are added to the diet. Blood Sugar Soluble fiber such as in legumes (beans), oats and in prebiotic fibers slows the absorption of blood sugar and so helps regulate the sugar in the blood. Insoluble fiber on a regular basis is associated with reduced risk of type 2 diabetes. Weight Loss High fiber diets are more filling and give a sense of fullness sooner than an animal and meat based diet does. In addition, the soluble prebiotic fibers have been shown to turn off the hunger hormones produced in the wall of the gut and to increase the hormones that give a sense of fullness. Those hormones are made in the wall of the gut. New medical research has shown that the bacterial makeup in the colon in overweight people is abnormal to the extent that they manufacture and absorb almost twice the number of calories through the colon wall as do normals. Prebiotic fibers (below) will help change this hormonal balancein a favorable way. Bacteria and the Function of the Colon The colon finishes the digestive process. Hopefully, the waste products move through in a nice regular manner. Insoluble fibers help this process by retaining water and so producing a bulkier, softer stool, which is easy to pass. The additional role of the colon is to provide a home for an enormous number of micro-organisms, mostly bacteria. Recent research has shown that there are over 1,000 species of bacteria with a total bacterial count ten times the number of cells in the body. These bacteria play a major role in keeping the colon wall itself healthy. In addition, these good bacteria produce a very strong immune system for the body. They significantly increase calcium absorption and bone density. They provide other documented benefits. It is the soluble fibers in the diet that are so effective in stimulating the growth of good colon bacteria. How Much is Enough? The amount of fiber in food is measured in grams.? National nutritional authorities recommend the following amounts of dietary fiber daily. Under Age 50? Over Age 50 Men? 38 grams? 30 grams Women??? 25 grams? 21 grams For a week or so, it is best to tally the amount of fiber you are consuming.? Boxed and packaged foods will have the amount of fiber per serving on the nutrition label. Which Fibers and Which Foods are Best? As noted, healthy fiber is only found in plants. The three major categories are whole grains, fruits and vegetables. Whole Grains Wheat, oats, barley, wild or brown rice, amaranth, buckwheat, bulgur, corn, millet, quinoa, rye, sorghum, teff and triticals. By far, wheat, oats and wild or brown rice are most common. Always buy whole grain products. White bread, baked goods and rolls almost always are made from wheat flour. Wheat flour is white because most of the fiber, vitamins and other nutrients have been removed. Try not buy enriched grains. What this means is that simple white flour has had vitamins added to it by the siderographer. The word, enriched, implies a good and healthy product. On the contrary, enriched means that most of the fiber has been removed and a few vitamins added. Fruits Fruits come from trees such as apple and pear or from bushes or sheba. You should eat a wide variety of fruits, preferably with every meal. In many cases, the skin of a fruit such as apple will contain much of the insoluble fiber while the pulp contains most of the soluble fiber. To the extent possible, buy organic fruits as these will have little or no pesticides. Always wash fruit. Vegetables Eat a wide variety of vegetables. They should be a mainstay of lunch and dinners. Frozen vegetables retain as much nutrition and fiber as fresh vegetables. As with fruit, try to buy organic to reduce any residual pesticide ingestion. Wash fresh vegetables thoroughly. Cruciferous vegetables such as broccoli, [place] sprouts and cauliflower contain certain chemicals such as sulforaphane. This substance has very strong anti-cancer properties and should be eaten frequently. Legumes, Beans, Peas and Soybeans These vegetables have plenty of soluble fiber and should be part of a varied vegetable intake. Beans, in particular, contain a certain type of fiber that may lead to harmless gas or bloating. Nuts and Seeds These are rich sources of fiber and are a good substitute for sweets such as candies and baked sweet goods. While nuts and seeds are rich in fiber, they also contain vegetable fat and so can and do add calories. Read the Labels As noted, fresh and frozen foods are usually better.? They have good nutrition and few, if any, chemicals added to them.? When buying packaged foods and, in particular grains, look for three things: ? The first word on the label should be whole, such as whole wheat or whole grain. ? Check out the calories and the amount of fiber in a serving. ? How many and what other additives or chemicals are added.? Fewer is always better.? Do you know what each additive does?? Some are added not for the benefit of the fur buyer but rather for manufacturers.? These could and do include sugar, artificial flavor, chemicals to prevent oxidation and spoilage, emulsifiers to blend the product.? You have to be a sawmill worker. Fiber Facts, Nuggets and Pearls ? For breakfast you can easily get the day started well by using a high fiber, whole grain cereal.? Check the labels.? Add fruit such as blueberries and bananas.? If you are an egg eater, use whole wheat or grain toast.? Adding w heat germ gives you a good fiber kick. ? Always use whole grain or wheat with rolls and sandwiches.? Does your fast food store not have them?? Perhaps you look elsewhere.? Eating an occasional black asher or veggie burger provides variety. ? Snacks should consist of fruit and/or nuts.? While nuts are loaded with fiber, they are an energy rich food, meaning they have a lot of calories in a small packet. ? Fruit juices should contain pulp.? Clear juices such as clear orange, pear or apple juice contain little fiber and have a lot of fructose.? Prune juice is usually high in fiber. ? Homemade soups ? adding fresh or frozen vegetables to a chicken or vegetable stock is a good way to start homemade soup. ? Salads ? adding cooked and then chilled vegetables provide great flavoring to almost any salad.? Remember, a krishna salad has lots of cooked corn in it.? Small slices of apples or oranges and nuts such as chopped walnuts or sliced almonds always adds taste, variety and fiber to almost any salad. ? Fruit ? Try to eat fruit of some type with almost every meal. ? Rethink how you place the various foods on your dinner plate.? Reducing the portions of the meat or animal food portion to the side with equal or more portions of vegetables, legumes and fruits portion always allows for more fiber.? There was never anything magic about making the meat or animal food portion the main part of the dinner plate.? Eating from smaller plates can, over time, trick your mind and oil heaterman habit of using a dinner plate.? Again, there is nothing magic in an 11, 12, or 13 inch dinner plate. Fiber Supplements There are a variety of fiber supplements available on the food or pharmacy shelves. Psyllium This soluble plant fiber has been used in [place] for over 2,000 years. It is a soluble fiber with mucilage in it. This acts to retain a lot of water and also is fermented by colon bacteria. When 7 grams a day are used, it does lower cholesterol. Metamucil in various forms is psyllium. Methyl Cellulose All the cellulose products come from finely ground wood chips which are then treated in a variety of ways such as boiling in acids. Methyl cellulose is an insoluble fiber which does dissolve in water. It is also an emulsifier, meaning it blends oils and water. Citrucel is methyl cellulose (MC). MC may not be appropriate for Crohn?s disease or ulcerative colitis as several medical studies have shown that certain emulsifiers dissolve the mucous lining of the colon in animals prone to Crohn?s disease. This then allows bacteria to invade the underlying tissue. Fiber and Gas Everyone has intestinal gas and that is a good thing.? It means that bacteria, hopefully the good ones, are thriving.? The normal amount of flatus passed each day depends on sex and what is eaten.? The normal number of flatus is 10-20 times a day.? When the bacteria that make intestinal gases are growing, it also means that other good bacteria are using the same fibers to grow and produce multiple health benefits, including the production of healthy short-chain fatty acids.? These substances are produced quietly in the colon and produce many health-related outcomes. Soluble fiber should always be used in a gradual manner.? If too much is consumed at any one time, then excess, but harmless, intestinal gas can occur.? People with irritable bowel syndrome are particularly prone to bloating and mild cramping.? In this instance, soluble fiber in the diet or supplement should be used in small doses and increased gradually. Finally, prebiotic fibers tend to cause the production of short-chain fatty acids which acidify the colon.? This, in turn, reduces or stops the growth of bacteria that make the smelly hydrogen sulfide gases that produce noxious flatus.? People who consume many vegetables with prebiotics or take a prebiotic fiber supplement often have non-odoriferous flatus. Fiber and Irritable Bowel Syndrome Irritable bowel syndrome (IBS) is one of the most common disorders of the lower digestive tract.? The symptoms of IBS can be quite varied.? They can be a mix of several symptoms such as constipation, diarrhea, crampy abdominal discomfort, bloating and gas.? An attack of IBS can be triggered by emotional tension and anxiety, poor dietary habits and certain medications.? It is now known that infections in the intestine can lead to long-term IBS symptoms.? Increased amounts of fiber in the diet can help relieve the symptoms of irritable bowel syndrome by producing soft, bulky stools.? This helps to normalize the time it takes for the stool to pass through the colon.? Recent medical research with newer techniques has shown some surprising and dramatic findings for IBS patients.? Specifically, there is a very significant and abnormal shift of bacteria from those that provide health benefits to those bad bacteria that we really do not want in the gut.? The technical name for this bad group of bacteria is called Firmicutes.? Along with this abnormal bacterial collection, there is a smoldering low-grade inflammation in the gut wall that may contribute to symptoms.? The goal for IBS patients should be to gradually increase the soluble dietary fibers in the diet so as to promote the growth of good bacteria and so suppress the bad ones along with the associated inflammation. IBS patients need to be careful of the amount of soluble fiber they consume.? The reason for this is that, while the good colon bacteria thrive on these fibers and produce health benefits, other gas-forming bacteria may generate excessive but harmless gas and subsequent bloating.? Thus, soluble plant fibers or a dietary prebiotic supplement should be taken in small initial doses and then gradually increased to tolerance. Fiber and Colon Polyps/Cancer Colon cancer is a major health problem. This disease is most common in Western cultures. It is not seen very often in rural cultures where the diet is mostly plant based. Usually, colon cancer starts out as a colon polyp, a benign mushroom-shaped growth. In time it grows, and in some people it becomes cancerous. Colon cancer is usually always curable if polyps are removed when found or if surgery is performed at an early stage. It is now known that people can inherit the risk of developing colon cancer, but diet is important, too. As noted, there is a very low rate of colon cancer in residents of countries where grains are unprocessed and retain their fiber. It seems that in the Western world, cancer-containing agents (carcinogens) remain in contact with the colon wall for a longer time and in higher concentrations. So, a large bulky stool may act to dilute these carcinogens by moving them through the bowel more quickly. Less carcinogenic exposure to the colon may mean fewer colon polyps and less cancer. A very current review of the entire world?s literature on the effect of fiber on colon polyps and cancer prevention has shown rather clearly that for every 10 grams of fiber added to the diet, there is a 10% reduction in incidence of colon cancer. So the recommended 30 gram fiber diet would result in a 30% less chance of getting these tumors. There are also substances produced in the colon by the good bacteria that seem to retard certain pre-cancer factors from developing. They are called short- chain fatty acids (SCFA). See above for description of SCFAs. A high fiber diet increases these substances. So, the combination of dietary fiber and the production of short-chain fatty acids have a clear health benefit. Fiber and Diverticulosis Prolonged, vigorous contraction of the colon over a long period of time may result in diverticulosis.? This increased pressure causes small and, eventually, larger ballooning pockets to form.? These pockets by themselves cause no problem.? However, sometimes they become infected (diverticulitis) or even break open (perforate) causing infection or inflammation within the abdomen (peritonitis).? A high fiber diet increases the bulk in the stool and thereby reduces the pressure within the colon.? By so doing, the formation of pockets may be reduced or possibly even stopped. In the past, many physicians were fearful that seeds as in tomatoes, nuts or berries were harmful and could get inside these pockets and rattle around, causing damage. We now know that this has never been the case and that these foods contain lots of fiber and are actually beneficial for diverticulosis patients. Certain bulking agents such as psyllium are traditional types of bulk producing supplements.? Psyllium is a soluble fiber.? Combining it with insoluble fiber as in wheat bran or corn bran (no gluten) can enhance this bulking effect even more.? A product containing a prebiotic, psyllium and wheat bran is probably a very good combination for bowel regularity. Prebiotin https://www.prebiotin.com/ Regularity/Diverticulosis is one such product. Starting a Fiber Supplement ?When consumed at recommended levels,?dietary fiber 21 ?is widely recognized to have health benefits, including relief of?constipation vlad=national& . Adult women 50 and younger should consume at least 25 grams of fiber a day. Women 51 and older should have at least 21 grams a day. Adult men need at least 38 grams of fiber a day if they are younger than 50 and at least 30 grams of fiber a day if they are 51 and older. Ninety percent of the [place] population consumes far below those recommendations, averaging only 15 grams of daily fiber. Fiber-rich foods include fruits, vegetables, whole grains and legumes. Many cereals, such as bran flakes, are good sources of fiber. Although fiber supplements can fill the daily fiber gap, they usually have only one type of fiber, rather than a variety of fibers and micronutrients, and they may not provide all the health benefits associated with fiber in food. Therefore, boost your fiber intake in your diet first by eating a wide variety of high-fiber foods. If you still can?t get enough fiber to meet the daily recommendation, consider using a supplement. Many fiber supplements can be used regularly nursing home. Fiber is classified as soluble or insoluble. Soluble fibers are more fermentable and may cause gas. Insoluble fibers move through the digestive system largely intact, and that can increase stool bulk. Most fiber supplements are exclusively soluble or insoluble fiber. For example, FiberCon (calcium polycarbophil) and Benefiber (wheat dextrin) are mainly soluble fiber. They tend to cause more bloating and flatulence. Citrucel (methylcellulose) is mainly insoluble fibers that are nonfermentable, so it?s less likely to contribute to bloating and gas. Psyllium husk (Metamucil and Konsyl) is rich in both soluble and insoluble fiber. Generally, fiber supplements with mainly insoluble fiber may be a better option for constipation. Before taking a fiber supplement, ask your health care provider or pharmacist to review your medications. Fiber supplements can decrease the absorption of certain medications, including drugs that treat thyroid disorders,?,?diabetes h ,?high cholesterol 1 ,?seizures ?and various heart ailments. Even common medications such as aspirin, ibuprofen and penicillin can be affected by an increase in fiber. You may take your medications one hour before or two hours after eating fiber to minimize the interaction. Some fiber supplements may not be appropriate for people with certain medical conditions. For example, if you have celiac disease, you may need to stay away from fiber products derived from wheat. If you have diabetes, you may need to use a flavorless formula to avoid extra sugar. Consult your health care provider for guidance about the appropriate fiber supplement. Go slow as you begin fiber therapy. Fiber supplements may cause abdominal bloating, cramping and flatulence, especially if you start at a high dose. Begin with a low dose, gradually increasing the amount of fiber. Don?t add more than 50 grams of fiber in a supplement per day, as that may affect how your body absorbs nutrients. Your health care provider can help determine what?s right for you. Drinking plenty of water and exercising regularly can help ease constipation, too. If increasing fiber doesn?t improve your symptoms, see your health care provider. Constipation can be a symptom of various underlying medical disorders, such as pelvic floor muscle dysfunction, slow gastrointestinal motility, anatomical abnormalities or endocrine dysfunction that may require different treatment.? Gastrointestinal Soft Diet Overview Overview What is a gastrointestinal soft diet? This diet is soft in texture, low in fiber, and easy to digest. The goal is to decrease) [email or web address]/gas ?in the bowel that may cause and discomfort. This diet is often used after abdominal surgery or as a transitional diet after flares. Meats & Meat Substitutes ?? Foods Allowed: Chicken, turkey, fish, tender cuts of beef and pork, ground meats, eggs, creamy nut butters, tofu, skinless hot dogs, sausage patties without whole spices ?? Foods to Avoid : Tough, fibrous meats with gristle, meat with casings (hot dogs, sausage, kielbasa), lunch meats with whole spices, shellfish, beans, chunky peanut butter, nuts Fruits and Juices ?? Foods Allowed: Fruit juices without pulp, banana, avocado, applesauce, canned peaches and pears, cooked fruit without the skin/seeds.? Ground or over- cooked fruits.? Fruits ground finely in a ?smoothie?. ?? Foods to Avoid: Juices with pulp, fresh fruit (except banana and avocado), dried fruits, canned fruit cocktail and pineapple, coconut, frozen/thawed berries Vegetables ?? Foods Allowed: Well-cooked or canned vegetables, potatoes without skin, tomato sauces, vegetable juice ?? Foods to Avoid: Raw vegetables, all corn, all mushrooms, stewed tomatoes, potato skins, stir-jordan vegetables, sauerkraut, pickles, olives, all dried beans, peas, and legumes Cereals and Grains ?? Foods Allowed: Low- fiber dry or cooked cereals (less than 2 grams fiber per serving), white rice, pasta, macaroni, or noodles ?? Foods to Avoid: Cereals with nuts, berries, dried fruits, whole grain cereals, bran cereals, granola, brown or wild rice, whole grain pasta Breads and Crackers ?? Foods Allowed: White/refined breads and rolls, plain bagel, toast, plain crackers, eliane crackers ?? Foods to Avoid: Whole grain breads- including white whole grain; bread/ rolls with raisins, nuts or seeds, multi-grain crackers Dairy ?? Foods Allowed: Milk, cheese, yogurt, milkshakes, pudding, ice cream, cottage cheese, sherbet ;?lactose free or low lactose versions if lactose intolerant ?? Foods to Avoid: Dairy product mixed with fresh fruit (except banana), berries, nuts or seeds Desserts ?? Foods Allowed: Plain cake, pudding, custard, ice cream, sherbet, gelatin, fruit whips ?? Foods to Avoid: Any dessert that contains nuts, dried fruits, coconut, or fruits with seeds Herbs and Spices ?? Foods Allowed: All ground spices or herbs, salt ?? Foods to Avoid: Whole spices such as peppercorns, whole cloves, anise seeds, celery seeds, glenda, jose seeds, and fresh herbs Snacks/Other Foods ?? Foods Allowed: Sugar, honey, jelly, mayonnaise, mustard, soy sauce, oil, butter, margarine, marshmallows, cookies without dried fruits or nuts, snack chips and pretzels using refined flours ?? Foods to Avoid: Carbonated beverages, jams or jellies with seeds, popcorn After several weeks, slowly start to reintroduce the ?Foods to Avoid? back into your diet unless your doctor has told you otherwise. Try a small portion of one of these foods each day. If it does not bother you within 24 hours, it can be added to your diet. Continue to add new foods in this way. Some people may continue to have food sensitivities and may need to continue to avoid certain foods. If you cannot tolerate a food, avoid that food for a few weeks before you try it again. Guidelines when eating 1.??? Avoid any food that you cannot tolerate or that causes gas, bloating, or stomach pain. 2.??? Make time for your meals. Do not eat while you are in a hurry. Cut your food into small pieces. Chew each bite to a mashed potato consistency. Do not eat when you cannot concentrate on chewing well. 3.??? Drink at least 6-8 cups of fluid per day? [email or web address]-dehydration Fluids include: water, coffee, tea, juice, milk, popsicles, soups, gelatin, pudding, ice cream, sherbet, and yogurt. In addition, choose caffeine-free beverages more often, especially if you are having?diarrhea. 4.??? A daily multivitamin may be recommended if diet is limited in amounts or variety of foods. Do not take any herbal supplements without first checking with your doctor. Activity:: see above Equipment/Supplies:: No Equipment Needed Diet:: see above DS: Summary Time Spent with Patient providing and/or coordinating discharge services: Greater than 30 minutes Status at Discharge Functional status at discharge: uses cane/walker Overall status at discharge: patient is progressing back to baseline Mental Status: mental status grossly normal Speech and Movement: speech and movement normal Mood: congruent mood Affect: normal affect Quality:SDOH Health Related Social Needs: No Data to Display Exam Psych Mental Status: mental status grossly normal Speech and Movement: speech and movement normal Mood: congruent mood Affect: normal affect DS: Data Vitals/I&O Vitals and I&O: Vital Signs Temperature 36.6 C 09/18/23 07:36 Temperature Source Tympanic 09/18/23 07:36 Pulse 67 09/18/23 07:36 Respiratory Rate 16 09/18/23 07:36 Respiratory Effort Normal, Non-Labored 09/18/23 01:16 Respiratory Depth Normal 09/18/23 01:16 Respiratory Pattern Normal 09/18/23 01:16 Blood Pressure 123/69 09/18/23 07:36 Pulse Oximetry 94 09/18/23 07:36 Oxygen Delivery Method Room Air 09/18/23 07:36 Oxygen Flow Rate 0 09/18/23 07:36 Pain Level 0 09/18/23 07:36 Intake & Output 09/17/23 09/18/23 09/18/23 23:59 11:59 23:59 Intake Total 100 / 100 1003.75 / 1003.75 Balance 100 / 100 1003.75 / 1003.75 Weight 69.541 kg 69.3 kg Intake: IV 100 / 100 1003.75 / 1003.75 Other: Urine Color Yellow Urine Appearance Clear Urine Odor Normal Voiding Methods Toilet Toilet Data Completed and Pending Labs on day of discharge: Labs from last 24 hours 09/18/23 06:27 WBC 7.49 RBC 3.84 L Hgb 12.3 Hct 35.6 L MCV 93 MCH 32.0 MCHC 34.6 RDW 13.2 Plt Count 277 MPV 10.5 Immature Gran % 0.1 Neutrophils % 59.7 Lymphocytes % 28.8 Monocytes % 8.9 Eosinophils % 2.0 Basophils % 0.5 Nucleated RBC % 0.0 Absolute Neutrophils 4.46 Absolute Lymphocytes 2.16 Absolute Monocytes 0.67 Absolute Eosinophils 0.15 Absolute Basophils 0.04 C-Reactive Protein 4.97 H PFSH All Active Problems (Updated 09/17/23 @ 21:14 by Vidya Rose DO) Acute UTI (urinary tract infection) (Acute) Acute diverticulitis (Acute) Sigmoid diverticulitis (Acute ~09/2023) Right lower quadrant pain (Acute) Constipation (Chronic) Hypothyroidism (Chronic) Hyperlipidemia (Chronic) Major depressive disorder, recurrent (Chronic) Essential tremor (Chronic) Primary fibromyalgia syndrome (Chronic) GERD (gastroesophageal reflux disease) (Chronic) Hiatal hernia (Chronic) Memory loss (Chronic) Abnormal gait (Chronic) Recurrent falls (Chronic) Lumbar spondylosis (Chronic) Lumbar disc herniation with radiculopathy (Chronic) Chronic hip pain (Chronic) Diverticulosis of colon (Chronic) Medical History Chest pain Negative [facility] 02/2022 Vitamin D deficiency Migraine headache Prediabetes Vitamin B 12 deficiency Surgical History History of Chantel fundoplication H/O colonoscopy (07/20/12) History of esophagogastroduodenoscopy (EGD) (07/20/12) History of arthroplasty of right knee (04/21/18) History of arthroplasty of left knee (08/29/15) S/P right knee arthroscopy (04/24/17) With partial medial meniscectomy and limited medial femoral chondroplasty S/P left knee arthroscopy (08/29/15) S/P laparoscopic cholecystectomy (08/15/09) S/P hernia repair (05/07/09) paraesophageal hernia Family History Mother , At 74 Heart disease Thyroid dysfunction Type 2 diabetes mellitus Father , At 92 of [place] Heart disease Skin cancer Myocardial infarction Hypertension Sister Parkinsons disease Brother Heart disease Brother No problems noted. Daughter SLE (systemic lupus erythematosus) Depression Asthma Daughter Migraine headache Maternal Grandmother No problems noted. Maternal Grandmother No problems noted. Paternal Grandfather No problems noted. Paternal Grandfather No problems noted. Social History Smoking/Tobacco Use Status: Never Second Hand Exposure: Yes Smoking risk assessment performed?: Yes Alcohol Intake: former Drug use: Never Adopted: No Caregiver/Support person: No Foster care: No Housing: house Number of Children: 2 number of grandchildren: 0 Communication Needs: None Education Level: high school Do you need help understanding health information?: Rarely current occupation: Retired Pets and animals: Yes Pets and animals: dog(s) Sexually active: No Do you think of yourself as: straight/heterosexual Current gender identity: female How often do you talk on the phone with friends or family?: three or more times per week How often do you get together with friends or relatives?: once per week How often do you attend religion or church services?: decline to answer Do you belong to any clubs or organized social groups?: no Panel score (0-1 are the most socially isolated patients): 1 Duration: 15-30 minutes/day Frequency: 1-2 times per week Alisha/Latter-Day: No preference Special alisha needs: No Agree to transfusion: Yes Seatbelt use: always Helmet use: No Drive intox or ride w/intox stock driver: No Working smoke detector in home: Yes Carbon monox detector in home: Yes Firearms in home: No Do you feel safe at home: Yes Do you feel safe in your relationship?: Yes Victim of physical abuse: No Victim of emotional abuse: No Victim of sexual abuse: No Would you like helpful sources: No Female Reproductive History Menstrual Menopause type: natural History History 2 Para 2 Hx # Term Pregnancies Multiple births Hx # Pregnancies Ectopic pregnancies AB induced Hx Number of Living Children 2 AB spontaneous Time Spent with Patient Time Spent with Patient: 45-69 minutes Time was spent: preparing to see the patient(eg.review tests), obtaining and/or reviewing separately otained hiistory, ordering medications,tests, procedures, referring, communicating with other health director of critical care, indepentently interpreting results, counseling the patient and care coordination
[2023-09-18] MEDS: Pantoprazole 40 MG VIAL IVP (13:52)
[2023-09-18] MEDS: Enoxaparin 40 MG/0.4 ML SYR SC (13:52)
--- NOTE | 2023-09-18 13:52 | CHAPLAIN ---
Celeste was finishing up a conversation with Dr. Rose when I stopped in. Celeste said she's being discharged. Her 98 year old aunt lives with her and she doesn't want the aunt to be home alone too long. Celeste's daughter Phyllis and son in law Ulysses Roque have been patients here in the past and Ulysses was in to visit Celeste today.
== END 2023-09-18 15:34 | disposition home or self-care (01) ==
PROVIDERS: Admitting Provider Surgery; PCP Nurse Practitioner Family; Visit Provider Surgery
DX: K57.32 Diverticulitis of large intestine without perforation or abscess without bleeding (principal); E78.5 Hyperlipidemia, unspecified; E03.9 Hypothyroidism, unspecified; K21.00 Gastro-esophageal reflux disease with esophagitis, without bleeding; K44.9 Diaphragmatic hernia without obstruction or gangrene; M79.7 Fibromyalgia; M51.16 Intervertebral disc disorders with radiculopathy, lumbar region; N39.0 Urinary tract infection, site not specified; F33.9 Major depressive disorder, recurrent, unspecified; K59.00 Constipation, unspecified; G25.0 Essential tremor; Z79.899 Other long term (current) drug therapy
CPT/HCPCS: 36415; 96365; 96366; 96368; 96374; 96375; 96376; J1650; 85025; 86140; G0378; J2405; J2470; J2543

== ENCOUNTER 2023-09-17 14:15 | Outpatient (CLI) | payer OTHER, SELFPAY ==
[2023-09-17 10:27] LABS: Abs Immature Grans 0.03 10^3/uL (0.0-0.06); Absolute Basophil Count 0.06 10^3/uL (0.0-0.2); Absolute Eosinophil Count 0.19 10^3/uL (0.0-0.7); Absolute Lymphocyte Count 3.98 10^3/uL (1.2-3.4); Absolute Monocyte Count 0.75 10^3/uL (0.1-0.8); Absolute Neutrophil Count 5.27 10^3/uL (1.2-6.7); Basophils % 0.6; Eosinophils % 1.8; HCT 40.8 % (36.0-46.0); HGB 13.8 g/dL (11.2-15.7); Immature Grans % 0.3; Lymphocytes % 38.7; MCHC 33.8 % (32.0-36.0); MCV 92 fL (80-95); MPV 9.9 fL (8.0-11.0); Monocytes % 7.3; Neutrophils % 51.3; Platelet Count 307 10^3/uL (130-400); RBC 4.45 10^6/uL (3.93-5.22); RDW 13.2 % (11.7-14.6); WBC 10.28 10^3/uL (4.4-10.8)
[2023-09-17 10:30] LABS: Bilirubin Small (Negative); Blood Negative (Negative); Glucose Negative (Negative); Ketones Trace mg/dL (Negative); Leukocyte Esterase Moderate (Negative); Nitrite Negative (Negative); Specific Gravity 1.015 (1.005-1.025)
[2023-09-17 10:35] LABS: Clarity Sl Cloudy (Clear)
[2023-09-17 10:38] LABS: Bacteria Moderate HPF (Negative); C & S Indicated? No/Sq. Contamination; Casts 0-2 Hyaline LPF (Negative); Crystals Negative HPF (Negative); Epithelial Cells Many HPF (Negative); Mucus Negative (Negative); RBC Negative HPF (0-2); WBC 20-50 HPF (0-5)
[2023-09-17 10:49] LABS: C-Reactive Protein 9.23 mg/dL (<or=0.5); TSH (W/Ref FT4) 3.56 uIU/mL (0.36-3.74)
== END 2023-09-17 14:16 | disposition home or self-care (01) ==
LOC: LBO 14:16
PROVIDERS: PCP Nurse Practitioner Family; Visit Provider Surgery
DX: E03.9 Hypothyroidism, unspecified (principal); C50.919 Malignant neoplasm of unspecified site of unspecified female breast; E78.5 Hyperlipidemia, unspecified; K21.9 Gastro-esophageal reflux disease without esophagitis; K57.32 Diverticulitis of large intestine without perforation or abscess without bleeding; M79.7 Fibromyalgia
CPT/HCPCS: 36415; 81003; 81015; 84443; 85025; 86140

== ENCOUNTER → 2023-11-06 13:55 | Outpatient (CLI) | payer OTHER, SELFPAY ==
--- NOTE | 2023-11-06 13:45 | DI.RAD_ITS ---
Exam(s) XR SHOULDER RT COMPLETE 2+V EXAM: XR SHOULDER RT COMPLETE 2+V CLINICAL HISTORY: right shoulder pain, M25.511. TECHNIQUE: 2D digital imaging was performed of the right shoulder. Five images were obtained. AP, Grashey, Y-view and axillary views were obtained. COMPARISON: CR RIGHT SHOULDER COMPLETE from 10/10/2009 FINDINGS: BONES: No acute fracture is present. No bony destructive lesion is seen. Small cysts are seen in the humeral head. JOINTS: No dislocation present. The glenohumeral joint is well maintained. There are mild degenerati ve changes seen at the acromioclavicular joint. SOFT TISSUE: Normal. IMPRESSION: Arthrosis of the right shoulder. DATA REPOSITORY: RADIATION DOSE DELIVERED:
== END ==
PROVIDERS: PCP Nurse Practitioner Family; Visit Provider Nurse Practitioner Family
DX: M19.011 Primary osteoarthritis, right shoulder (principal)
CPT/HCPCS: 73030

== ENCOUNTER → 2024-01-07 15:33 | Outpatient (CLI) | payer OTHER, SELFPAY ==
--- NOTE | 2024-01-07 09:45 | DI.CT_ITS ---
Exam(s) CT ABDOMEN PELVIS W EXAM: CT ABDOMEN PELVIS W CLINICAL HISTORY: RLQ pain, hx of diverticulitis, last episode September, R10.31, Z87.19 TECHNIQUE: Imaging Protocol: Axial computed tomography images with coronal and sagittal reformatted images were created and reviewed. CONTRAST MATERIAL: Intravenous: Omnipaque 350 Contrast volume:100 mL Oral: Yes COMPARISON: CT CT CHEST PE CTA from 05/23/[address] ABDOMEN PELVIS W from 08/27/[address] ABDOMEN PELVIS W from 09/16/2023 FINDINGS: ABDOMEN: Lung Bases: Coronary artery calcifications are present. There is a small paraesophageal hernia. Liver: Normal density. No measurable mass. Portal, Superior Mesenteric, and Splenic Veins: Unremarkable. Gallbladder and Biliary Tract: Status post cholecystectomy. No biliary ductal dilatation. Pancreas: Normal density, no abnormal calcifications or inflammatory process. Spleen: Splenic calcified granuloma are present. Adrenals: No masses seen. Kidneys: Normal size, contour and axis. No radiodense stones or obstructive uropathy. No masses seen. Abdominal Aorta: Abdominal portion non-dilated. Atherosclerotic calcification is present. Bowel: There is diverticulosis of the colon, but no evidence of acute diverticulitis. There is a mod erate amount of stool throughout the colon suggesting constipation. No evidence of bowel obstruction or bowel wall thickening. No evidence of appendicitis. Peritoneal Cavity: No ascites, collection or mesenteric inflammatory response. No free air. Lymph Nodes: Within normal limits. Bones: Within normal limits for the patient's age. Soft Tissues: There is an anterior abdominal wall mesh. There is a small fat containing umbilical he rnia. PELVIS: Bladder: Symmetric distention, no gross wall thickening. Reproductive Organs: Unremarkable as visualized. Lymph Nodes: Within normal limits. Bones: Within normal limits for the patient's age. IMPRESSION: No acute abdominal or pelvic process. RADIATION DOSE DELIVERED: 930.65mGy.cm Total DLP DATA REPOSITORY: All CT scans at this facility are submitted to the National Radiology Data Registry (NRDR) Dose Index Registry (DIR) with the [employer] (A[employer]). RADIATION OPTIMIZATION: All CT scans at this facility use at least one of these dose optimization te chniques: automated exposure control; mA and/or kV adjustment per patient size (includes targeted exa ms where dose is matched to clinical indication); or iterative reconstruction.
[2024-01-07 15:00] LABS: Abs Immature Grans 0.02 10^3/uL (0.0-0.06); Absolute Basophil Count 0.03 10^3/uL (0.0-0.2); Absolute Eosinophil Count 0.24 10^3/uL (0.0-0.7); Absolute Lymphocyte Count 3.88 10^3/uL (1.2-3.4); Absolute Monocyte Count 0.74 10^3/uL (0.1-0.8); Absolute Neutrophil Count 4.51 10^3/uL (1.2-6.7); Basophils % 0.3 %; Eosinophils % 2.5 %; HCT 41.2 % (36.0-46.0); HGB 13.7 g/dL (11.2-15.7); Immature Grans % 0.2 %; Lymphocytes % 41.2 %; MCH 31.2 pg (27.0-33.0); MCHC 33.3 % (32.0-36.0); MCV 94 fL (80-95); MPV 10.2 fL (8.0-11.0); Monocytes % 7.9 %; Neutrophils % 47.9 %; Platelet Count 241 10^3/uL (130-400); RBC 4.39 10^6/uL (3.93-5.22); RDW 11.9 % (11.7-14.6); RDW-SD 41.1 fL; WBC 9.42 10^3/uL (4.4-10.8)
[2024-01-07 15:15] LABS: ALT 26 U/L (14-59); AST 22 U/L (15-37); Albumin 3.7 g/dL (3.4-5.0); Alkaline Phosphatase 65 U/L (46-116); Anion Gap 7.6 mmol/L (3-11); BUN 12 mg/dL (7-18); Bilirubin, Total 0.54 mg/dL (0.2-1.0); C-Reactive Protein < 0.50 mg/dL (<or=0.5); CO2 31.4 mmol/L (21.0-32.0); CREATININE 0.8 mg/dL (0.55-1.02); Calcium 9.5 mg/dL (8.5-10.1); Chloride 100 mmol/L (98-107); Estimated GFR 77.75 (mL/min/1.73m2); Glucose 91 mg/dL (74-106); Potassium 3.3 mmol/L (3.5-5.1); Sodium 139 mmol/L (136-145); Total Protein 7.7 g/dL (6.4-8.2)
[2024-01-07] MEDS: Normal Saline - Diluent 50 ML VIAL IJ (16:34)
[2024-01-07] MEDS: Normal Saline Flush 10 ML SYR IVP (16:45)
[2024-01-07] MEDS: Omnipaque 350 MG/ML 100 ML BTL IJ (16:59)
[2024-01-07] MEDS: Barium Sulfate 2% W/V-Creamy Vanilla Smoothie 450 ML BTL 900 ML PO (17:02)
--- NOTE | 2024-01-07 18:04 | DI.VRAD_ITS ---
PROCEDURE INFORMATION: Exam: CT Abdomen And Pelvis With Contrast Exam date and time: 01/07/2024 4:31 PM Age: 73 years old Clinical indication: Other: Rlq pain, HX of diverticulitous; Prior surgery; Surgery date: 6+ months; Surgery type: Hernia, cholecystectomy TECHNIQUE: Imaging protocol: Computed tomography of the abdomen and pelvis with contrast. Contrast material: OMNIPAQUE 350; Contrast volume: 100 ml; Contrast route: INTRAVENOUS (IV); COMPARISON: CT ABDOMEN PELVIS W 09/16/2023 4:33 PM FINDINGS: Liver: Fatty liver with no mass lesions. Gallbladder and biliary ducts: Cholecystectomy. No significant biliary dilation or radiopaque stones in the biliary tree. Pancreas: No ductal dilation. No mass . Spleen: No splenomegaly or suspicious lesions. Adrenal glands: No suspicious mass. Kidneys and ureters: No hydronephrosis. No masses. Stomach and bowel: Possible gastric fundoplication associated with a tiny hiatal hernia. Colonic diverticulosis without diverticulitis. No colitis or enteritis. No obstruction. Appendix: No evidence of appendicitis. Intraperitoneal space: No free air. No significant fluid collection. Vasculature: No abdominal aortic aneurysm. Lymph nodes: No significantly enlarged lymph nodes. Urinary bladder: No gross wall thickening. Reproductive: Unremarkable as visualized. Bones/joints: Degenerative changes in the spine. No acute fracture or subluxation. Soft tissues: Supraumbilical hernia mesh without recurrent or residual hernia. IMPRESSION: 1. No acute findings. 2. Incidental findings as described. Dictated and Authenticated by: Rasheeda Brooks MD. Ordering:PATRICIA Mayen MD
== END ==
PROVIDERS: PCP Nurse Practitioner Family; Visit Provider Nurse Practitioner Family
DX: R10.31 Right lower quadrant pain (principal); Z87.19 Personal history of other diseases of the digestive system
CPT/HCPCS: 36415; 80053; 74177; 85025; 86140; J3490

== ENCOUNTER 2024-05-30 01:00 | Outpatient (CLI) | payer OTHER, SELFPAY ==
--- NOTE | 2024-05-30 | DI.US_ITS ---
Exam(s) US BREAST LT COMPLETE EXAM: US BREAST LT COMPLETE CLINICAL HISTORY: Bilateral breast pain. TECHNIQUE: Complete ultrasound of the breast was performed including all 4 quadrants, the retroareo lar region, and the ipsilateral axilla. COMPARISON: Prior mammograms were reviewed. FINDINGS: IMPRESSION: Appropriate follow-up is . Category: Density: Breast density Category C or D implies that the patient has dense breast tissue. Dense breast tissue can make it harder to find cancer on a mammogram. Dense breast tissue is also associated with an incr eased risk of breast cancer. This information about the result of the mammogram report was provided to the patient to raise their awareness. Use this report when you speak with the patient about their risks for breast cancer, which includes their family history. At that time, you may recommend additional screening tests (Ultrasoun d or MRI) as these tests may add significant information. A negative radiographic report should not delay biopsy if a dominant or clinically suspicious mass is present. Up to ten percent of cancers are not identified on mammography. A negative report may reinforce clinical impression. Adenosis and dense breasts may obscure an underlying neoplasm. False positive reports average 6 to 10%. Patient will receive a letter notifying them of these results.
--- NOTE | 2024-05-30 | DI.US_ITS ---
Exam(s) US BREAST RT COMPLETE MG MAMMO DIAGNOSTIC BI EXAM: MG MAMMO DIAGNOSTIC BI AND COMPLETE BILATERAL BREAST ULTRASOUND CLINICAL HISTORY: bilat breast pain,n64.4. TECHNIQUE: BILATERAL CC AND MLO mammographic images were obtained with 3D tomosynthesis technique an d utilizing computer aided detection (CAD). BILATERAL COMPLETE BREAST ULTRASOUND was performed, including all 4 quadrants of both breasts as well as both axillary regions. COMPARISON: Prior mammograms were reviewed . This 74-year-old patient complains of sporadic bilateral breast pain. She does not feel a lump and s he denies nipple discharge. FINDINGS: DIAGNOSTIC BILATERAL MAMMOGRAM: There has been no significant change in the appearance and distribution of the fibroglandular tissue. There are no CAD designations. No new right breast findings Two small asymmetric densities in left breast benign appearance and are unchanged from prior mammogra ms. There are no new spiculated masses nor malignant-appearing microcalcification groups in either b reast. There is no significant architectural distortion or skin thickening-traction. BILATERAL COMPLETE BREAST ULTRASOUND: RIGHT BREAST ULTRASOUND: No significant findings in all 4 quadrants nor in the right axilla. LEFT BREAST ULTRASOUND: At the 2 o'clock position there is an asymmetric finding which has appearance of a probable slightly dilated duct. This contains 2 echogenic foci therein, one measuring 2 mm and the other measuring 3 mm. No significant vascularity. Does not have the ultrasound appearance of a n abscess nor a typical malignancy. No other focal findings in all 4 quadrants of the left breast. Left axilla is negative for adenopathy IMPRESSION: 1. No radiographic evidence of malignancy in either breast. 2. Left breast 2 o'clock position ultrasound finding as described above (no new findings on mammogram at this level). Recommend repeat left breast mammogram and ultrasound in 6 months The patient was informed of the findings and follow-up recommendations by myself prior to leaving the department today. BI-RADS Category 3 - 6 month - Probably Benign Finding: Recommend follow-up mammography in 6 months Breast Density - Category B - Scattered areas of fibroglandular density Breast density Category C or D implies that the patient has dense breast tissue. Dense breast tissue can make it harder to find cancer on a mammogram. Dense breast tissue is also associated with an incr eased risk of breast cancer. This information about the result of the mammogram report was provided to the patient to raise their awareness. Use this report when you speak with the patient about their risks for breast cancer, which includes their family history. At that time, you may recommend additional screening tests (Ultrasoun d or MRI) as these tests may add significant information. A negative radiographic report should not delay biopsy if a dominant or clinically suspicious mass is present. Up to ten percent of cancers are not identified on mammography. A negative report may reinforce clinical impression. Adenosis and dense breasts may obscure an underlying neoplasm. False positive reports average 6 to 10%. Patient will receive a letter notifying them of these results.
== END 2024-05-30 01:20 ==
LOC: DI 01:00
PROVIDERS: PCP Nurse Practitioner Family; Visit Provider Family Medicine
DX: N64.4 Mastodynia (principal); Z12.31 Encounter for screening mammogram for malignant neoplasm of breast
CPT/HCPCS: 76642; 77062; 77066; G0279

== ENCOUNTER 2024-08-12 09:20 | Outpatient (CLI) | payer OTHER, SELFPAY ==
[2024-08-12 12:28] LABS: Abs Immature Grans 0.03 10^3/uL (0.0-0.06); Absolute Basophil Count 0.05 10^3/uL (0.0-0.2); Absolute Eosinophil Count 0.14 10^3/uL (0.0-0.7); Absolute Lymphocyte Count 3.84 10^3/uL (1.2-3.4); Absolute Monocyte Count 1.02 10^3/uL (0.1-0.8); Absolute Neutrophil Count 4.25 10^3/uL (1.2-6.7); Basophils % 0.5 %; Eosinophils % 1.5 %; HCT 42.8 % (36.0-46.0); HGB 14.7 g/dL (11.2-15.7); Immature Grans % 0.3 %; Lymphocytes % 41.2 %; MCH 31.9 pg (27.0-33.0); MCHC 34.3 % (32.0-36.0); MCV 93 fL (80-95); MPV 10.7 fL (8.0-11.0); Monocytes % 10.9 %; Neutrophils % 45.6 %; Platelet Count 312 10^3/uL (130-400); RBC 4.61 10^6/uL (3.93-5.22); RDW 12.2 % (11.7-14.6); RDW-SD 42.1 fL; WBC 9.33 10^3/uL (4.4-10.8)
[2024-08-12 12:37] LABS: ALT 22 U/L (14-59); AST 20 U/L (15-37); Albumin 3.8 g/dL (3.4-5.0); Alkaline Phosphatase 82 U/L (46-116); Anion Gap 8.4 mmol/L (3-11); BUN 19 mg/dL (7-18); Bilirubin, Total 0.42 mg/dL (0.2-1.0); CO2 30.6 mmol/L (21.0-32.0); CREATININE 0.8 mg/dL (0.55-1.02); Calcium 9.8 mg/dL (8.5-10.1); Chloride 102 mmol/L (98-107); Estimated GFR 77.27 (mL/min/1.73m2); Glucose 86 mg/dL (74-106); Potassium 3.9 mmol/L (3.5-5.1); Sodium 141 mmol/L (136-145); Total Protein 8.4 g/dL (6.4-8.2)
== END 2024-08-12 09:21 | disposition home or self-care (01) ==
LOC: LOS 09:20
PROVIDERS: PCP Nurse Practitioner Family; Referring Provider Nurse Practitioner Family; Visit Provider Nurse Practitioner Family
DX: K57.30 Diverticulosis of large intestine without perforation or abscess without bleeding (principal)
CPT/HCPCS: 36415; 80053; 85025

== ENCOUNTER → 2024-09-15 13:25 | Outpatient (BNVA) | payer MEDICARE, OTHER, SELFPAY | PROVIDERS: PCP Nurse Practitioner Family; Referring Provider Nurse Practitioner Family; Visit Provider Student in an Organized Health Care Education/Training Program | DX: Z12.11 Encounter for screening for malignant neoplasm of colon (principal) ==

== ENCOUNTER 2024-10-07 07:01 | Day surgery (SDC) | payer OTHER, SELFPAY ==
[2024-10-07 07:21] VITALS: BP 125/73; PULSE 81; RESP 20; TEMP 36.2; O2SAT 92
[2024-10-07] MEDS: Lactated Ringers 1,000 ML 80 ML IV (07:42)
--- NOTE | 2024-10-07 07:48 | W.ANESPRE ---
General Info Date of Service Date Performed: 10/07/24 Height: 5 ft Weight: 66.4 kg Body Mass Index (BMI): 28.5 Surgical Procedure: Operation Date: 10/07/24 08:20 Proposed Procedure Side Surgeon p Aleah Mendez MD Meds Allergies and Home Medications Allergies Allergy/AdvReac Type Severity Reaction Status Date / Time chlorhexidine (From Allergy Intermediate Hives Verified 10/07/24 07:18 Hibiclens) duloxetine (From Cymbalta) AdvReac Intermediate Gait Verified 10/07/24 07:18 Imbalance gabapentin AdvReac Intermediate Gait Verified 10/07/24 07:18 Imbalance NSAIDS (Non-Steroidal AdvReac Intermediate epigastric Verified 10/07/24 07:18 Anti-Inflamma pain pregabalin (From Lyrica) AdvReac Intermediate depression; Verified 10/07/24 07:18 SI Home Medication ?Medication ?Instructions ?Recorded cholecalciferol (vitamin D3) 25 2 tab PO DAILY #200 tab-caps 12/11/12 mcg (1,000 unit) tablet multivitamin with [id number] 1 ea PO DAILY 12/11/12 400 mcg-120 mg tablet (Women's 50+ Daily Formula (with ginkgo)) bisacodyl 5 mg tablet 5 mg PO DAILY PRN constipation #30 11/06/23 tabs polyethylene glycol 3350 17 17 g PO DAILY #238 grams 11/06/23 gram/dose oral powder (Miralax) buspirone 15 mg tablet 15 mg PO BID #180 tabs 01/08/24 dicyclomine 20 mg tablet 20 mg PO QID PRN abdominal pain 01/08/24 #60 tabs levothyroxine 125 mcg tablet 125 mcg PO DAILY #90 tabs 01/08/24 omeprazole 20 mg capsule,delayed 20 mg PO BID #180 caps 01/08/24 release propranolol 40 mg tablet 40 mg PO DAILY #90 tabs 01/08/24 simvastatin 40 mg tablet 40 mg PO DAILY #90 tabs 01/08/24 venlafaxine 150 mg 150 mg PO DAILY #90 caps 01/08/24 capsule,extended release 24 hr venlafaxine 75 mg capsule,extended 75 mg PO DAILY #90 caps 01/08/24 release 24 hr bisacodyl 5 mg tablet,delayed 5 mg PO ONCE colonscopy bowel prep 09/15/24 release (Dulcolax (bisacodyl)) #4 tabs polyethylene glycol 3350 17 238 g PO ONCE colonoscopy prep 09/15/24 gram/dose oral powder #238 grams donepezil 5 mg tablet 5 mg PO QHS 10/05/24 Current Visit Medications: Current Medications Generic Name Dose Route Start Last Admin Trade Name Freq PRN Reason Stop Dose Admin Ringer's Solution 1,000 mls @ 80 mls/hr 10/07/24 06:00 10/07/24 07:42 IV 10/07/24 23:59 80 mls/hr INFUSION EMERSON Administration IV Miscellaneous Supplies 1 each 10/07/24 06:00 Iv Access IV 10/07/24 23:59 DIRECTED EMERSON Sodium Chloride 0 ml 10/07/24 06:00 Normal Saline Flush 10 Ml Syr IV 10/07/24 23:59 PRN PRN Sodium Chloride 0 ml 10/07/24 06:00 Normal Saline 10 Ml Vial IJ 10/07/24 23:59 DIRECTED PRN Sterile Water 0 ml 10/07/24 06:00 Water,Injection,Sterile 10 Ml Vial IJ 10/07/24 23:59 DIRECTED PRN PFSH Active Problems Active Problems: Problem Status Onset Code Mild cognitive impairment Chronic G31.84 Hypothyroidism Chronic E03.9 Hyperlipidemia Chronic E78.5 Major depressive disorder, recurrent Chronic F33.9 Essential tremor Chronic G25.0 Primary fibromyalgia syndrome Chronic M79.7 GERD (gastroesophageal reflux disease) Chronic K21.9 Hiatal hernia Chronic K44.9 Abnormal gait Chronic R26.9 Recurrent falls Chronic R29.6 Lumbar spondylosis Chronic M47.816 Lumbar disc herniation with radiculopathy Chronic M51.16 Chronic hip pain Chronic M25.559, G89.29 Diverticulosis of colon Chronic K57.30 Chronic constipation Chronic K59.09 Medical History Medical History Sigmoid diverticulitis (~09/2023) Chest pain Negative MPI 02/2022 Migraine headache Prediabetes Vitamin B 12 deficiency Surgical History Surgical History History of Chantel fundoplication H/O colonoscopy (07/20/12) History of esophagogastroduodenoscopy (EGD) (07/20/12) History of arthroplasty of right knee (04/21/18) History of arthroplasty of left knee (08/29/15) S/P right knee arthroscopy (04/24/17) With partial medial meniscectomy and limited medial femoral chondroplasty S/P left knee arthroscopy (08/29/15) S/P laparoscopic cholecystectomy (08/15/09) S/P hernia repair (05/07/09) paraesophageal hernia Tobacco Smoking/Tobacco Use Status: Never Passive smoking exposure: Yes Second hand exposure: Yes Alcohol Alcohol Intake: former Substance Use Substance use: Never Substance use type: does not use Prental History History 2 Para 2 Hx # Term Pregnancies Multiple births Hx # Pregnancies Ectopic pregnancies AB induced Hx Number of Living Children 2 AB spontaneous Vital Signs and Lab Results Vital Signs Most Recent Vital Signs in EMR: Most Recent Vital Signs Temp Pulse Resp BP Pulse Ox 36.2 C L 81 20 125/73 92 10/07/24 07:21 10/07/24 07:21 10/07/24 07:21 10/07/24 07:21 10/07/24 07:21 Lab Results Blood Type / Crossmatch: No Data to Display Complete Blood Count: No Data to Display Complete Metabolic Panel: No Data to Display Liver Function Panel: No Data to Display Coagulation Panel: No Data to Display Cardiac Panel: No Data to Display Arterial Blood Gas: No Data to Display Venous Blood Gas: No Data to Display Pancreas Panel: No Data to Display Thyroid Panel: No Data to Display Infectious Disease: No Data to Display Blood Cultures: No Data to Display Toxicology Panel: No Data to Display Imaging and Studies Imaging and Studies Study information below may be from another EMR and interpreted by another provider. Please see original notes in EMR for more complete details. EKG Summary: Conclusion Sinus rhythm...normal P axis, V-rate 50- 99 Normal Electrocardiogram 07/03 Stress Test Summary: 03/03MPI Conclusion Myocardial perfusion is normal without evidence of ischemia or prior infarction EF is 69%, wall motion is normal Echocardiogram Summary: SUMMARY: Normal biventricular size and function. No significant valvular heart disease. SUMMARY: Normal biventricular size and function. No significant valvular heart disease. 05/26 Carotid Artery Summary:: 05/26 IMPRESSION: No evidence of hemodynamically significant carotid artery stenosis. CC: Anesthesia Assessment and Plan Anesthesia History Personal History: No History of Anesthesia Complications Family History: No Family History of Anesthesia Complications Exercise Tolerance Exercise Tolerance: Metabolic Equivalents>4 Pertinent Negatives Pertinent Negatives: No Symptoms of GERD (none since chantel), No Major Cardiovascular Symptoms or Complaints and No Major Pulmonary Symptoms or Complaints Cardiac & Pulmonary Exam Cardiac Exam: Normal S1/S2 Heart Sounds Pulmonary Exam: Clear Bilateral Breath Sounds Implantable Cardiac Device Does patient have a Pacemaker or an ICD?: No Airway Exam Known Difficult Airway: No Mallampati Class: 3 Mouth Opening: Normal (> 3cm) Thyromental Distance: Greater than 3 cm Neck Range of Motion: Full ROM Neck Circumference: Normal Teeth Condition: Normal Dentition ASA Classification ASA Score: ASA 2 Emergency Case?: No NPO Status NPO Status: NPO Clears >2 hours, Solids >8 hours Anesthesia Plan Resuscitation Status: Full Code Anesthesia Technique: General Anesthesia Airway Planned: Natural Airway Monitors Used: Standard Monitors
[2024-10-07 08:30] VITALS: BMI 28.5
--- NOTE | 2024-10-07 08:58 | W.COLOREPORT ---
Date of service: 10/07/24 Time of Service: 08:58 Colonoscopy Report Date of procedure: 10/07/24 Pre-op diagnosis general: screening Post-op diagnosis procedure note: same Procedure: colonoscopy Surgeon: Destiny Mendez Anesthesia Type: General:No Airway Estimated blood loss (mL): 0 Pathology: none sent Complications: None Disposition: same day Indications: screening for colon polyps Findings: Poor prep was able to be irrigated clear no polyps Procedure Description: After the risks, benefits, and alternatives of the procedure were thoroughly explained, informed consent was obtained. The Patient is brought to the procedure room and time out is performed confirming patient identity, nature of procedure. Patient is connected to monitoring devices including O2 sat, EKG and given supplemental oxygen per anesthesia. After appropriate anesthetic is obtained, patient is placed in the left lateral decubitus position and digital rectal exam performed with the findings noted . The colonoscope is inserted through the anus and guided under direct vision to the proximal colon as confirmed by presence of the appendiceal orifice and the ileocecal valve. The colonoscope is then slowly withdrawn , inspecting all aspects of the mucosa completely. Findings and any associated intervention, are noted above. The colonoscope was then completely withdrawn from the patient and the procedure terminated. The patient tolerated the procedure well and is transferred back to the Day surgery unit in stable condition.
--- NOTE | 2024-10-07 09:00 | W.PM.DSUDISC ---
Date of service: 10/07/24 Discharge Plan Disposition Patient Disposition: Home Discharge Details Attending Provider: Destiny Mendez Primary Care Provider: Tiarra Hoover Home Meds and New Rx's Prescriptions: No Action bisacodyl 5 mg tablet 5 mg PO DAILY PRN (Reason: constipation) Qty: 30 0RF polyethylene glycol 3350 [Miralax] 17 gram/dose powder 17 g PO DAILY Qty: 238 0RF Rx Instructions: If you do not have a bowel movement during the day, you can take an extra dose at bedtime. polyethylene glycol 3350 17 gram/dose powder 238 g PO ONCE Qty: 238 0RF Rx Instructions: take per colonoscopy instructions bisacodyl [Dulcolax (bisacodyl)] 5 mg tablet,delayed release (DR/EC) 5 mg PO ONCE Qty: 4 0RF Rx Instructions: take per colonoscopy instructions cholecalciferol (vitamin D3) 1,000 UNIT tablet 2 tab PO DAILY Qty: 200 Rx Instructions: 2000 IU DAILY Women's 50+ Daily Form (gkb) 1 EACH tablet 1 ea PO DAILY buspirone 15 mg tablet 15 mg PO BID Qty: 180 3RF Rx Instructions: Take 1 tablet twice a day levothyroxine 125 mcg tablet 125 mcg PO DAILY Qty: 90 3RF omeprazole 20 mg capsule,delayed release(DR/EC) 20 mg PO BID Qty: 180 3RF propranolol 40 mg tablet 40 mg PO DAILY Qty: 90 3RF Rx Instructions: Take 1 tab once a day simvastatin 40 mg tablet 40 mg PO DAILY Qty: 90 3RF venlafaxine 150 mg capsule,extended release 24hr 150 mg PO DAILY Qty: 90 3RF Rx Instructions: Take 1 daily in addition to the 75mg dose venlafaxine 75 mg capsule,extended release 24hr 75 mg PO DAILY Qty: 90 3RF Rx Instructions: Take 1 daily in addition to the 150mg dose dicyclomine 20 mg tablet 20 mg PO QID PRN (Reason: abdominal pain) Qty: 60 0RF Rx Instructions: May use 1 tab up to 4 times a day IF needed for abdominal pain. donepezil 5 mg tablet 5 mg PO QHS Discharge Instructions Additional Instructions: your colonoscopy today was normal, I recommend to consider repeat screening colonoscopy in 10 years Discharge Data Discharge Date/Time-TO BE ENTERED AT DEPARTURE: 10/07/24 09:01
[2024-10-07 09:03] VITALS: BP 135/70; PULSE 65; RESP 16; TEMP 36.5; O2SAT 97
[2024-10-07 09:29] VITALS: BP 132/73; PULSE 68; RESP 18; TEMP 36.4; O2SAT 97
--- NOTE | 2024-10-07 09:36 | W.ANESPOSTOP ---
Postoperative Evaluation Date, Time and Location Date Performed: 10/07/24 Time Performed: 09:06 Patient Location: Day Surgery Unit Vital Signs Most Recent Imported Vital Signs: Most Recent Vital Signs Temp Pulse Resp BP Pulse Ox 36.5 C 65 16 135/70 97 10/07/24 09:03 10/07/24 09:03 10/07/24 09:03 10/07/24 09:03 10/07/24 09:03 Pain Score Most Recent Pain Score: Most Recent Pain Score Pain Level 0 10/07/24 09:03 Assessment Mental Status: Awake (Alert & Oriented to Patient Baseline) Airway and Respiratory Function: Patent airway with normal (patient baseline) respiratory exam Cardiovascular Function: Hemodynamically Stable Hydration Status: Adequately Hydrated Nausea & Vomiting: No Nausea or Vomiting Pain: Pt. Denies Any Pain Peripheral Nerve Block: Patient did not receive a nerve block
== END 2024-10-07 09:53 | disposition home or self-care (01) ==
LOC: SUR 07:01
PROVIDERS: PCP Nurse Practitioner Family; Visit Provider Surgery
PROC: 0DJD8ZZ Inspection of Lower Intestinal Tract, Via Natural or Artificial Opening Endoscopic (ICD-10-PCS; CPT 45378; principal; 2024-10-07 08:15)
DX: Z12.11 Encounter for screening for malignant neoplasm of colon (principal)
CPT/HCPCS: 45378; G0121; J2003; J2704

== ENCOUNTER 2024-11-17 00:18 | Outpatient (CLI) | payer OTHER, SELFPAY ==
--- NOTE | 2024-11-17 07:15 | DI.US_ITS ---
Exam(s) US BREAST LT COMPLETE EXAM: US BREAST LT COMPLETE CLINICAL HISTORY: 6 mo f/u, f/u abnl lt breast, r92.8,asymmetric densities lt breast. TECHNIQUE: Complete ultrasound of the left breast was performed including all 4 quadrants, the retro areolar region, and the ipsilateral axilla. COMPARISON: Prior mammograms were reviewed. Prior ultrasound May 30, 2024 was also reviewed FINDINGS: See separate combined dictation We were not able to link ultrasound with the mammogram on the PAC system. IMPRESSION: See separate combined dictation under the mammogram report today BI-RADS Category 2 - Benign Findings Breast Density - Category B - There are scattered areas of fibroglandular density. Breast density Category C or D implies that the patient has dense breast tissue. Dense breast tissue can make it harder to find cancer on a mammogram. Dense breast tissue is also associated with an incr eased risk of breast cancer. This information about the result of the mammogram report was provided to the patient to raise their awareness. Use this report when you speak with the patient about their risks for breast cancer, which includes their family history. At that time, you may recommend additional screening tests (Ultrasoun d or MRI) as these tests may add significant information. A negative radiographic report should not delay biopsy if a dominant or clinically suspicious mass is present. Up to ten percent of cancers are not identified on mammography. A negative report may reinforce clinical impression. Adenosis and dense breasts may obscure an underlying neoplasm. False positive reports average 6 to 10%. Patient will receive a letter notifying them of these results.
--- NOTE | 2024-11-17 07:15 | DI.MAMMO_ITS ---
Exam(s) MG MAMMO DIAGNOSTIC UNI EXAM: MG MAMMO DIAGNOSTIC UNI-LEFT AND COMPLETE LEFT BREAST ULTRASOUND CLINICAL HISTORY: f/u abnl lt mammo, r92.8,asymmetric densities lt breast,6 mo f/u. TECHNIQUE: LEFT BREAST CC AND MLO mammographic images were obtained with 3D tomosynthesis technique and utilizing computer aided detection (CAD). COMPLETE LEFT BREAST ULTRASOUND performed including all 4 quadrants as well the axillary region. COMPARISON: Prior mammograms were reviewed, the most recent being 05/30/2024. Prior ultrasound of 05/30/2024 was also reviewed. FINDINGS: DIAGNOSTIC LEFT BREAST MAMMOGRAM: There are no new spiculated masses nor malignant-appearing microcalcification groups. Small benign-appearing lymph nodes seen in the left breast on the MLO view is unchanged from prior st udies. No new architectural distortion or skin thickening-traction. COMPLETE LEFT BREAST ULTRASOUND: The previously described finding at the 2 o'clock position appears unchanged, remaining benign in albert earance. This may or may not correspond to the benign-appearing lymph node on the mammogram. Nevert heless, both findings have benign appearance. There are no other significant focal ultrasound findings in all 4 quadrants of the left breast. Scanning of the left axilla is negative for adenopathy. IMPRESSION: No radiographic evidence of malignancy in the left breast Stable benign-appearing finding on ultrasound 2 o'clock position Appropriate follow-up is dissipation on a yearly mammogram schedule with repeat ultrasound examinatio n at the time time her next yearly mammogram.. BI-RADS Category 2 - Benign Findings Breast Density - Category B - There are scattered areas of fibroglandular density. Breast density Category C or D implies that the patient has dense breast tissue. Dense breast tissue can make it harder to find cancer on a mammogram. Dense breast tissue is also associated with an incr eased risk of breast cancer. This information about the result of the mammogram report was provided to the patient to raise their awareness. Use this report when you speak with the patient about their risks for breast cancer, which includes their family history. At that time, you may recommend additional screening tests (Ultrasoun d or MRI) as these tests may add significant information. A negative radiographic report should not delay biopsy if a dominant or clinically suspicious mass is present. Up to ten percent of cancers are not identified on mammography. A negative report may reinforce clinical impression. Adenosis and dense breasts may obscure an underlying neoplasm. False positive reports average 6 to 10%. Patient will receive a letter notifying them of these results.
== END 2024-11-17 00:38 ==
LOC: DI 00:18
PROVIDERS: PCP Nurse Practitioner Family; Visit Provider Family Medicine
DX: R92.8 Other abnormal and inconclusive findings on diagnostic imaging of breast (principal); Z12.31 Encounter for screening mammogram for malignant neoplasm of breast
CPT/HCPCS: 76642; 77061; 77065; G0279

== ENCOUNTER 2024-12-22 01:52 | Outpatient (CLI) | payer OTHER, SELFPAY ==
[2024-12-22 16:14] LABS: Anion Gap 7.4 mmol/L (3-11); BUN 19 mg/dL (7-18); CO2 32.6 mmol/L (21.0-32.0); Calcium 10.5 mg/dL (8.5-10.1); Chloride 99 mmol/L (98-107); Estimated GFR 59.12 (mL/min/1.73m2); Glucose 96 mg/dL (74-106); Potassium 3.8 mmol/L (3.5-5.1); Sodium 139 mmol/L (136-145); TSH (W/Ref FT4) 3.19 uIU/mL (0.36-3.74); Vitamin D 25 Total 41 ng/mL (30-100)
== END 2024-12-22 01:53 | disposition home or self-care (01) ==
LOC: LBO 01:52
PROVIDERS: Nurse Practitioner Family; PCP Nurse Practitioner Family; Visit Provider Nurse Practitioner Family
DX: E03.9 Hypothyroidism, unspecified (principal); E55.9 Vitamin D deficiency, unspecified
CPT/HCPCS: 36415; 80048; 82306; 84443

== ENCOUNTER 2025-01-20 10:29 | Emergency (ER) | payer OTHER, SELFPAY ==
[2025-01-20] VITALS (15 sets, daily range): BP systolic 103–132; BP diastolic 38–68; PULSE 47–55; RESP 12–21; TEMP 36.6; O2SAT 91–98
--- NOTE | 2025-01-20 10:45 | RT.EKG_ITS ---
APPROVED REPORT Exam: Resting ECG Reason for Exam: Abd pain, CP Patient Location: E HR:48 bpm ECG Measurements Heart Rate 48 AXIS OH 182 P -7 QRSd 97 QRS -26 QT 447 T -6 QTc 399 Conclusion Sinus bradycardia...rate< 60 Left ventricular hypertrophy...multiple voltage criteria No Occlusion KS
--- NOTE | 2025-01-20 11:05 | W.ED.GENAD ---
Discharge Plan Disposition Patient Disposition: Home Discharge Details Clinical Impression: Arm paresthesia, right, Abdominal discomfort Primary Care Provider: Tiarra Hoover ED Provider: Chrissy Gutierrez Home Meds and New Rx's Prescriptions: No Action bisacodyl 5 mg tablet 5 mg PO DAILY PRN (Reason: constipation) Qty: 30 0RF polyethylene glycol 3350 [Miralax] 17 gram/dose powder 17 g PO DAILY Qty: 238 0RF Rx Instructions: If you do not have a bowel movement during the day, you can take an extra dose at bedtime. galantamine 4 mg tablet 4 mg PO BID Patient Comments: TAKE ONE TABLET BY MOUTH TWICE A DAY dicyclomine 20 mg tablet 20 mg PO QID PRN (Reason: abdominal pain) Qty: 60 0RF Rx Instructions: May use 1 tab up to 4 times a day IF needed for abdominal pain. buspirone 15 mg tablet 15 mg PO BID Qty: 180 3RF Rx Instructions: Take 1 tablet twice a day levothyroxine 125 mcg tablet 125 mcg PO DAILY Qty: 90 3RF omeprazole 20 mg capsule,delayed release(DR/EC) 20 mg PO BID Qty: 180 3RF propranolol 40 mg tablet 40 mg PO DAILY Qty: 90 3RF Rx Instructions: Take 1 tab once a day simvastatin 40 mg tablet 40 mg PO DAILY Qty: 90 3RF venlafaxine 150 mg capsule,extended release 24hr 150 mg PO DAILY Qty: 90 3RF Rx Instructions: Take 1 daily in addition to the 75mg dose venlafaxine 75 mg capsule,extended release 24hr 75 mg PO DAILY Qty: 90 3RF Rx Instructions: Take 1 daily in addition to the 150mg dose cholecalciferol (vitamin D3) 1,000 UNIT tablet 2 tab PO DAILY Qty: 200 Rx Instructions: 2000 IU DAILY Women's 50+ Daily Form (gkb) 1 EACH tablet 1 ea PO DAILY Discharge Instructions Additional Instructions: Your workup today was very reassuring. I recommend that you call your primary care provider's office first thing Thursday to schedule follow-up appointment for reassessment/to look further into your the cause of your symptoms Please stay well-hydrated, drinking plenty of fluid throughout the day. Your tingling sensation may be due to a spasm in your right shoulder. I recommend that you use lidocaine patches available [id number]. Salonpas and IcyHot are good options. When you are not wearing the patches, I recommend heat/ice to help relax this muscle. Return to emergency care if develop new chest pains, dizziness, feeling going to pass out, or if you are very worried and need to be rechecked again immediately Referrals: Tiarra Hoover NP [Primary Care Provider, Medicine] HPI General Date/Time Provider Initiated Documentation: 01/20/25 10:56. HPI Narrative: Celeste is a 74-year-old female presenting to the emergency department today for evaluation of generalized abdominal pain, right sided upper and lower extremity paresthesias, and headache x 3 days. Symptoms started with numbness, persistent head she reports experiencing numbness on her entire right side, including her toes, which began 3 days ago on Thursday. This numbness is occasionally accompanied by a tingling sensation. She also experiences intermittent numbness in her lower leg, but not in her hip or hip. The numbness extends from her shoulder to the top of her head. She describes a sensation ridge to having a blood pressure cuff on her right side when she moves her arm. She does not recall any previous similar episodes. The numbness has progressively worsened since its onset. Additionally, she has been suffering from a persistent headache since onset of paresthesia, localized at the top of her head. She rarely gets headaches. Despite taking Tylenol, she reports no relief from her symptoms. This is not accompanied by new dizziness (does have some lightheadedness with standing, says that this has been ongoing for almost a year, unchanged from baseline), vision changes, fever, chest pain, difficulty breathing/shortness of breath, nausea/vomiting,, difficulty swallowing, urinary frequency, dysuria, change in bowel or bladder function, black/tarry stools. She also reports generalized abdominal discomfort that started 3 days ago. Past medical history significant for: Dementia, hypothyroidism, HLD, fibromyalgia, GERD, hiatal hernia, diverticulosis. She has been on a new medication prescribed by Dr. Frausto in [place] for dementia for the past 3 weeks. Related Data Home Medications ?Medication ?Instructions ?Recorded ?Confirmed cholecalciferol (vitamin D3) 25 2 tab PO DAILY #200 tab-caps 12/11/12 01/20/25 mcg (1,000 unit) tablet multivitamin with [id number] 1 ea PO DAILY 12/11/12 01/20/25 400 mcg-120 mg tablet (Women's 50+ Daily Formula (with ginkgo)) bisacodyl 5 mg tablet 5 mg PO DAILY PRN constipation #30 11/06/23 01/20/25 tabs polyethylene glycol 3350 17 17 g PO DAILY #238 grams 11/06/23 01/20/25 gram/dose oral powder (Miralax) buspirone 15 mg tablet 15 mg PO BID #180 tabs 12/23/24 01/20/25 dicyclomine 20 mg tablet 20 mg PO QID PRN abdominal pain 12/23/24 01/20/25 #60 tabs levothyroxine 125 mcg tablet 125 mcg PO DAILY #90 tabs 12/23/24 01/20/25 omeprazole 20 mg capsule,delayed 20 mg PO BID #180 caps 12/23/24 01/20/25 release propranolol 40 mg tablet 40 mg PO DAILY #90 tabs 12/23/24 01/20/25 simvastatin 40 mg tablet 40 mg PO DAILY #90 tabs 12/23/24 01/20/25 venlafaxine 150 mg 150 mg PO DAILY #90 caps 12/23/24 01/20/25 capsule,extended release 24 hr venlafaxine 75 mg capsule,extended 75 mg PO DAILY #90 caps 12/23/24 01/20/25 release 24 hr galantamine 4 mg tablet 4 mg PO BID 01/20/25 01/20/25 Previous Rx's ?Medication ?Instructions ?Recorded bisacodyl 5 mg tablet 5 mg PO DAILY PRN constipation #30 11/06/23 tabs polyethylene glycol 3350 17 17 g PO DAILY #238 grams 11/06/23 gram/dose oral powder (Miralax) buspirone 15 mg tablet 15 mg PO BID #180 tabs 12/23/24 dicyclomine 20 mg tablet 20 mg PO QID PRN abdominal pain 12/23/24 #60 tabs levothyroxine 125 mcg tablet 125 mcg PO DAILY #90 tabs 12/23/24 omeprazole 20 mg capsule,delayed 20 mg PO BID #180 caps 12/23/24 release propranolol 40 mg tablet 40 mg PO DAILY #90 tabs 12/23/24 simvastatin 40 mg tablet 40 mg PO DAILY #90 tabs 12/23/24 venlafaxine 150 mg 150 mg PO DAILY #90 caps 12/23/24 capsule,extended release 24 hr venlafaxine 75 mg capsule,extended 75 mg PO DAILY #90 caps 12/23/24 release 24 hr Allergies Allergy/AdvReac Type Severity Reaction Status Date / Time chlorhexidine (From Allergy Intermediate Hives Verified 01/20/25 10:55 Hibiclens) duloxetine (From Cymbalta) AdvReac Intermediate Gait Verified 01/20/25 10:55 Imbalance gabapentin AdvReac Intermediate Gait Verified 01/20/25 10:55 Imbalance NSAIDS (Non-Steroidal AdvReac Intermediate epigastric Verified 01/20/25 10:55 Anti-Inflamma pain pregabalin (From Lyrica) AdvReac Intermediate depression; Verified 01/20/25 10:55 SI General Stated Complaint: GenMedical LUISA: 3 Exam Narrative Exam Narrative: General Appearance: Normal. Is alert and oriented, no acute distress. Vital signs: Within normal limits. Respiratory: Easy work of breathing, lung sounds clear to auscultation bilaterally. Cardiac: Regular rate and rhythm, normal heart sound Gastrointestinal: Diffuse tenderness on palpation. Abdomen is soft, nondistended, normal active bowel sounds, no rigidity or guarding. Skin: Warm and dry, no rash. Neuro: PERRL, EOMs intact. Cranial nerves II through XII intact as tested. Normal finger finger, finger-nose, Romberg, tandem gait, rapid alternating movements, heel nava. 5 out of 5 muscle strength upper and lower extremities. Sensation grossly intact to upper and lower extremities. Psychiatric: Normal. Course Vital Signs Vital signs: Vital Signs Temperature 36.6 C 01/20/25 10:45 Pulse 53 L 01/20/25 10:45 Respiratory Rate 16 01/20/25 10:45 Blood Pressure 132/68 01/20/25 10:45 Pulse Oximetry 97 01/20/25 10:45 Temperature 36.6 C 01/20/25 10:45 Temperature Source Oral 01/20/25 10:45 Pulse 53 L 01/20/25 10:45 Respiratory Rate 16 01/20/25 10:45 Blood Pressure 132/68 01/20/25 10:45 Pulse Oximetry 97 01/20/25 10:45 Oxygen Delivery Method Room Air 07/11/25 10:45 Oxygen Flow Rate 0 01/20/25 10:45 Pain Level 6 01/20/25 10:45 Medical Decision Making Initial Assessment: 74-year-old female with right-sided numbness, abdominal pain, headache, and dizziness x 3 days, gradually worsening since onset Differential Diagnosis includes but is not limited to: CVA, nerve impingement, electrolyte imbalance, dehydration, cardiac arrhythmia/ACS (less likely), thyroid dysfunction, intracranial mass, diverticulitis, UTI, tick borne illness, muscle spasm ED Course: - EKG performed - Blood work ordered - CTA and CT abdomen/pelvis performed - Lidocaine patch applied to right shoulder I independently interpreted the following tests: EKG shows sinus bradycardia, rate 48, no changes consistent with acute ischemia, normal intervals. CBC, CMP, lactate, lipase, TSH, troponins, UA all unremarkable. CTA brain/neck and CT abdomen/pelvis both unremarkable. Overall workup today reassuring. Celeste reports full resolution of paresthesias and discomfort in arm after application of lidocaine patch. Pain likely due to muscle spasm. Unclear etiology of abdominal pain, CT unremarkable. Recommend further follow-up with PCP for further evaluation/management. Clinical Impression: - Right-sided paresthesias, likely due to nerve impingement/muscle spasm - Abdominal pain Patient consented to the use of JUDY Imaging Data Radiologic Study: Radiologist's impression: Exam(s) CT BRAIN NECK CTA EXAM: CT BRAIN NECK CTA CLINICAL HISTORY: R sided parasthesias, mild LAW. TECHNIQUE: Imaging Protocol: Axial CT angiography was performed with multi-slice acquisition and multi-planar and MIP reconstructions. CONTRAST MATERIAL: Intravenous: Omnipaque 350 Contrast volume:70 ml COMPARISON: CT CT HEAD WO from 03/25/2021 FINDINGS: CT Head W/O and W contrast: Ventricles and Extra axial spaces: Normal in size and morphology for the patient's age. Hemorrhage: None. Cerebral parenchyma: No evidence of acute infarct or mass. No significant atrophy. Mild white matter changes of small vessel disease. Midline shift: None. Brainstem/Cerebellum: No acute findings.. Calvarium: Normal. Visualized Paranasal sinuses/Mastoids: Clear. Soft Tissues: Unremarkable. Enhancement: Normal. Venous sinuses are patent. CTA Brain W: Internal Carotid Arteries: Right: No aneurysm, occlusion or significant stenosis. Left: No aneurysm, occlusion or significant stenosis. Middle Cerebral Arteries: Right: No aneurysm, occlusion or significant stenosis. Left: No aneurysm, occlusion or significant stenosis. Anterior Cerebral Arteries: Right: No aneurysm, occlusion or significant stenosis. Left: No aneurysm, occlusion or significant stenosis. Posterior cerebral Arteries: Right: No aneurysm, occlusion or significant stenosis. Left: No aneurysm, occlusion or significant stenosis. Vertebral Arteries: Right: No aneurysm, occlusion or significant stenosis. Left: No aneurysm, occlusion or significant stenosis. Basilar Artery: No aneurysm, occlusion or significant stenosis. CTA Neck W: Common Carotid: Right: No dissection, occlusion or significant stenosis. Left: No dissection, occlusion or significant stenosis. External Carotid: Right: No dissection, occlusion or significant stenosis. Left: No dissection, occlusion or significant stenosis. Internal Carotid: There is calcification at the proximal internal carotid arteries which causes mild stenosis bilaterally, left greater than right. Right: No dissection, occlusion or significant stenosis. Left: No dissection, occlusion or significant stenosis. Vertebral Artery: Right: No dissection, occlusion or significant stenosis. Left: No dissection, occlusion or significant stenosis. Lung Apices: No acute findings. Bones: No acute abnormality. Soft Tissues: Normal. IMPRESSION: 1. CTA brain: Normal CTA examination of the [place] of [place]. 2. Head CT: No acute abnormality. 3. CTA neck: Mild plaque at both proximal internal carotid arteries. No evidence of occlusion, significant stenosis or dissection. Radiologic Study #2: Radiologist's impression: Exam(s) CT ABDOMEN PELVIS WO EXAM: CT ABDOMEN PELVIS WO CLINICAL HISTORY: generalized abd pain. TECHNIQUE: Imaging Protocol: Axial computed tomography images with coronal and sagittal reformatted images were created and reviewed. Oral: no COMPARISON: CT CT ABDOMEN PELVIS W from 01/07/2024 FINDINGS: Lung Bases: No acute findings. Small hiatal hernia. Liver: Normal density. No suspicious mass. Gallbladder and biliary tract: Cholecystectomy. No biliary dilation. Pancreas: Normal density. No abnormal calcifications or inflammatory process. Spleen: Normal. Kidneys: Normal size, contour and axis. No radiodense stones. No obstructive uropathy. No suspicious masses seen. Adrenal glands: No masses seen. Lymph nodes: Within normal limits. Vasculature: Abdominal aorta non-dilated. Atherosclerotic calcifications. Soft tissues: Upper anterior abdominal wall hernia repair. Bladder: No wall thickening. No mass or calculi. Bowel: No obstruction or bowel wall thickening. The appendix is normal. There is mild diverticulosis of the descending and sigmoid colon. There is no evidence of diverticulitis. There is a normal quantity of stool. Peritoneal cavity: No ascites. No focal collection. No mesenteric inflammatory response. Reproductive organs: Unremarkable. Bones: Unremarkable for age. IMPRESSION: No acute abnormality in the abdomen or pelvis. PFSH All Active Problems (Updated 01/20/25 @ 15:59 by Chrissy Hess) Abdominal discomfort (Acute) Arm paresthesia, right (Acute) Hypercalcemia (Acute) Mild cognitive impairment (Chronic) Hypothyroidism (Chronic) Hyperlipidemia (Chronic) Major depressive disorder, recurrent (Chronic) Essential tremor (Chronic) Primary fibromyalgia syndrome (Chronic) GERD (gastroesophageal reflux disease) (Chronic) Hiatal hernia (Chronic) Abnormal gait (Chronic) Recurrent falls (Chronic) Lumbar spondylosis (Chronic) Lumbar disc herniation with radiculopathy (Chronic) Chronic hip pain (Chronic) Diverticulosis of colon (Chronic) Chronic constipation (Chronic) Medical History Sigmoid diverticulitis (~09/2023) Chest pain Negative MPI 02/2022 Migraine headache Prediabetes Vitamin B 12 deficiency Surgical History History of Chantel fundoplication H/O colonoscopy (09/2024) History of esophagogastroduodenoscopy (EGD) (07/20/12) History of arthroplasty of right knee (04/21/18) History of arthroplasty of left knee (08/29/15) S/P right knee arthroscopy (04/24/17) With partial medial meniscectomy and limited medial femoral chondroplasty S/P left knee arthroscopy (08/29/15) S/P laparoscopic cholecystectomy (08/15/09) S/P hernia repair (05/07/09) paraesophageal hernia Family History Mother , At 74 Heart disease Thyroid dysfunction Type 2 diabetes mellitus Father , At 92 of [place] Heart disease Skin cancer Myocardial infarction Hypertension Sister Parkinsons disease Brother Heart disease Brother No problems noted. Daughter SLE (systemic lupus erythematosus) Depression Asthma Daughter Migraine headache Maternal Grandmother No problems noted. Maternal Grandmother No problems noted. Paternal Grandfather No problems noted. Paternal Grandfather No problems noted. Social History Smoking/Tobacco Use Status: Never Second Hand Exposure: Yes Smoking risk assessment performed?: Yes Alcohol Intake: former Drug use: Never Substance use type: does not use Adopted: No Caregiver/Support person: No Foster care: No Household members: none Housing: apartment Number of Children: 2 number of grandchildren: 0 Communication Needs: Corrective Lenses Education Level: high school Do you need help understanding health information?: Never current occupation: Retired Pets and animals: Yes Pets and animals: dog(s) Sexually active: No Do you think of yourself as: straight/heterosexual Current gender identity: female What is your relationship status?: How often do you talk on the phone with friends or family?: three or more times per week How often do you get together with friends or relatives?: three or more times per week How often do you attend latter-day or christian services?: decline to answer Do you belong to any clubs or organized social groups?: no Panel score (0-1 are the most socially isolated patients): 1 What type of physical activity do you participate in: walking and other Details: leg excercises Duration: < 15 minutes/day Frequency: 1-2 times per week Alisha/Nondenominational: Caodaism Special alisha needs: No Agree to transfusion: Yes Seatbelt use: always Helmet use: No Drive intox or ride w/intox sales route driver helper: No Working smoke detector in home: Yes Carbon monox detector in home: Yes Firearms in home: No Do you feel safe at home: Yes Do you feel safe in your relationship?: Yes Victim of physical abuse: No Victim of emotional abuse: No Victim of sexual abuse: No Would you like helpful sources: No Female Reproductive History Menstrual Menopause type: natural History History 2 Para 2 Hx # Term Pregnancies Multiple births Hx # Pregnancies Ectopic pregnancies AB induced Hx Number of Living Children 2 AB spontaneous
[2025-01-20 11:33] LABS: Abs Immature Grans 0.02 10^3/uL (0.0-0.06); HCT 39.2 % (36.0-46.0); HGB 13.6 g/dL (11.2-15.7); Immature Grans % 0.2 %; MCH 32.3 pg (27.0-33.0); MCHC 34.7 % (32.0-36.0); MCV 93 fL (80-95); MPV 10.0 fL (8.0-11.0); Platelet Count 289 10^3/uL (130-400); RBC 4.21 10^6/uL (3.93-5.22); RDW 13.2 % (11.7-14.6); RDW-SD 45.1 fL; WBC 9.90 10^3/uL (4.4-10.8)
[2025-01-20 12:01] LABS: Glucose Negative (Negative)
[2025-01-20 12:02] LABS: ALT 24 U/L (14-59); AST 23 U/L (15-37); Albumin 3.6 g/dL (3.4-5.0); Alkaline Phosphatase 64 U/L (46-116); Anion Gap 9.9 mmol/L (3-11); BUN 15 mg/dL (7-18); Bilirubin, Total 0.8 mg/dL (0.2-1.0); CO2 28.1 mmol/L (21.0-32.0); Calcium 9.8 mg/dL (8.5-10.1); Chloride 101 mmol/L (98-107); Estimated GFR 94.13 (mL/min/1.73m2); Glucose 102 mg/dL (74-106); Lipase 12 U/L (<78); Magnesium 1.9 mg/dL (1.8-2.4); Potassium 3.5 mmol/L (3.5-5.1); Sodium 139 mmol/L (136-145); Total Protein 7.7 g/dL (6.4-8.2); Troponin I 21 ng/L (<or=51)
[2025-01-20 12:19] LABS: C & S Indicated? No; RBC 0-2 HPF (0-2)
[2025-01-20 12:23] LABS: TSH (W/Ref FT4) 2.82 uIU/mL (0.36-3.74)
[2025-01-20 12:59] LABS: Troponin I 20 ng/L (<or=51)
--- NOTE | 2025-01-20 13:45 | DI.CT_ITS ---
Exam(s) CT ABDOMEN PELVIS WO EXAM: CT ABDOMEN PELVIS WO CLINICAL HISTORY: generalized abd pain. TECHNIQUE: Imaging Protocol: Axial computed tomography images with coronal and sagittal reformatted images were created and reviewed. Oral: no COMPARISON: CT CT ABDOMEN PELVIS W from 01/07/2024 FINDINGS: Lung Bases: No acute findings. Small hiatal hernia. Liver: Normal density. No suspicious mass. Gallbladder and biliary tract: Cholecystectomy. No biliary dilation. Pancreas: Normal density. No abnormal calcifications or inflammatory process. Spleen: Normal. Kidneys: Normal size, contour and axis. No radiodense stones. No obstructive uropathy. No suspicious masses seen. Adrenal glands: No masses seen. Lymph nodes: Within normal limits. Vasculature: Abdominal aorta non-dilated. Atherosclerotic calcifications. Soft tissues: Upper anterior abdominal wall hernia repair. Bladder: No wall thickening. No mass or calculi. Bowel: No obstruction or bowel wall thickening. The appendix is normal. There is mild diverticulosis of the descending and sigmoid colon. There is no evidence of diverticulitis. There is a normal quantity of stool. Peritoneal cavity: No ascites. No focal collection. No mesenteric inflammatory response. Reproductive organs: Unremarkable. Bones: Unremarkable for age. IMPRESSION: No acute abnormality in the abdomen or pelvis. RADIATION DOSE DELIVERED: DATA REPOSITORY: All CT scans at this facility are submitted to the National Radiology Data Registry (NRDR) Dose Index Registry (DIR) with the [employer] (ACR). RADIATION OPTIMIZATION: All CT scans at this facility use at least one of these dose optimization techniques: automated exposure control; mA and/or kV adjustment per patient size (includes targeted exams where dose is matched to clinical indication); or iterative reconstruction.
[2025-01-20] MEDS: Omnipaque 350 MG/ML 100 ML BTL IJ (13:51)
[2025-01-20] MEDS: Normal Saline - Diluent 50 ML VIAL IJ (13:56)
--- NOTE | 2025-01-20 14:00 | DI.CT_ITS ---
Exam(s) CT BRAIN NECK CTA EXAM: CT BRAIN NECK CTA CLINICAL HISTORY: R sided parasthesias, mild LAW. TECHNIQUE: Imaging Protocol: Axial CT angiography was performed with multi- slice acquisition and multi-planar and MIP reconstructions. CONTRAST MATERIAL: Intravenous: Omnipaque 350 Contrast volume:70 ml COMPARISON: CT CT HEAD WO from 03/25/2021 FINDINGS: CT Head W/O and W contrast: Ventricles and Extra axial spaces: Normal in size and morphology for the patient's age. Hemorrhage: None. Cerebral parenchyma: No evidence of acute infarct or mass. No significant atrophy. Mild white matter changes of small vessel disease. Midline shift: None. Brainstem/Cerebellum: No acute findings.. Calvarium: Normal. Visualized Paranasal sinuses/Mastoids: Clear. Soft Tissues: Unremarkable. Enhancement: Normal. Venous sinuses are patent. CTA Brain W: Internal Carotid Arteries: Right: No aneurysm, occlusion or significant stenosis. Left: No aneurysm, occlusion or significant stenosis. Middle Cerebral Arteries: Right: No aneurysm, occlusion or significant stenosis. Left: No aneurysm, occlusion or significant stenosis. Anterior Cerebral Arteries: Right: No aneurysm, occlusion or significant stenosis. Left: No aneurysm, occlusion or significant stenosis. Posterior cerebral Arteries: Right: No aneurysm, occlusion or significant stenosis. Left: No aneurysm, occlusion or significant stenosis. Vertebral Arteries: Right: No aneurysm, occlusion or significant stenosis. Left: No aneurysm, occlusion or significant stenosis. Basilar Artery: No aneurysm, occlusion or significant stenosis. CTA Neck W: Common Carotid: Right: No dissection, occlusion or significant stenosis. Left: No dissection, occlusion or significant stenosis. External Carotid: Right: No dissection, occlusion or significant stenosis. Left: No dissection, occlusion or significant stenosis. Internal Carotid: There is calcification at the proximal internal carotid arteries which causes mild stenosis bilaterally, left greater than right. Right: No dissection, occlusion or significant stenosis. Left: No dissection, occlusion or significant stenosis. Vertebral Artery: Right: No dissection, occlusion or significant stenosis. Left: No dissection, occlusion or significant stenosis. Lung Apices: No acute findings. Bones: No acute abnormality. Soft Tissues: Normal. IMPRESSION: 1. CTA brain: Normal CTA examination of the [place]. 2. Head CT: No acute abnormality. 3. CTA neck: Mild plaque at both proximal internal carotid arteries. No evidence of occlusion, significant stenosis or dissection. RADIATION DOSE DELIVERED: Total DLP DATA REPOSITORY: All CT scans at this facility are submitted to the National Radiology Data Registry (NRDR) Dose Index Registry (DIR) with the [employer] (ACR). RADIATION OPTIMIZATION: All CT scans at this facility use at least one of these dose optimization techniques: automated exposure control; mA and/or kV adjustment per patient size (includes targeted exams where dose is matched to clinical indication); or iterative reconstruction.
[2025-01-20] MEDS: Acetaminophen 325 MG TAB 650 MG PO (15:43)
[2025-01-20] MEDS: Lidocaine 5% Patch 1 PATCH TP (15:43)
[2025-01-20 16:26] LABS: Troponin I 9 ng/L (<or=51)
[2025-01-23 08:47] LABS: Lyme Ab w Rflx to Lyme Confirm Negative (Negative)
[2025-01-23 16:15] LABS: B. miyamotoi PCR Negative (Negative); Babesia divergens/MO-1 Negative (Negative); Ehrlichia muris eauclairensis Negative (Negative)
--- NOTE | 2025-01-24 11:42 | NUR.NOTE ---
Access chart to reconcile EKG orders with EKGs in [facility]. Duplicate order cancelled. Nursing Note:
== END 2025-01-20 16:22 | disposition home or self-care (01) ==
PROVIDERS: Emergency Provider Nurse Practitioner Family; PCP Nurse Practitioner Family
DX: R20.2 Paresthesia of skin; R10.11 Right upper quadrant pain; R51.9 Headache, unspecified
CPT/HCPCS: 99284 ×2; 36415; 36416; 82962; 70496; 70498; 80053; 83690; 87798; 93005; 74176; 81003; 81015; 83605; 83735; 84443; 84484; 85025; 86618; 93010; J3490

== ENCOUNTER 2025-04-13 18:22 | Outpatient (REF) | payer OTHER, SELFPAY ==
[2025-04-13 18:05] LABS: Glucose Negative (Negative)
== END 2025-04-13 18:23 | disposition home or self-care (01) ==
LOC: LBN 18:22
PROVIDERS: PCP Nurse Practitioner Family; Visit Provider Nurse Practitioner Family
DX: R30.0 Dysuria (principal)
CPT/HCPCS: 81003